=== PATIENT | female | born 1960 | race Caucasian/White ===

== ENCOUNTER 2016-06-10 19:51 | Emergency (ER) | payer OTHER ==
[2016-06-10 20:08] VITALS: BP 98/82
[2016-06-10 21:31] LABS: Hematocrit 41 % (35-47); Mean Corpuscular HGB Conc 34 g/dl (31-36); Mean Corpuscular Hemoglobin 34 pg (27-31); Mean Corpuscular Volume 100 fL (80-97); Mean Platelet Volume 7 um3 (7.4-10.4); Red Blood Count 4.11 10^6/ul (4.0-5.4); Red Cell Distribution Width 14 % (10.5-15); White Blood Count 8.6 10^3/ul (3.5-10.8)
[2016-06-10 21:46] LABS: ALT 11 U/L (7-52); Albumin 4.5 g/dL (3.2-5.2); Alkaline Phosphatase 51 U/L (34-104); BUN/Creatinine Ratio 19.6 (8-20); Blood Urea Nitrogen 19 mg/dL (6-24); CO2 Carbon Dioxide 23 mmol/L (22-32); Calcium 9.6 mg/dL (8.6-10.3); Chloride 105 mmol/L (101-111); Creatine Kinase 100 U/L (10-223); EGFR Non-African American 59.8 (>60); Globulin 2.8 g/dL (2-4); Glucose 93 mg/dL (70-100); Sodium 138 mmol/L (133-145); Total Protein 7.3 g/dL (6.4-8.9)
--- NOTE | 2016-06-10 21:48 | RAD ---
INDICATION: Altered mental status. COMPARISON: There are no prior studies available for comparison. TECHNIQUE: A portable view of the chest was obtained. FINDINGS: Cardiac and mediastinal contours appear to be within normal limits. There is a nodular density which projects over the right upper lobe measuring 1.7 cm in size. This is possibly related to the right first rib. The lungs are otherwise clear. No pleural effusion is seen. IMPRESSION: 1. POSSIBLE RIGHT UPPER LOBE NODULAR DENSITY. RECOMMEND DUAL-ENERGY PA AND LATERAL CHEST FILMS FOR FURTHER EVALUATION. 2. NO EVIDENCE FOR ACUTE FINDING.
[2016-06-10 21:58] LABS: Acetaminophen < 15 mcg/mL; Alcohol 337 mg/dL (<10); Salicylate < 2.50 mg/dL (<30)
--- NOTE | 2016-06-10 22:03 | RAD ---
INDICATION: Head injury, altered mental status. COMPARISON: Comparison is made with a prior CT of the brain from November 16, 2013. TECHNIQUE: Contiguous axial sections of the brain were obtained from the skull base to the vertex without contrast. FINDINGS: The ventricles, cisterns and sulci are enlarged consistent with age-related atrophy. No significant focal abnormality or mass effect is seen. There is no evidence for hemorrhage. There is focal soft tissue swelling in the scalp adjacent to the lateral aspect of the right frontal bone. No fracture is seen. The visualized portion of the paranasal sinuses and mastoid air cells appear clear. IMPRESSION: 1. NO EVIDENCE FOR ACUTE INTRACRANIAL ABNORMALITY. 2. SOFT TISSUE SWELLING IN THE SCALP ADJACENT TO THE RIGHT FRONTAL BONE, NO FRACTURE IS SEEN.
[2016-06-10 22:08] LABS: TSH (Thyroid Stimulating Horm) 0.96 mcIU/mL (0.34-5.60)
--- NOTE | 2016-06-11 01:18 | ED ---
Lani Patel Erika, scribed for Eris Carter MD on 06/10/16 at 2152 . Adult Trauma - HPI Summary HPI Summary: Patient is a 56-year-old female presenting to the ED with a CC of multiple abrasions and spots of ecchymosis. When asked what happened today, she states " I am what I am," and reports she cannot remember how she became injured and states "and I don't really care." Pt denies all pain. She presented herself to the [facility], and was brought to the ED. Hx breast cancer - in remission. Pt drinks daily. LEVEL 5 CAVEAT - Pt unable to provide a history. - History of Current Complaint Chief Complaint: EDAltMentalStatus Stated Complaint: FALL Time Seen by Provider: 06/10/16 21:15 Hx Obtained From: Patient Mechanism of Injury: Unknown Onset/Duration: Traumatic Pain Intensity: 0 Pain Scale Used: 0-10 Numeric Associated Signs & Symptoms: Positive: Ecchymosis, Other: - abrasions - Allergy/Home Medications Allergies/Adverse Reactions: Allergies Allergy/AdvReac Type Severity Reaction Status Date / Time Adhesive Tape Allergy Rash Verified 09/22/15 11:05 PMH/Surg Hx/FS Hx/Imm Hx Endocrine/Hematology History: Denies: Hx Anticoagulant Therapy, Hx Blood Transfusions, Hx Diabetes, Hx Thyroid Disease, Other Endocrine/Hematological Disorders Cardiovascular History: Reports: Hx Syncope - rare Denies: Hx Pacemaker/ICD, Other Cardiovascular Problems/Disorders Respiratory History: Reports: Hx Seasonal Allergies Denies: Hx Asthma, Hx Chronic Bronchitis, Hx Chronic Obstructive Pulmonary Disease (COPD), Hx Lung Cancer, Hx Pneumonia, Other Respiratory Problems/ Disorders GI History: Denies: Hx Ulcer, Other GI Disorders History: Denies: Hx Kidney Stones, Other Problems/Disorders Musculoskeletal History: Reports: Hx Arthritis - hands Denies: Hx Back Problems, Other Musculoskeletal History Sensory History: Reports: Hx Contacts or Glasses Denies: Hx Hearing Aid, Other Sensory Impairments Opthamlomology History: Reports: Hx Contacts or Glasses Denies: Other Sensory Impairments Neurological History: Reports: Hx Headaches, Hx Seizures - last 2013, undiagnosed disorder, Other Neuro Impairments/Disorders - Shaky from ETOH withdrawal Psychiatric History: Reports: Hx Anxiety, Hx Eating Disorder - bolemia, in youth , briefly, Hx Depression, Hx Panic Disorder - panic attacks when young, Hx Inpatient Treatment, Hx Community Mental Health Tx, Hx Substance Abuse, Other Psychiatric Issues/Disorders - ETOH Abuse Denies: Hx Attention Deficit Hyperactivity Disorder, Hx Post Traumatic Stress Disorder, Hx Schizophrenia, Hx Bipolar Disorder, Hx Suicide Attempt - Thoughts-presently, Hx of Violent Episodes Against Others - Cancer History Cancer Type, Location and Year: breast cancer Hx Hematologic Symptoms: No Hx Chemotherapy: Yes Hx Radiation Therapy: Yes - Surgical History Surgery Procedure, Year, and Place: Bilat Thumb Fusion. Bilat Carpal Tunnel Surgery. LEFT Breast Lumpectomy. ACL Sx left knee Hx Anesthesia Reactions: No - Immunization History Date of Tetanus Vaccine: Unk Date of Influenza Vaccine: Fall 2014 Infectious Disease History: No Infectious Disease History: Denies: History Other Infectious Disease, Traveled Outside the [place] in Last 30 Days - Family History Known Family History: Positive: Unknown - pt adopted - Social History Alcohol Use: Daily Alcohol Amount: HX ETOH ABUSE - STILL DRINKS Hx Substance Use: No Substance Use Type: Reports: None Substance Use Comment - Amount & Last Used: pt last requested benzos in ED on , 07/21 per plastic surgery coordinator Hx Tobacco Use: Yes Smoking Status (MU): Current Some Day Smoker Type: Cigarettes Have You Smoked in the Last Year: No Review of Systems - ROS Summary Review of Systems Summary: LEVEL 5 CAVEAT - Pt unable to provide a history. Skin: Other - abrasions Positive: Bruising Neurological: Other - unable to remember history All Other Systems Reviewed And Are Negative: No Physical Exam - Summary Physical Exam Summary: LEVEL 5 CAVEAT - Pt unable to provide a history. Triage Information Reviewed: Yes Vital Signs On Initial Exam: Initial Vitals Temp Pulse Resp BP Pulse Ox 97.1 F 83 15 98/82 100 06/10/16 20:02 06/10/16 20:02 06/10/16 20:02 06/10/16 20:02 06/10/16 20:02 Vital Signs Reviewed: Yes Appearance: Positive: Well-Appearing, No Pain Distress Skin: Positive: Warm, Skin Color Reflects Adequate Perfusion, Dry, Other - Abrasions @ nose, left eyebrow Head/Face: Positive: Other - see Skin Eyes: Positive: Normal ENT: Positive: Normal ENT inspection Neck: Positive: Supple, Nontender Respiratory/Lung Sounds: Positive: Clear to Auscultation, Breath Sounds Present Cardiovascular: Positive: RRR Abdomen Description: Positive: Nontender, Soft Bowel Sounds: Positive: Present Musculoskeletal: Positive: Normal Neurological: Positive: Other - Unable to recall events Psychiatric: Positive: Other - Unable to recall events Diagnostics - Vital Signs Vital Signs Temp Pulse Resp BP Pulse Ox 06/10/16 20:02 97.1 F 83 15 98/82 100 - Laboratory Lab Results: Lab Results 06/10/16 06/10/16 06/10/16 Range/Units 21:10 21:10 21:10 WBC 8.6 (3.5-10.8) 10^3/ul RBC 4.11 (4.0-5.4) 10^6/ul Hgb 14.0 (12.0-16.0) g/dl Hct 41 (35-47) % MCV 100 H (80-97) fL MCH 34 H (27-31) pg MCHC 34 (31-36) g/dl RDW 14 (10.5-15) % Plt Count 198 (150-450) 10^3/ul MPV 7 L (7.4-10.4) um3 Neut % (Auto) 62.0 (38-83) % Lymph % (Auto) 28.1 (25-47) % Kingman % (Auto) 7.8 (1-9) % Eos % (Auto) 1.0 (0-6) % Baso % (Auto) 1.1 (0-2) % Absolute Neuts (auto) 5.3 (1.5-7.7) 10^3/ul Absolute Lymphs (auto) 2.4 (1.0-4.8) 10^3/ul Absolute Monos (auto) 0.7 (0-0.8) 10^3/ul Absolute Eos (auto) 0.1 (0-0.6) 10^3/ul Absolute Basos (auto) 0.1 (0-0.2) 10^3/ul Absolute Nucleated RBC 0.01 10^3/ul Nucleated RBC % 0.2 Sodium 138 (133-145) mmol/L Potassium TNP Chloride 105 (101-111) mmol/L Carbon Dioxide 23 (22-32) mmol/L Anion Gap TNP BUN 19 (6-24) mg/dL Creatinine 0.97 H (0.51-0.95) mg/dL Est GFR ( Amer) 77.0 (>60) Est GFR (Non-Af Amer) 59.8 (>60) BUN/Creatinine Ratio 19.6 (8-20) Glucose 93 (70-100) mg/dL Lactic Acid (0.5-2.0) mmol/L Calcium 9.6 (8.6-10.3) mg/dL Total Bilirubin 0.30 (0.2-1.0) mg/dL AST TNP ALT 11 (7-52) U/L Alkaline Phosphatase 51 (34-104) U/L Ammonia 40 (16-53) mol/L Total Creatine Kinase 100 (10-223) U/L Troponin I 0.00 (<0.04) ng/mL Total Protein 7.3 (6.4-8.9) g/dL Albumin 4.5 (3.2-5.2) g/dL Globulin 2.8 (2-4) g/dL Albumin/Globulin Ratio 1.6 (1-3) TSH 0.96 (0.34-5.60) mcIU/mL Salicylates < 2.50 (<30) mg/dL Acetaminophen < 15 mcg/mL Serum Alcohol 337 H (<10) mg/dL 06/10/16 06/10/16 Range/Units 21:10 22:15 WBC (3.5-10.8) 10^3/ul RBC (4.0-5.4) 10^6/ul Hgb (12.0-16.0) g/dl Hct (35-47) % MCV (80-97) fL MCH (27-31) pg MCHC (31-36) g/dl RDW (10.5-15) % Plt Count (150-450) 10^3/ul MPV (7.4-10.4) um3 Neut % (Auto) (38-83) % Lymph % (Auto) (25-47) % Kingman % (Auto) (1-9) % Eos % (Auto) (0-6) % Baso % (Auto) (0-2) % Absolute Neuts (auto) (1.5-7.7) 10^3/ul Absolute Lymphs (auto) (1.0-4.8) 10^3/ul Absolute Monos (auto) (0-0.8) 10^3/ul Absolute Eos (auto) (0-0.6) 10^3/ul Absolute Basos (auto) (0-0.2) 10^3/ul Absolute Nucleated RBC 10^3/ul Nucleated RBC % Sodium (133-145) mmol/L Potassium TNP Chloride (101-111) mmol/L Carbon Dioxide (22-32) mmol/L Anion Gap BUN (6-24) mg/dL Creatinine (0.51-0.95) mg/dL Est GFR ( Amer) (>60) Est GFR (Non-Af Amer) (>60) BUN/Creatinine Ratio (8-20) Glucose (70-100) mg/dL Lactic Acid 1.5 (0.5-2.0) mmol/L Calcium (8.6-10.3) mg/dL Total Bilirubin (0.2-1.0) mg/dL AST TNP ALT (7-52) U/L Alkaline Phosphatase (34-104) U/L Ammonia (16-53) mol/L Total Creatine Kinase (10-223) U/L Troponin I (<0.04) ng/mL Total Protein (6.4-8.9) g/dL Albumin (3.2-5.2) g/dL Globulin (2-4) g/dL Albumin/Globulin Ratio (1-3) TSH (0.34-5.60) mcIU/mL Salicylates (<30) mg/dL Acetaminophen mcg/mL Serum Alcohol (<10) mg/dL Result Diagrams: 06/10/16 21:10 06/10/16 22:15 Lab Statement: Any lab studies that have been ordered have been reviewed, and results considered in the medical decision making process. - Radiology CXR Radiology Interpretation Completed By: Radiologist - 1. POSSIBLE RIGHT UPPER LOBE NODULAR DENSITY. RECOMMEND DUAL-ENERGY PA AND LATERAL CHEST FILMS FOR FURTHER EVALUATION. 2. NO EVIDENCE FOR ACUTE FINDING. - CT CT Brain CT Interpretation Completed By: Radiologist - IMPRESSION: 1. NO EVIDENCE FOR ACUTE INTRACRANIAL ABNORMALITY. 2. SOFT TISSUE SWELLING IN THE SCALP ADJACENT TO THE RIGHT FRONTAL BONE, NO FRACTURE IS SEEN. - EKG 22:10 Cardiac Rate: NL - at 76 bpm EKG Rhythm: Sinus Rhythm Adult Trauma Course/Dx - Course Course Of Treatment: Nata Corado presented to the ED intxicated and covered in abrasions and contusions. She was unable or unwilling to relate what had happened to her. She is being observed at this time for her safety until she estrellita up and can be better evaulated. - Diagnoses Provider Diagnoses: Alcohol intoxication, Multiple abrasions, Multiple contusions - Physician Notifications Discussed Care Of Patient With: Dr. Sorto Time Discussed With Above Provider: 01:00 - Change of shift Discharge - Discharge Plan Condition: Stable Disposition: HOME Patient Education Materials: Alcohol Intoxication (ED), Abrasion (ED) Referrals: Simone Jeter MD [Primary Care Provider] - The documentation as recorded by the Lani bhatt Erika accurately reflects the service I personally performed and the decisions made by me, Eris Carter MD.
== END 2016-06-11 06:09 | disposition home or self-care (01) ==
LOC: ED 19:51
DX: F10.129 Alcohol abuse with intoxication, unspecified (principal); T14.8 Other injury of unspecified body region; Y90.8 Blood alcohol level of 240 mg/100 ml or more; Z85.3 Personal history of malignant neoplasm of breast
CPT/HCPCS: 36415; 70450; 71010; 80053; 80320; 80329; 82140; 82550; 83605; 84443; 84484; 85025; 93005; 99282; G0480

== ENCOUNTER 2016-09-09 08:38 | Emergency (ER) | payer OTHER ==
[2016-09-09 08:54] VITALS: BP 121/90
--- NOTE | 2016-09-09 09:53 | UC ---
Nish Patel Auryana, scribed for Servando Boone MD on 09/09/16 at 0914 . Complaint Female HPI - HPI Summary HPI Summary: 56 year old female presents with U.T.I. starting last night, worse this morning. She also reports increased urinary frequency and odor but denies fever , chills, flank pain, or any dysuria or burning with urination. PMHx is significant for prior U.R.I.s - History Of Current Complaint Chief Complaint: UCGU Stated Complaint: UTI COMPLAINT Time Seen by Provider: 09/09/16 09:09 Hx Obtained From: Patient Hx Last Menstrual Period: N/A ?: No Onset/Duration: Sudden Onset - last night, Lasting Hours - about 12 hours ago, Still Present, Worse Since - this morning Timing: Constant Severity Initially: Mild Severity Currently: Mild Pain Intensity: 0 - denies pain Pain Scale Used: 0-10 Numeric Character: Colicy - pressure over bladder Aggravating Factor(s): Nothing Alleviating Factor(s): Nothing Associated Signs And Symptoms: Positive: Negative - see HPI. Negative: Fever Related Hx: Similar Episode/Dx as: - prior PMHx of U.T.I.s - Allergies/Home Medications Allergies/Adverse Reactions: Allergies Allergy/AdvReac Type Severity Reaction Status Date / Time Adhesive Tape Allergy Rash Verified 07/03/16 11:07 PMH/Surg Hx/FS Hx/Imm Hx Endocrine History Of: Denies: Diabetes, Thyroid Disease Cardiovascular History Of: Denies: Hypertension, Pacemaker/ICD Respiratory History Of: Denies: COPD, Asthma, Pneumonia GI/ History Of: Denies: Ulcer, Kidney Stones, Renal Disease Neurological History Of: Reports: Seizures - last 2013, undiagnosed disorder Psychological History Of: Reports: Anxiety, Depression Denies: Bipolar Disorder, Schizophrenia Cancer History Of: 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 Bilat Carpal Tunnel Surgery. LEFT Breast Lumpectomy. LEFT KNEE ARTHROSCOPIC SURGERY. ACL Sx left knee - Family History Known Family History: Positive: None, Unknown - pt adopted - Social History Occupation: Unemployed Lives: With Family - Alcohol Use: None Alcohol Amount: recovering Substance Use Type: None Substance Use Comment - Amount & Last Used: pt last requested benzos in ED on , 07/21 per manager news Smoking Status (MU): Never Smoked Tobacco Type: Cigarettes Have You Smoked in the Last Year: No When Did the Patient Quit Smoking/Using Tobacco: 20 YEARS AGO - Immunization History Most Recent Influenza Vaccination: 2014 Most Recent Tetanus Shot: unk Most Recent Pneumonia Vaccination: never Review of Systems Constitutional: Negative Skin: Negative Eyes: Negative ENT: Negative Respiratory: Negative Cardiovascular: Negative Gastrointestinal: Negative Genitourinary: Urgency - increased, Other - odor with urination Motor: Negative Neurovascular: Negative Musculoskeletal: Negative Neurological: Negative Psychological: Negative All Other Systems Reviewed And Are Negative: Yes Physical Exam Triage Information Reviewed: Yes Appearance: No Pain Distress, Well-Nourished Vital Signs: Initial Vital Signs Temp 97.8 F 09/09/16 08:46 Pulse 88 09/09/16 08:46 Resp 16 09/09/16 08:46 BP 121/90 09/09/16 08:46 Pulse Ox 100 09/09/16 08:46 Vital Signs Reviewed: Yes Eyes: Positive: Conjunctiva Clear Respiratory: Positive: Lungs clear, Normal breath sounds Cardiovascular: Positive: RRR, No Murmur Abdomen Description: Positive: Soft, Other: - subrapubic tenderness - mild Bowel Sounds: Positive: Present Musculoskeletal: Positive: Strength Intact, ROM Intact Neurological: Positive: Alert Psychological: Positive: Age Appropriate Behavior Complaint Female Dx - Course Course Of Treatment: RX CIPRO/PYRIDIUM - Differential Dx/Diagnosis Provider Diagnoses: UTI Discharge - Discharge Plan Condition: Stable Disposition: HOME Prescriptions: Ciprofloxacin TAB* [Cipro 500 MG TAB*] 500 mg PO BID #14 tab Phenazopyridine 200 mg (NF) [Pyridium 200 MG tab] 200 mg PO TID PRN #6 tab PRN Reason: Pain Patient Education Materials: Urinary Tract Infection in Women (ED) Referrals: Simone Jeter MD [Primary Care Provider] - If Needed Additional Instructions: Please see your PCP if your symptoms worsen or do not improve. The documentation as recorded by the Nish bhatt Auryana accurately reflects the service I personally performed and the decisions made by , Servando Boone MD.
== END 2016-09-09 09:29 | disposition home or self-care (01) ==
LOC: UCEAST 08:38
DX: N39.0 Urinary tract infection, site not specified (principal); F41.8 Other specified anxiety disorders; Z85.3 Personal history of malignant neoplasm of breast
CPT/HCPCS: 81003; 87077; 87086; 87186; 99212; G0463

== ENCOUNTER 2017-04-16 15:06 | Emergency (ER) | payer OTHER ==
[2017-04-16 16:04] LABS: Hematocrit 42 % (35-47); Mean Corpuscular HGB Conc 34 g/dl (31-36); Mean Corpuscular Hemoglobin 33 pg (27-31); Mean Corpuscular Volume 99 fL (80-97); Mean Platelet Volume 6 um3 (7.4-10.4); Red Blood Count 4.24 10^6/ul (4.0-5.4); Red Cell Distribution Width 18 % (10.5-15); White Blood Count 4.7 10^3/ul (3.5-10.8)
[2017-04-16 16:12] LABS: Comments Flag Yes
[2017-04-16 16:13] LABS: Add Diff/Slide Review? Slide Review Added
[2017-04-16 16:20] LABS: ALT 14 U/L (7-52); AST 31 U/L (13-39); Albumin 4.4 g/dL (3.2-5.2); Alkaline Phosphatase 71 U/L (34-104); Anion Gap 13 mmol/L (2-11); BUN/Creatinine Ratio 13.6 (8-20); Blood Urea Nitrogen 11 mg/dL (6-24); CO2 Carbon Dioxide 27 mmol/L (22-32); Calcium 8.7 mg/dL (8.6-10.3); Chloride 103 mmol/L (101-111); EGFR African American 94.4 (>60); EGFR Non-African American 73.4 (>60); Globulin 2.9 g/dL (2-4); Glucose 96 mg/dL (70-100); Magnesium 2.1 mg/dL (1.9-2.7); Potassium 3.5 mmol/L (3.5-5.0); Sodium 143 mmol/L (133-145); Total Protein 7.3 g/dL (6.4-8.9)
[2017-04-16 16:24] LABS: Acetaminophen < 15 mcg/mL; Salicylate < 2.50 mg/dL (<30)
--- NOTE | 2017-04-16 16:29 | RAD ---
indication: Altered mental status with for head abrasion. +EtOH. COMPARISON: CT of the brain dated June 10, [address] scan of the brain and c-spine was performed without intravenous contrast enhancement. Contiguous axial sections were obtained from the lung apices through the vertex. BRAIN: The ventricles, cisterns and sulci are within normal limits. No significant focal abnormality or mass effect is seen. The mendez-white differentiation is adequately maintained. There is no evidence for intracranial hemorrhage. No significant bony abnormality is present. The mastoid air cells are appropriately aerated. The visualized paranasal sinuses are clear. C-SPINE: On the sagittal view images there is reversal of the normal cervical lordosis. The vertebral bodies and facet joints are otherwise appropriately aligned. Multilevel degenerative changes of the cervical spine include loss of intervertebral disc height from C3 through C6 where there is also marginal osteophyte formation. At the same levels there is uncovertebral hypertrophy seen on the coronal plane images. There is no prevertebral soft tissue swelling. There is no hyperdense material in the cervical canal to indicate hemorrhage. The visualized musculature and soft tissues are normal. There is no gross lymphadenopathy visualized. The visualized portion of the lung apices are clear. IMPRESSION: 1. No calvarial fracture or acute intracranial hemorrhage. 2. Nonspecific reversal of the normal cervical lordosis and multilevel degenerative changes without definite fracture or dislocation cervical spine.
[2017-04-16 16:32] LABS: Alcohol 478 mg/dL (<10); TSH (Thyroid Stimulating Horm) 1.07 mcIU/mL (0.34-5.60)
[2017-04-16] MEDS ORDERED: NS 0.9% 1000 ML* 1,000 ML IV ONE (16:43)
--- NOTE | 2017-04-16 22:48 | ED ---
Parminder Patel Gabriel, scribed for Nidia Griffith MD on 04/16/17 at 1614 . Substance Abuse/Use - HPI Summary HPI Summary: This patient is a 57 year old F BIBA to [facility] after she was found passed out on her couch. EMS reports that when they found her she had a of a bottle of vodka near her. We waited several hours for the patients blood alcohol level to drop because initially she was unresponsive. At this point the pt reports anxiety and depression that she is taking medication for. Patient denies RHOADES, ear pain, neck pain, ABD pain, back pain, sob, dysuria, melena, and hematuria. Pt says drinks to excess often and has since she was able to drink. She also has some facial ecchymosis from a fall she claims was weeks ago. . - History Of Current Complaint Chief Complaint: EDSubstanceAbuse Stated Complaint: ETOH Time Seen by Provider: 04/16/17 15:13 Hx Obtained From: Patient Hx Last Menstrual Period: N/A Onset/Duration of Drug/ETOH Abuse: Years - since she could drink Overdose Characteristics: Oral Timing Of Abuse: Daily Associated Signs And Symptoms: Negative - RHOADES, ear pain, neck pain, ABD pain, back pain, sob, dysuria, melena, and blood in her stool, Other: - anxiety and depression - Allergies/Home Medications Allergies/Adverse Reactions: Allergies Allergy/AdvReac Type Severity Reaction Status Date / Time Adhesive Tape Allergy Rash Verified 07/03/16 11:07 PMH/Surg Hx/FS Hx/Imm Hx Previously Healthy: No Endocrine/Hematology History: Denies: Hx Anticoagulant Therapy, Hx Blood Transfusions, Hx Diabetes, Hx Thyroid Disease, Other Endocrine/Hematological Disorders Cardiovascular History: Reports: Hx Syncope - rare Denies: Hx Hypertension, Hx Pacemaker/ICD, Other Cardiovascular Problems/ Disorders Respiratory History: Reports: Hx Seasonal Allergies Denies: Hx Asthma, Hx Chronic Bronchitis, Hx Chronic Obstructive Pulmonary Disease (COPD), Hx Lung Cancer, Hx Pneumonia, Other Respiratory Problems/ Disorders GI History: Denies: Hx Ulcer, Other GI Disorders History: Denies: Hx Kidney Stones, Hx Renal Disease, Other Problems/Disorders Musculoskeletal History: Reports: Hx Arthritis - hands Denies: Hx Back Problems, Other Musculoskeletal History Sensory History: Reports: Hx Contacts or Glasses Denies: Hx Hearing Aid, Other Sensory Impairments Opthamlomology History: Reports: Hx Contacts or Glasses Denies: Other Sensory Impairments Neurological History: Reports: Hx Headaches, Hx Seizures - last 2013, undiagnosed disorder, Other Neuro Impairments/Disorders - Shaky from ETOH withdrawal Psychiatric History: Reports: Hx Anxiety, Hx Eating Disorder - bolemia, in youth , briefly, Hx Depression, Hx Inpatient Treatment, Hx Community Mental Health Tx , Hx Substance Abuse, Other Psychiatric Issues/Disorders - ETOH Abuse Denies: Hx Attention Deficit Hyperactivity Disorder, Hx Panic Disorder, Hx Post Traumatic Stress Disorder, Hx Schizophrenia, Hx Bipolar Disorder, Hx Suicide Attempt - Thoughts-presently, Hx of Violent Episodes Against Others - Cancer History Cancer Type, Location and Year: breast cancer=left Hx Hematologic Symptoms: No Hx Chemotherapy: Yes Hx Radiation Therapy: Yes - Surgical History Surgery Procedure, Year, and Place: Bilat Thumb Fusion. Bilat Carpal Tunnel Surgery. LEFT Breast Lumpectomy. LEFT KNEE ARTHROSCOPIC SURGERY. ACL Sx left knee Hx Anesthesia Reactions: No - Immunization History Date of Tetanus Vaccine: Unk Date of Influenza Vaccine: Fall 2014 Infectious Disease History: Unable to Obtain/Confirm Infectious Disease History: Denies: History Other Infectious Disease, Traveled Outside the [place] in Last 30 Days - Family History Known Family History: Positive: Unknown - pt adopted - Social History Alcohol Use: found smelling of ETOH with vodka at her side Alcohol Amount: recovering Hx Substance Use: No Substance Use Type: Reports: None, Other Substance Use Comment - Amount & Last Used: pt last requested benzos in ED on , 07/21 per turbine assembler Hx Tobacco Use: Yes Smoking Status (MU): Unknown if Ever Smoked Type: Cigarettes Have You Smoked in the Last Year: No Review of Systems Constitutional: Other - EtOH intoxication Negative: Fever, Chills Negative: Blurred Vision Negative: Ear Ache Negative: Shortness Of Breath Negative: Abdominal Pain Genitourinary: Negative - melena Negative: dysuria, hematuria Musculoskeletal: Negative - neck and back pain Negative: Headache Positive: Anxious, Depressed All Other Systems Reviewed And Are Negative: No Physical Exam - Summary Physical Exam Summary: Appearance: Alert, conversive, nontoxic appearing Skin: Warm, dry, no mottling, no rashes, no contusions HEENT: EOMI, PERRL, moist mucous membranes No septal hematoma. No hemotympanum Bruising to upper eyelid to right and abrasion with dried blood on right brow Neck: No masses on the neck, supple Respiratory: Clear to auscultation, breath sounds present, no rales, no rhonchi , no wheezes Cardiovascular: RRR, pulses are symmetrical in both lower and upper extremities Abdomen: Soft, non-tender Bowel Sounds: Present Musculoskeletal: No CVA tenderness, no obvious deformity, moving all extremities in a grossly normal manner Old healing bruises on her bilateral LE Neurological: A&Ox3, CN II-XII Intact, moving all extremities symmetrically Psychiatric: Normal affect and mood Triage Information Reviewed: Yes Vital Signs On Initial Exam: Initial Vitals Temp Pulse Resp BP Pulse Ox 97.6 F 120 16 121/83 95 04/16/17 15:13 04/16/17 15:13 04/16/17 15:13 04/16/17 15:13 04/16/17 15:13 Vital Signs Reviewed: Yes - [place] Coma Scale Coma Scale Total: 10 Diagnostics - Vital Signs Vital Signs Temp Pulse Resp BP Pulse Ox 04/16/17 15:30 121 17 130/96 95 04/16/17 15:18 20 04/16/17 15:16 121/83 04/16/17 15:13 97.6 F 120 16 121/83 95 - Laboratory Lab Results: Lab Results 04/16/17 Range/Units 15:20 WBC 4.7 (3.5-10.8) 10^3/ul RBC 4.24 (4.0-5.4) 10^6/ul Hgb 14.0 (12.0-16.0) g/dl Hct 42 (35-47) % MCV 99 H (80-97) fL MCH 33 H (27-31) pg MCHC 34 (31-36) g/dl RDW 18 H (10.5-15) % Plt Count 265 (150-450) 10^3/ul MPV 6 L (7.4-10.4) um3 Neut % (Auto) 24.1 L (38-83) % Lymph % (Auto) 65.1 H (25-47) % Irwin % (Auto) 8.0 (1-9) % Eos % (Auto) 1.2 (0-6) % Baso % (Auto) 1.6 (0-2) % Absolute Neuts (auto) 1.1 L (1.5-7.7) 10^3/ul Absolute Lymphs (auto) 3.0 (1.0-4.8) 10^3/ul Absolute Monos (auto) 0.4 (0-0.8) 10^3/ul Absolute Eos (auto) 0.1 (0-0.6) 10^3/ul Absolute Basos (auto) 0.1 (0-0.2) 10^3/ul Absolute Nucleated RBC 0 10^3/ul Nucleated RBC % 0 Result Diagrams: 04/16/17 15:20 04/16/17 15:20 Lab Statement: Any lab studies that have been ordered have been reviewed, and results considered in the medical decision making process. - CT CT C-spine CT Interpretation Completed By: Radiologist - 1. No calvarial fracture or acute intracranial hemorrhage. 2. Nonspecific reversal of the normal cervical lordosis and multilevel degenerative changes without definite fracture or dislocation cervical spine. CT Brain CT Interpretation Completed By: Radiologist - 1. No calvarial fracture or acute intracranial hemorrhage. 2. Nonspecific reversal of the normal cervical lordosis and multilevel degenerative changes without definite fracture or dislocation cervical spine. - EKG 1525 Cardiac Rate: Tachycardia EKG Rhythm: Sinus Tachycardia - at 119 BPM EKG Interpretation: Prolonged QRS, normal QRS, normal QCT, Normal ST/T wave Course/Dx - Course Assessment/Plan: Pt is an alcoholic. Initially, pt was unable to give hx. ct head and cspine showed no acute findings. no fractures or ich. her etoh was elevated at 478. when pt awoke at approx 10pm, she admitted to being an alcoholic. she has no interest in alcohol rehab programs. pt states she has no one to call to pick her up. I discussed with her that we will allow her to sleep overnight until she estrellita up. At that point, she will be reevaluated and discharged accordingly. Pt voiced understanding of instructions. It is important to note that pt has a moderate size abrasion to her right face with dried blood. pt states that this occurred 3 days ago. I will not disturb the clot at this point. Even though pt does not want to become sober, I still encouraged her to get help and start a detox program. Patient is signed out to Dr. Harden, pending disposition, awaiting blood level of EtOH so she can return home. - Diagnoses Provider Diagnoses: Alcohol abuse, Alcohol intoxication, Fall, Facial abrasion Discharge - Discharge Plan Condition: Stable Disposition: OTHER Discharge Disposition Comment: pt signed out Referrals: Simone Jeter MD [Primary Care Provider] - The documentation as recorded by the Parminder bhatt Gabriel accurately reflects the service I personally performed and the decisions made by me, Nidia Griffith MD.
[2017-04-17 07:29] VITALS: BP 136/78
== END 2017-04-17 08:10 | disposition home or self-care (01) ==
LOC: ED 15:06
DX: F10.129 Alcohol abuse with intoxication, unspecified (principal); S00.81XA Abrasion of other part of head, initial encounter; W19.XXXA Unspecified fall, initial encounter; Y93.9 Activity, unspecified; Y92.9 Unspecified place or not applicable; F41.9 Anxiety disorder, unspecified
CPT/HCPCS: 36415; 70450; 72125; 80053; 80320; 80329; 83735; 84443; 85025; 93005; 99282; G0480

== ENCOUNTER 2017-06-01 18:27 | Observation (INO) | payer OTHER ==
--- NOTE | 2017-06-01 19:13 | ED ---
Substance Abuse/Use - HPI Summary HPI Summary: 57 female presents to ED brought in by police after being found intoxicated at [facility]. EMS found a 1.5liter of vodka empty. Patient denies any other drug use. Patient offers no complaints at this time. Is alert however chooses to not answer some questions. Patient lives at [place]. Does orient and know she is in the hospital. Denies medication use and PMHx however HPI is limited due to Level 5 caveat due to intoxication and being uncooperative. Staff at [facility] told EMS/police patient has been drinking all day. Denies drinking alcohol in intention to hurt herself. Denies nausea, vomiting, headache, abdominal pain, chest pain and trouble breathing. No complaints. Does not answer frequency of alcohol use. According to previous records does show patient was a recovering alcoholic. Denies falling and/or trauma and no report of. - History Of Current Complaint Chief Complaint: EDSubstanceAbuse Stated Complaint: 2208 Time Seen by Provider: 06/01/17 18:49 Hx Obtained From: Patient Hx Last Menstrual Period: N/A ?: No Onset/Duration of Drug/ETOH Abuse: Hours Ingestion History: Type/Name Of Drug - vodka, Amount Ingested - ~1.5 Overdose Characteristics: Oral Severity Currently: None Character: Stuporous - slightly slurred speech Aggravating Factor(s): Nothing Alleviating Factor(s): Nothing Associated Signs And Symptoms: Agitated, Drooling, Intentional Ingestion - Allergies/Home Medications Allergies/Adverse Reactions: Allergies Allergy/AdvReac Type Severity Reaction Status Date / Time Adhesive Tape Allergy Rash Verified 06/01/17 18:39 Home Medications: Home Medications FLUoxetine CAP* [PROzac CAP*] 20 mg PO DAILY 06/01/17 [History Confirmed ] Thiamine TAB* [Vitamin B-1 TAB*] 100 mg PO DAILY 06/01/17 [History Confirmed ] PMH/Surg Hx/FS Hx/Imm Hx Endocrine/Hematology History: Denies: Hx Anticoagulant Therapy, Hx Blood Transfusions, Hx Diabetes, Hx Thyroid Disease, Other Endocrine/Hematological Disorders Cardiovascular History: Reports: Hx Syncope - rare Denies: Hx Hypertension, Hx Pacemaker/ICD, Other Cardiovascular Problems/ Disorders Respiratory History: Reports: Hx Seasonal Allergies Denies: Hx Asthma, Hx Chronic Bronchitis, Hx Chronic Obstructive Pulmonary Disease (COPD), Hx Lung Cancer, Hx Pneumonia, Other Respiratory Problems/ Disorders GI History: Denies: Hx Ulcer, Other GI Disorders History: Denies: Hx Kidney Stones, Hx Renal Disease, Other Problems/Disorders Musculoskeletal History: Reports: Hx Arthritis - hands Denies: Hx Back Problems, Other Musculoskeletal History Sensory History: Reports: Hx Contacts or Glasses Denies: Hx Hearing Aid, Other Sensory Impairments Opthamlomology History: Reports: Hx Contacts or Glasses Denies: Other Sensory Impairments Neurological History: Reports: Hx Headaches, Hx Seizures - last 2013, undiagnosed disorder, Other Neuro Impairments/Disorders - Shaky from ETOH withdrawal Psychiatric History: Reports: Hx Anxiety, Hx Eating Disorder - bolemia, in youth , briefly, Hx Depression, Hx Inpatient Treatment, Hx Community Mental Health Tx , Hx Substance Abuse, Other Psychiatric Issues/Disorders - ETOH Abuse Denies: Hx Attention Deficit Hyperactivity Disorder, Hx Panic Disorder, Hx Post Traumatic Stress Disorder, Hx Schizophrenia, Hx Bipolar Disorder, Hx Suicide Attempt - Thoughts-presently, Hx of Violent Episodes Against Others - Cancer History Cancer Type, Location and Year: breast cancer=left Hx Hematologic Symptoms: No Hx Chemotherapy: Yes Hx Radiation Therapy: Yes - Surgical History Surgery Procedure, Year, and Place: Bilat Thumb Fusion. Bilat Carpal Tunnel Surgery. LEFT Breast Lumpectomy. LEFT KNEE ARTHROSCOPIC SURGERY. ACL Sx left knee Hx Anesthesia Reactions: No - Immunization History Date of Tetanus Vaccine: Unk Date of Influenza Vaccine: Fall 2014 Immunizations Up to Date: Yes Infectious Disease History: Unable to Obtain/Confirm Infectious Disease History: Denies: History Other Infectious Disease, Traveled Outside the [place] in Last 30 Days - Family History Known Family History: Positive: None, Unknown - pt adopted - Social History Alcohol Use: Daily Alcohol Amount: recovering Hx Substance Use: No Substance Use Type: Reports: None, Other Substance Use Comment - Amount & Last Used: pt last requested benzos in ED on , 07/21 per recreation facility attendant Hx Tobacco Use: Yes Smoking Status (MU): Unknown if Ever Smoked Type: Cigarettes Have You Smoked in the Last Year: No Review of Systems Constitutional: Negative Cardiovascular: Negative Respiratory: Negative Musculoskeletal: Negative All Other Systems Reviewed And Are Negative: Yes Physical Exam Triage Information Reviewed: Yes Vital Signs On Initial Exam: Initial Vitals Temp Pulse Resp BP Pulse Ox 97.3 F 93 14 110/65 96 06/01/17 18:30 06/01/17 18:30 06/01/17 18:30 06/01/17 18:30 06/01/17 18:30 Vital Signs Reviewed: Yes Appearance: Positive: Well-Appearing - some drooling, slurred speech and intoxicated appearance, No Pain Distress, Well-Nourished Skin: Positive: Warm, Skin Color Reflects Adequate Perfusion, Dry, Other - no signs of trauma, ecchymosis or deformities. Negative: Cold, Tender, Cyanosis @ Head/Face: Positive: Normal Head/Face Inspection. Negative: Scalp Eyes: Positive: Normal, EOMI, DEVON, Conjunctiva Clear ENT: Positive: Normal ENT inspection, Hearing grossly normal, Pharynx normal Neck: Positive: Supple, Nontender Respiratory/Lung Sounds: Positive: Clear to Auscultation, Breath Sounds Present. Negative: Rales, Rhonchi, Wheezes Cardiovascular: Positive: Normal, RRR, Pulses are Symmetrical in both Upper and Lower Extremities. Negative: Murmur, Rub Abdomen Description: Positive: Nontender, Soft Bowel Sounds: Positive: Present Musculoskeletal: Positive: Normal, Strength/ROM Intact. Negative: Limited @, Pain @ Neurological: Positive: Normal, Sensory/Motor Intact, Alert, Oriented to Person Place, Time, NV Bundle Intact Distally, Slurred Speech - intoxicated, Facial Symmetry, Speech Normal Psychiatric: Positive: Affect/Mood Appropriate - [place] Coma Scale Best Eye Response: 4 - Spontaneous Best Motor Response: 6 - Obeys Commands Best Verbal Response: 5 - Oriented Coma Scale Total: 15 Diagnostics - Vital Signs Vital Signs Temp Pulse Resp BP Pulse Ox 06/01/17 18:39 14 06/01/17 18:30 97.3 F 93 14 110/65 96 - Laboratory Lab Statement: Any lab studies that have been ordered have been reviewed, and results considered in the medical decision making process. Course/Dx - Course Course Of Treatment: liliane was offering no complaints, states she did not want to be here. serum alcohol level obtained and 485. iv initiated and fluids given. patient unknown last time she drank alcohol, as she will not answer and is uncooperative. but is previously known alcoholic. obtained urine sample. normal vitals and patient alert. was agitated that she was brought to the ED. patient kept pulling out IV, twice. patient monitored throughout stay, on telemetry. spoke with Dr Lopez about admission, accepted admission for observation and due to patient's serum alcohol level with hypotension and probable withdrawal/DT later on. - Diagnoses Differential Diagnosis/HQI/PQRI: Positive: Alcohol Abuse, Other - intoxication Provider Diagnoses: Alcohol intoxication - Physician Notifications Discussed Care Of Patient With: Dr Lopez Time Discussed With Above Provider: 21:30 Instructed by Provider To: Admit As Inpatient Discharge - Discharge Plan Condition: Stable Disposition: ADMITTED TO [facility] Referrals: Simone Jteer MD [Primary Care Provider] -
[2017-06-01] MEDS ORDERED: NS 0.9% 1000 ML* 1,000 ML IV ONE (20:59)
[2017-06-01] MEDS ORDERED: NS 0.9% 1000 ML* 2,000 ML IV ONE (21:16)
[2017-06-01] MEDS ORDERED: Thiamine IV* 100 MG/ML 2 ML VIAL IM ONE (22:57)
[2017-06-01] MEDS ORDERED: Acetaminophen TAB* 325 MG PO PRN (22:57)
[2017-06-01] MEDS ORDERED: LORazepam INJ* 2 MG/ML 1 ML VIAL IV PUSH SCH (23:00)
--- NOTE | 2017-06-02 04:25 | HP ---
H&P (Free Text) History and Physical: PCP: Giovana Jeter MD Date/Time: 06/01/2017 2240 CC: acute alcohol intoxication HPI: Mrs Corado is a 57YO female HX breast CA, alcohol abuse, & anxiety who presented to the ED via police for acute intoxication found to have a serum alcohol of 485. She has no complaints and is unable to give much of a history 2nd severe acute intoxication, but is able to communicate and protect her airway. She gives very little in the way of history, often ignoring questions. She does state that she currently has no where to live. Request for observation was made as her time to sobriety will keep ED resources tied up. Additionally, close medical monitoring should be done for development of delirium tremens. After multiple reassurances that I was here to help her feel better and get her life pointed in a better direction, she softens her affect, but would rather not discuss things further at this time. PMedHx breast CA alcohol abuse anxiety Ambulatory Orders Naltrexone TAB* 50 mg PO DAILY 07/28/14 Atorvastatin* [Lipitor*] 20 mg PO 1700 09/22/15 FLUoxetine CAP* [PROzac CAP*] 20 mg PO DAILY 06/01/17 Thiamine TAB* [Vitamin B-1 TAB*] 100 mg PO DAILY 06/01/17 Allergies Adhesive Tape Allergy (Verified 06/01/17 18:39) Rash SocHx: former smoker, does not answer questions related to alcohol consumption or recreational drugs; currently claims to be homeless; full code status FamHx: adopted, no information known ROS: as above, otherwise reviewed and all were negative vitals: Vital Signs Temp 36.7 C 06/02/17 03:08 Pulse 90 06/02/17 03:08 Resp 16 06/02/17 03:08 BP 97/61 06/02/17 03:34 Pulse Ox 96 06/02/17 03:08 Intake & Output 06/01/17 06/01/17 06/02/17 11:59 23:59 11:59 Intake Total 900 Balance 900 Weight 62.097 kg Intake: IV Fluids 900 Constitutional: NAD, normally developed, well-nourished white female HEENM: atraumatic; sclera/conjunctiva: anicteric/clear; hearing: ; oropharynx: Neck: soft tissue: ; thyroid: Pulmonary: clear to auscultation bilaterally, good aeration, no accessory muscle use CV: RR/RR, normal S1S2, no carotid bruit, no jugular venous distention, 2+ B DP/ PT, no edema Abdominal: soft, non-distended, non-tender, no rebound/guarding/rigidity, normoactive bowel sounds, no hepatosplenomegaly or masses, no costovertebral angle tenderness Musculoskeletal: general: grossly intact, no tenderness to palpation Integumental: normal appearance and texture of exposed skin Psychiatric orientation: AA&O to PPS affect: initially hard and untrusting, but more friendly towards the end of our encounter mood: reserved, suspicious eye contact: fair to poor content: seemingly reliable when she answers insight: fair Testing: Lab Results 06/01/17 06/01/17 Range/Units 19:52 22:26 Urine Opiates Screen None detected (None Detect) Ur Barbiturates Screen None detected (None Detect) Ur Phencyclidine Scrn None detected (None Detect) Ur Amphetamines Screen None detected (None Detect) U Benzodiazepines Scrn None detected (None Detect) Urine Cocaine Screen None detected (None Detect) U Cannabinoids Screen None detected (None Detect) Serum Alcohol 485 H* (<10) mg/dL Impression: severe acute alcohol intoxication with clear speech & intact coordination DIAGNOSIS & PLAN Primary severe acute alcohol intoxication with clear speech & intact coordination : [facility] protocol : health and social care teacher consult Admission Rational: observation for monitoring of severe intoxication & development of withdrawals DVTp: heparin Code Status: full
[2017-06-02 05:41] LABS: Hematocrit 35 % (35-47); Mean Corpuscular HGB Conc 34 g/dl (31-36); Mean Corpuscular Hemoglobin 34 pg (27-31); Mean Corpuscular Volume 98 fL (80-97); Mean Platelet Volume 6 um3 (7.4-10.4); Platelet Count 295 10^3/ul (150-450); Red Blood Count 3.57 10^6/ul (4.0-5.4); Red Cell Distribution Width 17 % (10.5-15); White Blood Count 4.9 10^3/ul (3.5-10.8)
[2017-06-02 06:05] LABS: ABS Basophils 0.1 10^3/ul (0-0.2); ABS Eosinophils 0.1 10^3/ul (0-0.6); ABS Lymphocytes 2.9 10^3/ul (1.0-4.8); ABS Monocytes 0.5 10^3/ul (0-0.8); ABS Neutrophils 1.3 10^3/ul (1.5-7.7); ABS Nucleated RBC 0 10^3/ul; Eosinophil % 1.2 % (0-6); Lymphocyte % 60.1 % (25-47); Nucleated Red Blood Cells % 0.1
[2017-06-02 06:49] LABS: INR 1.03 (0.77-1.02)
[2017-06-02] MEDS: FLUoxetine CAP* 20 MG PO SCH (09:24)
[2017-06-02] MEDS: Folic Acid TAB* 1 MG PO SCH (09:24)
[2017-06-02] MEDS: Multivitamins/Minerals TAB PO SCH (09:24)
[2017-06-02] MEDS: Thiamine TAB* 100 MG TAB PO SCH (09:24)
[2017-06-02] MEDS: Heparin VIAL(*) 5000 UNITS/ML VIAL (FIVE THOUSAND) SUBCUT SCH ×2 (13:58→21:25)
[2017-06-02] MEDS ORDERED: Atorvastatin* 20 MG TAB PO SCH (17:00)
--- NOTE | 2017-06-02 21:57 | PN ---
Subjective Date of Service: 06/02/17 Interval History: Pt is feeling well. She states she is embarrassed that she wound up in the hospital. She denies any nausea. No feelings of alcohol withdrawal. Objective Active Medications: Acetaminophen (Tylenol Tab*) 650 mg PO Q4H PRN PRN Reason: PAIN Atorvastatin Calcium (Lipitor*) 20 mg PO 1700 [facility] Last Admin: 06/02/17 17:19 Dose: 20 mg Fluoxetine HCl (Prozac Cap*) 20 mg PO DAILY [facility] Last Admin: 06/02/17 09:24 Dose: 20 mg Folic Acid (Folvite Tab*) 1 mg PO DAILY [facility] Last Admin: 06/02/17 09:24 Dose: 1 mg Heparin Sodium (Porcine) (Heparin Vial(*)) 5,000 units SUBCUT Q8HR [facility] Last Admin: 06/02/17 21:25 Dose: 5,000 units Lorazepam (Ativan Inj*) 0 - 6 mg IV PUSH .PER [facility] PROTOCOL [facility] PRN Reason: Protocol Last Admin: 06/02/17 13:58 Dose: 2 mg Multivitamins/Minerals (Theragran/Minerals Tab*) 1 tab PO DAILY [facility] Last Admin: 06/02/17 09:24 Dose: 1 tab Thiamine HCl (Vitamin B-1 Tab*) 100 mg PO DAILY [facility] Last Admin: 06/02/17 09:24 Dose: 100 mg Vital Signs - 8 hr 06/02/17 06/02/17 06/02/17 13:58 15:37 15:47 Temperature 98.5 F Pulse Rate 91 Respiratory 18 18 18 Rate Blood Pressure 122/68 (mmHg) O2 Sat by Pulse 98 Oximetry 06/02/17 06/02/17 06/02/17 17:04 19:18 21:13 Temperature 97.8 F 98.5 F 98.2 F Pulse Rate 98 92 85 Respiratory 18 18 18 Rate Blood Pressure 127/73 127/78 113/77 (mmHg) O2 Sat by Pulse 99 98 99 Oximetry Oxygen Devices in Use Now: None Appearance: Middle aged female sitting up in bed, NAD Eyes: No Scleral Icterus Ears/Nose/Mouth/Throat: Mucous Membranes Moist Respiratory: Symmetrical Chest Expansion and Respiratory Effort, Clear to Auscultation Cardiovascular: NL Sounds; No Murmurs; No JVD, RRR, No Edema Extremities: No Clubbing, Cyanosis Skin: No Rash or Ulcers, No Nodules or Sclerosis Neurological: Alert and Oriented x 3 Result Diagrams: 06/02/17 05:21 06/02/17 05:21 Assess/Plan/Problems-Billing Ms Corado is a 57 yo F who has a h/o alcoholism and anxiety and was brought to the ER for intoxication and found to have a EtOH level of 485. - Patient Problems (1) Alcohol intoxication Current Visit: Yes Status: Acute Comment: The patient is now sober and not showing any signs of EtOH withdrawal. Continue to monitor on the [facility] protocol. [facility] wants to have a planning meeting prior to the patient returning home. (2) DVT prophylaxis Current Visit: Yes Status: Acute Code(s): [id number] - SNOMED Code(s): 825184554 Comment: SQ heparin (3) Full code status Current Visit: Yes Status: Acute Code(s): Z78.9 - OTHER SPECIFIED HEALTH STATUS SNOMED Code(s): 391159549
[2017-06-03] MEDS: Heparin VIAL(*) 5000 UNITS/ML VIAL (FIVE THOUSAND) SUBCUT SCH ×2 (05:34→14:19)
[2017-06-03] MEDS: Folic Acid TAB* 1 MG PO SCH (08:20)
[2017-06-03] MEDS: Thiamine TAB* 100 MG TAB PO SCH (08:21)
[2017-06-03] MEDS: FLUoxetine CAP* 20 MG PO SCH (08:21)
[2017-06-03] MEDS: Multivitamins/Minerals TAB PO SCH (08:21)
[2017-06-03 14:08] VITALS: BP 138/82
--- NOTE | 2017-06-04 12:51 | DS ---
CC: Dr. Jeter DISCHARGE SUMMARY: DATE OF ADMISSION: 06/01/17 DATE OF DISCHARGE: 06/03/17 PRIMARY CARE PROVIDER: Dr. Jeter. PRINCIPAL DIAGNOSIS: Alcohol intoxication. SECONDARY DIAGNOSES: 1. History of breast cancer. 2. Anxiety. DISCHARGE MEDICATIONS: 1. Thiamine 100 mg p.o. daily. 2. Naltrexone 50 mg p.o. daily. 3. Fluoxetine 20 mg p.o. daily. 4. Lipitor 20 mg p.o. daily. HOSPITAL COURSE: Ms. Corado is a 57-year-old female resident of [facility] who was found acutely intoxicated and was brought in via police. She was found to have blood alcohol level o f 485. The patient was admitted and sobered up over the course of next several hours. On 06/02/17, it was felt that the patient was stable for discharge home; however, [facility] wanted t o have a discharge planning meeting prior to the patient returning to [facility]. This was held on the afternoon of 06/03/17. The patient was ultimately discharged in good stable conditio n on 06/03/17. On the day of discharge, the patient's vital signs were stable. She was awake, alert and oriented si tting up in the bed in no acute distress. Cardiac exam revealed a normal S1 and S2 with a regular ra te and rhythm. No lower extremity edema was noted. Lungs were clear bilaterally. Abdomen was soft, nontender and nondistended. FOLLOWUP CONCERNS: The patient is being discharged home today, 06/03/17. ACTIVITY LEVEL: As tolerated. DIET: Regular. CONDITION ON DISCHARGE: Stable. The patient is to follow up with Rocio Du NP, for Dr. Jeter on 06/09/17 at 3 p.m. TIME SPENT: Twenty minutes was spent discharging this patient. [id number]/[facility] #: [id number]
== END 2017-06-03 15:50 | disposition home or self-care (01) ==
LOC: ED 18:27 → MED 22:40
PROVIDERS: ADMIT Hospitalist; ATTEND Hospitalist
DX: F10.129 Alcohol abuse with intoxication, unspecified (principal); R45.1 Restlessness and agitation; Z85.3 Personal history of malignant neoplasm of breast; Z78.9 Other specified health status
CPT/HCPCS: 36415; 80048; 80307; 80320; 85025; 85610; 85730; 96372; 96374; 99284; A9270-GY; G0480; J1644; J2060; J3411

== ENCOUNTER 2017-06-24 13:55 | Emergency (ER) | payer OTHER ==
[2017-06-24 15:23] LABS: ABS Basophils 0 10^3/ul (0-0.2); ABS Eosinophils 0.1 10^3/ul (0-0.6); ABS Lymphocytes 1.7 10^3/ul (1.0-4.8); ABS Monocytes 0.4 10^3/ul (0-0.8); ABS Neutrophils 2.6 10^3/ul (1.5-7.7); ABS Nucleated RBC 0 10^3/ul; Eosinophil % 2.8 % (0-6); Hematocrit 41 % (35-47); Hemoglobin 14.3 g/dl (12.0-16.0); Lymphocyte % 34.8 % (25-47); Mean Corpuscular HGB Conc 35 g/dl (31-36); Mean Corpuscular Hemoglobin 34 pg (27-31); Mean Corpuscular Volume 97 fL (80-97); Mean Platelet Volume 7 um3 (7.4-10.4); Nucleated Red Blood Cells % 0.1; Platelet Count 244 10^3/ul (150-450); Red Blood Count 4.22 10^6/ul (4.0-5.4); Red Cell Distribution Width 16 % (10.5-15); White Blood Count 4.9 10^3/ul (3.5-10.8)
[2017-06-24 15:42] LABS: EGFR Non-African American 82.8 (>60)
[2017-06-24 16:14] LABS: Urine Appearance Clear; Urine Blood 1+ (Negative); Urine Color Yellow; Urine Ketones Negative (Negative); Urine Protein Negative (Negative); Urine Specific Gravity 1.005 (1.010-1.030); Urine Urobilinogen Negative (Negative)
[2017-06-25 04:38] VITALS: BP 140/76
--- NOTE | 2017-06-25 04:46 | ED ---
I, Maria De Jesus Disla, scribed for Fito Us MD on 06/25/17 at 0425 . Progress - Progress Note Progress Note: The pt was a sign out from Dr. Green at shift change. The pt was pending ETOH metabolism. - Consult/PCP Time Called: 14:00 Course/Dx - Course Course Of Treatment: The pt's serum ETOH level has reached normal levels. She will be discharged. - Diagnoses Provider Diagnoses: Alcohol intoxication, Alcohol abuse The documentation as recorded by the Naif bhatt Stephanie accurately reflects the service I personally performed and the decisions made by me, Fito Us MD.
--- NOTE | 2017-06-25 16:52 | ED ---
Norman Patel Angela, scribed for Stef Green MD on 06/24/17 at 1408 . Substance Abuse/Use - HPI Summary HPI Summary: This pt is a 57 y/o female presenting to [facility] via EMS for a 9.41. EMS notes the pt did not eat or drink for 1-2 days. Upon speaking with the pt, EMS states the pt reported she was trying to hurt herself because she is "too fat." Pt was found to have an empty 1 L bottle of vodka, per EMS. Per nurse's note, pt states she had a seizure 10 years ago while drinking. HPI IS LIMITED DUE TO LEVEL 5 CAVEAT - EtOH intoxication. - History Of Current Complaint Stated Complaint: 941 Time Seen by Provider: 06/24/17 13:59 Hx Obtained From: Patient, EMS Hx Last Menstrual Period: N/A Onset/Duration of Drug/ETOH Abuse: Hours - 24 Ingestion History: Type/Name Of Drug - Alcohol Overdose Characteristics: Oral Severity Currently: Moderate Character: Stuporous Aggravating Factor(s): Nothing Alleviating Factor(s): Nothing Associated Signs And Symptoms: Confused Related Hx: Suicidal, Suicidal: Gesture - Allergies/Home Medications Allergies/Adverse Reactions: Allergies Allergy/AdvReac Type Severity Reaction Status Date / Time Adhesive Tape Allergy Rash Verified 06/01/17 18:39 Home Medications: Home Medications Calcium Carbonate/Vitamin D3 [Calcium 600 + Vit D Tablet] 1 each PO DAILY [History Confirmed 06/24/17] PMH/Surg Hx/FS Hx/Imm Hx Endocrine/Hematology History: Denies: Hx Anticoagulant Therapy, Hx Blood Transfusions, Hx Diabetes, Hx Thyroid Disease, Other Endocrine/Hematological Disorders Cardiovascular History: Reports: Hx Syncope - rare Denies: Hx Hypertension, Hx Pacemaker/ICD, Other Cardiovascular Problems/ Disorders Respiratory History: Reports: Hx Seasonal Allergies Denies: Hx Asthma, Hx Chronic Bronchitis, Hx Chronic Obstructive Pulmonary Disease (COPD), Hx Lung Cancer, Hx Pneumonia, Other Respiratory Problems/ Disorders GI History: Denies: Hx Ulcer, Other GI Disorders History: Denies: Hx Kidney Stones, Hx Renal Disease, Other Problems/Disorders Musculoskeletal History: Reports: Hx Arthritis - hands Denies: Hx Back Problems, Other Musculoskeletal History Sensory History: Reports: Hx Contacts or Glasses Denies: Hx Hearing Aid, Other Sensory Impairments Opthamlomology History: Reports: Hx Contacts or Glasses Denies: Other Sensory Impairments Neurological History: Reports: Hx Headaches, Hx Seizures - last 2013, undiagnosed disorder, Other Neuro Impairments/Disorders - Shaky from ETOH withdrawal Psychiatric History: Reports: Hx Anxiety, Hx Eating Disorder - bolemia, in youth , briefly, Hx Depression, Hx Inpatient Treatment, Hx Community Mental Health Tx , Hx Substance Abuse, Other Psychiatric Issues/Disorders - ETOH Abuse Denies: Hx Attention Deficit Hyperactivity Disorder, Hx Panic Disorder, Hx Post Traumatic Stress Disorder, Hx Schizophrenia, Hx Bipolar Disorder, Hx Suicide Attempt - Thoughts-presently, Hx of Violent Episodes Against Others - Cancer History Cancer Type, Location and Year: breast cancer=left Hx Hematologic Symptoms: No Hx Chemotherapy: Yes Hx Radiation Therapy: Yes - Surgical History Surgery Procedure, Year, and Place: Bilat Thumb Fusion. Bilat Carpal Tunnel Surgery. LEFT Breast Lumpectomy. LEFT KNEE ARTHROSCOPIC SURGERY. ACL Sx left knee Hx Anesthesia Reactions: No - Immunization History Date of Tetanus Vaccine: Unk Date of Influenza Vaccine: Fall 2014 Infectious Disease History: Denies: History Other Infectious Disease - Family History Known Family History: Positive: Unknown - pt adopted - Social History Alcohol Use: Daily Alcohol Amount: recovering Hx Substance Use: No Substance Use Type: Reports: None, Other Substance Use Comment - Amount & Last Used: pt last requested benzos in ED on , 07/21 per warping machine operator Hx Tobacco Use: Yes Smoking Status (MU): Unknown if Ever Smoked Type: Cigarettes Have You Smoked in the Last Year: No Review of Systems - ROS Summary Review of Systems Summary: ROS IS LIMITED DUE TO LEVEL 5 CAVEAT - EtOH intoxication. Negative: Fever, Chills Psychological: Other - SI thoughts, SI gestures All Other Systems Reviewed And Are Negative: No Physical Exam - Summary Physical Exam Summary: VITAL SIGNS: Reviewed. GENERAL: Patient is a well-developed and nourished female who is lying comfortable in the stretcher. Patient is not in any acute respiratory distress. HEAD AND FACE: No signs of trauma. No ecchymosis, hematomas or skull depressions. No sinus tenderness. EYES: PERRLA, EOMI x 2, No injected conjunctiva, no nystagmus. EARS: Hearing grossly intact. Ear canals and tympanic membranes are within normal limits. MOUTH: Oropharynx within normal limits. NECK: Supple, trachea is midline, no adenopathy, no JVD, no carotid bruit, no c- spine tenderness, neck with full ROM. CHEST: Symmetric, no tenderness at palpation LUNGS: Clear to auscultation bilaterally. No wheezing or crackles. CVS: Regular rate and rhythm, S1 and S2 present, no murmurs or gallops appreciated. ABDOMEN: Soft, non-tender. No signs of distention. No rebound no guarding, and no masses palpated. Bowel sounds are normal. EXTREMITIES: FROM in all major joints, no edema, no cyanosis or clubbing. NEURO: Alert and oriented x 3. No acute neurological deficits. Speech is normal and follows commands. SKIN: Dry and warm Triage Information Reviewed: Yes Vital Signs Reviewed: Yes Diagnostics - Laboratory Result Diagrams: 06/24/17 14:57 06/24/17 14:57 Lab Statement: Any lab studies that have been ordered have been reviewed, and results considered in the medical decision making process. Course/Dx - Course Assessment/Plan: This pt is a 57 y/o female presenting to [facility] via EMS for a 9.41. EMS notes the pt did not eat or drink for 1-2 days. Upon speaking with the pt, EMS states the pt reported she was trying to hurt herself because she is "too fat." Pt was found to have an empty 1 L bottle of vodka, per EMS. Per nurse's note, pt states she had a seizure 10 years ago while drinking. HPI IS LIMITED DUE TO LEVEL 5 CAVEAT - EtOH intoxication. Test results without any significant abnormalities except for serum alcohol of 390. The pt will be signed out to Dr. Us for alcohol metabolism for medical clearance and to follow up on the recommendation from the mental health adjunct philosophy faculty. - Diagnoses Provider Diagnoses: Alcohol intoxication Discharge - Discharge Plan Condition: Stable Disposition: OTHER Discharge Disposition Comment: signed out to Dr. Us, pending dispo, awaiting etoh metabolism and MHE. Referrals: Simone Jeter MD [Primary Care Provider] - The documentation as recorded by the Norman bhatt Angela accurately reflects the service I personally performed and the decisions made by me, Stef Green MD.
== END 2017-06-25 04:36 ==
LOC: ED 13:55
DX: F10.129 Alcohol abuse with intoxication, unspecified (principal); Y90.8 Blood alcohol level of 240 mg/100 ml or more
CPT/HCPCS: 36415; 80053; 80307; 80320; 80329; 81003; 81015; 84443; 85025; 99285; G0480

== ENCOUNTER 2017-07-26 11:52 | Emergency (ER) | payer OTHER ==
[2017-07-26 12:58] LABS: ABS Basophils 0.1 10^3/ul (0-0.2); ABS Eosinophils 0.2 10^3/ul (0-0.6); ABS Monocytes 0.4 10^3/ul (0-0.8); ABS Neutrophils 4.8 10^3/ul (1.5-7.7); ABS Nucleated RBC 0 10^3/ul; Eosinophil % 1.9 % (0-6); Hematocrit 40 % (35-47); Hemoglobin 13.7 g/dl (12.0-16.0); Lymphocyte % 42.1 % (25-47); Mean Corpuscular HGB Conc 34 g/dl (31-36); Mean Corpuscular Hemoglobin 33 pg (27-31); Mean Corpuscular Volume 97 fL (80-97); Mean Platelet Volume 7 um3 (7.4-10.4); Nucleated Red Blood Cells % 0; Platelet Count 278 10^3/ul (150-450); Red Blood Count 4.13 10^6/ul (4.0-5.4); Red Cell Distribution Width 16 % (10.5-15); White Blood Count 9.4 10^3/ul (3.5-10.8)
[2017-07-26 13:15] LABS: EGFR Non-African American 66.7 (>60)
[2017-07-26 13:19] LABS: Urine Appearance Cloudy; Urine Blood 2+ (Negative); Urine Color Yellow; Urine Ketones Negative (Negative); Urine Protein Negative (Negative); Urine Specific Gravity 1.009 (1.010-1.030); Urine Urobilinogen Negative (Negative)
--- NOTE | 2017-07-26 19:39 | ED ---
Norman Patel Angela, scribed for Servando Boone MD on 07/26/17 at 1215 . Substance Abuse/Use - HPI Summary HPI Summary: This pt is a 57 y/o female presenting to [facility] via EMS for possible alcohol intoxication. Per nurse's note, pt was found at [facility] not verbally responding to staff. Pt was found with a vodka bottle at bedside that was 1/3 full. Staff at [facility] are concerned possible overdose. HPI IS LIMITED DUE TO LEVEL 5 CAVEAT - pt is nonverbal. - History Of Current Complaint Chief Complaint: EDMentalHealth Stated Complaint: 2208 Time Seen by Provider: 07/26/17 12:01 Hx Obtained From: Patient Hx From Patient Unobtainable Due To: Other - pt is non verbal Hx Last Menstrual Period: N/A Onset/Duration of Drug/ETOH Abuse: Hours Ingestion History: Type/Name Of Drug - Alcohol, Amount Ingested - unknown Overdose Characteristics: Oral Severity Initially: Severe Character: Other - not cooperative Aggravating Factor(s): Nothing Alleviating Factor(s): Nothing Associated Signs And Symptoms: Other: - unknown Related Hx: Prior Psych Admission - Allergies/Home Medications Allergies/Adverse Reactions: Allergies Allergy/AdvReac Type Severity Reaction Status Date / Time Adhesive Tape Allergy Rash Verified 07/26/17 14:52 Home Medications: Home Medications Thiamine TAB* [Vitamin B-1 TAB*] 100 mg PO DAILY 07/26/17 [History Confirmed ] PMH/Surg Hx/FS Hx/Imm Hx Endocrine/Hematology History: Denies: Hx Anticoagulant Therapy, Hx Blood Transfusions, Hx Diabetes, Hx Thyroid Disease, Other Endocrine/Hematological Disorders Cardiovascular History: Reports: Hx Syncope - rare Denies: Hx Hypertension, Hx Pacemaker/ICD, Other Cardiovascular Problems/ Disorders Respiratory History: Reports: Hx Seasonal Allergies Denies: Hx Asthma, Hx Chronic Bronchitis, Hx Chronic Obstructive Pulmonary Disease (COPD), Hx Lung Cancer, Hx Pneumonia, Other Respiratory Problems/ Disorders GI History: Denies: Hx Ulcer, Other GI Disorders History: Denies: Hx Kidney Stones, Hx Renal Disease, Other Problems/Disorders Musculoskeletal History: Reports: Hx Arthritis - hands Denies: Hx Back Problems, Other Musculoskeletal History Sensory History: Reports: Hx Contacts or Glasses Denies: Hx Hearing Aid, Other Sensory Impairments Opthamlomology History: Reports: Hx Contacts or Glasses Denies: Other Sensory Impairments Neurological History: Reports: Hx Headaches, Hx Seizures - last 2013, undiagnosed disorder, Other Neuro Impairments/Disorders - Shaky from ETOH withdrawal Psychiatric History: Reports: Hx Anxiety, Hx Eating Disorder - bolemia, in youth , briefly, Hx Depression, Hx Inpatient Treatment, Hx Community Mental Health Tx , Hx Substance Abuse, Other Psychiatric Issues/Disorders - ETOH Abuse Denies: Hx Attention Deficit Hyperactivity Disorder, Hx Panic Disorder, Hx Post Traumatic Stress Disorder, Hx Schizophrenia, Hx Bipolar Disorder, Hx Suicide Attempt - Thoughts-presently, Hx of Violent Episodes Against Others - Cancer History Cancer Type, Location and Year: breast cancer=left Hx Hematologic Symptoms: No Hx Chemotherapy: Yes Hx Radiation Therapy: Yes - Surgical History Surgery Procedure, Year, and Place: Bilat Thumb Fusion. Bilat Carpal Tunnel Surgery. LEFT Breast Lumpectomy. LEFT KNEE ARTHROSCOPIC SURGERY. ACL Sx left knee Hx Anesthesia Reactions: No - Immunization History Date of Tetanus Vaccine: Unk Date of Influenza Vaccine: Fall 2014 Infectious Disease History: Unable to Obtain/Confirm Infectious Disease History: Denies: History Other Infectious Disease, Traveled Outside the [place] in Last 30 Days - Family History Known Family History: Positive: Unknown - pt adopted - Social History Alcohol Use: Daily Alcohol Amount: recovering Hx Substance Use: No Substance Use Type: Reports: None, Other Substance Use Comment - Amount & Last Used: pt last requested benzos in ED on , 07/21 per typing office worker Hx Tobacco Use: Yes Smoking Status (MU): Never Smoked Tobacco Type: Cigarettes Have You Smoked in the Last Year: No Review of Systems - ROS Summary Review of Systems Summary: ROS IS LIMITED DUE TO LEVEL 5 CAVEAT - pt is nonverbal Negative: Fever Psychological: Other - nonverbal All Other Systems Reviewed And Are Negative: No Physical Exam - Summary Physical Exam Summary: General: well-appearing, no pain distress Skin: warm, color reflects adequate perfusion, dry Head: normal Eyes: EOMI, DEVON ENT: normal Neck: supple, nontender Respiratory: CTA, breath sounds present Cardiovascular: RRR Abdomen: soft, nontender Bowel: present Musculoskeletal: normal, strength/ROM intact Neurological: normal, sensory/motor intact, A&O x3. Psychological: Pt is nonverbal. Triage Information Reviewed: Yes Vital Signs On Initial Exam: Initial Vitals Temp Pulse Resp BP Pulse Ox 98 F 118 16 101/66 95 07/26/17 11:55 03/19/18 11:55 07/26/17 11:55 07/26/17 11:55 07/26/17 11:55 Vital Signs Reviewed: Yes Completion Of Physical Exam Limited Due To: Level 5 - pt is nonverbal Diagnostics - Vital Signs Vital Signs Temp Pulse Resp BP Pulse Ox 07/26/17 11:55 98 F 118 16 101/66 95 - Laboratory Lab Results: Lab Results 07/26/17 07/26/17 07/26/17 Range/Units 12:00 12:20 12:45 WBC (3.5-10.8) 10^3/ul RBC (4.0-5.4) 10^6/ul Hgb (12.0-16.0) g/dl Hct (35-47) % MCV (80-97) fL MCH (27-31) pg MCHC (31-36) g/dl RDW (10.5-15) % Plt Count (150-450) 10^3/ul MPV (7.4-10.4) um3 Neut % (Auto) (38-83) % Lymph % (Auto) (25-47) % Payne % (Auto) (0-7) % Eos % (Auto) (0-6) % Baso % (Auto) (0-2) % Absolute Neuts (auto) (1.5-7.7) 10^3/ul Absolute Lymphs (auto) (1.0-4.8) 10^3/ul Absolute Monos (auto) (0-0.8) 10^3/ul Absolute Eos (auto) (0-0.6) 10^3/ul Absolute Basos (auto) (0-0.2) 10^3/ul Absolute Nucleated RBC 10^3/ul Nucleated RBC % Sodium 142 (133-145) mmol/L Potassium 3.5 (3.5-5.0) mmol/L Chloride 102 (101-111) mmol/L Carbon Dioxide 23 (22-32) mmol/L Anion Gap 17 H (2-11) mmol/L BUN 14 (6-24) mg/dL Creatinine 0.88 (0.51-0.95) mg/dL Est GFR ( Amer) 85.8 (>60) Est GFR (Non-Af Amer) 66.7 (>60) BUN/Creatinine Ratio 15.9 (8-20) Glucose 70 (70-100) mg/dL Lactic Acid (0.5-2.0) mmol/L Calcium 9.4 (8.6-10.3) mg/dL Total Bilirubin 0.40 (0.2-1.0) mg/dL AST 30 (13-39) U/L ALT 17 (7-52) U/L Alkaline Phosphatase 74 (34-104) U/L Total Protein 7.4 (6.4-8.9) g/dL Albumin 4.6 (3.2-5.2) g/dL Globulin 2.8 (2-4) g/dL Albumin/Globulin Ratio 1.6 (1-3) TSH 0.89 (0.34-5.60) mcIU/mL Urine Color Yellow Urine Appearance Cloudy Urine pH 5.0 (5-9) Ur Specific [place] 1.009 L (1.010-1.030) Urine Protein Negative (Negative) Urine Ketones Negative (Negative) Urine Blood 2+ A (Negative) Urine Nitrate Negative (Negative) Urine Bilirubin Negative (Negative) Urine Urobilinogen Negative (Negative) Ur Leukocyte Esterase 2+ A (Negative) Urine WBC (Auto) 1+(6-10/hpf) A (Absent) Urine RBC (Auto) 1+(3-5/hpf) A (Absent) Ur Squamous Epith Cells Present A (Absent) Ur Transition Epith Cell Present A (Absent) Urine Bacteria Absent (Absent) Urine Glucose Negative (Negative) Salicylates < 2.50 (<30) mg/dL Urine Opiates Screen None detected (None Detect) Acetaminophen < 15 mcg/mL Ur Barbiturates Screen None detected (None Detect) Ur Phencyclidine Scrn None detected (None Detect) Ur Amphetamines Screen None detected (None Detect) U Benzodiazepines Scrn None detected (None Detect) Urine Cocaine Screen None detected (None Detect) U Cannabinoids Screen None detected (None Detect) Serum Alcohol 439 H* (<10) mg/dL 07/26/17 07/26/17 Range/Units 12:45 12:45 WBC 9.4 (3.5-10.8) 10^3/ul RBC 4.13 (4.0-5.4) 10^6/ul Hgb 13.7 (12.0-16.0) g/dl Hct 40 (35-47) % MCV 97 (80-97) fL MCH 33 H (27-31) pg MCHC 34 (31-36) g/dl RDW 16 H (10.5-15) % Plt Count 278 (150-450) 10^3/ul MPV 7 L (7.4-10.4) um3 Neut % (Auto) 50.9 (38-83) % Lymph % (Auto) 42.1 (25-47) % Payne % (Auto) 4.1 (0-7) % Eos % (Auto) 1.9 (0-6) % Baso % (Auto) 1.0 (0-2) % Absolute Neuts (auto) 4.8 (1.5-7.7) 10^3/ul Absolute Lymphs (auto) 4.0 (1.0-4.8) 10^3/ul Absolute Monos (auto) 0.4 (0-0.8) 10^3/ul Absolute Eos (auto) 0.2 (0-0.6) 10^3/ul Absolute Basos (auto) 0.1 (0-0.2) 10^3/ul Absolute Nucleated RBC 0 10^3/ul Nucleated RBC % 0 Sodium (133-145) mmol/L Potassium (3.5-5.0) mmol/L Chloride (101-111) mmol/L Carbon Dioxide (22-32) mmol/L Anion Gap (2-11) mmol/L BUN (6-24) mg/dL Creatinine (0.51-0.95) mg/dL Est GFR ( Amer) (>60) Est GFR (Non-Af Amer) (>60) BUN/Creatinine Ratio (8-20) Glucose (70-100) mg/dL Lactic Acid 4.0 H* (0.5-2.0) mmol/L Calcium (8.6-10.3) mg/dL Total Bilirubin (0.2-1.0) mg/dL AST (13-39) U/L ALT (7-52) U/L Alkaline Phosphatase (34-104) U/L Total Protein (6.4-8.9) g/dL Albumin (3.2-5.2) g/dL Globulin (2-4) g/dL Albumin/Globulin Ratio (1-3) TSH (0.34-5.60) mcIU/mL Urine Color Urine Appearance Urine pH (5-9) Ur Specific [place] (1.010-1.030) Urine Protein (Negative) Urine Ketones (Negative) Urine Blood (Negative) Urine Nitrate (Negative) Urine Bilirubin (Negative) Urine Urobilinogen (Negative) Ur Leukocyte Esterase (Negative) Urine WBC (Auto) (Absent) Urine RBC (Auto) (Absent) Ur Squamous Epith Cells (Absent) Ur Transition Epith Cell (Absent) Urine Bacteria (Absent) Urine Glucose (Negative) Salicylates (<30) mg/dL Urine Opiates Screen (None Detect) Acetaminophen mcg/mL Ur Barbiturates Screen (None Detect) Ur Phencyclidine Scrn (None Detect) Ur Amphetamines Screen (None Detect) U Benzodiazepines Scrn (None Detect) Urine Cocaine Screen (None Detect) U Cannabinoids Screen (None Detect) Serum Alcohol (<10) mg/dL Result Diagrams: 07/26/17 12:45 07/26/17 12:45 Lab Statement: Any lab studies that have been ordered have been reviewed, and results considered in the medical decision making process. Course/Dx - Course Course Of Treatment: Medications reviewed. Allergies noted. Test results shows serum alcohol of 439. She is awaiting alcohol metabolism and medical clearance for MHE. Pt will be signed out to Dr. Us, pending dispo, awaiting medical clearance and MHE. - Diagnoses Provider Diagnoses: Mental health problem, Acute alcohol intoxication Discharge - Discharge Plan Condition: Stable Disposition: OTHER Discharge Disposition Comment: signed out to Dr. Us, pending dispo, awaiting alcohol metabolism and MHE Referrals: Simone Jeter MD [Primary Care Provider] - The documentation as recorded by the Norman bhatt Angela accurately reflects the service I personally performed and the decisions made by me, Servando Boone MD.
[2017-07-27] MEDS ORDERED: LORazepam TAB(*) 1 MG PO ONE (03:18)
--- NOTE | 2017-07-27 04:49 | ED ---
Jerald Patel Thomas, scribed for Fito Us MD on 07/27/17 at 0414 . Progress - Progress Note Progress Note: The patient is a sign out from Dr. Boone at shift change, pending mental health evaluation. At the recommendations made by the mental health evaluators, the patient will be admitted to [facility]. Condition: stable Disposition: admitted to [facility] Course/Dx - Diagnoses Provider Diagnoses: Depression The documentation as recorded by the Jerald bhatt Thomas accurately reflects the service I personally performed and the decisions made by Magen mcneal Abdul, MD.
--- NOTE | 2017-07-27 09:02 | PN ---
ED Flex Patient Progress Note Date of Service: 07/27/17 Subjective: This is a 57 year-old F who is pending transfer to another psychiatric facility secondary to depression Pt offers no complaints at this time. She states she did not sleep well. Objective: Vitals: Most recent vital signs documented below. General NAD, Alert and oriented x3. Heart: rrr at 70 bpm Lungs: CTA or with rales, rhonchi, wheezing abd:soft nontender Laboratory: Current laboratory results documented below. Assessment: depression Plan: Pending psychiatric to transfer will follow up daily until accepted at facility condition:Stable disposition: transfer Vital Signs Temp Pulse Resp BP Pulse Ox 99.9 F 80 18 130/76 99 07/27/17 08:57 07/27/17 08:57 07/27/17 08:57 07/27/17 08:57 07/27/17 08:57 Lab Results - Entire Visit 07/26/17 07/26/17 07/26/17 12:45 12:45 12:45 WBC 9.4 RBC 4.13 Hgb 13.7 Hct 40 MCV 97 MCH 33 H MCHC 34 RDW 16 H Plt Count 278 MPV 7 L Neut % (Auto) 50.9 Lymph % (Auto) 42.1 [place] % (Auto) 4.1 Eos % (Auto) 1.9 Baso % (Auto) 1.0 Absolute Neuts (auto) 4.8 Absolute Lymphs (auto) 4.0 Absolute Monos (auto) 0.4 Absolute Eos (auto) 0.2 Absolute Basos (auto) 0.1 Absolute Nucleated RBC 0 Nucleated RBC % 0 Sodium 142 Potassium 3.5 Chloride 102 Carbon Dioxide 23 Anion Gap 17 H BUN 14 Creatinine 0.88 Est GFR ( Amer) 85.8 Est GFR (Non-Af Amer) 66.7 BUN/Creatinine Ratio 15.9 Glucose 70 Lactic Acid 4.0 H* Calcium 9.4 Total Bilirubin 0.40 AST 30 ALT 17 Alkaline Phosphatase 74 Total Protein 7.4 Albumin 4.6 Globulin 2.8 Albumin/Globulin Ratio 1.6 TSH 0.89 Urine Color Urine Appearance Urine pH Ur Specific [place] Urine Protein Urine Ketones Urine Blood Urine Nitrate Urine Bilirubin Urine Urobilinogen Ur Leukocyte Esterase Urine WBC (Auto) Urine RBC (Auto) Ur Squamous Epith Cells Ur Transition Epith Cell Urine Bacteria Urine Glucose Salicylates < 2.50 Urine Opiates Screen Acetaminophen < 15 Ur Barbiturates Screen Ur Phencyclidine Scrn Ur Amphetamines Screen U Benzodiazepines Scrn Urine Cocaine Screen U Cannabinoids Screen Serum Alcohol 439 H* 07/26/17 07/26/17 12:20 12:00 WBC RBC Hgb Hct MCV MCH MCHC RDW Plt Count MPV Neut % (Auto) Lymph % (Auto) [place] % (Auto) Eos % (Auto) Baso % (Auto) Absolute Neuts (auto) Absolute Lymphs (auto) Absolute Monos (auto) Absolute Eos (auto) Absolute Basos (auto) Absolute Nucleated RBC Nucleated RBC % Sodium Potassium Chloride Carbon Dioxide Anion Gap BUN Creatinine Est GFR ( Amer) Est GFR (Non-Af Amer) BUN/Creatinine Ratio Glucose Lactic Acid Calcium Total Bilirubin AST ALT Alkaline Phosphatase Total Protein Albumin Globulin Albumin/Globulin Ratio TSH Urine Color Yellow Urine Appearance Cloudy Urine pH 5.0 Ur Specific [place] 1.009 L Urine Protein Negative Urine Ketones Negative Urine Blood 2+ A Urine Nitrate Negative Urine Bilirubin Negative Urine Urobilinogen Negative Ur Leukocyte Esterase 2+ A Urine WBC (Auto) 1+(6-10/hpf) A Urine RBC (Auto) 1+(3-5/hpf) A Ur Squamous Epith Cells Present A Ur Transition Epith Cell Present A Urine Bacteria Absent Urine Glucose Negative Salicylates Urine Opiates Screen None detected Acetaminophen Ur Barbiturates Screen None detected Ur Phencyclidine Scrn None detected Ur Amphetamines Screen None detected U Benzodiazepines Scrn None detected Urine Cocaine Screen None detected U Cannabinoids Screen None detected Serum Alcohol
[2017-07-27 16:32] VITALS: BP 143/89
== END 2017-07-27 17:33 ==
LOC: ED 11:52
DX: F32.9 Major depressive disorder, single episode, unspecified (principal)
CPT/HCPCS: 36415; 80053; 80307; 80320; 80329; 81003; 81015; 83605; 84443; 85025; 87077; 87086; 93005; 99283; A9270-GY; G0480

== ENCOUNTER 2017-09-27 15:03 | Emergency (ER) | payer OTHER ==
[2017-09-27] MEDS ORDERED: Thiamine IV 100 MG, Folic Acid IV* 1 MG, Multiple Vitamin IV ADULT* 10 ML in NS 0.9% 10... IV ONE (16:27)
[2017-09-27 16:54] LABS: ABS Basophils 0.1 10^3/ul (0-0.2); ABS Eosinophils 0.1 10^3/ul (0-0.6); ABS Monocytes 0.4 10^3/ul (0-0.8); ABS Neutrophils 3.7 10^3/ul (1.5-7.7); ABS Nucleated RBC 0 10^3/ul; Hematocrit 41 % (35-47); Hemoglobin 13.9 g/dl (12.0-16.0); Lymphocyte % 41.5 % (25-47); Mean Corpuscular HGB Conc 34 g/dl (31-36); Mean Corpuscular Hemoglobin 33 pg (27-31); Mean Corpuscular Volume 95 fL (80-97); Mean Platelet Volume 6.5 um3 (7.4-10.4); Nucleated Red Blood Cells % 0; Platelet Count 255 10^3/ul (150-450); Red Blood Count 4.26 10^6/ul (4.0-5.4); Red Cell Distribution Width 15 % (10.5-15); White Blood Count 7.3 10^3/ul (3.5-10.8)
[2017-09-27 17:14] LABS: EGFR Non-African American 61.8 (>60)
--- NOTE | 2017-09-27 18:14 | ED ---
Parminder Patel Gabriel, scribed for Stef Green MD on 09/27/17 at 1623 . Substance Abuse/Use - HPI Summary HPI Summary: This patient is a 57 year old F BIBA to [facility] for being intoxicated. Pt states she is here because she is a drunk. The patient rates the pain 0/10 in severity. The pt has no complaints at this time. - History Of Current Complaint Chief Complaint: EDSubstanceAbuse Stated Complaint: 2208 Time Seen by Provider: 09/27/17 16:02 Hx Obtained From: Patient Hx Last Menstrual Period: N/A Onset/Duration of Drug/ETOH Abuse: Hours Ingestion History: Type/Name Of Drug - etoh Overdose Characteristics: Oral Timing Of Abuse: Binge Use Severity Initially: Moderate Severity Currently: Moderate Associated Signs And Symptoms: Negative - Allergies/Home Medications Allergies/Adverse Reactions: Allergies Allergy/AdvReac Type Severity Reaction Status Date / Time Adhesive Tape Allergy Rash Verified 07/26/17 14:52 PMH/Surg Hx/FS Hx/Imm Hx Endocrine/Hematology History: Denies: Hx Anticoagulant Therapy, Hx Blood Transfusions, Hx Diabetes, Hx Thyroid Disease, Other Endocrine/Hematological Disorders Cardiovascular History: Reports: Hx Syncope - rare Denies: Hx Hypertension, Hx Pacemaker/ICD, Other Cardiovascular Problems/ Disorders Respiratory History: Reports: Hx Seasonal Allergies Denies: Hx Asthma, Hx Chronic Bronchitis, Hx Chronic Obstructive Pulmonary Disease (COPD), Hx Lung Cancer, Hx Pneumonia, Other Respiratory Problems/ Disorders GI History: Denies: Hx Ulcer, Other GI Disorders History: Denies: Hx Kidney Stones, Hx Renal Disease, Other Problems/Disorders Musculoskeletal History: Reports: Hx Arthritis - hands Denies: Hx Back Problems, Other Musculoskeletal History Sensory History: Reports: Hx Contacts or Glasses Denies: Hx Hearing Aid, Other Sensory Impairments Opthamlomology History: Reports: Hx Contacts or Glasses Denies: Other Sensory Impairments Neurological History: Reports: Hx Headaches, Hx Seizures - last 2013, undiagnosed disorder, Other Neuro Impairments/Disorders - Shaky from ETOH withdrawal Psychiatric History: Reports: Hx Anxiety, Hx Depression, Hx Inpatient Treatment , Hx Community Mental Health Tx, Hx Substance Abuse, Other Psychiatric Issues/ Disorders - ETOH Abuse Denies: Hx Attention Deficit Hyperactivity Disorder, Hx Eating Disorder, Hx Panic Disorder, Hx Post Traumatic Stress Disorder, Hx Schizophrenia, Hx Bipolar Disorder, Hx Suicide Attempt - Thoughts-presently, Hx of Violent Episodes Against Others - Cancer History Cancer Type, Location and Year: breast cancer=left Hx Hematologic Symptoms: No Hx Chemotherapy: Yes Hx Radiation Therapy: Yes - Surgical History Surgery Procedure, Year, and Place: Bilat Thumb Fusion. Bilat Carpal Tunnel Surgery. LEFT Breast Lumpectomy. LEFT KNEE ARTHROSCOPIC SURGERY. ACL Sx left knee Hx Anesthesia Reactions: No - Immunization History Date of Tetanus Vaccine: Unk Date of Influenza Vaccine: Fall 2014 Infectious Disease History: No Infectious Disease History: Denies: History Other Infectious Disease, Traveled Outside the [place] in Last 30 Days - Family History Known Family History: Positive: Unknown - pt adopted Negative: Hypertension, Respiratory Disease, Seizure Disorder - Social History Lives: Care Home Alcohol Use: Daily Alcohol Amount: recovering Hx Substance Use: No Substance Use Type: Reports: None Substance Use Comment - Amount & Last Used: pt last requested benzos in ED on , 07/21 per set key driver Hx Tobacco Use: Yes Smoking Status (MU): Light Every Day Tobacco Smoker Type: Cigarettes Have You Smoked in the Last Year: No Review of Systems Negative: Fever Negative: Chest Pain Negative: Shortness Of Breath Negative: Abdominal Pain All Other Systems Reviewed And Are Negative: Yes Physical Exam - Summary Physical Exam Summary: VITAL SIGNS: Reviewed. GENERAL: Patient is a well-developed and nourished female who is lying comfortable in the stretcher. Patient is not in any acute respiratory distress. There is alcohol on her breath HEAD AND FACE: No signs of trauma. No ecchymosis, hematomas or skull depressions. No sinus tenderness. EYES: PERRLA, EOMI x 2, No injected conjunctiva, no nystagmus. EARS: Hearing grossly intact. Ear canals and tympanic membranes are within normal limits. MOUTH: Oropharynx within normal limits. NECK: Supple, trachea is midline, no adenopathy, no JVD, no carotid bruit, no c- spine tenderness, neck with full ROM. CHEST: Symmetric, no tenderness at palpation LUNGS: Clear to auscultation bilaterally. No wheezing or crackles. CVS: Regular rate and rhythm, S1 and S2 present, no murmurs or gallops appreciated. ABDOMEN: Soft, non-tender. No signs of distention. No rebound no guarding, and no masses palpated. Bowel sounds are normal. EXTREMITIES: FROM in all major joints, no edema, no cyanosis or clubbing. NEURO: Alert and oriented x 3. No acute neurological deficits. Speech is normal and follows commands. SKIN: Dry and warm Triage Information Reviewed: Yes Vital Signs On Initial Exam: Initial Vitals Temp Pulse Resp BP Pulse Ox 98.7 F 100 16 118/81 98 09/27/17 15:24 09/27/17 15:24 09/27/17 15:24 09/27/17 15:24 09/27/17 15:24 Vital Signs Reviewed: Yes Diagnostics - Vital Signs Vital Signs Temp Pulse Resp BP Pulse Ox 09/27/17 15:24 98.7 F 100 16 118/81 98 - Laboratory Lab Results: Lab Results 09/27/17 09/27/17 09/27/17 Range/Units 16:45 16:45 17:37 WBC 7.3 (3.5-10.8) 10^3/ul RBC 4.26 (4.0-5.4) 10^6/ul Hgb 13.9 (12.0-16.0) g/dl Hct 41 (35-47) % MCV 95 (80-97) fL MCH 33 H (27-31) pg MCHC 34 (31-36) g/dl RDW 15 (10.5-15) % Plt Count 255 (150-450) 10^3/ul MPV 6.5 L (7.4-10.4) um3 Neut % (Auto) 50.4 (38-83) % Lymph % (Auto) 41.5 (25-47) % Fajardo % (Auto) 5.8 (0-7) % Eos % (Auto) 1.0 (0-6) % Baso % (Auto) 1.3 (0-2) % Absolute Neuts (auto) 3.7 (1.5-7.7) 10^3/ul Absolute Lymphs (auto) 3.0 (1.0-4.8) 10^3/ul Absolute Monos (auto) 0.4 (0-0.8) 10^3/ul Absolute Eos (auto) 0.1 (0-0.6) 10^3/ul Absolute Basos (auto) 0.1 (0-0.2) 10^3/ul Absolute Nucleated RBC 0 10^3/ul Nucleated RBC % 0 Sodium 141 (139-145) mmol/L Potassium 3.7 (3.5-5.0) mmol/L Chloride 104 (101-111) mmol/L Carbon Dioxide 27 (22-32) mmol/L Anion Gap 10 (2-11) mmol/L BUN 12 (6-24) mg/dL Creatinine 0.94 (0.51-0.95) mg/dL Est GFR ( Amer) 79.5 (>60) Est GFR (Non-Af Amer) 61.8 (>60) BUN/Creatinine Ratio 12.8 (8-20) Glucose 134 H (70-100) mg/dL Calcium 9.0 (8.6-10.3) mg/dL Total Bilirubin 0.40 (0.2-1.0) mg/dL AST 19 (13-39) U/L ALT 9 (7-52) U/L Alkaline Phosphatase 57 (34-104) U/L Total Protein 7.3 (6.4-8.9) g/dL Albumin 4.4 (3.2-5.2) g/dL Globulin 2.9 (2-4) g/dL Albumin/Globulin Ratio 1.5 (1-3) TSH 0.39 (0.34-5.60) mcIU/mL Salicylates < 2.50 (<30) mg/dL Urine Opiates Screen None detected (None Detect) Acetaminophen < 15 mcg/mL Ur Barbiturates Screen None detected (None Detect) Ur Phencyclidine Scrn None detected (None Detect) Ur Amphetamines Screen None detected (None Detect) U Benzodiazepines Scrn None detected (None Detect) Urine Cocaine Screen None detected (None Detect) U Cannabinoids Screen None detected (None Detect) Serum Alcohol 337 H (<10) mg/dL Result Diagrams: 09/27/17 16:45 09/27/17 16:45 Lab Statement: Any lab studies that have been ordered have been reviewed, and results considered in the medical decision making process. Course/Dx - Course Assessment/Plan: Patient is a 57-year-old female who presents to the emergency room complaining of alcohol intoxication. The patient is a resident of the [facility] and because of the intoxication the patient was transferred to the emergency department. Blood work results without any significant abnormality except for glucose of 134, alcohol level of 337. Urine toxicology is negative. At this point the patient is receiving a banana bag since the patient has history of alcoholism. The patients care will be switched to Dr. Mcadams The next ER attending at shift change. Patient is hemodynamically stable and oriented 3. - Diagnoses Provider Diagnoses: Alcohol intoxication Discharge - Sign-Out/Discharge Documenting (check all that apply): Sign-Out Patient Signing out patient TO: Urban Mcadams - Discharge Plan Referrals: Rocio Du, [facility] [Primary Care Provider] - The documentation as recorded by the Parminder bhatt Gabriel accurately reflects the service I personally performed and the decisions made by , Stef Green MD.
[2017-09-27 18:19] LABS: Urine Appearance Clear; Urine Blood 2+ (Negative); Urine Color Straw; Urine Ketones Negative (Negative); Urine Protein Negative (Negative); Urine Specific Gravity 1.005 (1.010-1.030); Urine Urobilinogen Negative (Negative)
[2017-09-28 01:29] VITALS: BP 136/91
--- NOTE | 2017-09-28 03:44 | ED ---
John Patel Jennifer, scribed for Urban Mcadams MD on 09/27/17 at 1915 . Progress - Progress Note Progress Note: The patient is a sign out from Dr. Green pending EtOH level. The patient is diagnosed with alcohol intoxication and alcohol abuse. The patient will be discharged home. Course/Dx - Course Course Of Treatment: The patient is a sign out from Dr. Green pending EtOH level. The patient is diagnosed with alcohol intoxication and alcohol abuse. The patient will be discharged home to her residential facility after sobering in the ER. She has clear speech and steady gait. Her poor has been called to the facility. - Diagnoses Provider Diagnoses: Alcohol intoxication, Alcohol abuse Discharge - Sign-Out/Discharge Documenting (check all that apply): Discharge/Admit/Transfer - Discharge Plan Condition: Improved Disposition: HOME Patient Education Materials: Alcohol Intoxication (ED) Referrals: Rocio Du [employer]IM[employer] DAMAGE CONTROL AGENT [Primary Care Provider] - Additional Instructions: Never drink to excess. Seek help for your drinking with the professionals at your place of residence. Return if worse, new symptoms or other concerns. - Billing Disposition and Condition Condition: STABLE Disposition: HOME The documentation as recorded by the John bhatt Jennifer accurately reflects the service I personally performed and the decisions made by , Urban Mcadams MD.
== END 2017-09-28 01:30 | disposition home or self-care (01) ==
LOC: ED 15:03
DX: F10.129 Alcohol abuse with intoxication, unspecified (principal); Y90.8 Blood alcohol level of 240 mg/100 ml or more; F17.210 Nicotine dependence, cigarettes, uncomplicated
CPT/HCPCS: 36415; 80053; 80307; 80320; 80329; 81003; 81015; 84443; 85025; 87077; 87086; 96365; 96366; 99284; G0480; J3411

== ENCOUNTER 2017-09-28 17:04 | Emergency (ER) | payer OTHER ==
[2017-09-28] MEDS ORDERED: NS 0.9% 1000 ML* 1,000 ML IV ONE (17:10)
[2017-09-28 17:27] LABS: ABS Basophils 0.1 10^3/ul (0-0.2); ABS Eosinophils 0.1 10^3/ul (0-0.6); ABS Lymphocytes 2.3 10^3/ul (1.0-4.8); ABS Monocytes 0.5 10^3/ul (0-0.8); ABS Neutrophils 5.3 10^3/ul (1.5-7.7); ABS Nucleated RBC 0 10^3/ul; Eosinophil % 1.2 % (0-6); Hematocrit 38 % (35-47); Lymphocyte % 27.6 % (25-47); Mean Corpuscular HGB Conc 34 g/dl (31-36); Mean Corpuscular Hemoglobin 33 pg (27-31); Mean Corpuscular Volume 96 fL (80-97); Mean Platelet Volume 6.4 um3 (7.4-10.4); Nucleated Red Blood Cells % 0.1; Platelet Count 237 10^3/ul (150-450); Red Blood Count 3.99 10^6/ul (4.0-5.4); Red Cell Distribution Width 14 % (10.5-15); White Blood Count 8.3 10^3/ul (3.5-10.8)
[2017-09-28 17:43] LABS: EGFR Non-African American 76.7 (>60)
--- NOTE | 2017-09-29 06:47 | ED ---
Richard Patel Natalie, scribed for Urban Mcadams MD on 09/28/17 at 2302 . Progress - Progress Note Progress Note: Assumed care from -- patient requesting detox from alcohol. Patient was here last night for same. She sobered and one home to [facility]. She returned with an alcohol level of 508. She has sobered through the night and is requesting detox. She has no evidence for alcohol withdrawal as evidenced by no tremor, no tachycardia and no anxiety. She reports having been to rehabilitation several times. She also reports only drinking the last 2 days this latest binge. Discussed with mental health manager mortgage who will evaluate for placement following repeat alcohol level. Course/Dx - Course Course Of Treatment: Pending alcohol level after sobering. Crisis to evaluate and assist with placement. No evidence of alcohol withdrawal syndrome. - Diagnoses Provider Diagnoses: Alcohol intoxication, Alcoholism /alcohol abuse Discharge - Sign-Out/Discharge Documenting (check all that apply): Sign-Out Patient Signing out patient TO: Alanis Callejas - Discharge Plan Condition: Stable Referrals: Rocio Du NP [Primary Care Provider] - - Billing Disposition and Condition Condition: STABLE The documentation as recorded by the Richard bhatt Natalie accurately reflects the service I personally performed and the decisions made by , Urban Mcadams MD.
--- NOTE | 2017-09-29 06:50 | PN ---
Progress Note - Progress Note Date of Service: 09/29/17 Note: patient urine culture grew strep group b 50-75,000 which is not significant culture so no action required at this time.
[2017-09-29 09:23] LABS: Urine Appearance Clear; Urine Blood 1+ (Negative); Urine Color Yellow; Urine Ketones Negative (Negative); Urine Protein Negative (Negative); Urine Specific Gravity 1.014 (1.010-1.030); Urine Urobilinogen Negative (Negative)
--- NOTE | 2017-09-29 13:48 | ED ---
Parminder Patel Gabriel, scribed for Stef Green MD on 09/28/17 at 1725 . Substance Abuse/Use - HPI Summary HPI Summary: This patient is a 57 year old F BIBA to [facility] from her mental health facility after being found passed out with a bottle of vodka. Currently the patient is lying comfortably but does not respond when spoken to. LEVEL 5 CAVEAT: exam limited due to the patient being intoxicated. - History Of Current Complaint Chief Complaint: EDDetoxRequest Stated Complaint: ETOH Time Seen by Provider: 09/28/17 17:10 Hx Obtained From: Patient Hx Last Menstrual Period: N/A Onset/Duration of Drug/ETOH Abuse: Hours Ingestion History: Type/Name Of Drug - Etoh Overdose Characteristics: Oral Timing Of Abuse: Daily - Allergies/Home Medications Allergies/Adverse Reactions: Allergies Allergy/AdvReac Type Severity Reaction Status Date / Time Adhesive Tape Allergy Rash Verified 09/29/17 07:14 PMH/Surg Hx/FS Hx/Imm Hx Endocrine/Hematology History: Denies: Hx Anticoagulant Therapy, Hx Blood Transfusions, Hx Diabetes, Hx Thyroid Disease, Other Endocrine/Hematological Disorders Cardiovascular History: Reports: Hx Syncope - rare Denies: Hx Hypertension, Hx Pacemaker/ICD, Other Cardiovascular Problems/ Disorders Respiratory History: Reports: Hx Seasonal Allergies Denies: Hx Asthma, Hx Chronic Bronchitis, Hx Chronic Obstructive Pulmonary Disease (COPD), Hx Lung Cancer, Hx Pneumonia, Other Respiratory Problems/ Disorders GI History: Denies: Hx Ulcer, Other GI Disorders History: Denies: Hx Kidney Stones, Hx Renal Disease, Other Problems/Disorders Musculoskeletal History: Reports: Hx Arthritis - hands Denies: Hx Back Problems, Other Musculoskeletal History Sensory History: Reports: Hx Contacts or Glasses Denies: Hx Hearing Aid, Other Sensory Impairments Opthamlomology History: Reports: Hx Contacts or Glasses Denies: Other Sensory Impairments Neurological History: Reports: Hx Headaches, Hx Seizures - last 2013, undiagnosed disorder, Other Neuro Impairments/Disorders - Shaky from ETOH withdrawal Psychiatric History: Reports: Hx Anxiety, Hx Depression, Hx Inpatient Treatment , Hx Community Mental Health Tx, Hx Substance Abuse, Other Psychiatric Issues/ Disorders - ETOH Abuse Denies: Hx Attention Deficit Hyperactivity Disorder, Hx Eating Disorder, Hx Panic Disorder, Hx Post Traumatic Stress Disorder, Hx Schizophrenia, Hx Bipolar Disorder, Hx Suicide Attempt - Thoughts-presently, Hx of Violent Episodes Against Others - Cancer History Cancer Type, Location and Year: breast cancer=left Hx Hematologic Symptoms: No Hx Chemotherapy: Yes Hx Radiation Therapy: Yes - Surgical History Surgery Procedure, Year, and Place: Bilat Thumb Fusion. Bilat Carpal Tunnel Surgery. LEFT Breast Lumpectomy. LEFT KNEE ARTHROSCOPIC SURGERY. ACL Sx left knee Hx Anesthesia Reactions: No - Immunization History Date of Tetanus Vaccine: Unk Date of Influenza Vaccine: Fall 2014 Infectious Disease History: Unable to Obtain/Confirm Infectious Disease History: Denies: History Other Infectious Disease, Traveled Outside the [place] in Last 30 Days - Family History Known Family History: Positive: Unknown - pt adopted Negative: Hypertension, Respiratory Disease, Seizure Disorder - Social History Alcohol Use: Daily Alcohol Amount: recovering Hx Substance Use: No Substance Use Type: Reports: None Substance Use Comment - Amount & Last Used: pt last requested benzos in ED on , 07/21 per child development consultant Hx Tobacco Use: Yes Smoking Status (MU): Light Every Day Tobacco Smoker Type: Cigarettes Have You Smoked in the Last Year: No Review of Systems All Other Systems Reviewed And Are Negative: No - Comments Additional Review of Systems Comments: LEVEL 5 CAVEAT: exam limited due to the patient being intoxicated. Physical Exam - Summary Physical Exam Summary: VITAL SIGNS: Reviewed. GENERAL: Patient is a well-developed and nourished female who is lying comfortable in the stretcher. Patient is not in any acute respiratory distress. HEAD AND FACE: No signs of trauma. No ecchymosis, hematomas or skull depressions. No sinus tenderness. EYES: PERRLA, EOMI x 2, No injected conjunctiva, no nystagmus. EARS: Hearing grossly intact. Ear canals and tympanic membranes are within normal limits. MOUTH: Oropharynx within normal limits. Alcohol on the breath NECK: Supple, trachea is midline, no adenopathy, no JVD, no carotid bruit, no c- spine tenderness, neck with full ROM. CHEST: Symmetric, no tenderness at palpation LUNGS: Clear to auscultation bilaterally. No wheezing or crackles. CVS: Regular rate and rhythm, S1 and S2 present, no murmurs or gallops appreciated. ABDOMEN: Soft, non-tender. No signs of distention. No rebound no guarding, and no masses palpated. Bowel sounds are normal. EXTREMITIES: FROM in all major joints, no edema, no cyanosis or clubbing. NEURO: Alert SKIN: Dry and warm Triage Information Reviewed: Yes Vital Signs On Initial Exam: Initial Vitals Temp Pulse Resp BP Pulse Ox 98.2 F 113 16 90/65 96 09/28/17 17:12 09/28/17 17:12 09/28/17 17:12 09/28/17 17:12 09/28/17 17:12 Vital Signs Reviewed: Yes Completion Of Physical Exam Limited Due To: Level 5 Diagnostics - Vital Signs Vital Signs Temp Pulse Resp BP Pulse Ox 09/28/17 17:12 98.2 F 113 16 90/65 96 - Laboratory Lab Results: Lab Results 09/28/17 09/28/17 Range/Units 17:17 17:17 WBC 8.3 (3.5-10.8) 10^3/ul RBC 3.99 L (4.0-5.4) 10^6/ul Hgb 13.0 (12.0-16.0) g/dl Hct 38 (35-47) % MCV 96 (80-97) fL MCH 33 H (27-31) pg MCHC 34 (31-36) g/dl RDW 14 (10.5-15) % Plt Count 237 (150-450) 10^3/ul MPV 6.4 L (7.4-10.4) um3 Neut % (Auto) 63.5 (38-83) % Lymph % (Auto) 27.6 (25-47) % Morton % (Auto) 6.6 (0-7) % Eos % (Auto) 1.2 (0-6) % Baso % (Auto) 1.1 (0-2) % Absolute Neuts (auto) 5.3 (1.5-7.7) 10^3/ul Absolute Lymphs (auto) 2.3 (1.0-4.8) 10^3/ul Absolute Monos (auto) 0.5 (0-0.8) 10^3/ul Absolute Eos (auto) 0.1 (0-0.6) 10^3/ul Absolute Basos (auto) 0.1 (0-0.2) 10^3/ul Absolute Nucleated RBC 0 10^3/ul Nucleated RBC % 0.1 Sodium 143 (139-145) mmol/L Potassium 3.8 (3.5-5.0) mmol/L Chloride 108 (101-111) mmol/L Carbon Dioxide 25 (22-32) mmol/L Anion Gap 10 (2-11) mmol/L BUN 10 (6-24) mg/dL Creatinine 0.78 (0.51-0.95) mg/dL Est GFR ( Amer) 98.6 (>60) Est GFR (Non-Af Amer) 76.7 (>60) BUN/Creatinine Ratio 12.8 (8-20) Glucose 95 (70-100) mg/dL Calcium 8.7 (8.6-10.3) mg/dL Total Bilirubin 0.40 (0.2-1.0) mg/dL AST 20 (13-39) U/L ALT 9 (7-52) U/L Alkaline Phosphatase 55 (34-104) U/L Total Protein 6.6 (6.4-8.9) g/dL Albumin 4.0 (3.2-5.2) g/dL Globulin 2.6 (2-4) g/dL Albumin/Globulin Ratio 1.5 (1-3) TSH 0.67 (0.34-5.60) mcIU/mL Salicylates < 2.50 (<30) mg/dL Acetaminophen < 15 mcg/mL Serum Alcohol 508 H* (<10) mg/dL Result Diagrams: 09/28/17 17:17 09/28/17 17:17 Lab Statement: Any lab studies that have been ordered have been reviewed, and results considered in the medical decision making process. Course/Dx - Course Assessment/Plan: This patient is a 57-year-old female who presents to the emergency room. With the chief complaint of alcohol intoxication. Patient reports that she drank half a bottle of Vodka. Blood test results without any significant abnormality except that the serum alcohol is 508. At this point the patient was given IV fluids and a banana bag since the patient has history of alcoholism. The patient is resting comfortable. The patient is here with medically stable. The patient is on the ekg monitor tech. At this time the patient will be signed out to Dr. Mcadams who took the care of this patient at shift change. - Diagnoses Differential Diagnosis/HQI/PQRI: Positive: Alcohol Abuse, Other - Alcohol intoxication Provider Diagnoses: Alcohol intoxication, Alcoholism /alcohol abuse Discharge - Sign-Out/Discharge Documenting (check all that apply): Sign-Out Patient Signing out patient TO: Urban Mcadams - Discharge Plan Condition: Stable Referrals: Rocio Du NP [Primary Care Provider] - - Billing Disposition and Condition Condition: STABLE The documentation as recorded by the Parminder bhatt Gabriel accurately reflects the service I personally performed and the decisions made by , Stef Green MD.
[2017-09-29 18:09] VITALS: BP 127/73
--- NOTE | 2017-09-30 04:34 | ED ---
Progress - Progress Note Progress Note: Assumed care from -- patient requesting detox from alcohol. Patient was here last night for same. She sobered and one home to [facility]. She returned with an alcohol level of 508. She has sobered through the night and is requesting detox. She has no evidence for alcohol withdrawal as evidenced by no tremor, no tachycardia and no anxiety. She reports having been to rehabilitation several times. She also reports only drinking the last 2 days this latest binge. Discussed with mental health tobacco warehouse manager who will evaluate for placement following repeat alcohol level. - Consult/PCP Time Called: 14:00 Course/Dx - Course Course Of Treatment: Pending alcohol level after sobering. Crisis to evaluate and assist with placement. No evidence of alcohol withdrawal syndrome. Patient sobered in the ER and never had any alcohol withdrawal. She was evaluated by crisis for disposition. The arranged outpatient therapies for her in her place of residence at [facility]. - Diagnoses Provider Diagnoses: Alcohol intoxication, Alcoholism /alcohol abuse Discharge - Sign-Out/Discharge Documenting (check all that apply): Discharge/Admit/Transfer - Discharge Plan Condition: Stable Disposition: HOME Patient Education Materials: Depression (ED), Abuse of Alcohol (ED) Referrals: [facility] [Outside] Rocio Du NP [Primary Care Provider] - - Billing Disposition and Condition Condition: STABLE Disposition: HOME
--- NOTE | 2017-10-05 10:39 | ED ---
Progress - Progress Note Progress Note: Pt received Dr. Tracy at 0700 pt presented intoxicated last evening recheck of ETOH level at 7am reviewed pt cleared for mental health eval at 10:30am - Consult/PCP Time Called: 14:00 Course/Dx - Course Course Of Treatment: Pending alcohol level after sobering. Crisis to evaluate and assist with placement. No evidence of alcohol withdrawal syndrome. Patient sobered in the ER and never had any alcohol withdrawal. She was evaluated by crisis for disposition. The arranged outpatient therapies for her in her place of residence at [facility]. - Diagnoses Provider Diagnoses: Alcohol intoxication, Alcoholism /alcohol abuse Discharge - Sign-Out/Discharge Documenting (check all that apply): Sign-Out Patient, Receiving Sign-Out Signing out patient TO: Familia Sorto Receiving patient FROM: Urban Mcadams - Discharge Plan Condition: Stable Disposition: HOME Patient Education Materials: Depression (ED), Abuse of Alcohol (ED) Referrals: [facility] [Outside] Rocio Du, HUMAN RESOURCES FILE CLERK [Primary Care Provider] - - Billing Disposition and Condition Condition: STABLE Disposition: HOME
== END 2017-09-29 19:39 | disposition home or self-care (01) ==
LOC: ED 17:04
DX: F10.229 Alcohol dependence with intoxication, unspecified (principal); Y90.8 Blood alcohol level of 240 mg/100 ml or more
CPT/HCPCS: 36415; 80053; 80307; 80320; 80329; 81003; 81015; 84443; 85025; 87077; 87086; 96360; 96361; 99284; G0480

== ENCOUNTER → 2018-01-26 16:02 | Emergency (ER) | payer OTHER ==
[~2018-01-26 16:02] MED LIST: Iodixanol* (CONTRAST) 320 MG/ML 100 ML SDV IV ONE; NS 0.9% 1000 ML* 1,000 ML IV ONE; NS 0.9% 1000 ML* 2,000 ML IV ONE
--- NOTE | 2018-01-26 16:37 | ED ---
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 EMS reports bystanders helped patient and offered to call 911 because she was bleeding however the patient refused, walked another block, and fell again. EMS placed a [place] c-collar and dressing wrapped around her head. Per EMS, the patient has two lacerations to the "crown of her head and a laceration on her chin. The patient admits to being an everyday drinker and has had vodka today. When asked where she lived, she says she can see it but cant tell you. When asked what happened today, she says I honestly dont know. Im confused. The patient rates the pain 1/10 in severity. Symptoms aggravated by nothing. Symptoms alleviated by nothing. Patient denies abdominal pain. PSHx include knee surgery and bilateral wrist surgery. The patient is not on any blood thinners, she does not take ASA, but does take antidepressants and vitamin B. Current vitals include 101 BPM, 93 O2 sat, and BP 100/70. Home Medications Medication Instructions Recorded Confirmed Type Naltrexone TAB* 50 mg PO QAM 07/28/14 01/26/18 History Atorvastatin* [Lipitor 20 MG*] 20 mg PO BEDTIME 09/22/15 01/26/18 History FLUoxetine CAP* [Prozac CAP*] 40 mg PO QAM 06/01/17 01/26/18 History Calcium Carbonate/Vitamin D3 1 each PO DAILY 06/24/17 01/26/18 History [Calcium 600 + Vit D Tablet] Thiamine TAB* [Vitamin B-1 TAB*] 100 mg PO DAILY 07/26/17 01/26/18 History - History of Current Complaint Chief Complaint: EDTraumaMultiple Stated Complaint: ETOH/FALL Time Seen by Provider: 01/26/18 16:02 Hx Obtained From: Patient, EMS Hx Last Menstrual Period: N/A Mechanism of Injury: Fall - x2 from standing Ambulatory at the Scene: Yes Loss of Consciousness: no loss of consciousness Onset/Duration: Started Minutes Ago, Traumatic, Still Present Onset of Pain: Prior to Arrival Onset Severity: Mild Current Severity: None Pain Intensity: 1 Pain Scale Used: 0-10 Numeric Location: Head - 2 lacerations on crown of her head and 1 laceration on her chin Character: Dull Aggravating Factor(s): Nothing Alleviating Factor(s): Nothing Associated Signs & Symptoms: Positive: Negative, Other: - denies abdominal pain ; admits to drinking vodka today Related History: Alcohol Abuse - Additional Pertinent History Primary Care Physician: [id number] - Allergy/Home Medications Allergies/Adverse Reactions: Allergies Allergy/AdvReac Type Severity Reaction Status Date / Time Adhesive Tape Allergy Rash Verified 09/29/17 07:14 PMH/Surg Hx/FS Hx/Imm Hx Previously Healthy: No Endocrine/Hematology History: Denies: Hx Anticoagulant Therapy, Hx Blood Transfusions, Hx Diabetes, Hx Thyroid Disease, Other Endocrine/Hematological Disorders Cardiovascular History: Reports: Hx Syncope - rare Denies: Hx Hypertension, Hx Pacemaker/ICD, Other Cardiovascular Problems/ Disorders Respiratory History: Reports: Hx Seasonal Allergies Denies: Hx Asthma, Hx Chronic Bronchitis, Hx Chronic Obstructive Pulmonary Disease (COPD), Hx Lung Cancer, Hx Pneumonia, Other Respiratory Problems/ Disorders GI History: Denies: Hx Ulcer, Other GI Disorders History: Denies: Hx Kidney Stones, Hx Renal Disease, Other Problems/Disorders Musculoskeletal History: Reports: Hx Arthritis - hands Denies: Hx Back Problems, Other Musculoskeletal History Sensory History: Reports: Hx Contacts or Glasses Denies: Hx Hearing Aid, Other Sensory Impairments Opthamlomology History: Reports: Hx Contacts or Glasses Denies: Other Sensory Impairments Neurological History: Reports: Hx Headaches, Hx Seizures - last 2013, undiagnosed disorder Psychiatric History: Reports: Hx Anxiety, Hx Eating Disorder - briefly bulemic as teen, Hx Depression, Hx Inpatient Treatment, Hx Community Mental Health Tx, Hx Substance Abuse - not recent 2017, Other Psychiatric Issues/Disorders - ETOH Abuse Denies: Hx Attention Deficit Hyperactivity Disorder, Hx Panic Disorder, Hx Post Traumatic Stress Disorder, Hx Schizophrenia, Hx Bipolar Disorder, Hx Suicide Attempt - Thoughts-presently, Hx of Violent Episodes Against Others - Cancer History Cancer Type, Location and Year: breast cancer=left Hx Hematologic Symptoms: No Hx Chemotherapy: Yes Hx Radiation Therapy: Yes - Surgical History Surgery Procedure, Year, and Place: Bilat Thumb Fusion. Bilat Carpal Tunnel Surgery. LEFT Breast Lumpectomy. LEFT KNEE ARTHROSCOPIC SURGERY. ACL Sx left knee Hx Anesthesia Reactions: No - Immunization History Date of Tetanus Vaccine: Unk Date of Influenza Vaccine: Fall 2014 Infectious Disease History: Yes Infectious Disease History: Denies: History Other Infectious Disease, Traveled Outside the [place] in Last 30 Days - Family History Known Family History: Positive: Unknown - pt adopted Negative: Hypertension, Respiratory Disease, Seizure Disorder - Social History Alcohol Use: Daily Alcohol Amount: recovering Hx Substance Use: No Substance Use Type: Reports: None Hx Tobacco Use: Yes Smoking Status (MU): Light Every Day Tobacco Smoker Type: Cigarettes Have You Smoked in the Last Year: No Review of Systems Positive: Other - patient admits to drinking vodka today and is an everyday drinker Cardiovascular: Negative Respiratory: Negative Negative: Abdominal Pain Positive: Other - recent fall Positive: Other - 2 lacerations on crown of her head and 1 laceration on her chin; patient has [place] c-collar on and dressing around her head on arrival, placed by EMS Neurological: Negative Psychological: Other - cooperative All Other Systems Reviewed And Are Negative: Yes Physical Exam - Summary Physical Exam Summary: Appearance: Traumatic appearance with blood on face, hair, shirt, hands, shoes, moderate pain distress, well-nourished Skin: Warm, color reflects adequate perfusion, dry. Has a 3 cm laceration on the L chin. Head: turban-type bandage on head, no active bleeding, ecchymosis/abrasion left cheek. Teeth aligned. No pain with biting down. No teeth missing Eyes: Conjunctiva clear, right pupil 3mm, left pupil 2mm ENT: No Kwok's sign, no hemotympanum Neck: Supple, no nodes, no JVD Catahoula collar in place Respiratory: Lungs clear, normal breath sounds, no respiratory distress Cardio: RRR, No murmur, pulses normal, brisk capillary refill Abdomen: Soft, nontender, nondistended, no masses, no spleen tip Bowel sounds: Present Musculoskeletal: Strength Intact/ROM intact, no calf tenderness, no edema. Psychological: Normal Neuro: Alert Ox 3, Motor 5/5 Sensation intact. Moves all extrem. No facial droop, speech clear, muscle tone normal, no focal deficit GCS: 15 Triage Information Reviewed: Yes Vital Signs On Initial Exam: Initial Vitals Temp Pulse Resp BP Pulse Ox 98.2 F 101 26 100/70 93 01/26/18 16:14 01/26/18 16:14 01/26/18 16:14 01/26/18 16:14 01/26/18 16:14 Vital Signs Reviewed: Yes Diagnostics - Vital Signs Vital Signs Temp Pulse Resp BP Pulse Ox 01/26/18 16:14 98.2 F 101 26 100/70 93 - Laboratory Result Diagrams: 01/26/18 17:14 01/26/18 16:35 Lab Statement: Any lab studies that have been ordered have been reviewed, and results considered in the medical decision making process. - Radiology CXR Radiology Interpretation Completed By: Radiologist - NO ACTIVE CARDIOPULMONARY DISEASE IS NOTED. ED physician has reviewed this radiology report. - CT C-spine CT CT Interpretation Completed By: Radiologist - Degenerative disc disease at C3-C4 , C4-C5 and C5-C6 without fracture. ED physician has reviewed this radiology report. Brain CT CT Interpretation Completed By: Radiologist - There is no evidence of intracranial mass or hemorrhage noted. ED physician has reviewed this radiology report. Maxilliofacial CT CT Interpretation Completed By: Radiologist - No fracture of the facial bones is identified. ED physician has reviewed this radiology report. Chest/Abd/Pel CT CT Interpretation Completed By: Radiologist - No evidence of solid organ injury is noted. No chest injury is noted. Study is limited due to lack of oral contrast. No free fluid is identified. ED physician has reviewed this radiology report. - EKG 1623 Cardiac Rate: NL - 98 BPM EKG Rhythm: Sinus Rhythm EKG Interpretation: Nml AV CT, borderline IV CT (113), and nml QTc EKG Comparison: No Significant Change - c/w 07/27/17 Re-Evaluation - Re-Evaluation First Eval Re-Evaluation Time: 16:22 Change: Worse Comment: The patient went hypotensive while going in for a CT. Therefore she was brought back in the room for fluids. Upon arrival back in the room, her vitals were 106 BPM, 96 O2, and 98/66. 2nd vitals were 94 BPM, 100 O2, and 93/ 72. 3rd vitals were 87 BPM, 98 O2, and 99/62. Pt remains alert, talking to us, cooperative, moving all extremities. Lungs clear. Cor S1S2, Abd soft +BS, nontender. Pelvis stable, nontender. Head with no bleeding Second Eval Re-Evaluation Time: 17:33 Change: Improved Comment: Current vitals are BP at 110/66 and pulse at 55 BPM. Patient will be given bedside commode to void. Third Eval Re-Evaluation Time: 18:06 Change: Unchanged Comment: Current vitals are 84 BPM, 95 O2, and BP at 94/67. Nora, the PA, did not find any lacerations on the patient's head. Adult Trauma Course/Dx - Course Assessment/Plan: This patient is a 57 year old F BIBA to ED with a chief complaint of fall and ETOH intoxication since HEEL SOR[facility]. Labs were waived at 1633 for an emergency. The patient was hypotensive (BP was down to 86/40). The patient's [place] C-collar was removed at 1725. CXR reveals NO ACTIVE CARDIOPULMONARY DISEASE IS NOTED. C-spine CT reveals degenerative disc disease at C3-C4, C4-C5 and C5-C6 without fracture. Brain CT reveals there is no evidence of intracranial mass or hemorrhage noted. Maxillofacial CT reveals no fracture of the facial bones is identified. Chest/Abd/Pel CT reveals no evidence of solid organ injury is noted. No chest injury is noted. Study is limited due to lack of oral contrast. No free fluid is identified. EKG done at 1623 reveals NSR at 98 BPM, Nml AV CT, borderline IV CT (113), and nml QTc. This patient will be signed out to Dr. Mcadams, awaiting for patient to be clinically sober, due to alcohol level 290. Pt states she has no one to call for a ride home. Safety checks for q 15mins in place awaiting clinical sobriety. - Diagnoses Differential Diagnosis/HQI/PQRI: Positive: Abrasion(s), Contusion(s), Fracture Provider Diagnoses: Head injury, Chin laceration, Alcohol intoxication, Fall, Hypocalcemia, Hypokalemia Discharge - Sign-Out/Discharge Documenting (check all that apply): Sign-Out Patient - awaiting for patient to be clinically sober Signing out patient TO: Urban Mcadams - 01/26/18 1900, pending sobriety Receiving patient FROM: Michelle Nolasco - Discharge Plan Condition: Improved Disposition: HOME Patient Education Materials: Head Injury (ED), Alcohol Intoxication (ED), Facial Laceration (ED) Referrals: Rocio Du, [facility] [Primary Care Provider] - Additional Instructions: Follow-up with drug and alcohol and your sponsor. Do not drink to excess. Do not drink vodka. Return with severe headache, bleeding from the wound, concern for infection or other concerns. Sutures to be removed in 7 days' time. Dress the area with bacitracin ointment twice daily. - Billing Disposition and Condition Condition: IMPROVED Disposition: Home - Attestation Statements Document Initiated by Amisha: Yes Documenting Scribe: Daren Aguilar Provider For Whom Hannahibe is Documenting (Include Credential): Michelle Nolasco MD Scribe Attestation: Daren Patel, scribed for Michelle Nolasco MD on 01/26/18 at 2154. Scribe Documentation Reviewed: Yes Provider Attestation: The documentation as recorded by the Daren bhatt accurately reflects the service I personally performed and the decisions made by me, Michelle Nolasco MD
[2018-01-26 17:04] LABS: EGFR Non-African American 75.6 (>60)
--- NOTE | 2018-01-26 17:15 | RAD ---
Indication: Fall, head laceration. CT of the brain performed without IV contrast. Comparison is made with previous exam dated April 16, 2017. Ventricular structures are midline. No midline shift is noted. The extra-axial spaces are unremarkable. There is no evidence of intracranial mass or hemorrhage. Overall no significant change is noted since previous exam of April 16, 2017. Mastoid air cells and paranasal sinuses are otherwise unremarkable. IMPRESSION: There is no evidence of intracranial mass or hemorrhage noted.
--- NOTE | 2018-01-26 17:16 | RAD ---
Indication: Fall, neck injury, head laceration. CT of the cervical spine was obtained in the axial plane. Sagittal and coronal reconstructed images were obtained. The skull base demonstrates no evidence of fracture. Mastoid air cells are well aerated. Degeneration of the atlantoaxial joint is noted. No fracture is identified. There is disc space narrowing at C3-C4, C4-C5 and C5-C6 with dorsal osteophyte formation. Spinal canal appears to be intact. No evidence of fracture is noted. No facet malalignment is noted. IMPRESSION: Degenerative disc disease at C3-C4, C4-C5 and C5-C6 without fracture.
--- NOTE | 2018-01-26 17:18 | RAD ---
Indication: Fall, facial injury. CT of the facial bones was obtained in the axial plane. Sagittal and coronal reconstructed images were obtained. The mandible demonstrates no evidence of fracture. Temporomandibular joints are grossly unremarkable. Mastoid air cells are well aerated. The maxilla and pterygoid plates are intact without evidence of fracture. Zygomatic arch is intact. The nasal arch and nasal septum are intact without fracture. Paranasal sinuses demonstrates no evidence of air-fluid levels. IMPRESSION: No fracture of the facial bones is identified.
[2018-01-26 17:25] LABS: ABS Basophils 0 10^3/ul (0-0.2); ABS Eosinophils 0.1 10^3/ul (0-0.6); ABS Lymphocytes 1.8 10^3/ul (1.0-4.8); ABS Monocytes 0.4 10^3/ul (0-0.8); ABS Neutrophils 4.1 10^3/ul (1.5-7.7); ABS Nucleated RBC 0 10^3/ul; Eosinophil % 1.3 % (0-6); Hematocrit 33 % (35-47); Hemoglobin 11.2 g/dl (12.0-16.0); Mean Corpuscular HGB Conc 34 g/dl (31-36); Mean Corpuscular Hemoglobin 32 pg (27-31); Mean Corpuscular Volume 95 fL (80-97); Mean Platelet Volume 6.5 um3 (7.4-10.4); Nucleated Red Blood Cells % 0.1; Platelet Count 205 10^3/ul (150-450); Red Blood Count 3.47 10^6/ul (4.00-5.40); Red Cell Distribution Width 15 % (10.5-15); White Blood Count 6.4 10^3/ul (3.5-10.8)
--- NOTE | 2018-01-26 17:25 | RAD ---
Indication: Tachycardia. Contrast: Administered 79.2 ml of VISAPAQUE 320 mg/ml CT of the chest, abdomen and pelvis was performed after IV contrast demonstration. No oral contrast was administered. The mediastinum and straight normal aorta. The heart demonstrates no pericardial no mediastinal or hilar adenopathy is noted. The trachea and major bronchi appear patent. Dependent changes are noted in the lung friedman. No pleural fluid is identified. The axilla demonstrates no evidence of abnormal adenopathy. The heart demonstrates no pericardial effusion. The visualized thoracic spine demonstrates no evidence of fracture. CT of the abdomen and pelvis demonstrates liver to be normal in size. No focal lesions or intrahepatic duct dilatation. The gallbladder demonstrates no calcified gallstones. No pericholecystic fluid or wall thickening is noted. The pancreas demonstrates no mass or pancreatic duct dilatation. Common duct is not dilated. The spleen is normal in size. No adrenal masses are noted. The kidneys demonstrate no hydronephrosis. No retroperitoneal lymphadenopathy is noted. No dilated loops of bowel are noted. CT of the pelvis demonstrates no free fluid. No abnormal masses or fluid collections are noted. No evidence of fracture of the lumbar spine or pelvis is noted. IMPRESSION: No evidence of solid organ injury is noted. No chest injury is noted. Study is limited due to lack of oral contrast. No free fluid is identified.
[2018-01-26 17:30] LABS: INR 1.05 (0.77-1.02)
--- NOTE | 2018-01-26 17:47 | RAD ---
Indication: Fall, chest injury. Single frontal view of the chest performed at 1734 hours was reviewed. Comparison is made with previous exam dated June 10, 2016. No mediastinal shift is noted. Heart is of normal size and configuration. Lung friedman appear clear. IMPRESSION: NO ACTIVE CARDIOPULMONARY DISEASE IS NOTED.
[2018-01-26 17:54] LABS: Urine Appearance Clear; Urine Blood Negative (Negative); Urine Color Straw; Urine Ketones Negative (Negative); Urine Protein Negative (Negative); Urine Red Blood Cell Trace(0-2/hpf) (Absent); Urine Specific Gravity 1.011 (1.010-1.030); Urine Urobilinogen Negative (Negative); Urine White Blood Cell Trace(0-5/hpf) (Absent)
--- NOTE | 2018-01-26 19:03 | PN ---
Progress Note - Progress Note Date of Service: 01/26/18 Note: Laceration to the left side of the chin 1.7 cm in length, depth is approximately 0.4 cm and width is 0.6 cm. Local anesthetic using 1 mL lidocaine without epi with good effect. Cleansed wound thoroughly using normal saline with jet irrigation. Using sterile technique, 5 sutures placed using 5-0 ethilon. Bleeding is well controlled. Bandage applied.
[2018-01-26 21:50] VITALS: BP 99/59
--- NOTE | 2018-01-26 22:05 | ED ---
Progress - Progress Note Progress Note: The pt is a 57 y.o female who was signed out by Dr. Nolasco. Patient's laceration was repaired by the physician clinical lab assistant. She was allowed to sober over several hours. The patient is now alert, oriented with normal cognition. She has clear speech, steady gait. She was discharged with a safe ride back to her residence in a alcohol related care home house. Re-Evaluation - Re-Evaluation First Eval Re-Evaluation Time: 16:22 Change: Worse Comment: The patient went hypotensive while going in for a CT. Therefore she was brought back in the room for fluids. Upon arrival back in the room, her vitals were 106 BPM, 96 O2, and 98/66. 2nd vitals were 94 BPM, 100 O2, and 93/ 72. 3rd vitals were 87 BPM, 98 O2, and 99/62. Pt remains alert, talking to us, cooperative, moving all extremities. Lungs clear. Cor S1S2, Abd soft +BS, nontender. Pelvis stable, nontender. Head with no bleeding Second Eval Re-Evaluation Time: 17:33 Change: Improved Comment: Current vitals are BP at 110/66 and pulse at 55 BPM. Patient will be given bedside commode to void. Third Eval Re-Evaluation Time: 18:06 Change: Unchanged Comment: Current vitals are 84 BPM, 95 O2, and BP at 94/67. Nora, the PA, did not find any lacerations on the patient's head. Course/Dx - Diagnoses Provider Diagnoses: Alcohol intoxication, Facial laceration, Closed head injury Discharge - Sign-Out/Discharge Documenting (check all that apply): Patient Departure - Discharge Home - Discharge Plan Condition: Improved Disposition: HOME Patient Education Materials: Head Injury (ED), Alcohol Intoxication (ED), Facial Laceration (ED) Referrals: Rocio Du NP [Primary Care Provider] - Additional Instructions: Follow-up with drug and alcohol and your sponsor. Do not drink to excess. Do not drink vodka. Return with severe headache, bleeding from the wound, concern for infection or other concerns. Sutures to be removed in 7 days' time. Dress the area with bacitracin ointment twice daily. - Billing Disposition and Condition Condition: IMPROVED Disposition: Home - Attestation Statements Document Initiated by Scribe: Yes Documenting Scribe: Yogi Ward Provider For Whom Scribe is Documenting (Include Credential): Dr. Mcadams Scribe Attestation: I, Yogi Ward, scribed for Dr. Mcadams on 01/27/18 at 0139. Scribe Documentation Reviewed: Yes Provider Attestation: The documentation as recorded by the scribeYogi accurately reflects the service I personally performed and the decisions made by me, Dr. Mcadams
== END | disposition home or self-care (01) ==
LOC: ED 16:02
DX: S09.90XA Unspecified injury of head, initial encounter (principal); S01.81XA Laceration without foreign body of other part of head, initial encounter; F10.129 Alcohol abuse with intoxication, unspecified; W19.XXXA Unspecified fall, initial encounter; Y92.9 Unspecified place or not applicable; Z85.3 Personal history of malignant neoplasm of breast; F17.210 Nicotine dependence, cigarettes, uncomplicated; E87.6 Hypokalemia; E83.51 Hypocalcemia; M50.321 Other cervical disc degeneration at C4-C5 level; M50.322 Other cervical disc degeneration at C5-C6 level
CPT/HCPCS: 12011; 36415; 70450; 70486; 71045; 71260; 72125; 74177; 80053; 80307; 80320; 81003; 81015; 82150; 82550; 83605; 83690; 84484; 85025; 85610; 86850; 86900; 86901; 87086; 93005; 96361; 96374; 99284; G0480; Q9967

== ENCOUNTER 2018-01-29 13:07 | Emergency (ER) | payer OTHER ==
--- NOTE | 2018-01-29 13:42 | ED ---
Substance Abuse/Use - HPI Summary HPI Summary: LEVEL 5 CAVEAT: HPI LIMITED DUE TO PT CONDITION, ETOH INTOXICATION. Pt is a 57 y/o F BIBA presenting to [facility] alert and intoxicated. Per nurse, EMS was called for possible cardiac arrest but at scene found pt alert and intoxicated. Pt was seen three days ago for ETOH intoxication and chin lac. [facility]. Pt pulled out IV prior to arrival at bedside. - History Of Current Complaint Stated Complaint: AMS Time Seen by Provider: 01/29/18 13:26 Hx Obtained From: Patient Hx Last Menstrual Period: N/A Ingestion History: Type/Name Of Drug - ETOH - Allergies/Home Medications Allergies/Adverse Reactions: Allergies Allergy/AdvReac Type Severity Reaction Status Date / Time Adhesive Tape Allergy Rash Verified 09/29/17 07:14 PMH/Surg Hx/FS Hx/Imm Hx Previously Healthy: No Endocrine/Hematology History: Denies: Hx Anticoagulant Therapy, Hx Blood Transfusions, Hx Diabetes, Hx Thyroid Disease, Other Endocrine/Hematological Disorders Cardiovascular History: Reports: Hx Syncope - rare Denies: Hx Hypertension, Hx Pacemaker/ICD, Other Cardiovascular Problems/ Disorders Respiratory History: Reports: Hx Seasonal Allergies Denies: Hx Asthma, Hx Chronic Bronchitis, Hx Chronic Obstructive Pulmonary Disease (COPD), Hx Lung Cancer, Hx Pneumonia, Other Respiratory Problems/ Disorders GI History: Denies: Hx Ulcer, Other GI Disorders History: Denies: Hx Kidney Stones, Hx Renal Disease, Other Problems/Disorders Musculoskeletal History: Reports: Hx Arthritis - hands Denies: Hx Back Problems, Other Musculoskeletal History Sensory History: Reports: Hx Contacts or Glasses Denies: Hx Hearing Aid, Other Sensory Impairments Opthamlomology History: Reports: Hx Contacts or Glasses Denies: Other Sensory Impairments Neurological History: Reports: Hx Headaches, Hx Seizures - last 2013, undiagnosed disorder, Other Neuro Impairments/Disorders - Shaky from ETOH withdrawal Psychiatric History: Reports: Hx Anxiety, Hx Eating Disorder - briefly bulemic as teen, Hx Depression, Hx Inpatient Treatment, Hx Community Mental Health Tx, Hx Substance Abuse - not recent 2017, Other Psychiatric Issues/Disorders - ETOH Abuse Denies: Hx Attention Deficit Hyperactivity Disorder, Hx Panic Disorder, Hx Post Traumatic Stress Disorder, Hx Schizophrenia, Hx Bipolar Disorder, Hx Suicide Attempt - Thoughts-presently, Hx of Violent Episodes Against Others - Cancer History Cancer Type, Location and Year: breast cancer=left Hx Hematologic Symptoms: No Hx Chemotherapy: Yes Hx Radiation Therapy: Yes - Surgical History Surgery Procedure, Year, and Place: Bilat Thumb Fusion. Bilat Carpal Tunnel Surgery. LEFT Breast Lumpectomy. LEFT KNEE ARTHROSCOPIC SURGERY. ACL Sx left knee Hx Anesthesia Reactions: No - Immunization History Date of Tetanus Vaccine: Unk Date of Influenza Vaccine: Fall 2014 Infectious Disease History: Denies: History Other Infectious Disease, Traveled Outside the [place] in Last 30 Days - Family History Known Family History: Positive: Unknown - pt adopted Negative: Hypertension, Respiratory Disease, Seizure Disorder - Social History Occupation: Unemployed Alcohol Use: Daily Alcohol Amount: recovering Hx Substance Use: No Substance Use Type: Reports: None Substance Use Comment - Amount & Last Used: pt last requested benzos in ED on , 07/21 per president [employer] Hx Tobacco Use: Yes Smoking Status (MU): Light Every Day Tobacco Smoker Type: Cigarettes Have You Smoked in the Last Year: No Review of Systems - ROS Summary Review of Systems Summary: LEVEL 5 CAVEAT: ROS LIMITED DUE TO PT CONDITION, ETOH INTOXICATION. Constitutional: Other - POS: intoxicated All Other Systems Reviewed And Are Negative: No Physical Exam - Summary Physical Exam Summary: GENERAL: Patient is a well-developed and nourished F who is lying comfortable in the stretcher. Patient is not in any acute respiratory distress. HEAD AND FACE: Normocephalic. Dried blood at top of scalp. Lac on L side of chin with sutures in place. EYES: PERRLA, EOMI x 2. Periorbital ecchymosis on L side. EARS: Hearing grossly intact. MOUTH: Oropharynx within normal limits. NECK: Supple, trachea is midline, no adenopathy, no JVD, no carotid bruit. CHEST: Symmetric, no tenderness at palpation LUNGS: Clear to auscultation bilaterally. No wheezing or crackles. CVS: Regular rate and rhythm, S1 and S2 present, no murmurs or gallops appreciated. ABDOMEN: Soft, non-tender. Bowel sounds are normal. No abdominal abnormal pulsations. EXTREMITIES: Full ROM in all major joints, no edema, no cyanosis or clubbing. NEURO: Alert and oriented x 3. No acute neurological deficits. Speech is normal and follows commands. SKIN: Dry and warm. Triage Information Reviewed: Yes Vital Signs Reviewed: Yes Diagnostics - Laboratory Result Diagrams: 01/29/18 14:15 01/29/18 14:15 Lab Statement: Any lab studies that have been ordered have been reviewed, and results considered in the medical decision making process. - CT Cervical Spine CT CT Interpretation: No Acute Changes - There is a reversal of the normal cervical lordosis which could be seen in the setting of muscle spasm or simply due to positioning. There is no definite acute fracture or dislocation of the cervical spine. ED Physician reviewed this report. CT Interpretation Completed By: Radiologist Brain CT CT Interpretation: No Acute Changes - No calvarial fracture or acute intracrainial hemorrhage. ED physician has reviewed this report. CT Interpretation Completed By: Radiologist Course/Dx - Course Course Of Treatment: Pt is a 57 y/o F BIBA presenting to [facility] intoxicated. EMS was called for possible cardiac arrest but at scene found pt alert and intoxicated. Imaging was unremarkable. Pt will be signed out to Dr. Plummer at shift change pending sobriety. - Diagnoses Provider Diagnoses: Alcohol intoxication Discharge - Sign-Out/Discharge Documenting (check all that apply): Sign-Out Patient Signing out patient TO: Eris Plummer - pending sobriety - Discharge Plan Condition: Improved Disposition: HOME Patient Education Materials: Alcohol Intoxication (ED) Referrals: Rocio Du ORE DRYER [Primary Care Provider] - - Billing Disposition and Condition Condition: IMPROVED Disposition: Home - Attestation Statements Document Initiated by Scribe: Yes Documenting Scribe: Rasheed Keene Provider For Whom Scribe is Documenting (Include Credential): Dr. Mendoza Torres MD Scribe Attestation: Rasheed Patel scribed for Dr. Mendoza Torres MD on 01/30/18 at 0751. Scribe Documentation Reviewed: Yes Provider Attestation: The documentation as recorded by the Rasheed bhatt accurately reflects the service I personally performed and the decisions made by me, Dr. Mendoza Torres MD
[2018-01-29] MEDS ORDERED: NS 0.9% 1000 ML* 1,000 ML IV ONE ×2 (13:49→17:44)
[2018-01-29] MEDS ORDERED: Thiamine IV* 100 MG, Folic Acid IV* 1 MG, Multiple Vitamin IV ADULT* 10 ML in NS 0.9% 1... IV ONE (13:49)
[2018-01-29 14:34] LABS: ABS Basophils 0.1 10^3/ul (0-0.2); ABS Eosinophils 0.1 10^3/ul (0-0.6); ABS Lymphocytes 2.6 10^3/ul (1.0-4.8); ABS Monocytes 0.4 10^3/ul (0-0.8); ABS Nucleated RBC 0 10^3/ul; Eosinophil % 1.8 % (0-6); Hematocrit 35 % (35-47); Hemoglobin 12.1 g/dl (12.0-16.0); Lymphocyte % 35.3 % (25-47); Mean Corpuscular HGB Conc 35 g/dl (31-36); Mean Corpuscular Hemoglobin 33 pg (27-31); Mean Corpuscular Volume 94 fL (80-97); Mean Platelet Volume 6.3 um3 (7.4-10.4); Nucleated Red Blood Cells % 0; Platelet Count 240 10^3/ul (150-450); Red Blood Count 3.74 10^6/ul (4.00-5.40); Red Cell Distribution Width 15 % (10.5-15); White Blood Count 7.3 10^3/ul (3.5-10.8)
[2018-01-29 14:36] LABS: INR 1.01 (0.77-1.02)
--- NOTE | 2018-01-29 14:46 | RAD ---
indication: Fall. Positive EtOH. COMPARISON: CT of the brain January 26, [address] of the cervical spine dated April 16, [address] scan of the brain and c-spine was performed without intravenous contrast enhancement. Contiguous axial sections were obtained from the lung apices through the vertex. BRAIN: The ventricles, cisterns and sulci exhibit mild symmetrical involutional changes similar to the prior CT the brain.. No significant focal abnormality or mass effect is seen. The mendez-white differentiation is adequately maintained. There is no intracranial hemorrhage. No significant bony abnormality is present. The mastoid air cells are appropriately aerated. The visualized paranasal sinuses are clear. C-SPINE: On the sagittal view there is reversal of the normal cervical lordosis. The vertebral bodies and facet joints are otherwise appropriately aligned. The dens is intact. There is no atlantodental widening. There is no definite acute fracture or dislocation. Multilevel degenerative changes of the cervical spine includes loss of intervertebral disc height and marginal osteophyte formation. These changes are most severe at C3-C6. At the same levels there is uncovertebral hypertrophy depicted well on the coronal plane images. There is no hyperdense material in the cervical canal to indicate hemorrhage. The visualized musculature and soft tissues are normal. There is no gross lymphadenopathy visualized. The visualized portion of the lung apices are clear. IMPRESSION: 1. No calvarial fracture or acute intracranial hemorrhage. 2. There is reversal of the normal cervical lordosis which could be seen in the setting of muscle spasm or simply be due to positioning. There is no definite acute fracture or dislocation involving the cervical spine.
[2018-01-29 14:57] LABS: EGFR Non-African American 76.7 (>60)
[2018-01-29 17:16] LABS: Urine Appearance Clear; Urine Blood 1+ (Negative); Urine Color Straw; Urine Ketones Negative (Negative); Urine Protein Negative (Negative); Urine Red Blood Cell Trace(0-2/hpf) (Absent); Urine Specific Gravity 1.008 (1.010-1.030); Urine Urobilinogen Negative (Negative); Urine White Blood Cell Trace(0-5/hpf) (Absent)
--- NOTE | 2018-01-29 19:30 | ED ---
Progress - Progress Note Progress Note: Pt was transferred to Dr. Plummer from Dr. Torres. Upon re evaluation, patient is clinically sober and wants to leave. Patient does not want any further help with EtOH abuse. Re-Evaluation - Re-Evaluation First Eval Re-Evaluation Time: 22:45 Change: Improved Comment: Patient is clinically sober and wants to go home without further assistance with EtOH abuse. Course/Dx - Diagnoses Provider Diagnoses: Alcohol intoxication Discharge - Sign-Out/Discharge Documenting (check all that apply): Patient Departure - discharge Signing out patient TO: Eris Plummer Receiving patient FROM: Mendoza Torres - Discharge Plan Condition: Improved Disposition: HOME Patient Education Materials: Alcohol Intoxication (ED) Referrals: Rocio Du SLABBER LIGHT [Primary Care Provider] - - Attestation Statements Document Initiated by Scribe: Yes Documenting Scribe: Moises Gaytan Provider For Whom Scribe is Documenting (Include Credential): Eris Plummer Scribe Attestation: Moises Patel, scribed for Eris Plummer on 01/29/18 at [id number].
[2018-01-29 22:42] VITALS: BP 114/76
--- NOTE | 2018-01-31 16:08 | PN ---
Progress Note - Progress Note Date of Service: 01/29/18 Note: Pt. seen in ED 01/29 and urine culture obtained at that time. Culture today is growing e. coli 10-25k and GBS 1-10k. I called and spoke with pt. today at 1239. She states she is note having any urinary sxs. Will not treat at this time. Advised f.u with PCP.
== END 2018-01-29 23:03 | disposition home or self-care (01) ==
LOC: ED 13:07
DX: F10.129 Alcohol abuse with intoxication, unspecified (principal); Z59.0 Homelessness; Z85.3 Personal history of malignant neoplasm of breast
CPT/HCPCS: 36415; 70450; 72125; 80053; 80320; 80329; 81003; 81015; 82140; 83605; 83735; 84484; 85025; 85610; 87077; 87086; 87186; 96360; 96361; 99283; G0480; J3411

== ENCOUNTER 2018-02-04 12:20 | Emergency (ER) | payer OTHER ==
[2018-02-04 12:28] VITALS: BP 120/84
--- NOTE | 2018-02-04 13:21 | UC ---
Complaint Female HPI - HPI Summary HPI Summary: 1. ONSET OF DYSURIA, URINARY FREQUENCY AND URGENCY 2 DAYS AGO. TODAY NOTICED SOME BLOOD IN THE URINE. NO FEVER, BACK PAIN, NAUSEA. 2. ALSO REPORTS SHE TRIPPED AND FELL WHILE INTOXICATED ABOUT 4 DAYS AGO. THE NEXT DAY DEVELOPED SOME PAIN IN THE LEFT SHOULDER. THERE IS NO SWELLING, BRUISING OR DECREASED RANGE OF MOTION. FEELS HER PAIN IS MUSCULAR AND POINTS TO THE AREA OF THE TRAPEZIUS. STATES SHE HAS INTERMITTENT NUMBNESS IN HER LEFT HAND THAT IMMEDIATELY RESOLVES WITH CHANGE IN POSITION. NO NECK PAIN. NO CP, SOB OR NAUSEA. - History Of Current Complaint Chief Complaint: UCGeneralIllness Stated Complaint: SHOULDER PAIN,URINARY COMPLAINT Time Seen by Provider: 02/04/18 12:31 Hx Obtained From: Patient Hx Last Menstrual Period: N/A Onset/Duration: Gradual Onset, Lasting Days, Still Present Timing: Constant Severity Initially: Moderate Severity Currently: Moderate Pain Intensity: 3 Pain Scale Used: 0-10 Numeric Character: Burning Aggravating Factor(s): Urination Alleviating Factor(s): Nothing Associated Signs And Symptoms: Negative: Fever, Nausea - Allergies/Home Medications Allergies/Adverse Reactions: Allergies Allergy/AdvReac Type Severity Reaction Status Date / Time Adhesive Tape Allergy Rash Verified 02/04/18 12:28 PMH/Surg Hx/FS Hx/Imm Hx Cancer History: Breast Cancer Other History Of: Negative For: Anticoagulant Therapy - Surgical History Surgical History: Yes Surgery Procedure, Year, and Place: Bilat Thumb Fusion. Bilat Carpal Tunnel Surgery. LEFT Breast Lumpectomy. LEFT KNEE ARTHROSCOPIC SURGERY. ACL Sx left knee - Family History Known Family History: Positive: Unknown - pt adopted Negative: Hypertension, Respiratory Disease, Seizure Disorder - Social History Alcohol Use: None Alcohol Amount: recovering Substance Use Type: None Substance Use Comment - Amount & Last Used: pt last requested benzos in ED on , 07/21 per documentation clerk Smoking Status (MU): Light Every Day Tobacco Smoker Type: Cigarettes Have You Smoked in the Last Year: No When Did the Patient Quit Smoking/Using Tobacco: 20 YEARS AGO - Immunization History Most Recent Influenza Vaccination: 2014 Most Recent Tetanus Shot: unk Most Recent Pneumonia Vaccination: never Review of Systems Constitutional: Negative Skin: Negative Respiratory: Negative Cardiovascular: Negative Gastrointestinal: Negative Genitourinary: Dysuria, Hematuria, Frequency, Urgency Musculoskeletal: Arthralgia All Other Systems Reviewed And Are Negative: Yes Physical Exam Triage Information Reviewed: Yes Appearance: Well-Appearing, No Pain Distress, Well-Nourished Vital Signs: Initial Vital Signs Temp 98 F 02/04/18 12:24 Pulse 100 02/04/18 12:24 Resp 20 02/04/18 12:24 BP 120/84 02/04/18 12:24 Pulse Ox 100 02/04/18 12:24 Vital Signs Reviewed: Yes Eyes: Positive: Conjunctiva Clear ENT: Positive: Hearing grossly normal Neck: Positive: Supple Respiratory: Positive: No respiratory distress, No accessory muscle use Cardiovascular: Positive: Pulses Normal Abdomen Description: Positive: Nontender, Soft. Negative: CVA Tenderness (R), CVA Tenderness (L), Distended, Guarding Musculoskeletal: Positive: ROM Intact, No Edema, Other: - NO BONY TENDERNESS. FULL ROM. NO EDEMA. MILDLY TENDER LEFT TRAPEZIUS. NEG SPURLINGS. Neurological: Positive: Alert, Muscle Tone Normal Psychological: Positive: Age Appropriate Behavior Skin: Negative: rashes Complaint Female Dx - Differential Dx/Diagnosis Provider Diagnoses: 1. UTI. 2. LEFT SHOULDER SPRAIN Discharge - Sign-Out/Discharge Documenting (check all that apply): Patient Departure All imaging exams completed and their final reports reviewed: No Studies - Discharge Plan Condition: Stable Disposition: HOME Prescriptions: Phenazopyridine TAB* [Pyridium TAB*] 200 mg PO TID #6 tab Sulfamethox/Trimethoprim DS* [Bactrim DS 800/160 TAB*] 1 tab PO BID #10 tab Patient Education Materials: Urinary Tract Infection in Women (ED), Shoulder Sprain (ED) Referrals: Rocio Du NP [Primary Care Provider] - If Needed Additional Instructions: TAKE ANTIBIOTICS FOR THE FULL COURSE. STAY WELL HYDRATED. WE WILL SEND YOUR URINE FOR CULTURE AND CALL YOU IF YOUR MEDICATION NEEDS TO BE CHANGED. YOUR SHOULDER DISCOMFORT IS LIKELY THE RESULT OF YOUR RECENT FALL. ON EXAM THERE IS NO SUSPICION FOR ANY BROKEN BONES OR DISLOCATION SO WILL NOT X-RAY TODAY. GIVEN YOUR INTERMITTENT NUMBNESS CONSIDER CERVICAL NERVE IMPINGEMENT. FOLLOW-UP WITH YOUR PCP FOR FURTHER EVALUATION IS YOU MAY BENEFIT FROM MORE ADVANCED IMAGING. GO TO THE ED WITHOUT FAIL IF YOU PAIN WORSENS. - Billing Disposition and Condition Condition: STABLE Disposition: Home
== END 2018-02-04 13:26 | disposition home or self-care (01) ==
LOC: UCEAST 12:20
DX: N39.0 Urinary tract infection, site not specified (principal); R31.9 Hematuria, unspecified; S43.402A Unspecified sprain of left shoulder joint, initial encounter; W01.0XXA Fall on same level from slipping, tripping and stumbling without subsequent striking against object, initial encounter; Y93.9 Activity, unspecified; Y92.9 Unspecified place or not applicable; Z91.048 Other nonmedicinal substance allergy status; Z87.891 Personal history of nicotine dependence
CPT/HCPCS: 81003; 87086; 99211; G0463

== ENCOUNTER 2018-02-11 11:49 | Emergency (ER) | payer OTHER ==
--- NOTE | 2018-02-11 12:23 | ED ---
Substance Abuse/Use - HPI Summary HPI Summary: Patient is a 57-year-old alcoholic female presenting to the ED after [facility] called ambulance with a concern over an AMS. They state patient has-been drinking alcohol up in the past several days up to 1 bottle of vodka daily. She is not to be drinking at [place], but continues to do so. She denies any falls or injuries. She was seen in the ED a few weeks ago for a fall with chin laceration and head injury. She appears well on arrival, however intoxicated. Denies any chest pain, shortness of breath, trauma or falls. Denies any pain otherwise. Patient is obviously intoxicated, denying any drugs. Patient is a nonsmoker. - History Of Current Complaint Chief Complaint: EDAltMentalStatus Stated Complaint: 2208 Time Seen by Provider: 02/11/18 11:50 Hx Obtained From: Patient Hx Last Menstrual Period: N/A ?: No Ingestion History: Amount Ingested - 1 bottle vodka Overdose Characteristics: Oral Timing Of Abuse: Daily Severity Currently: Severe Aggravating Factor(s): Nothing Alleviating Factor(s): Nothing Associated Signs And Symptoms: Other: - Alcohol intoxication Related Hx: Drug/Alcohol Last Used @ - This morning, Prior Drug Abuse Counseling /Admission - Risk Factor(s) Completed Suicide Risk Factors: Negative, White [place] - Allergies/Home Medications Allergies/Adverse Reactions: Allergies Allergy/AdvReac Type Severity Reaction Status Date / Time Adhesive Tape Allergy Rash Verified 02/04/18 12:28 Home Medications: Home Medications Calcium Carbonate/Vitamin D3 [Calcium 500 mg-Vit D3 600 Unit] 1 tab PO BID 02/11 [History Confirmed 02/11/18] Thiamine TAB* [Vitamin B-1 TAB*] 100 mg PO DAILY 02/11/18 [History Confirmed 09/24] PMH/Surg Hx/FS Hx/Imm Hx Previously Healthy: Yes Endocrine/Hematology History: Denies: Hx Anticoagulant Therapy, Hx Blood Transfusions, Hx Diabetes, Hx Thyroid Disease, Other Endocrine/Hematological Disorders Cardiovascular History: Reports: Hx Syncope - rare Denies: Hx Hypertension, Hx Pacemaker/ICD, Other Cardiovascular Problems/ Disorders Respiratory History: Reports: Hx Seasonal Allergies Denies: Hx Asthma, Hx Chronic Bronchitis, Hx Chronic Obstructive Pulmonary Disease (COPD), Hx Lung Cancer, Hx Pneumonia, Other Respiratory Problems/ Disorders GI History: Denies: Hx Ulcer, Other GI Disorders History: Denies: Hx Kidney Stones, Hx Renal Disease, Other Problems/Disorders Musculoskeletal History: Reports: Hx Arthritis - hands Denies: Hx Back Problems, Other Musculoskeletal History Sensory History: Reports: Hx Contacts or Glasses Denies: Hx Hearing Aid, Other Sensory Impairments Opthamlomology History: Reports: Hx Contacts or Glasses Denies: Other Sensory Impairments Neurological History: Reports: Hx Headaches, Hx Seizures - last 2013, undiagnosed disorder, Other Neuro Impairments/Disorders - Shaky from ETOH withdrawal Psychiatric History: Reports: Hx Anxiety, Hx Eating Disorder - briefly bulemic as teen, Hx Depression, Hx Inpatient Treatment, Hx Community Mental Health Tx, Hx Substance Abuse - not recent 2017, Other Psychiatric Issues/Disorders - ETOH Abuse Denies: Hx Attention Deficit Hyperactivity Disorder, Hx Panic Disorder, Hx Post Traumatic Stress Disorder, Hx Schizophrenia, Hx Bipolar Disorder, Hx Suicide Attempt - Thoughts-presently, Hx of Violent Episodes Against Others - Cancer History Cancer Type, Location and Year: breast cancer=left Hx Hematologic Symptoms: No Hx Chemotherapy: Yes Hx Radiation Therapy: Yes - Surgical History Surgery Procedure, Year, and Place: Bilat Thumb Fusion. Bilat Carpal Tunnel Surgery. LEFT Breast Lumpectomy. LEFT KNEE ARTHROSCOPIC SURGERY. ACL Sx left knee Hx Anesthesia Reactions: No - Immunization History Date of Tetanus Vaccine: Unk Date of Influenza Vaccine: Fall 2014 Immunizations Up to Date: Unable to Obtain/Confirm Infectious Disease History: No Infectious Disease History: Denies: History Other Infectious Disease, Traveled Outside the [place] in Last 30 Days - Family History Known Family History: Positive: Unknown - pt adopted Negative: Hypertension, Respiratory Disease, Seizure Disorder - Social History Occupation: Unemployed Lives: Alf - [facility] facility Alcohol Use: Daily Alcohol Amount: "I'm an alcoholic." Hx Substance Use: No Substance Use Type: Reports: None Substance Use Comment - Amount & Last Used: pt last requested benzos in ED on , 07/21 per signal inspector Hx Tobacco Use: Yes Smoking Status (MU): Light Every Day Tobacco Smoker Type: Cigarettes Have You Smoked in the Last Year: No Review of Systems Constitutional: Negative Negative: Fever, Chills, Fatigue, Skin Diaphoresis Negative: Palpitations, Chest Pain Negative: Shortness Of Breath, Cough Genitourinary: Negative Positive: no symptoms reported Negative: Arthralgia, Myalgia Negative: Rash, Bruising Neurological: Negative All Other Systems Reviewed And Are Negative: Yes Physical Exam Triage Information Reviewed: Yes Vital Signs On Initial Exam: Initial Vitals Temp Pulse Resp BP Pulse Ox 97.8 F 89 14 102/59 97 02/11/18 11:52 02/11/18 11:52 02/11/18 11:52 02/11/18 11:52 02/11/18 11:52 Vital Signs Reviewed: Yes Appearance: Positive: Well-Appearing, Well-Nourished Skin: Positive: Warm, Skin Color Reflects Adequate Perfusion Head/Face: Positive: Normal Head/Face Inspection Eyes: Positive: EOMI, DEVON, Conjunctiva Clear Neck: Positive: Supple, No Lymphadenopathy Respiratory/Lung Sounds: Positive: Clear to Auscultation, Breath Sounds Present Cardiovascular: Positive: RRR, Pulses are Symmetrical in both Upper and Lower Extremities Musculoskeletal: Positive: Normal, Strength/ROM Intact Neurological: Positive: Slurred Speech Psychiatric: Positive: Affect/Mood Appropriate AVPU Assessment: Alert Diagnostics - Vital Signs Vital Signs Temp Pulse Resp BP Pulse Ox 02/11/18 11:52 97.8 F 89 14 102/59 97 - Laboratory Lab Statement: Any lab studies that have been ordered have been reviewed, and results considered in the medical decision making process. Course/Dx - Course Course Of Treatment: During the course of treatment, the patient is evaluated for alcohol intoxication. Alcohol level obtained 388. Patient will remain in the ED until sober. Signed out to Ahsan Tidwell PA-C at 5:30p pending clinical sobriety. - Diagnoses Provider Diagnoses: Alcohol intoxication Discharge - Sign-Out/Discharge Documenting (check all that apply): Sign-Out Patient Signing out patient TO: Ahsan Tidwell - Discharge Plan Condition: Improved Disposition: HOME Patient Education Materials: Abuse of Alcohol (ED) Referrals: Rocio Du NP [Primary Care Provider] - Additional Instructions: Schedule follow up appointment with PCP Avoid alcohol and drug use Return to ER if symptoms change or worsen - Billing Disposition and Condition Condition: IMPROVED Disposition: Home
--- NOTE | 2018-02-11 19:04 | PN ---
Progress Note - Progress Note Date of Service: 02/11/18 Note: Pt. received in sign out from Nora Stevens PA-C. [place] contacted by social work and pt. is able to return to [facility]. She is clinically sober and is sitting up awake in bed and has been ambulating by self without difficulty.
[2018-02-11 19:52] VITALS: BP 144/83
== END 2018-02-11 19:10 | disposition home or self-care (01) ==
LOC: ED 11:49
DX: F10.129 Alcohol abuse with intoxication, unspecified (principal); Y90.8 Blood alcohol level of 240 mg/100 ml or more; F17.210 Nicotine dependence, cigarettes, uncomplicated
CPT/HCPCS: 36415; 80307; 80320; 99282; G0480

== ENCOUNTER 2018-03-28 18:56 | Emergency (ER) | payer OTHER ==
--- NOTE | 2018-03-28 19:10 | ED ---
Substance Abuse/Use - HPI Summary HPI Summary: LEVEL 5 CAVEAT: HPI LIMITED DUE TO PT CONDITION, ETOH INTOXICATION A 58 y/o F brought in by ambulance presents to ED for ETOH intoxication and SI. Per nurse, pt told EMS that she wanted to kill herself, but pt told nurse she did not say that. At bedside, pt states she is feeling fine and does not know why she is here. She denies injury. Pt drinks daily and was drinking today, but not that much. She does not know when she had her last drink. Denies substance abuse. She denies daily medications. - History Of Current Complaint Chief Complaint: EDSubstanceAbuse Stated Complaint: 2208 Time Seen by Provider: 03/28/18 19:05 Hx Obtained From: Patient, EMS - rr Hx From Patient Unobtainable Due To: Other - ETOH Hx Last Menstrual Period: N/A Ingestion History: Type/Name Of Drug - ETOH Overdose Characteristics: Oral Associated Signs And Symptoms: Other: - SI - Allergies/Home Medications Allergies/Adverse Reactions: Allergies Allergy/AdvReac Type Severity Reaction Status Date / Time Adhesive Tape Allergy Rash Verified 02/04/18 12:28 PMH/Surg Hx/FS Hx/Imm Hx Previously Healthy: No Endocrine/Hematology History: Denies: Hx Anticoagulant Therapy, Hx Blood Transfusions, Hx Diabetes, Hx Thyroid Disease, Other Endocrine/Hematological Disorders Cardiovascular History: Reports: Hx Syncope - rare Denies: Hx Hypertension, Hx Pacemaker/ICD, Other Cardiovascular Problems/ Disorders Respiratory History: Reports: Hx Seasonal Allergies Denies: Hx Asthma, Hx Chronic Bronchitis, Hx Chronic Obstructive Pulmonary Disease (COPD), Hx Lung Cancer, Hx Pneumonia, Other Respiratory Problems/ Disorders GI History: Denies: Hx Ulcer, Other GI Disorders History: Denies: Hx Kidney Stones, Hx Renal Disease, Other Problems/Disorders Musculoskeletal History: Reports: Hx Arthritis - hands Denies: Hx Back Problems, Other Musculoskeletal History Sensory History: Reports: Hx Contacts or Glasses Denies: Hx Hearing Aid, Other Sensory Impairments Opthamlomology History: Reports: Hx Contacts or Glasses Denies: Other Sensory Impairments Neurological History: Reports: Hx Headaches, Hx Seizures - last 2013, undiagnosed disorder, Other Neuro Impairments/Disorders - Shaky from ETOH withdrawal Psychiatric History: Reports: Hx Anxiety, Hx Eating Disorder - briefly bulemic as teen, Hx Depression, Hx Inpatient Treatment, Hx Community Mental Health Tx, Hx Substance Abuse - not recent 2017, Other Psychiatric Issues/Disorders - ETOH Abuse Denies: Hx Attention Deficit Hyperactivity Disorder, Hx Panic Disorder, Hx Post Traumatic Stress Disorder, Hx Schizophrenia, Hx Bipolar Disorder, Hx Suicide Attempt - Thoughts-presently, Hx of Violent Episodes Against Others - Cancer History Cancer Type, Location and Year: breast cancer=left Hx Hematologic Symptoms: No Hx Chemotherapy: Yes Hx Radiation Therapy: Yes - Surgical History Surgery Procedure, Year, and Place: Bilat Thumb Fusion. Bilat Carpal Tunnel Surgery. LEFT Breast Lumpectomy. LEFT KNEE ARTHROSCOPIC SURGERY. ACL Sx left knee Hx Anesthesia Reactions: No - Immunization History Date of Tetanus Vaccine: Unk Date of Influenza Vaccine: Fall 2014 Infectious Disease History: No Infectious Disease History: Denies: History Other Infectious Disease, Traveled Outside the [place] in Last 30 Days - Family History Known Family History: Positive: Unknown - pt adopted Negative: Hypertension, Respiratory Disease, Seizure Disorder - Social History Occupation: Unemployed Lives: With Family - brother Alcohol Use: Daily Alcohol Amount: "I'm an alcoholic." Hx Substance Use: No Substance Use Type: Reports: None Substance Use Comment - Amount & Last Used: pt 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 (-) Distressed Skin: Warm, Dry HENT: Normocephalic; Atraumatic Eyes: Conjunctiva normal Neck: Musculoskeletal ROM normal neck. (-) JVD, (-) Stridor, (-) Tracheal deviation Cardio: Rhythm regular, rate normal, Heart sounds normal; Intact distal pulses; The pedal pulses are 2+ and symmetric. Radial pulses are 2+ and symmetric. (-) Murmur Pulmonary/Chest wall: Effort normal. (-) Respiratory distress, (-) Wheezes, (-) Rales Abd: Soft, (-) epigastric tenderness, (-) Distension, (-) Guarding, (-) Rebound Musculoskeletal: (-) Edema Lymph: (-) Cervical adenopathy Neuro: Alert, slurred speech Psych: Mood and affect Normal Triage Information Reviewed: Yes Vital Signs On Initial Exam: Initial Vitals Temp Pulse Resp BP Pulse Ox 97.4 F 85 18 91/51 98 03/28/18 19:03 03/28/18 19:03 03/28/18 19:03 03/28/18 19:03 03/28/18 19:03 Vital Signs Reviewed: Yes Diagnostics - Vital Signs Vital Signs Temp Pulse Resp BP Pulse Ox 03/28/18 19:03 97.4 F 85 18 91/51 98 - Laboratory Result Diagrams: 03/28/18 19:44 03/28/18 19:44 Lab Statement: Any lab studies that have been ordered have been reviewed, and results considered in the medical decision making process. Course/Dx - Course Course Of Treatment: Pt is a 58 y/o F brought in by ambulance for ETOH intoxication and possible SI. Per nurse, pt told EMS that she wanted to kill herself, but pt told nurse she did not say that. Pt states she is feeling fine and denies injury. She does not know when she had her last drink. Denies substance abuse, daily medications. ETOH is 403. Sign-out to Dr. Us at shift change pending sobriety and MHE. - Diagnoses Provider Diagnoses: Alcohol intoxication Discharge - Sign-Out/Discharge Documenting (check all that apply): Sign-Out Patient Signing out patient TO: Fito Us - pending sobriety, MHE - Discharge Plan Referrals: Rocio Du, [employer] MANAGER [Primary Care Provider] - - Attestation Statements Document Initiated by Scribe: Yes Documenting Scribe: Rasheed Keene Provider For Whom Scribe is Documenting (Include Credential): Dr. Familia Sorto MD Scribe Attestation: I, Rasheed Keene, scribed for Dr. Familia Sorto MD on 03/28/18 at 2033.
[2018-03-28] MEDS ORDERED: Nicotine Inhaler* 10 MG AMP INH PRN (19:12)
--- OUTSIDE RECORDS SUMMARY | 2018-03-28 19:21 | XMS REPORT ---
:1960 External Reference #:[id number] Author Organization [employer] [facility] Address [address] [facility] [place] [address] Phone [phone] Care Team Providers Name Role Phone Simone Jeter MD Primary Care Physician Unavailable Payers Type Date Identification Numbers Payment Provider Subscriber Commercial Effective: Policy Number: Gerard Dennis 2014 [id number] Group Number: [id number] [address] PayID: [id number] [place] [address] Medigap Part B Effective: 2013 Policy Number: Medicaid Nata Dennis [id number] Expires: 2014 Group Name: 1 1 [address] PayID: [id number] [place] [address] Problems Date Description Provider Status Onset: 02/23/2014 Depressive disorder Justo Nicole M.D. 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 Active Onset: 03/26/2014 Hyperlipidemia Justo Nicole M.D. Active Onset: 03/26/2014 Hypercalcemia Justo Nicole M.D. Active Onset: 11/07/2015 Abnormal glucose level Simone Jeter M.D. Active Onset: 11/07/2015 Mixed hyperlipidemia Simone Jeter M.D. Active Onset: 03/09/2016 Mild recurrent major depression Simone Jeter M.D. Active Onset: 03/09/2016 Unspecified dementia with behavioral Simone Jeter M.D. Active disturbance Onset: 06/04/2016 Benign neoplasm of colon Simone Jeter M.D. 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 Cigarette Use Quit 24 Years Ago ETOH Use Has consumed alcohol in the past Smoking Patient is a former smoker Daily Caffeine Consumes on average 1 cup of regular coffee per day Exercise Type/Frequency Walks daily General Hx Text LMP: 5 years ago Allergies, Adverse Reactions, Alerts Date Description Reaction Status Severity Comments 02/23/2014 NKDA active Medications Medication Date Status Form Strength Qnty SIG Indications Ordering Provider Calcium 600+D Active Tablets 600-400mg- 60tabs 1 by Laine.1 Zsofia High Potency 018 Unit mouth Florian, twice a [facility] day Atorvastatin Active Tablets 20mg 90tabs take 1 E78.2 [facility] Fluoxetine HCL Active Capsules 20mg 1 by Unknown 000 mouth every day Naltrexone HCL 0 Active Tablets 50mg 1 tablet Unknown 000 daily in the morning Vitamin B1 0 Active Tablets 100mg 30tabs 1 by Simone 000 mouth Antonetteika, every day M.D. Calcium Hx Tablets 600-400mg- 60tabs Take One Zsofia Carbonate-Vitam 018 - Unit Tablet By Florian, in D Mouth Two [facility] 018 Times Daily Calcium 1200 Hx Chewtabs 1200-1000m 90unit 1 by [email or web address] Zsofia 018 - g-Unit s mouth Florian, every day [facility] 018 Thiamine HCL Hx Tablets 100mg 30tabs 1 by Simone 016 - mouth Pachikara, every day M.D. 017 Anastrozole Hx Tablets 1mg 1 by Justo 014 - mouth Nicole, every day M.D. 015 Citalopram Hx Tablets 20mg 30tabs 1 by Justo Hydrobromide 014 - mouth Nicole, every day M.D. 016 Vitamin B-1 Hx Tablets 100mg 90tabs once a Justo 014 - day Nicole, M.DPanfilo 016 Folic Acid Hx Tablets 1mg 90tabs 1 by 305.00 Justo 014 - mouth Nicole, every day M.DPanfilo 016 Cranberry 0 Hx Capsules 250mg 1 tabs Unknown 000 - twice daily 015 Magnesium 0 Hx Capsules 500mg 1 by Unknown 000 - mouth every day 015 Sertraline HCL 0 Hx Tablets 100mg 1 by Unknown 000 - mouth every day 016 Vitamin D 0 Hx Capsules [id number] take one Unknown (Ergocalciferol 000 - capsule ) by mouth 017 once weekly Immunizations CPT Code Status Date Vaccine Lot # [id number] Given 08/11/2017 Tdap - Tetanus/Diptheria/Acellular Pertussis [id number] Given 03/09/2016 Influenza Virus Vaccine, Quadrivalent, Split [id number] Virus, [place] Use [id number] Given 10/03/2015 Pneumonia Vaccine [id number] Vital Signs Date Vital Result Comment 03/16/2018 Height 65.5 inches 5'5.50" Weight 146.00 lb BP Systolic Sitting 122 mmHg BP Diastolic Sitting 60 mmHg BMI (Body Mass Index) 23.9 kg/m2 08/11/2017 Height 65.5 inches 5'5.50" Weight 146.00 lb Heart Rate 74 /min BP Systolic 120 mmHg BP Diastolic 70 mmHg Body Temperature 98.6 F O2 % BldC Oximetry 96 % BMI (Body Mass Index) 23.9 kg/m2 06/09/2017 Height 65.5 inches 5'5.50" Weight 141.00 lb Heart Rate 70 /min BP Systolic Sitting 122 mmHg BP Diastolic Sitting 78 mmHg Respiratory Rate 15 /min O2 % BldC Oximetry 95 % BMI (Body Mass Index) 23.1 kg/m2 07/01/2016 Height 65.5 inches 5'5.50" Weight 132.00 lb Heart Rate 78 /min BP Systolic Sitting 126 mmHg BP Diastolic Sitting 74 mmHg Respiratory Rate 16 /min BMI (Body Mass Index) 21.6 kg/m2 06/04/2016 Height 65.5 inches 5'5.50" Weight 131.00 lb Heart Rate 81 /min BP Systolic Sitting 120 mmHg BP Diastolic Sitting 82 mmHg Body Temperature 98.2 F O2 % BldC Oximetry 99 % BMI (Body Mass Index) 21.5 kg/m2 03/09/2016 Weight 141.12 lb Heart Rate 77 /min BP Systolic Sitting 120 mmHg BP Diastolic Sitting 78 mmHg Body Temperature 97.8 F O2 % BldC Oximetry 95 % 11/07/2015 Height 65.5 inches 5'5.50" Weight 149.12 lb Heart Rate 88 /min BP Systolic Sitting 98 mmHg BP Diastolic Sitting 62 mmHg Body Temperature 98.9 F O2 % BldC Oximetry 95 % BMI (Body Mass Index) 24.4 kg/m2 10/03/2015 Height 65.5 inches 5'5.50" Weight 160.00 lb Heart Rate 96 /min BP Systolic Sitting 134 mmHg BP Diastolic Sitting 88 mmHg Body Temperature 97.8 F O2 % BldC Oximetry 98 % BMI (Body Mass Index) 26.2 kg/m2 10/18/2014 Height 65.5 inches 5'5.50" Weight 147.25 lb Heart Rate 66 /min BP Systolic Sitting 114 mmHg BP Diastolic Sitting 68 mmHg Body Temperature 97.9 F O2 % BldC Oximetry 98 % BMI (Body Mass Index) 24.1 kg/m2 07/24/2014 Height 65.5 inches 5'5.50" Weight 129.25 lb Heart Rate 82 /min BP Systolic Sitting 128 mmHg BP Diastolic Sitting 80 mmHg O2 % BldC Oximetry 95 % BMI (Body Mass Index) 21.2 kg/m2 03/26/2014 Height 65.5 inches 5'5.50" Weight 130.00 lb Heart Rate 72 /min BP Systolic Sitting 110 mmHg BP Diastolic Sitting 60 mmHg BMI (Body Mass Index) 21.3 kg/m2 02/23/2014 Height 65.5 inches 5'5.50" Weight 136.00 lb Heart Rate 78 /min BP Systolic Sitting 120 mmHg BP Diastolic Sitting 76 mmHg Body Temperature 97.2 F BMI (Body Mass Index) 22.3 kg/m2 Results Test Date Test Result H/L Range Note Laboratory test 02/11/2018 Alcohol 388 mg/dL High <10 finding Urine Drug SCR ED 02/11/2018 Amphetamine Ur None Detected None Detect & Pain Clinic Screen Barbiturates Urine Screen None Detected None Detect Benzodiazepine Urine Screen None Detected None Detect Urine Cannabinoids Screen None Detected None Detect Urine Cocaine Screen None Detected None Detect Urine Opiates Screen None Detected None Detect Urine Phencyclidine Screen None Detected None Detect 1 Urine Culture And 02/04/2018 Urine Culture SEE RESULT BELOW 2, 3 Sensitivities Poc Urinalysis 02/04/2018 Poc Glucose, Negative Negative Urine Poc Bilirubin, Urine Negative Negative Poc Ketone, Urine Negative Negative Poc Specific [place], Urine 1.010 1.010-1.030 Poc Blood, Urine 3+ Negative Poc pH, Urine 7.0 5-9 Poc Protein, Urine 2+ Negative Poc Urobilinogen, Urine 0.2 Negative Poc Nitrite, Urine Negative Negative Poc Leukocytes, Urine 3+ Negative Poc Color, Urine Yellow Poc Clarity, Urine Cloudy 4 CBC Auto Diff 01/29/2018 White Blood Count 7.3 10^3/uL 3.5-10.8 Red Blood Count 3.74 10^6/uL Low 4.00-5.40 Hemoglobin 12.1 g/dL 12.0-16.0 Hematocrit 35 % 35-47 Mean Corpuscular Volume 94 fL 80-97 Mean Corpuscular Hemoglobin 33 pg High 27-31 Mean Corpuscular HGB Conc 35 g/dL 31-36 Red Cell Distribution Width 15 % 10.5-15 Platelet Count 240 10^3/uL 150-450 Mean Platelet Volume 6.3 um3 Low 7.4-10.4 Abs Neutrophils 4.0 10^3/uL 1.5-7.7 Abs Lymphocytes 2.6 10^3/uL 1.0-4.8 Abs Monocytes 0.4 10^3/uL 0-0.8 Abs Eosinophils 0.1 10^3/uL 0-0.6 Abs Basophils 0.1 10^3/uL 0-0.2 Abs Nucleated RBC 0 10^3/uL Granulocyte % 55.2 % 38-83 Lymphocyte % 35.3 % 25-47 Monocyte % 5.7 % 0-7 Eosinophil % 1.8 % 0-6 Basophil % 2.0 % 0-2 Nucleated Red Blood Cells % 0 Inr/Protime 01/29/2018 Inr 1.01 0.77-1.02 Laboratory test finding 01/29/2018 Lactic Acid 1.7 mmol/L 0.5-2.0 5 Ammonia 36 mcmol/L 16-53 Troponin-I (TnI) 0.01 ng/mL <0.04 Comp Metabolic Panel 01/29/2018 Sodium 143 mmol/L 135-145 Potassium 3.8 mmol/L 3.5-5.0 Chloride 107 mmol/L 101-111 Co2 Carbon Dioxide 28 mmol/L 22-32 Anion Gap 8 mmol/L 2-11 Glucose 100 mg/dL 70-100 Blood Urea Nitrogen 11 mg/dL 6-24 Creatinine 0.78 mg/dL 0.51-0.95 BUN/Creatinine Ratio 14.1 8-20 Calcium 8.5 mg/dL Low 8.6-10.3 Total Protein 6.4 g/dL 6.4-8.9 Albumin 4.2 g/dL 3.2-5.2 Globulin 2.2 g/dL 2-4 Albumin/Globulin Ratio 1.9 1-3 Total Bilirubin 0.40 mg/dL 0.2-1.0 Alkaline Phosphatase 60 U/L 34-104 Alt 12 U/L 7-52 Ast 22 U/L 13-39 Egfr Non- 76.7 >60 Egfr 92.8 >60 6 Laboratory test finding 01/29/2018 Magnesium 2.0 mg/dL 1.9-2.7 Acetaminophen < 15 g/mL 7 Salicylate < 2.50 mg/dL <30 Alcohol 474 mg/dL High <10 8 Urinalysis Profile 01/29/2018 Urine Color Straw Urine Appearance Clear Urine Specific [place] 1.008 Low 1.010-1.030 Urine pH 6.0 5-9 Urine Urobilinogen Negative Negative Urine Ketones Negative Negative Urine Protein Negative Negative Urine Leukocytes Negative Negative Urine Blood 1+ Negative Urine Nitrite Negative Negative Urine Bilirubin Negative Negative Urine Glucose Negative Negative Urine White Blood Cell Trace(0-5/hpf) Absent Urine Red Blood Cell Trace(0-2/hpf) Absent Urine Bacteria Absent Absent Urine Squamous Epithelial Cell Present Absent Urine Culture And 01/29/2018 Urine Culture SEE RESULT BELOW 9 Sensitivities Urine Culture And 01/26/2018 Urine Culture SEE RESULT BELOW 10 Sensitivities Laboratory test finding 01/26/2018 Amylase 53 U/L 29-103 Lipase 21 U/L 11.0-82.0 Creatine Kinase(CK) 87 U/L 10-223 Troponin-I (TnI) 0.00 ng/mL <0.04 Alcohol 290 mg/dL High <10 Comp Metabolic Panel 01/26/2018 Sodium 138 mmol/L 135-145 Potassium 3.3 mmol/L Low 3.5-5.0 Chloride 111 mmol/L 101-111 Co2 Carbon Dioxide 20 mmol/L Low 22-32 Anion Gap 7 mmol/L 2-11 Glucose 85 mg/dL 70-100 Blood Urea Nitrogen 12 mg/dL 6-24 Creatinine 0.79 mg/dL 0.51-0.95 BUN/Creatinine Ratio 15.2 8-20 Calcium 7.5 mg/dL Low 8.6-10.3 Total Protein 5.1 g/dL Low 6.4-8.9 Albumin 3.2 g/dL 3.2-5.2 Globulin 1.9 g/dL Low 2-4 Albumin/Globulin Ratio 1.7 1-3 Total Bilirubin 0.30 mg/dL 0.2-1.0 Alkaline Phosphatase 40 U/L 34-104 Alt 11 U/L 7-52 Ast 18 U/L 13-39 Egfr Non- 75.6 >60 Egfr 91.4 >60 11 Urinalysis Profile 01/26/2018 Urine Color Straw Urine Appearance Clear Urine Specific [place] 1.011 1.010-1.030 Urine pH 6.0 5-9 Urine Urobilinogen Negative Negative Urine Ketones Negative Negative Urine Protein Negative Negative Urine Leukocytes Trace Negative Urine Blood Negative Negative Urine Nitrite Negative Negative Urine Bilirubin Negative Negative Urine Glucose Negative Negative Urine White Blood Cell Trace(0-5/hpf) Absent Urine Red Blood Cell Trace(0-2/hpf) Absent Urine Bacteria Absent Absent Urine Squamous Epithelial Cell Present Absent Urine Hyaline Casts Present Absent Type & Screen 01/26/2018 Patient Blood Type B Positive Antibody Screen NEGATIVE Urine Drug SCR ED & 01/26/2018 Amphetamine Ur Screen None Detected None Detect Pain Clinic Barbiturates Urine Screen None Detected None Detect Benzodiazepine Urine Screen None Detected None Detect Urine Cannabinoids Screen None Detected None Detect Urine Cocaine Screen None Detected None Detect Urine Opiates Screen None Detected None Detect Urine Phencyclidine Screen None Detected None Detect 12 Laboratory test finding 01/26/2018 Lactic Acid 2.4 mmol/L High 0.5-2.0 13 CBC Auto Diff 01/26/2018 White Blood Count 6.4 10^3/uL 3.5-10.8 Red Blood Count 3.47 10^6/uL Low 4.00-5.40 Hemoglobin 11.2 g/dL Low 12.0-16.0 Hematocrit 33 % Low 35-47 Mean Corpuscular Volume 95 fL 80-97 Mean Corpuscular Hemoglobin 32 pg High 27-31 Mean Corpuscular HGB Conc 34 g/dL 31-36 Red Cell Distribution Width 15 % 10.5-15 Platelet Count 205 10^3/uL 150-450 Mean Platelet Volume 6.5 um3 Low 7.4-10.4 Abs Neutrophils 4.1 10^3/uL 1.5-7.7 Abs Lymphocytes 1.8 10^3/uL 1.0-4.8 Abs Monocytes 0.4 10^3/uL 0-0.8 Abs Eosinophils 0.1 10^3/uL 0-0.6 Abs Basophils 0 10^3/uL 0-0.2 Abs Nucleated RBC 0 10^3/uL Granulocyte % 63.6 % 38-83 Lymphocyte % 28.0 % 25-47 Monocyte % 6.4 % 0-7 Eosinophil % 1.3 % 0-6 Basophil % 0.7 % 0-2 Nucleated Red Blood Cells % 0.1 Inr/Protime 01/26/2018 Inr 1.05 High 0.77-1.02 Laboratory test finding 09/29/2017 Alcohol 201 mg/dL High <10 CBC Auto Diff 09/28/2017 White Blood Count 8.3 10^3/uL 3.5-10.8 Red Blood Count 3.99 10^6/uL Low 4.0-5.4 Hemoglobin 13.0 g/dL 12.0-16.0 Hematocrit 38 % 35-47 Mean Corpuscular Volume 96 fL 80-97 Mean Corpuscular Hemoglobin 33 pg High 27-31 Mean Corpuscular HGB Conc 34 g/dL 31-36 Red Cell Distribution Width 14 % 10.5-15 Platelet Count 237 10^3/uL 150-450 Mean Platelet Volume 6.4 um3 Low 7.4-10.4 Abs Neutrophils 5.3 10^3/uL 1.5-7.7 Abs Lymphocytes 2.3 10^3/uL 1.0-4.8 Abs Monocytes 0.5 10^3/uL 0-0.8 Abs Eosinophils 0.1 10^3/uL 0-0.6 Abs Basophils 0.1 10^3/uL 0-0.2 Abs Nucleated RBC 0 10^3/uL Granulocyte % 63.5 % 38-83 Lymphocyte % 27.6 % 25-47 Monocyte % 6.6 % 0-7 Eosinophil % 1.2 % 0-6 Basophil % 1.1 % 0-2 Nucleated Red Blood Cells % 0.1 Comp Metabolic Panel 09/28/2017 Sodium 143 mmol/L 139-145 Potassium 3.8 mmol/L 3.5-5.0 Chloride 108 mmol/L 101-111 Co2 Carbon Dioxide 25 mmol/L 22-32 Anion Gap 10 mmol/L 2-11 Glucose 95 mg/dL 70-100 Blood Urea Nitrogen 10 mg/dL 6-24 Creatinine 0.78 mg/dL 0.51-0.95 BUN/Creatinine Ratio 12.8 8-20 Calcium 8.7 mg/dL 8.6-10.3 Total Protein 6.6 g/dL 6.4-8.9 Albumin 4.0 g/dL 3.2-5.2 Globulin 2.6 g/dL 2-4 Albumin/Globulin Ratio 1.5 1-3 Total Bilirubin 0.40 mg/dL 0.2-1.0 Alkaline Phosphatase 55 U/L 34-104 Alt 9 U/L 7-52 Ast 20 U/L 13-39 Egfr Non- 76.7 >60 Egfr 98.6 >60 14 Laboratory test finding 09/28/2017 Acetaminophen < 15 g/mL 15 Salicylate < 2.50 mg/dL <30 Alcohol 508 mg/dL High <10 16 TSH (Thyroid Stim Horm) 0.67 mcIU/mL 0.34-5.60 Urinalysis Profile 09/28/2017 Urine Color Yellow Urine Appearance Clear Urine Specific [place] 1.014 1.010-1.030 Urine pH 7.0 5-9 Urine Urobilinogen Negative Negative Urine Ketones Negative Negative Urine Protein Negative Negative Urine Leukocytes 1+ Negative Urine Blood 1+ Negative Urine Nitrite Negative Negative Urine Bilirubin Negative Negative Urine Glucose Negative Negative Urine White Blood Cell Trace(0-5/hpf) Absent Urine Red Blood Cell Trace(0-2/hpf) Absent Urine Bacteria Absent Absent Urine Squamous Epithelial Cell Present Absent Urine Drug SCR ED & 09/28/2017 Amphetamine Ur Screen None Detected None Detect Pain Clinic Barbiturates Urine Screen None Detected None Detect Benzodiazepine Urine Screen None Detected None Detect Urine Cannabinoids Screen None Detected None Detect Urine Cocaine Screen None Detected None Detect Urine Opiates Screen None Detected None Detect Urine Phencyclidine Screen None Detected None Detect 17 Urine Culture And Sensitivities 09/28/2017 Urine Culture SEE RESULT BELOW 18 Urine Culture And Sensitivities 09/27/2017 Urine Culture SEE RESULT BELOW 19 Urinalysis Profile 09/27/2017 Urine Color Straw Urine Appearance Clear Urine Specific [place] 1.005 Low 1.010-1.030 Urine pH 5.0 5-9 Urine Urobilinogen Negative Negative Urine Ketones Negative Negative Urine Protein Negative Negative Urine Leukocytes 2+ Negative Urine Blood 2+ Negative Urine Nitrite Negative Negative Urine Bilirubin Negative Negative Urine Glucose Negative Negative Urine White Blood Cell Trace(0-5/hpf) Absent Urine Red Blood Cell Absent Absent Urine Bacteria Absent Absent Urine Squamous Epithelial Cell Present Absent Urine Drug SCR ED & 09/27/2017 Amphetamine Ur Screen None Detected None Detect Pain Clinic Barbiturates Urine Screen None Detected None Detect Benzodiazepine Urine Screen None Detected None Detect Urine Cannabinoids Screen None Detected None Detect Urine Cocaine Screen None Detected None Detect Urine Opiates Screen None Detected None Detect Urine Phencyclidine Screen None Detected None Detect 20 Laboratory test finding 09/27/2017 Acetaminophen < 15 g/mL 21 Alcohol 337 mg/dL High <10 Salicylate < 2.50 mg/dL <30 TSH (Thyroid Stim Horm) 0.39 mcIU/mL 0.34-5.60 Comp Metabolic Panel 09/27/2017 Sodium 141 mmol/L 139-145 Potassium 3.7 mmol/L 3.5-5.0 Chloride 104 mmol/L 101-111 Co2 Carbon Dioxide 27 mmol/L 22-32 Anion Gap 10 mmol/L 2-11 Glucose 134 mg/dL High 70-100 Blood Urea Nitrogen 12 mg/dL 6-24 Creatinine 0.94 mg/dL 0.51-0.95 BUN/Creatinine Ratio 12.8 8-20 Calcium 9.0 mg/dL 8.6-10.3 Total Protein 7.3 g/dL 6.4-8.9 Albumin 4.4 g/dL 3.2-5.2 Globulin 2.9 g/dL 2-4 Albumin/Globulin Ratio 1.5 1-3 Total Bilirubin 0.40 mg/dL 0.2-1.0 Alkaline Phosphatase 57 U/L 34-104 Alt 9 U/L 7-52 Ast 19 U/L 13-39 Egfr Non- 61.8 >60 Egfr 79.5 >60 22 CBC Auto Diff 09/27/2017 White Blood Count 7.3 10^3/uL 3.5-10.8 Red Blood Count 4.26 10^6/uL 4.0-5.4 Hemoglobin 13.9 g/dL 12.0-16.0 Hematocrit 41 % 35-47 Mean Corpuscular Volume 95 fL 80-97 Mean Corpuscular Hemoglobin 33 pg High 27-31 Mean Corpuscular HGB Conc 34 g/dL 31-36 Red Cell Distribution Width 15 % 10.5-15 Platelet Count 255 10^3/uL 150-450 Mean Platelet Volume 6.5 um3 Low 7.4-10.4 Abs Neutrophils 3.7 10^3/uL 1.5-7.7 Abs Lymphocytes 3.0 10^3/uL 1.0-4.8 Abs Monocytes 0.4 10^3/uL 0-0.8 Abs Eosinophils 0.1 10^3/uL 0-0.6 Abs Basophils 0.1 10^3/uL 0-0.2 Abs Nucleated RBC 0 10^3/uL Granulocyte % 50.4 % 38-83 Lymphocyte % 41.5 % 25-47 Monocyte % 5.8 % 0-7 Eosinophil % 1.0 % 0-6 Basophil % 1.3 % 0-2 Nucleated Red Blood Cells % 0 Laboratory test 09/27/2017 Alcohol 115 mg/dL High <10 finding Laboratory test 08/12/2017 Cytology SEE RESULT BELOW 23, 24 finding GC/Chlamydia 08/12/2017 Chlamydia Negative Negative 23 Amplified Rna trachomatis Rna Neisseria gonorrhoeae (GC) Rna Negative Negative 23 Laboratory test 08/12/2017 Trichomonas Negative Negative 23, 25 finding Vaginalis Rna Urine Drug SCR ED & 07/26/2017 Amphetamine Ur None Detected None Detect Pain Clinic Screen Barbiturates Urine Screen None Detected None Detect Benzodiazepine Urine Screen None Detected None Detect Urine Cannabinoids Screen None Detected None Detect Urine Cocaine Screen None Detected None Detect Urine Opiates Screen None Detected None Detect Urine Phencyclidine Screen None Detected None Detect 26 Urine Drug SCR ED & 06/24/2017 Amphetamine Ur Screen None Detected None Detect Pain Clinic Barbiturates Urine Screen None Detected None Detect Benzodiazepine Urine Screen None Detected None Detect Urine Cannabinoids Screen None Detected None Detect Urine Cocaine Screen None Detected None Detect Urine Opiates Screen None Detected None Detect Urine Phencyclidine Screen None Detected None Detect 27 Urinalysis Profile 06/24/2017 Urine Color Yellow Urine Appearance Clear Urine Specific [place] 1.005 Low 1.010-1.030 Urine pH 6.0 5-9 Urine Urobilinogen Negative Negative Urine Ketones Negative Negative Urine Protein Negative Negative Urine Leukocytes Negative Negative Urine Blood 1+ Negative Urine Nitrite Negative Negative Urine Bilirubin Negative Negative Urine Glucose Negative Negative Urine White Blood Cell Trace(0-5/hpf) Absent Urine Red Blood Cell Absent Absent Urine Bacteria Absent Absent Urine Squamous Epithelial Cell Present Absent Laboratory test finding 06/24/2017 Acetaminophen < 15 g/mL 28 Alcohol 390 mg/dL High <10 Salicylate < 2.50 mg/dL <30 TSH (Thyroid Stim Horm) 1.29 mcIU/mL 0.34-5.60 Comp Metabolic Panel 06/24/2017 Sodium 143 mmol/L 133-145 Potassium 4.0 mmol/L 3.5-5.0 Chloride 101 mmol/L 101-111 Co2 Carbon Dioxide 32 mmol/L 22-32 Anion Gap 10 mmol/L 2-11 Glucose 94 mg/dL 70-100 Blood Urea Nitrogen 8 mg/dL 6-24 Creatinine 0.73 mg/dL 0.51-0.95 BUN/Creatinine Ratio 11.0 8-20 Calcium 9.3 mg/dL 8.6-10.3 Total Protein 7.5 g/dL 6.4-8.9 Albumin 4.7 g/dL 3.2-5.2 Globulin 2.8 g/dL 2-4 Albumin/Globulin Ratio 1.7 1-3 Total Bilirubin 0.50 mg/dL 0.2-1.0 Alkaline Phosphatase 76 U/L 34-104 Alt 16 U/L 7-52 Ast 36 U/L 13-39 Egfr Non- 82.8 >60 Egfr 106.4 >60 29 CBC Auto Diff 06/24/2017 White Blood Count 4.9 10^3/uL 3.5-10.8 Red Blood Count 4.22 10^6/uL 4.0-5.4 Hemoglobin 14.3 g/dL 12.0-16.0 Hematocrit 41 % 35-47 Mean Corpuscular Volume 97 fL 80-97 Mean Corpuscular Hemoglobin 34 pg High 27-31 Mean Corpuscular HGB Conc 35 g/dL 31-36 Red Cell Distribution Width 16 % High 10.5-15 Platelet Count 244 10^3/uL 150-450 Mean Platelet Volume 7 um3 Low 7.4-10.4 Abs Neutrophils 2.6 10^3/uL 1.5-7.7 Abs Lymphocytes 1.7 10^3/uL 1.0-4.8 Abs Monocytes 0.4 10^3/uL 0-0.8 Abs Eosinophils 0.1 10^3/uL 0-0.6 Abs Basophils 0 10^3/uL 0-0.2 Abs Nucleated RBC 0 10^3/uL Granulocyte % 52.4 % 38-83 Lymphocyte % 34.8 % 25-47 Monocyte % 9.2 % High 1-9 Eosinophil % 2.8 % 0-6 Basophil % 0.8 % 0-2 Nucleated Red Blood Cells % 0.1 Laboratory test 06/01/2017 Alcohol 485 mg/dL High <10 30 finding Urine Drug SCR ED & 06/01/2017 Amphetamine Ur None Detected None Detect Pain Clinic Screen Barbiturates Urine Screen None Detected None Detect Benzodiazepine Urine Screen None Detected None Detect Urine Cannabinoids Screen None Detected None Detect Urine Cocaine Screen None Detected None Detect Urine Opiates Screen None Detected None Detect Urine Phencyclidine Screen None Detected None Detect 31 Urine Culture And 09/09/2016 Urine Culture SEE RESULT BELOW 32, 33 Sensitivities Poc Urinalysis 09/09/2016 Poc Glucose, Negative Negative Urine Poc Bilirubin, Urine Negative Negative Poc Ketone, Urine Negative Negative Poc Specific [place], Urine >=1.030 1.010-1.030 Poc Blood, Urine 3+ Negative Poc pH, Urine 6.0 5-9 Poc Protein, Urine 3+ Negative Poc Urobilinogen, Urine 0.2 Negative Poc Nitrite, Urine Positive Negative Poc Leukocytes, Urine 2+ Negative Poc Color, Urine Other Poc Clarity, Urine Cloudy 34 Laboratory test finding 06/10/2016 Creatine Kinase(CK) 100 U/L 10-223 35 Troponin-I (TnI) 0.00 ng/mL <0.04 36 Acetaminophen < 15 g/mL 37 Alcohol 337 mg/dL High <10 38 Salicylate < 2.50 mg/dL <30 39 TSH (Thyroid Stim Horm) 0.96 mcIU/mL 0.34-5.60 40 Comp Metabolic Panel 06/10/2016 Sodium 138 mmol/L 133-145 Chloride 105 mmol/L 101-111 Co2 Carbon Dioxide 23 mmol/L 22-32 Glucose 93 mg/dL 70-100 Blood Urea Nitrogen 19 mg/dL 6-24 Creatinine 0.97 mg/dL High 0.51-0.95 BUN/Creatinine Ratio 19.6 8-20 Calcium 9.6 mg/dL 8.6-10.3 Total Protein 7.3 g/dL 6.4-8.9 Albumin 4.5 g/dL 3.2-5.2 Globulin 2.8 g/dL 2-4 Albumin/Globulin Ratio 1.6 1-3 Total Bilirubin 0.30 mg/dL 0.2-1.0 Alkaline Phosphatase 51 U/L 34-104 Alt 11 U/L 7-52 Egfr Non- 59.8 >60 Egfr 77.0 >60 41 Potassium TNP mmol/L 3.5-5.0 Anion Gap TNP mmol/L 2-11 Ast TNP U/L 13-39 Laboratory test finding 06/10/2016 Lactic Acid 1.5 mmol/L 0.5-2.0 42 Ammonia 40 ?mol/L 16-53 CBC Auto Diff 06/10/2016 White Blood Count 8.6 10^3/uL 3.5-10.8 Red Blood Count 4.11 10^6/uL 4.0-5.4 Hemoglobin 14.0 g/dL 12.0-16.0 Hematocrit 41 % 35-47 Mean Corpuscular Volume 100 fL High 80-97 Mean Corpuscular Hemoglobin 34 pg High 27-31 Mean Corpuscular HGB Conc 34 g/dL 31-36 Red Cell Distribution Width 14 % 10.5-15 Platelet Count 198 10^3/uL 150-450 Mean Platelet Volume 7 um3 Low 7.4-10.4 Abs Neutrophils 5.3 10^3/uL 1.5-7.7 Abs Lymphocytes 2.4 10^3/uL 1.0-4.8 Abs Monocytes 0.7 10^3/uL 0-0.8 Abs Eosinophils 0.1 10^3/uL 0-0.6 Abs Basophils 0.1 10^3/uL 0-0.2 Abs Nucleated RBC 0.01 10^3/uL Granulocyte % 62.0 % 38-83 Lymphocyte % 28.1 % 25-47 Monocyte % 7.8 % 1-9 Eosinophil % 1.0 % 0-6 Basophil % 1.1 % 0-2 Nucleated Red Blood Cells % 0.2 Laboratory test finding 06/10/2016 Potassium Redraw TNP mmol/L 3.5-5.0 43 Ast Redraw TNP U/L 13-39 43 Lipid Profile (Trig/Chol/HDL) 03/30/2016 Triglycerides 126 mg/dL 44 Cholesterol 290 mg/dL 45 HDL Cholesterol 86.1 mg/dL 46 LDL Cholesterol 179 mg/dL 47 Laboratory test finding 03/30/2016 TSH (Thyroid Stim 0.88 mcIU/mL 0.34- 5.60 48 Horm) Vitamin B12 And Folate 03/30/2016 Vitamin B12 289 pg/mL 180-914 49 Serum Folic Acid (Folate) 16.22 ng/mL >3.99 50 Anaplasma Phagocytophilum Abs Igg,Igm 03/30/2016 A. phagocytophilum IgG <1: 64 A. phagocytophilum IgM <1:20 A. phagocytophilum Interp See Comment 51 Lipid Profile (Trig/Chol/HDL) 11/26/2015 Triglycerides 153 mg/dL 52 Cholesterol 259 mg/dL 53 HDL Cholesterol 78.5 mg/dL 54 LDL Cholesterol 150 mg/dL 55 Comp Metabolic Panel 11/26/2015 Sodium 137 mmol/L 133-145 Potassium 4.2 mmol/L 3.5-5.0 Chloride 105 mmol/L 101-111 Co2 Carbon Dioxide 24 mmol/L 22-32 Anion Gap 8 mmol/L 2-11 Glucose 82 mg/dL 70-100 Blood Urea Nitrogen 11 mg/dL 6-24 Creatinine 0.75 mg/dL 0.51-0.95 BUN/Creatinine Ratio 14.7 8-20 Calcium 9.9 mg/dL 8.6-10.3 Total Protein 6.5 g/dL 6.4-8.9 Albumin 4.1 g/dL 3.2-5.2 Globulin 2.4 g/dL 2-4 Albumin/Globulin Ratio 1.7 1-3 Total Bilirubin 0.60 mg/dL 0.2-1.0 Alkaline Phosphatase 83 U/L 34-104 Alt 9 U/L 7-52 Ast 18 U/L 13-39 Egfr Non- 80.8 >60 Egfr 104.0 >60 56 Laboratory test finding 11/07/2015 Hemoglobin A1c 5.1 5-7 Comp Metabolic Panel 11/04/2015 Sodium 135 mmol/L 133-145 Potassium 3.5 mmol/L 3.5-5.0 Chloride 99 mmol/L Low 101-111 Co2 Carbon Dioxide 27 mmol/L 22-32 Anion Gap 9 mmol/L 2-11 Glucose 152 mg/dL High 70-100 Blood Urea Nitrogen 10 mg/dL 6-24 Creatinine 0.84 mg/dL 0.51-0.95 BUN/Creatinine Ratio 11.9 8-20 Calcium 9.9 mg/dL 8.6-10.3 Total Protein 7.0 g/dL 6.4-8.9 Albumin 4.5 g/dL 3.2-5.2 Globulin 2.5 g/dL 2-4 Albumin/Globulin Ratio 1.8 1-3 Total Bilirubin 1.00 mg/dL 0.2-1.0 Alkaline Phosphatase 127 U/L High 34-104 Alt 13 U/L 7-52 Ast 24 U/L 13-39 Egfr Non- 70.9 >60 Egfr 91.2 >60 57 Lipid Profile (Trig/Chol/HDL) 11/04/2015 Triglycerides 78 mg/dL 58 Cholesterol 290 mg/dL 59 HDL Cholesterol 110.8 mg/dL 60 LDL Cholesterol 164 mg/dL 61 Basic Metabolic Panel 11/07/2014 Sodium 139 mmol/L 133-145 Potassium 4.2 mmol/L 3.5-5.0 Chloride 102 mmol/L 101-111 Co2 Carbon Dioxide 29 mmol/L 22-32 Anion Gap 8 mmol/L 2-11 Glucose 77 mg/dL 70-100 Blood Urea Nitrogen 18 mg/dL 6-24 Creatinine 0.83 mg/dL 0.51-0.95 BUN/Creatinine Ratio 21.7 High 8-20 Calcium 10.4 mg/dL High 8.6-10.3 Egfr Non- 72.2 >60 Egfr 92.8 >60 62 Pthi 11/07/2014 Calcium (PTH Intact) 10.3 mg/dL 8.6-10.3 PTH Intact 5.3 pmol/L 1.3-9.3 CBC Auto Diff 07/28/2014 White Blood Count 5.1 10^3/uL 4.8-10.8 Red Blood Count 3.91 10^6/uL Low 4.0-5.4 Hemoglobin 12.6 g/dL 12.0-16.0 Hematocrit 37 % 35-47 Mean Corpuscular Volume 95 fL 80-97 Mean Corpuscular Hemoglobin 32 pg High 27-31 Mean Corpuscular HGB Conc 34 g/dL 31-36 Red Cell Distribution Width 14 % 10.5-15 Platelet Count 194 10^3/uL 150-450 Mean Platelet Volume 7 um3 Low 7.4-10.4 Abs Neutrophils 2.5 10^3/uL 1.5-7.7 Abs Lymphocytes 2.1 10^3/uL 1.0-4.8 Abs Monocytes 0.4 10^3/uL 0-0.8 Abs Eosinophils 0.1 10^3/uL 0-0.6 Abs Basophils 0.1 10^3/uL 0-0.2 Abs Nucleated RBC 0 10^3/uL Granulocyte % 48.7 % 38-83 Lymphocyte % 40.1 % 25-47 Monocyte % 7.9 % 1-9 Eosinophil % 2.0 % 0-6 Basophil % 1.3 % 0-2 Nucleated Red Blood Cells % 0 Urinalysis Profile 07/28/2014 Urine Color Straw Urine Appearance Clear Urine Specific [place] 1.003 Low 1.010-1.030 Urine pH 6.0 5-9 Urine Urobilinogen Negative Negative Urine Ketones Negative Negative Urine Protein Negative Negative Urine Leukocytes Negative Negative Urine Blood Negative Negative Urine Nitrite Negative Negative Urine Bilirubin Negative Negative Urine Glucose Negative Negative Urine Drug SCR ED & 07/28/2014 Amphetamine Ur Screen None Detected None Detect Pain Clinic Barbiturates Urine Screen None Detected None Detect Benzodiazepine Urine Screen None Detected None Detect Urine Cannabinoids Screen None Detected None Detect Urine Cocaine Screen None Detected None Detect Urine Opiates Screen None Detected None Detect Urine Phencyclidine Screen None Detected None Detect 63 Comp Metabolic Panel 07/28/2014 Sodium 140 mmol/L 133-145 Potassium 4.1 mmol/L 3.5-5.0 Chloride 105 mmol/L 101-111 Co2 Carbon Dioxide 29 mmol/L 22-32 Anion Gap 6 mmol/L 2-11 Glucose 97 mg/dL 70-100 Blood Urea Nitrogen 11 mg/dL 6-24 Creatinine 0.77 mg/dL 0.51-0.95 BUN/Creatinine Ratio 14.3 8-20 Calcium 10.5 mg/dL High 8.6-10.3 Total Protein 7.5 g/dL 6.4-8.9 Albumin 4.9 g/dL 3.2-5.2 Globulin 2.6 g/dL 2-4 Albumin/Globulin Ratio 1.9 1-3 Total Bilirubin 0.60 mg/dL 0.2-1.0 Alkaline Phosphatase 81 U/L 34-104 Alt 14 U/L 7-52 Ast 20 U/L 13-39 Egfr Non- 78.7 >60 Egfr 101.2 >60 64 Laboratory test finding 07/28/2014 Acetaminophen < 15 g/mL 65 Alcohol < 10 mg/dL <10 Salicylate < 2.50 mg/dL <30 TSH (Thyroid Stimulating Horm) 0.60 IU/mL 0.34-5.60 Lipid Profile (Trig/Chol/HDL) 07/16/2014 Triglycerides 103 mg/dL 66, 67 Cholesterol 244 mg/dL 66, 68 HDL Cholesterol 94.6 mg/dL 66, 69 LDL Cholesterol 129 mg/dL 66, 70 Urinalysis Profile 05/28/2014 Urine Color Yellow Urine Appearance Clear Urine Specific [place] 1.011 1.010-1.030 Urine pH 5 5-9 Urine Urobilinogen Negative Negative Urine Ketones Trace Negative Urine Protein Negative Negative Urine Leukocytes Negative Negative Urine Blood Negative Negative Urine Nitrite Negative Negative Urine Bilirubin Negative Negative Urine Glucose Negative Negative Urine Drug SCR ED & 05/28/2014 Amphetamine Ur Screen None Detected None Detect Pain Clinic Barbiturates Urine Screen None Detected None Detect Benzodiazepine Urine Screen None Detected None Detect Urine Cannabinoids Screen None Detected None Detect Urine Cocaine Screen None Detected None Detect Urine Opiates Screen None Detected None Detect Urine Phencyclidine Screen None Detected None Detect 71 CBC Auto Diff 05/28/2014 White Blood Count 8.4 10^3/uL 4.8-10.8 Red Blood Count 4.17 10^6/uL 4.0-5.4 Hemoglobin 13.0 g/dL 12.0-16.0 Hematocrit 38 % 35-47 Mean Corpuscular Volume 92 fL 80-97 Mean Corpuscular Hemoglobin 31 pg 27-31 Mean Corpuscular HGB Conc 34 g/dL 31-36 Red Cell Distribution Width 14 % 10.5-15 Platelet Count 172 10^3/uL 150-450 Mean Platelet Volume 7 um3 Low 7.4-10.4 Abs Neutrophils 4.0 10^3/uL 1.5-7.7 Abs Lymphocytes 3.8 10^3/uL 1.0-4.8 Abs Monocytes 0.6 10^3/uL 0-0.8 Abs Eosinophils 0 10^3/uL 0-0.6 Abs Basophils 0.1 10^3/uL 0-0.2 Abs Nucleated RBC 0.01 10^3/uL Granulocyte % 47.0 % 38-83 Lymphocyte % 45.0 % 25-47 Monocyte % 6.8 % 1-9 Eosinophil % 0.1 % 0-6 Basophil % 1.1 % 0-2 Nucleated Red Blood Cells % 0.1 Comp Metabolic Panel 05/28/2014 Sodium 140 mmol/L 133-145 Potassium 3.6 mmol/L 3.5-5.0 Chloride 102 mmol/L 101-111 Co2 Carbon Dioxide 22 mmol/L 22-32 Anion Gap 16 mmol/L High 2-11 Glucose 103 mg/dL High 70-100 Blood Urea Nitrogen 18 mg/dL 6-24 Creatinine 0.91 mg/dL 0.51-0.95 BUN/Creatinine Ratio 19.8 8-20 Calcium 8.9 mg/dL 8.6-10.3 Total Protein 7.0 g/dL 6.4-8.9 Albumin 4.5 g/dL 3.2-5.2 Globulin 2.5 g/dL 2-4 Albumin/Globulin Ratio 1.8 1-3 Total Bilirubin 0.40 mg/dL 0.2-1.0 Alkaline Phosphatase 68 U/L 34-104 Alt 20 U/L 7-52 Ast 41 U/L High 13-39 Egfr Non- 64.9 >60 Egfr 83.5 >60 72 Laboratory test finding 05/28/2014 Acetaminophen < 15 g/mL 73 Alcohol 426 mg/dL High <10 74 Salicylate < 2.50 mg/dL <30 TSH (Thyroid Stimulating Horm) 0.31 IU/mL Low 0.34-5.60 Magnesium 1.7 mg/dL Low 1.9-2.7 Lipid Profile (Trig/Chol/HDL) 02/26/2014 Triglycerides 141 mg/dL 75 Cholesterol 270 mg/dL 76 HDL Cholesterol 71.6 mg/dL 77 LDL Cholesterol 170 mg/dL 78 Comp Metabolic Panel 02/26/2014 Sodium 138 mmol/L 133-145 Potassium 4.5 mmol/L 3.7-5.6 Chloride 103 mmol/L 101-111 Co2 Carbon Dioxide 28 mmol/L 22-32 Anion Gap 7 mmol/L 2-11 Glucose 89 mg/dL 70-100 Blood Urea Nitrogen 17 mg/dL 6-24 Creatinine 0.84 mg/dL 0.51-0.95 BUN/Creatinine Ratio 20.2 High 8-20 Calcium 10.4 mg/dL High 8.6-10.3 Total Protein 7.1 g/dL 6.4-8.9 Albumin 4.6 g/dL 3.2-5.2 Globulin 2.5 g/dL 2-4 Albumin/Globulin Ratio 1.8 1-3 Total Bilirubin 0.50 mg/dL 0.2-1.0 Alkaline Phosphatase 79 U/L 34-104 Alt 13 U/L 7-52 Ast 20 U/L 13-39 Egfr Non- 71.5 >60 Egfr 91.9 >60 79 Laboratory test finding 02/26/2014 TSH (Thyroid Stimulating 1.23 IU/mL 0.34-5.60 Horm) Hepatitis C Antibody Nonreactive Nonreactive CBC Auto Diff 02/26/2014 White Blood Count 7.7 10^3/uL 4.8-10.8 Red Blood Count 4.05 10^6/uL 4.0-5.4 Hemoglobin 12.8 g/dL 12.0-16.0 Hematocrit 37 % 35-47 Mean Corpuscular Volume 93 fL 80-97 Mean Corpuscular Hemoglobin 32 pg High 27-31 Mean Corpuscular HGB Conc 34 g/dL 31-36 Red Cell Distribution Width 12 % 10.5-15 Platelet Count 201 10^3/uL 150-450 Mean Platelet Volume 7 um3 Low 7.4-10.4 Abs Neutrophils 4.5 10^3/uL 1.5-7.7 Abs Lymphocytes 2.4 10^3/uL 1.0-4.8 Abs Monocytes 0.5 10^3/uL 0-0.8 Abs Eosinophils 0.2 10^3/uL 0-0.6 Abs Basophils 0.1 10^3/uL 0-0.2 Abs Nucleated RBC 0 10^3/uL Granulocyte % 59.0 % 38-83 Lymphocyte % 31.4 % 25-47 Monocyte % 6.3 % 1-9 Eosinophil % 2.2 % 0-6 Basophil % 1.1 % 0-2 Nucleated Red Blood Cells % 0 Urinalysis Profile 02/26/2014 Urine Color Yellow Urine Appearance Cloudy Urine Specific [place] 1.014 1.010-1.030 Urine pH 5.0 5-9 Urine Urobilinogen Negative Negative Urine Ketones Negative Negative Urine Protein Negative Negative Urine Leukocytes 3+ Negative Urine Blood 1+ Negative Urine Nitrite Negative Negative Urine Bilirubin Negative Negative Urine Glucose Negative Negative Urine White Blood Cell 3+(>20/hpf) Absent Urine Red Blood Cell 2+(6-10/hpf) Absent Urine Bacteria 1+ Absent Urine Culture And Sensitivities 02/26/2014 Urine Culture (SEE NOTE) 80 Urinalysis Profile 02/23/2014 Urine Color Yellow Urine Appearance Clear Urine Specific [place] 1.016 1.010-1.030 Urine pH 5.0 5-9 Urine Urobilinogen Negative Negative Urine Ketones Negative Negative Urine Protein Negative Negative Urine Leukocytes Negative Negative Urine Blood Negative Negative Urine Nitrite Negative Negative Urine Bilirubin Negative Negative Urine Glucose Negative Negative 1 The urine specimen was tested at the listed cutoffs: Drug class test level (ng/mL) Amphetamines 500 Barbiturates 200 Benzodiazepine metabolites 200 Cocaine metabolites 150 Cannabinoids 50 Opiates 300 Pcp 25 Specimen was received without chain of custody. Results should be used for medical purposes only. 2 GAVINO [id number] 3 SEE RESULT BELOW Name: NATA DENNIS : [address]: Elba Rodriguez MD Acct: [id number] Unit: [id number] AGE: 57 Location: [facility] Re02/04/18 SEX: F Status: DEP ER SPEC: [id number] MANUEL: 02/04/18-[address] [facility] [address]: Elba Rodriguez MD REQ: [id number] RECD: 02/04/18 STATUS: LZI GRANT DR: Rocio Du TIRE WRAPPER _ SOURCE: URINE SPDESC: ORDERED: Urine Culture COMMENTS: GAVINO [id number] Procedure Result Reported Site Urine Culture Final 02/05/18- 1156 ML No growth of clinically significant organisms * ML - Main Lab . END OF REPORT DEPARTMENT OF PATHOLOGY, [address] [place] [address] Tomer Leija M.D. Director [facility] # [id number] [address] Technician: [id number] [facility] Severe Sepsis and Septic Shock Management Bundle Measure requires all lactic acids initially measuring >2.0 mmol/L be repeated. 6 Because ethnic data is not always readily available, this report includes an eGFR for both -Americans and non- Americans. The National Kidney Disease Education Program (NKDEP) does not endorse the use of the MDRD equation for patients that are not between the ages of 18 and 70, are , have extremes of body size, muscle mass, or nutritional status, or are non- or non-. According to the National Kidney Foundation, irrespective of diagnosis, the stage of the disease is based on the level of kidney function: Stage Description GFR(mL/min/1.73 m(2)) 1 Kidney damage with normal or decreased GFR 90 2 Kidney damage with mild decrease in GFR 60-89 3 Moderate decrease in GFR 30-59 4 Severe decrease in GFR 15-29 5 Kidney failure <15 (or dialysis) 7 Therapeutic concentration: <50 ug/mL Toxic concentration: >120 ug/mL 8 Critical Result ETOH:473.9 Called to [id number] at: 15:30:01 by:[id number] Read back by:[id number] 9 SEE RESULT BELOW Name: JEANNIENATA Ana Maria : [address]: Rafael Torres MD Acct: [id number] Unit: [id number] AGE: 57 Location: ED Re01/29/18 SEX: F Status: DEP ER SPEC: [id number] MANUEL: 01/29/[address] [facility] [address]: Mendoza Torres MD REQ: [id number] RECD: 01/29/18 STATUS: LIZ GRANT DR: Rocio Du TIRE WRAPPER _ SOURCE: URINE SPDESC: ORDERED: Urine Culture Procedure Result Reported Site Urine Culture Final 01/31/18- 818 ML Organism 1 ESCHERICHIA COLI Barton Count 1-10,000 (Few) CFU/ML Organism 2 STREP GROUP B Barton Count 1-10,000 (Few) CFU/ML Susceptibility testing of penicillins and other B-lactams approved by FDA for treatment of Streptococcus pyogenes (Group A Strep) and Streptococcus agalactiae (Group B Strep) is not necessary for clinical purposes and need not be done routinely, since as with vancomycin, resistant strains have not been recognized. (CLSI F240-N06;p.66) Positive isolates will be saved for one week. Please call the Microbiology Laboratory if further susceptibility testing is needed. 1. ESCHERICHIA COLI M.I.C. RX --------- ------ Ampicillin 8 S Cefazolin <=4 S Cefepime <=1 S Ceftriaxone <=1 S Ciprofloxacin <=0.25 S Gentamicin <=1 S Levofloxacin <=0.12 S Meropenem <=0.25 S Nitrofurantoin 32 S Tetracycline <=1 S Pipercillin/Tazobactam <=4 S Trimethoprim/Sulfamethoxazole <=20 S CONTINUED ON NEXT PAGE DEPARTMENT OF PATHOLOGY, [address] [place] [address] Tomer Leija M.D. Director [facility] # [id number] Patient: NATA DENNIS [id number] (Continued) Specimen: [id number] Collected: 01/29/18 Received: 01/29/18 (Continued) Procedure Result Reported Site Urine Culture Final (continued) 01/31/18- 818 1. ESCHERICHIA COLI (continued) M.I.C. RX --------- ------ Amoxicillin/Clavulanic Acid 4 S Aztreonam <=1 S Contact the Microbiology Department for any additional antibiotic reporting. * - Main Lab . END OF REPORT DEPARTMENT OF PATHOLOGY, [address] [place] [address] Tomer Leija M.D. Director [facility] # [id number] 10 SEE RESULT BELOW Name: NATA DENNIS : [address]: Urban Mcadams MD Acct: [id number] Unit: [id number] AGE: 57 Location: ED Re01/26/18 SEX: F Status: REG ER SPEC: [id number] MANUEL: 01/26/[address]: Michelle Nolasco MD REQ: [id number] RECD: 01/26/18 STATUS: LIZ GRANT DR: Rocio Du TIRE WRAPPER _ SOURCE: URINE SPDESC: ORDERED: Urine Culture Procedure Result Reported Site Urine Culture Final 01/27/18- 1631 ML No Growth (<1,000 CFU/mL) * ML - Main Lab . END OF REPORT DEPARTMENT OF PATHOLOGY, [address] [place] [address] Tomer Leija M.D. Director [facility] # [id number] 11 Because ethnic data is not always readily available, this report includes an eGFR for both -Americans and non- Americans. The National Kidney Disease Education Program (NKDEP) does not endorse the use of the MDRD equation for patients that are not between the ages of 18 and 70, are , have extremes of body size, muscle mass, or nutritional status, or are non- or non-. According to the National Kidney Foundation, irrespective of diagnosis, the stage of the disease is based on the level of kidney function: Stage Description GFR(mL/min/1.73 m(2)) 1 Kidney damage with normal or decreased GFR 90 2 Kidney damage with mild decrease in GFR 60-89 3 Moderate decrease in GFR 30-59 4 Severe decrease in GFR 15-29 5 Kidney failure <15 (or dialysis) 12 The urine specimen was tested at the listed cutoffs: Drug class test level (ng/mL) Amphetamines 500 Barbiturates 200 Benzodiazepine metabolites 200 Cocaine metabolites 150 Cannabinoids 50 Opiates 300 Pcp 25 Specimen was received without chain of custody. Results should be used for medical purposes only. 13 Critical Result LACT:2.4 Called to [id number] at: 17:41:11 by:[id number] Read back by:[id number] [facility] Severe Sepsis and Septic Shock Management Bundle Measure requires all lactic acids initially measuring >2.0 mmol/L be repeated. 14 Because ethnic data is not always readily available, this report includes an eGFR for both -Americans and non- Americans. The National Kidney Disease Education Program (NKDEP) does not endorse the use of the MDRD equation for patients that are not between the ages of 18 and 70, are , have extremes of body size, muscle mass, or nutritional status, or are non- or non-. According to the National Kidney Foundation, irrespective of diagnosis, the stage of the disease is based on the level of kidney function: Stage Description GFR(mL/min/1.73 m(2)) 1 Kidney damage with normal or decreased GFR 90 2 Kidney damage with mild decrease in GFR 60-89 3 Moderate decrease in GFR 30-59 4 Severe decrease in GFR 15-29 5 Kidney failure <15 (or dialysis) 15 Therapeutic concentration: <50 ug/mL Toxic concentration: >120 ug/mL 16 Critical Result ETOH:508.3 Called to [id number] at: 17:57:06 by:[id number] Read back by:[id number] 17 The urine specimen was tested at the listed cutoffs: Drug class test level (ng/mL) Amphetamines 500 Barbiturates 200 Benzodiazepine metabolites 200 Cocaine metabolites 150 Cannabinoids 50 Opiates 300 Pcp 25 Specimen was received without chain of custody. Results should be used for medical purposes only. 18 SEE RESULT BELOW Name: NATA DENNIS : [address]: Urban Mcadams MD Acct: [id number] Unit: [id number] AGE: 57 Location: ED Re09/28/17 SEX: F Status: DEP ER SPEC: [id number] MANUEL: 09/29/[address] [facility] [address]: Stef Green MD REQ: [id number] RECD: 09/29/17 STATUS: LIZ GRANT DR: Rocio Du TIRE WRAPPER _ SOURCE: URINE SPDESC: ORDERED: Urine Culture Procedure Result Reported Site Urine Culture Final 09/30/17- 0858 ML Organism 1 STREP GROUP B Barton Count 50-75,000 (Many) CFU/ML Susceptibility testing of penicillins and other B-lactams approved by FDA for treatment of Streptococcus pyogenes (Group A Strep) and Streptococcus agalactiae (Group B Strep) is not necessary for clinical purposes and need not be done routinely, since as with vancomycin, resistant strains have not been recognized. (CLSI Y183-Z46;p.66) Positive isolates will be saved for one week. Please call the Microbiology Laboratory if further susceptibility testing is needed. * ML - Main Lab . END OF REPORT DEPARTMENT OF PATHOLOGY, [address] [place] [address] Tomer Leija M.D. Director [facility] # [id number] 19 SEE RESULT BELOW Name: NATA DENNIS : [address]: Urban Mcadams MD Acct: [id number] Unit: [id number] AGE: 57 Location: ED Re09/27/17 SEX: F Status: DEP ER SPEC: [id number] MANUEL: 09/27/[address]: Stef Green MD REQ: [id number] RECD: 09/27/17 STATUS: COMP [facility] DR: Rocio Du TIRE WRAPPER _ SOURCE: URINE SPDESC: ORDERED: Urine Culture Procedure Result Reported Site Urine Culture Final 09/28/17- 1512 ML Organism 1 STREP GROUP B Barton Count 50-75,000 (Many) CFU/ML Susceptibility testing of penicillins and other B-lactams approved by FDA for treatment of Streptococcus pyogenes (Group A Strep) and Streptococcus agalactiae (Group B Strep) is not necessary for clinical purposes and need not be done routinely, since as with vancomycin, resistant strains have not been recognized. (CLSI Z906-Z68;p.66) Positive isolates will be saved for one week. Please call the Microbiology Laboratory if further susceptibility testing is needed. * ML - Main Lab . END OF REPORT DEPARTMENT OF PATHOLOGY, [address] [place] [address] Tomer Leija M.D. Director [facility] # [id number] 20 The urine specimen was tested at the listed cutoffs: Drug class test level (ng/mL) Amphetamines 500 Barbiturates 200 Benzodiazepine metabolites 200 Cocaine metabolites 150 Cannabinoids 50 Opiates 300 Pcp 25 Specimen was received without chain of custody. Results should be used for medical purposes only. 21 Therapeutic concentration: <50 ug/mL Toxic concentration: >120 ug/mL 22 Because ethnic data is not always readily available, this report includes an eGFR for both -Americans and non- Americans. The National Kidney Disease Education Program (NKDEP) does not endorse the use of the MDRD equation for patients that are not between the ages of 18 and 70, are , have extremes of body size, muscle mass, or nutritional status, or are non- or non-. According to the National Kidney Foundation, irrespective of diagnosis, the stage of the disease is based on the level of kidney function: Stage Description GFR(mL/min/1.73 m(2)) 1 Kidney damage with normal or decreased GFR 90 2 Kidney damage with mild decrease in GFR 60-89 3 Moderate decrease in GFR 30-59 4 Severe decrease in GFR 15-29 5 Kidney failure <15 (or dialysis) 23 NO TRACKING 24 SEE RESULT BELOW Name: NATA DENNIS : [address]: Rocio Du NP Acct: [id number] Unit: [id number] AGE: 57 Location: [facility] Re08/12/17 SEX: F Status: REG REF SPEC: [id number] MANUEL: 08/11/17-[address]: Rocio Du NP REQ: [id number] RECD: 08/12/17 STATUS: SOUT _ ORDERED: TP IMAGE ANAL, HPV/Thin Prep COMMENTS: NO TRACKING Negative for Intraepithelial lesion or Malignancy A. Ectocervical/Endocervical Specimen Adequacy: Satisfactory of evaluation Transformation zone component cannot be definitely identified due to presence of atrophy or other hormonal changes Patient Information: HPV: High risk HPV RNA testing regardless of pap results. Actual Specimen Date: 08/12/17 LMP If Unknown: >12 YRS ?: N Post Menopausal?: Y Hysterectomy?: N Previous Abnormal Pap Smears?:Y Date Time Test Result Flag (u) Normal Range 08/11/17 1322 @ HPV RNA Negative Negative @ @ The high-risk HPV types detected by the assay include: 16, @ 18, 31, 33, 35, 39, 45, 51, 52, 56, 58, 59, 66, and 68. Signed (signature on file) SHAILESH Drew (ASCP) 08/13 5548 This Pap test was evaluated with the assistance of the LavaboomPrep Test Imaging System. Due to cytologic findings at the floorperson microscope, comprehensive manual rescreening by a Steel Rule Die Maker may be required. The Pap Smear is a screening test designed to aid in the detection of premalignant and malignant conditions of the uterine cervix. It is not a diagnostic procedure and should not be used as the sole means of detecting cervical cancer. Both false- positive and false- negative reports do occur. Depending on your risk status, a Pap smear should be obtained and evaluated every 1-3 years. END OF REPORT DEPARTMENT OF PATHOLOGY, [address] [place] [address] Tomer Leija M.D. Director [facility] # [id number] 25 GC/Chlamydia Source?: Thin Prep HPV Source?: Thin Prep Trichomonas Source: Thin Prep 26 The urine specimen was tested at the listed cutoffs: Drug class test level (ng/mL) Amphetamines 500 Barbiturates 200 Benzodiazepine metabolites 200 Cocaine metabolites 150 Cannabinoids 50 Opiates 300 Pcp 25 Specimen was received without chain of custody. Results should be used for medical purposes only. 27 The urine specimen was tested at the listed cutoffs: Drug class test level (ng/mL) Amphetamines 500 Barbiturates 200 Benzodiazepine metabolites 200 Cocaine metabolites 150 Cannabinoids 50 Opiates 300 Pcp 25 Specimen was received without chain of custody. Results should be used for medical purposes only. 28 Therapeutic concentration: <50 ug/mL Toxic concentration: >120 ug/mL 29 Because ethnic data is not always readily available, this report includes an eGFR for both -Americans and non- Americans. The National Kidney Disease Education Program (NKDEP) does not endorse the use of the MDRD equation for patients that are not between the ages of 18 and 70, are , have extremes of body size, muscle mass, or nutritional status, or are non- or non-. According to the National Kidney Foundation, irrespective of diagnosis, the stage of the disease is based on the level of kidney function: Stage Description GFR(mL/min/1.73 m(2)) 1 Kidney damage with normal or decreased GFR 90 2 Kidney damage with mild decrease in GFR 60-89 3 Moderate decrease in GFR 30-59 4 Severe decrease in GFR 15-29 5 Kidney failure <15 (or dialysis) 30 Critical Result ETOH:484.6 Called to [id number] at: 20:44:41 by:[id number] Read back by: [id number] The urine specimen was tested at the listed cutoffs: Drug class test level (ng/mL) Amphetamines 500 Barbiturates 200 Benzodiazepine metabolites 200 Cocaine metabolites 150 Cannabinoids 50 Opiates 300 Pcp 25 Specimen was received without chain of custody. Results should be used for medical purposes only. 32 [id number] 33 SEE RESULT BELOW Name: NATA DENNIS : [address]: Servando Boone MD Acct: [id number] Unit: [id number] AGE: 56 Location: [facility] Re09/09/16 SEX: F Status: DEP ER SPEC: [id number] MANUEL: 09/09/16-[address] [facility] [address]: Servando Boone MD REQ: [id number] RECD: 09/09/16 STATUS: LIZ GRANT DR: Simone Jeter MD _ SOURCE: URINE SPDESC: ORDERED: Urine Culture COMMENTS: [id number] Procedure Result Reported Site Urine Culture Final 09/11/16825 ML Organism 1 ESCHERICHIA COLI Barton Count 50-75,000 (Many) CFU/ML Organism 2 NORMAL CLAUDINE Barton Count 25-50,000 (Moderate) CFU/ML 1. ESCHERICHIA COLI M.I.C. RX --------- ------ Ampicillin <=2 S Cefazolin <=4 S Cefepime <=1 S Ceftriaxone <=1 S Ciprofloxacin <=0.25 S Gentamicin <=1 S Levofloxacin <=0.12 S Meropenem <=0.25 S Nitrofurantoin <=16 S Tetracycline <=1 S Pipercillin/Tazobactam <=4 S Trimethoprim/Sulfamethoxazole <=20 S Amoxicillin/Clavulanic Acid <=2 S Aztreonam <=1 S Contact the Microbiology Department for any additional antibiotic reporting. * ML - MAIN LAB ([facility]) . END OF REPORT * ML=Testing performed at Main Lab DEPARTMENT OF PATHOLOGY, [address] [place] [address] Tomer Leija M.D. Director [facility] # [id number] [address] Technician: [id number] Cancelled. Specimen hemolyzed. Unable to perform test requested. Reorder for specimen recollection. STERLING/ED was called for recollect at 2151 on 06/10/16 by [id number] 36 99th percentile=0.04 ng/mL Troponin results at [facility] are not interchangeable. 37 Therapeutic concentration: <50 ug/mL Toxic concentration: >120 ug/mL 38 Cancelled. Specimen hemolyzed. Unable to perform test requested. Reorder for specimen recollection. STERLING/ED was called for recollect at 2151 on 06/10/16 by [id number] 39 Cancelled. Specimen hemolyzed. Unable to perform test requested. Reorder for specimen recollection. STERLING/ED was called for recollect at 2151 on 06/10/16 by [id number] 40 Cancelled. Specimen hemolyzed. Unable to perform test requested. Reorder for specimen recollection. STERLING/ED was called for recollect at 215106/10/16 by [id number] 41 Because ethnic data is not always readily available, this report includes an eGFR for both -Americans and non- Americans. The National Kidney Disease Education Program (NKDEP) does not endorse the use of the MDRD equation for patients that are not between the ages of 18 and 70, are , have extremes of body size, muscle mass, or nutritional status, or are non- or non-. According to the National Kidney Foundation, irrespective of diagnosis, the stage of the disease is based on the level of kidney function: Stage Description GFR(mL/min/1.73 m(2)) 1 Kidney damage with normal or decreased GFR 90 2 Kidney damage with mild decrease in GFR 60-89 3 Moderate decrease in GFR 30-59 4 Severe decrease in GFR 15-29 5 Kidney failure <15 (or dialysis) 42 [facility] Severe Sepsis and Septic Shock Management Bundle Measure requires all lactic acids initially measuring >2.0 mmol/L be repeated. 43 Cancelled. Specimen hemolyzed. Unable to perform test requested. Reorder for specimen recollectio 44 Desirable <150 Borderline high 150-199 High 200-499 Very High >500 45 Desirable <200 Borderline high 200-239 High >239 46 Low <40 Desirable: 40-60 High: >60 47 Desirable: <100 mg/dL Near Optimal: 100-129 mg/dL Borderline High: 130-159 mg/dL High: 160-189 mg/dL Very High: >189 mg/dL 48 FASTING 10 HOUR 49 Normal Range 180 to 914 Indeterminate Range 145 to 180 Deficient Range <145 50 FASTING 10 HOUR 51 ANTIBODY NOT DETECTED REFERENCE RANGE IgG <1:64 IgM <1:20 Anaplasma phagocytophilum is the tick-borne agent causing Human Granulocytic Ehrlichiosis (HGE). HGE is distinct and separate from Human Monocytic Ehrlichiosis (HME), caused by Ehrlichia chaffeensis. Serologic crossreactivity between A. phagocytophilum and E. chaffeensis is minimal (5-15%). This test was developed and its analytical performance characteristics have been determined by [employer]. It has not been cleared or approved by the U.S. Food and Drug Administration. The FDA has determined that such clearance or approval is not necessary. This assay has been validated pursuant to the CLIA regulations and is used for clinical purposes. Test Performed by: [employer], [employer]. [address] [place] [address] 52 Desirable <150 Borderline high 150-199 High 200-499 Very High >500 53 Desirable <200 Borderline high 200-239 High >239 54 Low <40 Desirable: 40-60 High: >60 55 Desirable: <100 mg/dL Near Optimal: 100-129 mg/dL Borderline High: 130-159 mg/dL High: 160-189 mg/dL Very High: >189 mg/dL 56 Because ethnic data is not always readily available, this report includes an eGFR for both -Americans and non- Americans. The National Kidney Disease Education Program (NKDEP) does not endorse the use of the MDRD equation for patients that are not between the ages of 18 and 70, are , have extremes of body size, muscle mass, or nutritional status, or are non- or non-. According to the National Kidney Foundation, irrespective of diagnosis, the stage of the disease is based on the level of kidney function: Stage Description GFR(mL/min/1.73 m(2)) 1 Kidney damage with normal or decreased GFR 90 2 Kidney damage with mild decrease in GFR 60-89 3 Moderate decrease in GFR 30-59 4 Severe decrease in GFR 15-29 5 Kidney failure <15 (or dialysis) 57 Because ethnic data is not always readily available, this report includes an eGFR for both -Americans and non- Americans. The National Kidney Disease Education Program (NKDEP) does not endorse the use of the MDRD equation for patients that are not between the ages of 18 and 70, are , have extremes of body size, muscle mass, or nutritional status, or are non- or non-. According to the National Kidney Foundation, irrespective of diagnosis, the stage of the disease is based on the level of kidney function: Stage Description GFR(mL/min/1.73 m(2)) 1 Kidney damage with normal or decreased GFR 90 2 Kidney damage with mild decrease in GFR 60-89 3 Moderate decrease in GFR 30-59 4 Severe decrease in GFR 15-29 5 Kidney failure <15 (or dialysis) 58 Desirable <150 Borderline high 150-199 High 200-499 Very High >500 59 Desirable <200 Borderline high 200-239 High >239 60 Low <40 Desirable: 40-60 High: >60 61 Desirable: <100 mg/dL Near Optimal: 100-129 mg/dL Borderline High: 130-159 mg/dL High: 160-189 mg/dL Very High: >189 mg/dL 62 Because ethnic data is not always readily available, this report includes an eGFR for both -Americans and non- Americans. The National Kidney Disease Education Program (NKDEP) does not endorse the use of the MDRD equation for patients that are not between the ages of 18 and 70, are , have extremes of body size, muscle mass, or nutritional status, or are non- or non-. According to the National Kidney Foundation, irrespective of diagnosis, the stage of the disease is based on the level of kidney function: Stage Description GFR(mL/min/1.73 m(2)) 1 Kidney damage with normal or decreased GFR 90 2 Kidney damage with mild decrease in GFR 60-89 3 Moderate decrease in GFR 30-59 4 Severe decrease in GFR 15-29 5 Kidney failure <15 (or dialysis) 63 The urine specimen was tested at the listed cutoffs: Drug class test level (ng/mL) Amphetamines 500 Barbituates 200 Benzodiazepine metabolites 200 Cocaine metabolites 150 Cannabinoids 50 Opiates 300 Pcp 25 This is a screening procedure. Positive results are not confirmed. Specimen was received without chain of custody. Results should be used for medical purposes only. 64 Because ethnic data is not always readily available, this report includes an eGFR for both -Americans and non- Americans. The National Kidney Disease Education Program (NKDEP) does not endorse the use of the MDRD equation for patients that are not between the ages of 18 and 70, are , have extremes of body size, muscle mass, or nutritional status, or are non- or non-. According to the National Kidney Foundation, irrespective of diagnosis, the stage of the disease is based on the level of kidney function: Stage Description GFR(mL/min/1.73 m(2)) 1 Kidney damage with normal or decreased GFR 90 2 Kidney damage with mild decrease in GFR 60-89 3 Moderate decrease in GFR 30-59 4 Severe decrease in GFR 15-29 5 Kidney failure <15 (or dialysis) 65 Therapeutic concentration: <50 ug/mL Toxic concentration: >120 ug/mL 66 PT IS FASTING 67 Desirable <150 Borderline high 150-199 High 200-499 Very High >500 68 Desirable <200 Borderline high 200-239 High >239 69 Low <40 Desirable: 40-60 High: >60 70 Desirable: <100 mg/dL Near Optimal: 100-129 mg/dL Borderline High: 130-159 mg/dL High: 160-189 mg/dL Very High: >189 mg/dL 71 The urine specimen was tested at the listed cutoffs: Drug class test level (ng/mL) Amphetamines 500 Barbituates 200 Benzodiazepine metabolites 200 Cocaine metabolites 150 Cannabinoids 50 Opiates 300 Pcp 25 This is a screening procedure. Positive results are not confirmed. Specimen was received without chain of custody. Results should be used for medical purposes only. 72 Because ethnic data is not always readily available, this report includes an eGFR for both -Americans and non- Americans. The National Kidney Disease Education Program (NKDEP) does not endorse the use of the MDRD equation for patients that are not between the ages of 18 and 70, are , have extremes of body size, muscle mass, or nutritional status, or are non- or non-. According to the National Kidney Foundation, irrespective of diagnosis, the stage of the disease is based on the level of kidney function: Stage Description GFR(mL/min/1.73 m(2)) 1 Kidney damage with normal or decreased GFR 90 2 Kidney damage with mild decrease in GFR 60-89 3 Moderate decrease in GFR 30-59 4 Severe decrease in GFR 15-29 5 Kidney failure <15 (or dialysis) 73 Therapeutic concentration: <50 ug/mL Toxic concentration: >120 ug/mL 74 Critical Result ETOH:426.4 Called to [id number] at: 19:20:40 by: Read back by:[id number] 75 Desirable <150 Borderline high 150-199 High 200-499 Very High >500 76 Desirable <200 Borderline high 200-239 High >239 77 Low <40 Desirable: 40-60 High: >60 78 Desirable <100 Near Optimal 100-129 Borderline high 130-159 High 160-189 Very High >189 79 Because ethnic data is not always readily available, this report includes an eGFR for both -Americans and non- Americans. The National Kidney Disease Education Program (NKDEP) does not endorse the use of the MDRD equation for patients that are not between the ages of 18 and 70, are , have extremes of body size, muscle mass, or nutritional status, or are non- or non-. According to the National Kidney Foundation, irrespective of diagnosis, the stage of the disease is based on the level of kidney function: Stage Description GFR(mL/min/1.73 m(2)) 1 Kidney damage with normal or decreased GFR 90 2 Kidney damage with mild decrease in GFR 60-89 3 Moderate decrease in GFR 30-59 4 Severe decrease in GFR 15-29 5 Kidney failure <15 (or dialysis) 80 RUN DATE: 02/28/14 [facility] LIVE PAGE 1 RUN TIME: [address] [place] [id number] Specimen Inquiry Name: NATA DENNIS : [address]: Justo Nicole MD Acct: [id number] Unit: [id number] AGE: 53 Location: [facility] Re02/26/14 SEX: F Status: REG REF SPEC: [id number] MANUEL: 02/26/[address]: Justo Nicole MD REQ: [id number] RECD: 02/26/14 STATUS: COMP _ SOURCE: URINE SPDESC: ORDERED: Urine Culture QUERIES: Medent Number [id number] Procedure Result Verified Site Urine Culture Final 02/28/14- 0959 ML Organism 1 ESCHERICHIA COLI Barton Count >100,000 (Many) CFU/ML Organism 2 NORMAL CLAUDINE Barton Count 1-10,000 (Few) CFU/ML 1. ESCHERICHIA COLI M.I.C. RX --------- ------ Ampicillin >=32 R Cefazolin <=4 S Cefepime <=1 S Ceftriaxone <=1 S Ciprofloxacin 1 S Gentamicin <=1 S Levofloxacin 1 S Meropenem <=0.25 S Nitrofurantoin <=16 S Tetracycline >=16 R Pipercillin/Tazobactam <=4 S Trimethoprim/Sulfamethoxazole >=320 R Amoxicillin/Clavulanic Acid 4 S Aztreonam <=1 S Contact the Microbiology Department for any additional antibiotic reporting. END OF REPORT * ML=Testing performed at Main Lab DEPARTMENT OF PATHOLOGY, [address] [place] [address] Tomer Leija M.D. Director [facility] # [id number] Procedures Date CPT Code Description Status 08/26/2017 Bone Mineral Density Test Completed 08/26/2017 Mammogram Completed 02/05/2015 Mammogram Completed 03/02/2014 Mammogram Completed Encounters Type Date Location Provider CPT E/M Dx Office Visit 08/11/2017 1:00p [facility] Internal Medicine ALIN Anderson [address] Z00.[address] Z12.4 Z12.31 Z12.11 E78.2 Z78.0 Z23 Office Visit 06/09/2017 3:20p [facility] Internal Medicine ALIN Anderson [address] F10.21 - [address] E78.2 R73.9 R53.83 N95.1 Office Visit 06/03/2017 10:13a [facility] giorgi Hassan, 15711 F10.920 Hospitalists D.O. Office Visit 07/01/2016 10:00a [facility] Capri Manzanares, 35867 G31.84 [facility] F10.21 Office Visit 06/04/2016 9:00a [facility] Internal Simone Jeter, 19925 Z00.00 Medicine - [address] Gurinder Z12.39 K63.5 E78.2 F33.0 Office Visit 03/09/2016 1:40p [facility] Internal Medicine Simone Jeter M.D. 38232 Z23 - [address] F33.0 E78.2 F03.91 Office Visit 11/07/2015 3:00p [facility] Internal Simone Jeter M.D. 27749 R73.9 Medicine - [address] E78.2 Office Visit 10/03/2015 10:20a [facility] Jesusita Jeter 26408 F10.10 Medicine - [address] [place] E78.5 Z12.11 Z23 Office Visit 10/18/2014 1:40p [facility] Internal Medicine Justo Nicole M.D. [address] 291.2 305.00 272.4 275.42 305.03 Office Visit 07/24/2014 10:40a [facility] Internal Medicine Selene Nicole M.D. [address] 291.2 305.00 792.1 272.4 790.6 791.9 V10.3 275.40 599.70 Office Visit 03/26/2014 2:40p [facility] Internal Medicine Selene Nicole M.D. 57863 [address] 291.2 305.00 792.1 V10.3 272.4 790.6 791.9 Office Visit 02/23/2014 1:20p [facility] Internal Medicine Selene Nicole M.D. 81616 [address] 291.2 305.00 792.1 V10.3 V73.99 Office Visit 11/17/2013 2:38p [facility] 31295 780.02 Hospitalists 291.2 305.00 Office Visit 11/16/2013 [facility]p [facility] 77726 780.02 Hospitalists 305.00 291.2 Plan of Care Future Appointment(s):04/06/2018 1:20 pm - Simone Jeter M.D. at [facility] Internal Medicine - Adjgsigsg50/20/2019 1:45 pm - Boaz Manzanares M.D. at [facility]03/16/2018 - Boaz Manzanares M.D.G31.84 Mild cognitive impairment, so statedFollow up:4-6 sbnkmrH09.10 Alcohol abuse, uncomplicated
[2018-03-28 19:55] LABS: ABS Basophils 0.1 10^3/ul (0-0.2); ABS Eosinophils 0.1 10^3/ul (0-0.6); ABS Lymphocytes 2.6 10^3/ul (1.0-4.8); ABS Monocytes 0.4 10^3/ul (0-0.8); ABS Neutrophils 3.2 10^3/ul (1.5-7.7); ABS Nucleated RBC 0 10^3/ul; Eosinophil % 1.5 % (0-6); Hematocrit 38 % (35-47); Hemoglobin 12.7 g/dl (12.0-16.0); Lymphocyte % 40.8 % (25-47); Mean Corpuscular HGB Conc 34 g/dl (31-36); Mean Corpuscular Hemoglobin 32 pg (27-31); Mean Corpuscular Volume 96 fL (80-97); Mean Platelet Volume 6.5 fL (7.4-10.4); Nucleated Red Blood Cells % 0.1; Platelet Count 259 10^3/ul (150-450); Red Blood Count 3.97 10^6/ul (4.00-5.40); Red Cell Distribution Width 15 % (10.5-15); White Blood Count 6.3 10^3/ul (3.5-10.8)
[2018-03-28 20:13] LABS: EGFR Non-African American 59.4 (>60)
[2018-03-28] MEDS ORDERED: Mouth Piece, Nicotine* 1 EACH CARTRIDGE INH ONE (22:00)
--- NOTE | 2018-03-28 23:05 | ED ---
Progress - Progress Note Progress Note: Patient was signed out from Dr. Sorto to Dr. Us pending sobriety and MHE. Course/Dx - Course Course Of Treatment: Patient was signed out from Dr. Sorto to Dr. Us pending sobriety and MHE. - Diagnoses Provider Diagnoses: Alcohol intoxication Discharge - Sign-Out/Discharge Documenting (check all that apply): Receiving Sign-Out Receiving patient FROM: Familia Sorto - Discharge Plan Referrals: Rocio Du BLAST FURNACE SUPERVISOR [Primary Care Provider] - - Attestation Statements Document Initiated by Scribe: Yes Documenting Scribe: Geoffrey Elder Provider For Whom Scribe is Documenting (Include Credential): Fito Us MD Scribe Attestation: IGeoffrey, scribed for Fito Us MD on 03/29/18 at 0633.
[2018-03-29 07:18] LABS: Urine Appearance Clear; Urine Blood 1+ (Negative); Urine Color Yellow; Urine Ketones Negative (Negative); Urine Protein Negative (Negative); Urine Red Blood Cell Trace(0-2/hpf) (Absent); Urine Specific Gravity 1.009 (1.010-1.030); Urine Urobilinogen Negative (Negative); Urine White Blood Cell Trace(0-5/hpf) (Absent)
--- NOTE | 2018-03-29 08:57 | ED ---
Progress - Progress Note Progress Note: This pt was signed out by Dr. Us at shift change, pending disposition, awaiting sobriety and subsequent MHE. Pt had a mental health evaluation and her case was reviewed by Dr. Ogden, psychiatrist. Dr. Ogden cleared the pt for discharge. Pt will be discharged home with outpatient follow up at [facility] and dx of alcohol induced mood disorder. Course/Dx - Diagnoses Provider Diagnoses: Alcohol-induced mood disorder Discharge - Sign-Out/Discharge Documenting (check all that apply): Patient Departure - Discharge home, Receiving Sign-Out Receiving patient FROM: Fito Us - Discharge Plan Condition: Stable Disposition: HOME Patient Education Materials: Depression (ED), Alcohol Intoxication (ED), Anxiety (ED), Suicide Prevention (ED) Referrals: Rocio Du NP [Primary Care Provider] - - Billing Disposition and Condition Condition: STABLE Disposition: Home - Attestation Statements Document Initiated by Scribe: Yes Documenting Scribe: Elba Austin Provider For Whom Scribe is Documenting (Include Credential): Stef Green MD Scribe Attestation: Elba Patel, scribed for Stef Green MD on 03/29/18 at 1759. Scribe Documentation Reviewed: Yes Provider Attestation: The documentation as recorded by the Elba bhatt accurately reflects the service I personally performed and the decisions made by , Stef Green MD
[2018-03-29 13:44] VITALS: BP 115/86
== END 2018-03-29 13:43 | disposition home or self-care (01) ==
LOC: ED 18:56
DX: F10.94 Alcohol use, unspecified with alcohol-induced mood disorder (principal); Z91.048 Other nonmedicinal substance allergy status; F17.210 Nicotine dependence, cigarettes, uncomplicated
CPT/HCPCS: 36415; 80053; 80307; 80320; 80329; 81003; 81015; 84443; 85025; 87086; 99284; G0480

== ENCOUNTER 2018-07-14 12:29 | Emergency (ER) | payer OTHER ==
--- NOTE | 2018-07-14 13:54 | ED ---
Substance Abuse/Use - HPI Summary HPI Summary: LEVEL 5 ADMIT: HPI LIMITED DUE TO PT CONDITION, ETOH INTOXICATION A 58 y/o F presents to ED brought in by ambulance for ETOH intoxication. as 220 Per EMS: She lives in assisted living/mental health facility ([place]) and they called EMS/police because she could not stay there. She drank 750mL of vodka. Pt answers are short and sarcastic. She denies RHOADES. - History Of Current Complaint Chief Complaint: EDSubstanceAbuse Stated Complaint: AMS PER EMS DRUNK PER LAW Hx Obtained From: EMS Hx From Patient Unobtainable Due To: Other - ETOH Hx Last Menstrual Period: N/A Ingestion History: Type/Name Of Drug - vodka, Amount Ingested - 750 mL Overdose Characteristics: Oral - Allergies/Home Medications Allergies/Adverse Reactions: Allergies Allergy/AdvReac Type Severity Reaction Status Date / Time Adhesive Tape Allergy Rash Verified 07/14/18 12:46 PMH/Surg Hx/FS Hx/Imm Hx Previously Healthy: No Endocrine/Hematology History: Denies: Hx Anticoagulant Therapy, Hx Blood Transfusions, Hx Diabetes, Hx Thyroid Disease, Other Endocrine/Hematological Disorders Cardiovascular History: Reports: Hx Syncope - rare Denies: Hx Hypertension, Hx Pacemaker/ICD, Other Cardiovascular Problems/ Disorders Respiratory History: Reports: Hx Seasonal Allergies Denies: Hx Asthma, Hx Chronic Bronchitis, Hx Chronic Obstructive Pulmonary Disease (COPD), Hx Lung Cancer, Hx Pneumonia, Other Respiratory Problems/ Disorders GI History: Denies: Hx Ulcer, Other GI Disorders History: Denies: Hx Kidney Stones, Hx Renal Disease, Other Problems/Disorders Musculoskeletal History: Reports: Hx Arthritis - hands Denies: Hx Back Problems, Other Musculoskeletal History Sensory History: Reports: Hx Contacts or Glasses Denies: Hx Hearing Aid, Other Sensory Impairments Opthamlomology History: Reports: Hx Contacts or Glasses Denies: Other Sensory Impairments Neurological History: Reports: Hx Headaches, Hx Seizures - last 2013, undiagnosed disorder, Other Neuro Impairments/Disorders - Shaky from ETOH withdrawal Psychiatric History: Reports: Hx Anxiety, Hx Depression, Hx Inpatient Treatment , Hx Community Mental Health Tx, Hx Substance Abuse - not recent 2017, Other Psychiatric Issues/Disorders - ETOH Abuse Denies: Hx Attention Deficit Hyperactivity Disorder, Hx Eating Disorder, Hx Panic Disorder, Hx Post Traumatic Stress Disorder, Hx Schizophrenia, Hx Bipolar Disorder, Hx Suicide Attempt - Thoughts-presently, Hx of Violent Episodes Against Others - Cancer History Cancer Type, Location and Year: breast cancer=left Hx Hematologic Symptoms: No Hx Chemotherapy: Yes Hx Radiation Therapy: Yes - Surgical History Surgery Procedure, Year, and Place: Bilat Thumb Fusion. Bilat Carpal Tunnel Surgery. LEFT Breast Lumpectomy. LEFT KNEE ARTHROSCOPIC SURGERY. ACL Sx left knee Hx Anesthesia Reactions: No - Immunization History Date of Tetanus Vaccine: Unk Date of Influenza Vaccine: Fall 2014 Infectious Disease History: No Infectious Disease History: Denies: History Other Infectious Disease, Traveled Outside the [place] in Last 30 Days - Family History Known Family History: Positive: Unknown - pt adopted Negative: Hypertension, Respiratory Disease, Seizure Disorder - Social History Occupation: Unemployed Lives: Assisted Living Alcohol Use: Daily Alcohol Amount: "I'm an alcoholic." Hx Substance Use: No Substance Use Type: Reports: None Substance Use Comment - Amount & Last Used: pt last requested benzos in ED on , 07/21 per it audit manager Hx Tobacco Use: Yes Smoking Status (MU): Light Every Day Tobacco Smoker Type: Cigarettes Have You Smoked in the Last Year: No Review of Systems - ROS Summary Review of Systems Summary: LEVEL 5 ADMIT: ROS LIMITED DUE TO PT CONDITION, ETOH INTOXICATION Negative: Headache All Other Systems Reviewed And Are Negative: No Physical Exam - Summary Physical Exam Summary: Constitutional: Well-developed, Well-nourished, Alert. (-) Distressed. Slightly slurred speech. Skin: Warm, Dry HENT: Normocephalic; Atraumatic Eyes: Conjunctiva normal. End-gaze nystagmus. Neck: Musculoskeletal ROM normal neck. (-) JVD, (-) Stridor, (-) Tracheal deviation Cardio: Rhythm regular, rate normal, Heart sounds normal; Intact distal pulses; The pedal pulses are 2+ and symmetric. Radial pulses are 2+ and symmetric. (-) Murmur Pulmonary/Chest wall: Effort normal. (-) Respiratory distress, (-) Wheezes, (-) Rales Abd: Soft, (-) epigastric tenderness, (-) Distension, (-) Guarding, (-) Rebound Musculoskeletal: (-) Edema Lymph: (-) Cervical adenopathy Neuro: Alert, Oriented x3. Cerebellar ataxia. Psych: Mood and affect Normal Triage Information Reviewed: Yes Vital Signs On Initial Exam: Initial Vitals Temp Pulse Resp BP Pulse Ox 98.2 F 93 16 123/85 96 07/14/18 12:38 07/14/18 12:38 07/14/18 12:38 07/14/18 12:38 07/14/18 12:38 Vital Signs Reviewed: Yes Diagnostics - Vital Signs Vital Signs Temp Pulse Resp BP Pulse Ox 07/14/18 12:38 98.2 F 93 16 123/85 96 - Laboratory Lab Statement: Any lab studies that have been ordered have been reviewed, and results considered in the medical decision making process. Course/Dx - Course Course Of Treatment: A 58 y/o F presents to ED brought in by ambulance for ETOH intoxication. as 2209 Per EMS: She lives in assisted living/mental health facility ([place]) and they called EMS/police because she could not stay there. She drank 750mL of vodka. She denies RHOADES at bedside. PE finds slightly slurred speech, cerebellar ataxia, end-gaze nystagmus. Pt will be signed out to Dr. Us at shift change, pending pt sobrietry and dispo. - Diagnoses Provider Diagnoses: Alcohol intoxication Discharge - Sign-Out/Discharge Documenting (check all that apply): Patient Departure - D/C, Sign-Out Patient Signing out patient TO: Fito Us - pending sobriety, dispo Patient Received Moderate/Deep Sedation with Procedure: No - Discharge Plan Condition: Stable Disposition: HOME Patient Education Materials: Abuse of Alcohol (ED) Referrals: Rocio Du, BORDER PATROL AGENT [Primary Care Provider] - 3 Days Additional Instructions: Return to the emergency department for changing or worsening symptoms. - Attestation Statements Document Initiated by Scribe: Yes Documenting Scribe: Rasheed Keene Provider For Whom Scribe is Documenting (Include Credential): Dr. Familia Sorto MD Scribe Attestation: I, Rasheed Keene scribed for Dr. Familia Sorto MD on 07/14/18 at 2158. Status of Scribe Document: Ready
--- NOTE | 2018-07-14 22:10 | ED ---
Progress - Progress Note Progress Note: This pt was signed out by Dr. Sorto, pending disposition, awaiting sobriety. Chest XR, as read by ED physician Negative chest XR. Pending official radiology report. Re-Evaluation - Re-Evaluation First Eval Re-Evaluation Time: 01:44 Comment: On re-eval, pt is tender over the left lower rib cage anteriorly. Will order XR and give pt pain medications. Second Eval Re-Evaluation Time: 02:30 Change: Improved Comment: She ambulated to the bathroom without difficulty and a steady gait. Third Eval Re-Evaluation Time: 02:36 Change: Improved Comment: She is feeling better after pain medications. Chest XR is negative. Course/Dx - Course Course Of Treatment: Pt was signed out by Dr. Sorto, pending disposition, awaiting sobriety. On re-eval pt was still c/o pain and on exam pt is tender over the left lower rib cage anteriorly. Chest XR was ordered as well as pain medications. Chest XR is negative. Therefore pt will be discharged home with follow up from her PCP. Pt was instructed to return to the ED for any worsening or new symptoms. - Diagnoses Provider Diagnoses: Alcohol intoxication Discharge - Sign-Out/Discharge Documenting (check all that apply): Patient Departure - Discharge home, Receiving Sign-Out Receiving patient FROM: Familia Sorto Patient Received Moderate/Deep Sedation with Procedure: No - Discharge Plan Condition: Stable Disposition: HOME Patient Education Materials: Alcohol Intoxication (ED) Referrals: Rocio Du PAIN COORDINATOR [Primary Care Provider] - Additional Instructions: PLEASE FOLLOW UP WITH YOUR PRIMARY CARE PROVIDER IN 1-2 DAYS. RETURN TO THE EMERGENCY DEPARTMENT FOR CHANGING OR WORSENING SYMPTOMS. - Attestation Statements Document Initiated by Scribe: Yes Documenting Scribe: Elba Austin Provider For Whom Scribe is Documenting (Include Credential): Fito Us MD Scribe Attestation: Elba Patel, scribed for Fito Us MD on 07/15/18 at 0242. Status of Scribe Document: Ready
[2018-07-15] MEDS ORDERED: Al Hydrox/Mg Hydrox/Simet LIQ* 30 ML UDC PO ONE (00:37)
[2018-07-15] MEDS ORDERED: Ibuprofen TAB* 600 MG PO ONE (01:46)
[2018-07-15] MEDS ORDERED: oxyCODONE/Acetamin 5/325 MG* TAB PO ONE (01:46)
[2018-07-15 03:00] VITALS: BP 160/95
== END 2018-07-15 03:32 | disposition home or self-care (01) ==
LOC: ED 12:29
DX: F10.129 Alcohol abuse with intoxication, unspecified (principal); R07.81 Pleurodynia; Z91.048 Other nonmedicinal substance allergy status; F17.210 Nicotine dependence, cigarettes, uncomplicated
CPT/HCPCS: 36415; 71045; 80320; 99283; A9270-GY; G0480

== ENCOUNTER 2018-09-01 11:30 | Emergency (ER) | payer OTHER ==
--- NOTE | 2018-09-01 11:52 | ED ---
Substance Abuse/Use - HPI Summary HPI Summary: 58 year old F brought in by [facility] ambulance to [facility] complains of alcohol intoxication since this morning. Symptoms aggravated by nothing. Symptoms alleviated by nothing. Patient denies chest pain, abdominal pain. Patient denies suicidal ideation when asked but swati Ward reports that patient expressed wanting to harm herself. Patient admits to drinking vodka. Patient admits to drinking every day. - History Of Current Complaint Chief Complaint: EDSubstanceAbuse Stated Complaint: ETOH PER EMS Time Seen by Provider: 09/01/18 11:31 Hx Obtained From: Patient, Other: - Swati Ward Hx Last Menstrual Period: N/A ?: No Ingestion History: Type/Name Of Drug - vodka Aggravating Factor(s): Nothing Alleviating Factor(s): Nothing Associated Signs And Symptoms: Negative - chest pain, abdominal pain, Other: - suicidal ideation - Allergies/Home Medications Allergies/Adverse Reactions: Allergies Allergy/AdvReac Type Severity Reaction Status Date / Time Adhesive Tape Allergy Rash Verified 07/14/18 12:46 PMH/Surg Hx/FS Hx/Imm Hx Previously Healthy: No Endocrine/Hematology History: Denies: Hx Anticoagulant Therapy, Hx Blood Transfusions, Hx Diabetes, Hx Thyroid Disease, Other Endocrine/Hematological Disorders Cardiovascular History: Reports: Hx Syncope - rare Denies: Hx Hypertension, Hx Pacemaker/ICD, Other Cardiovascular Problems/ Disorders Respiratory History: Reports: Hx Seasonal Allergies Denies: Hx Asthma, Hx Chronic Bronchitis, Hx Chronic Obstructive Pulmonary Disease (COPD), Hx Lung Cancer, Hx Pneumonia, Other Respiratory Problems/ Disorders GI History: Denies: Hx Ulcer, Other GI Disorders History: Denies: Hx Kidney Stones, Hx Renal Disease, Other Problems/Disorders Musculoskeletal History: Reports: Hx Arthritis - hands Denies: Hx Back Problems, Other Musculoskeletal History Sensory History: Reports: Hx Contacts or Glasses Denies: Hx Hearing Aid, Other Sensory Impairments Opthamlomology History: Reports: Hx Contacts or Glasses Denies: Other Sensory Impairments Neurological History: Reports: Hx Headaches, Hx Seizures - last 2013, undiagnosed disorder, Other Neuro Impairments/Disorders - Shaky from ETOH withdrawal Psychiatric History: Reports: Hx Anxiety, Hx Depression, Hx Inpatient Treatment , Hx Community Mental Health Tx, Hx Substance Abuse, Other Psychiatric Issues/ Disorders - ETOH Abuse Denies: Hx Attention Deficit Hyperactivity Disorder, Hx Eating Disorder, Hx Panic Disorder, Hx Post Traumatic Stress Disorder, Hx Schizophrenia, Hx Bipolar Disorder, Hx Suicide Attempt - Thoughts-presently, Hx of Violent Episodes Against Others - Cancer History Cancer Type, Location and Year: breast cancer=left Hx Hematologic Symptoms: No Hx Chemotherapy: Yes Hx Radiation Therapy: Yes - Surgical History Surgery Procedure, Year, and Place: Bilat Thumb Fusion. Bilat Carpal Tunnel Surgery. LEFT Breast Lumpectomy. LEFT KNEE ARTHROSCOPIC SURGERY. ACL Sx left knee Hx Anesthesia Reactions: No - Immunization History Date of Tetanus Vaccine: Unk Date of Influenza Vaccine: Fall 2014 Infectious Disease History: No Infectious Disease History: Denies: History Other Infectious Disease, Traveled Outside the [place] in Last 30 Days - Family History Known Family History: Positive: Other - pt adopted Negative: Hypertension, Respiratory Disease, Seizure Disorder - Social History Alcohol Use: Daily Alcohol Amount: "I'm an alcoholic." Hx Substance Use: Yes Substance Use Comment - Amount & Last Used: pt last requested benzos in ED on , 07/21 per customs compliance director Hx Tobacco Use: Yes Smoking Status (MU): Light Every Day Tobacco Smoker Type: Cigarettes Have You Smoked in the Last Year: No Review of Systems Negative: Chest Pain Negative: Abdominal Pain Positive: Other - alcohol intoxication, suicidal ideation All Other Systems Reviewed And Are Negative: Yes Physical Exam - Summary Physical Exam Summary: Appearance: Well appearing, no pain distress Skin: warm, dry, reflects adequate perfusion Head/face: normal Eyes: EOMI, DEVON ENT: normal Neck: supple, non-tender Respiratory: CTA, breath sounds present Cardiovascular: RRR, pulses symmetrical Abdomen: non-tender, soft Musculoskeletal: normal, strength/ROM intact Neuro: normal, sensory motor intact, A&Ox3 Psych: flat affect Triage Information Reviewed: Yes Vital Signs On Initial Exam: Initial Vitals Temp Pulse Resp BP Pulse Ox 97.9 F 98 18 113/75 98 09/01/18 11:33 09/01/18 11:33 09/01/18 11:33 09/01/18 11:33 09/01/18 11:33 Vital Signs Reviewed: Yes Diagnostics - Vital Signs Vital Signs Temp Pulse Resp BP Pulse Ox 09/01/18 11:33 97.9 F 98 18 113/75 98 - Laboratory Result Diagrams: 09/01/18 12:00 09/01/18 12:00 Lab Statement: Any lab studies that have been ordered have been reviewed, and results considered in the medical decision making process. Course/Dx - Course Course Of Treatment: 58 year old F brought in by [facility] ambulance to [facility] complains of alcohol intoxication since this morning. Patient denies suicidal ideation when asked but swati Ward reports that patient expressed wanting to harm herself. Patient admits to drinking vodka. Bloodwork/UA obtained. Patient will be signed out to Dr. Mcadams, pending MHE and disposition. - Diagnoses Provider Diagnoses: Alcohol intoxication Discharge - Sign-Out/Discharge Documenting (check all that apply): Sign-Out Patient Signing out patient TO: Urban Mcadams - Pending MHE and disposition Patient Received Moderate/Deep Sedation with Procedure: No - Discharge Plan Condition: Stable Referrals: Rocio Du, [facility]NER [Primary Care Provider] - - Attestation Statements Document Initiated by Scribe: Yes Documenting Scribe: Luba Ctoton Provider For Whom Scribe is Documenting (Include Credential): Amauri Carrera MD Scribe Attestation: Luba Patel, scribed for Amauri Carrera MD on 09/01/18 at [id number]. Status of Scribe Document: Ready
--- OUTSIDE RECORDS SUMMARY | 2018-09-01 11:56 | XMS REPORT | Continuity of Care Document ---
:1960 External Reference #:[id number] Author Name Chayito Moore Care Team Providers Name Role Phone Simone Jeter MD Primary Care Physician Unavailable Payers Date Identification Numbers Payment Provider Subscriber Effective: 2014 Policy Number: [id number] Gerard Nata Dennis Group Number: [id number] [address] PayID: [id number] [place] [address] Effective: 2013 Policy Number: [id number] Medicaid Nata Dennis Expires: 2014 Group Name: 1 1 [address] PayID: [id number] [place] [address] Advance Directives Description No Information Available Problems Date Description Provider Status Onset: 02/23/2014 [...] neoplasm of colon Simone Jeter M.D. 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 Cigarette Use Quit 24 Years Ago ETOH Use Has consumed alcohol in the past Tobacco Use Start: Unknown End: Patient is a former smoker Unknown Smoking Status Reviewed: 04/27/18 Patient is a former smoker Exercise Type/Frequency Walks daily Allergies, Adverse Reactions, Alerts Description No Known Drug Allergies Medications Medication Date Status Form Strength Qnty SIG Indications Ordering Provider Vitamin 04/27/ Active Tablets 90tabs 1 by F10.21 Theaofia B-Complex 2018 mouth ALIN Du every day Calcium 600+D 06/10/ Active Tablets 600-400mg- 60tabs 1 by N95.1 Awa High Potency 2018 Unit mouth Cotton, twice a M.D. day Atorvastatin 06/10/ Active Tablets 20mg 90tabs take 1 E78.2 Simone Calcium 2017 tablet at Pachikara, bedtime M.D. Fluoxetine HCL / Active Capsules 20mg 1 by Unknown 0000 mouth every day Naltrexone HCL / Active Tablets 50mg 1 tablet Unknown 0000 daily in the morning Vitamin B1 / Active Tablets 100mg 30tabs 1 by Theaofimesha 0000 mouth ALIN Du every day Calcium 09/24/ Hx Tablets 600-400mg- 60tabs Take One Zsofia Carbonate-Vitam 2018 - Unit Tablet By ALIN Du in D 12/07/ Mouth Two 2018 Times Daily Calcium 1200 06/09/ Hx Chewtabs 1200-1000m 90unit 1 by N95.1 Zsofia 2018 - g-Unit s mouth ALIN Du 06/10/ every day 2018 Thiamine HCL 10/02/ Hx Tablets 100mg 30tabs 1 by Simone 2015 - mouth Pachikara, 07/01/ every day M.D. 2017 Anastrozole 02/23/ Hx Tablets 1mg 1 by Justo 2013 - mouth Nicole, 10/18/ every day M.D. 2015 Citalopram 02/23/ Hx Tablets 20mg 30tabs 1 by Justo Hydrobromide 2013 - mouth Nicole, 10/02/ every day M.D. 2016 Vitamin B-1 02/23/ Hx Tablets 100mg 90tabs once a 2013 Nicole, 10/02/ M.D. 2016 Folic Acid 02/23/ Hx Tablets 1mg 90tabs 1 by 305.00 2013 - mouth Nicole, 10/02/ day M.D. 2015 Cranberry / Hx Capsules 250mg 1 tabs Unknown 0000 - twice daily 2015 Magnesium / Hx Capsules 500mg 1 by Unknown 0000 - mouth every day 2014 Sertraline HCL / Hx Tablets 100mg 1 by Unknown 0000 - mouth day 2016 Vitamin D / Hx Capsules [id number] take one Unknown (Ergocalciferol 0000 - capsule ) 07/01/ by mouth 2016 once weekly Immunizations CPT Code Status Date Vaccine Lot # [id number] Given 04/27/2018 Influenza Virus Vaccine, Quadrivalent, Split, [id number] Preservative Free [id number] Given 08/11/2017 Tdap - Tetanus/Diptheria/Acellular Pertussis [id number] Given 03/09/2016 Influ Virus Vaccine, Quadrivalent, Split Virus, [place] [id number] [id number] Given 10/03/2015 Pneumonia Vaccine [id number] Vital Signs Date Vital Result Comment 04/27/2018 10:42am Height 65.5 inches 5'5.50" Weight 144.00 lb Heart Rate 78 /min BP Systolic Sitting 118 mmHg BP Diastolic Sitting 80 mmHg O2 % BldC Oximetry 96 % BMI (Body Mass Index) 23.6 kg/m2 03/16/2018 2:56pm Height 65.5 inches 5'5.50" Weight 146.00 lb BP Systolic Sitting 122 mmHg BP Diastolic Sitting 60 mmHg BMI (Body Mass Index) 23.9 kg/m2 08/11/2017 1:01pm Height 65.5 inches 5'5.50" Weight 146.00 lb Heart Rate 74 /min BP Systolic 120 mmHg BP Diastolic 70 mmHg Body Temperature 98.6 F O2 % BldC Oximetry 96 % BMI (Body Mass Index) 23.9 kg/m2 06/09/2017 3:10pm Height 65.5 inches 5'5.50" Weight 141.00 lb Heart Rate 70 /min BP Systolic Sitting 122 mmHg BP Diastolic Sitting 78 mmHg Respiratory Rate 15 /min O2 % BldC Oximetry 95 % BMI (Body Mass Index) 23.1 kg/m2 07/01/2016 9:54am Height 65.5 inches 5'5.50" Weight 132.00 lb Heart Rate 78 /min BP Systolic Sitting 126 mmHg BP Diastolic Sitting 74 mmHg Respiratory Rate 16 /min BMI (Body Mass Index) 21.6 kg/m2 06/04/2016 9:08am Height 65.5 inches 5'5.50" Weight 131.00 lb Heart Rate 81 /min BP Systolic Sitting 120 mmHg BP Diastolic Sitting 82 mmHg Body Temperature 98.2 F O2 % BldC Oximetry 99 % BMI (Body Mass Index) 21.5 kg/m2 03/09/2016 1:55pm Weight 141.12 lb Heart Rate 77 /min BP Systolic Sitting 120 mmHg BP Diastolic Sitting 78 mmHg Body Temperature 97.8 F O2 % BldC Oximetry 95 % 11/07/2015 2:46pm Height 65.5 inches 5'5.50" Weight 149.12 lb Heart Rate 88 /min BP Systolic Sitting 98 mmHg BP Diastolic Sitting 62 mmHg Body Temperature 98.9 F O2 % BldC Oximetry 95 % BMI (Body Mass Index) 24.4 kg/m2 10/03/2015 10:15am Height 65.5 inches 5'5.50" Weight 160.00 lb Heart Rate 96 /min BP Systolic Sitting 134 mmHg BP Diastolic Sitting 88 mmHg Body Temperature 97.8 F O2 % BldC Oximetry 98 % BMI (Body Mass Index) 26.2 kg/m2 10/18/2014 1:36pm Height 65.5 inches 5'5.50" Weight 147.25 lb Heart Rate 66 /min BP Systolic Sitting 114 mmHg BP Diastolic Sitting 68 mmHg Body Temperature 97.9 F O2 % BldC Oximetry 98 % BMI (Body Mass Index) 24.1 kg/m2 07/24/2014 10:52am Height 65.5 inches 5'5.50" Weight 129.25 lb Heart Rate 82 /min BP Systolic Sitting 128 mmHg BP Diastolic Sitting 80 mmHg O2 % BldC Oximetry 95 % BMI (Body Mass Index) 21.2 kg/m2 03/26/2014 2:30pm Height 65.5 inches 5'5.50" Weight 130.00 lb Heart Rate 72 /min BP Systolic Sitting 110 mmHg BP Diastolic Sitting 60 mmHg BMI (Body Mass Index) 21.3 kg/m2 02/23/2014 12:56pm Height 65.5 inches 5'5.50" Weight 136.00 lb Heart Rate 78 /min BP Systolic Sitting 120 mmHg BP Diastolic Sitting 76 mmHg Body Temperature 97.2 F BMI (Body Mass Index) 22.3 kg/m2 Results Test Date Facility Test Result H/L Range Note Laboratory test 07/14/2018 [facility] Alcohol 443 mg/dL High < [address] [place] [address] [phone] CBC Auto Diff 03/28/2018 [facility] White Blood 6.3 10^3/uL N 3.5-10.[address] [place] [address] [phone] Red Blood Count 3.97 10^6/uL Low 4.00-5.40 Hemoglobin 12.7 g/dL N 12.0-16.0 Hematocrit 38 % N 35-47 Mean Corpuscular Volume 96 fL N 80-97 Mean Corpuscular Hemoglobin 32 pg High 27-31 Mean Corpuscular HGB Conc 34 g/dL N 31-36 Red Cell Distribution Width 15 % N 10.5-15 Platelet Count 259 10^3/uL N 150-450 Mean Platelet Volume 6.5 fL Low 7.4-10.4 Abs Neutrophils 3.2 10^3/uL N 1.5-7.7 Abs Lymphocytes 2.6 10^3/uL N 1.0-4.8 Abs Monocytes 0.4 10^3/uL N 0-0.8 Abs Eosinophils 0.1 10^3/uL N 0-0.6 Abs Basophils 0.1 10^3/uL N 0-0.2 Abs Nucleated RBC 0 10^3/uL Granulocyte % 50.7 % N 38-83 Lymphocyte % 40.8 % N 25-47 Monocyte % 5.7 % N 0-7 Eosinophil % 1.5 % N 0-6 Basophil % 1.3 % N 0-2 Nucleated Red Blood Cells % 0.1 Comp Metabolic Panel 03/28/2018 [facility] Sodium 140 mmol/L N 135-145 [address] [place] [address] [phone] Potassium 4.4 mmol/L N 3.5-5.0 Chloride 105 mmol/L N 101-111 Co2 Carbon Dioxide 31 mmol/L N 22-32 Anion Gap 4 mmol/L N 2-11 Glucose 103 mg/dL High 70-100 Blood Urea Nitrogen 10 mg/dL N 6-24 Creatinine 0.97 mg/dL High 0.51-0.95 BUN/Creatinine Ratio 10.3 N 8-20 Calcium 9.8 mg/dL N 8.6-10.3 Total Protein 7.1 g/dL N 6.4-8.9 Albumin 4.4 g/dL N 3.2-5.2 Globulin 2.7 g/dL N 2-4 Albumin/Globulin Ratio 1.6 N 1-3 Total Bilirubin 0.30 mg/dL N 0.2-1.0 Alkaline Phosphatase 59 U/L N 34-104 Alt 13 U/L N 7-52 Ast 21 U/L N 13-39 Egfr Non- 59.4 >60 Egfr 71.9 >60 2 Laboratory test 03/28/2018 [facility] Acetaminophen < 15 g/mL [address] [place] [address] [phone] Salicylate < 2.50 mg/dL <30 Alcohol 403 mg/dL High <10 4 TSH (Thyroid Stim Horm) 1.57 mcIU/mL N 0.34-5.60 Urine Drug 03/28/2018 [facility] Amphetamine Ur None Detected None Detect SCR ED & [address] [place] [place] [address] [phone] Barbiturates Urine Screen None Detected None Detect Benzodiazepine Urine Screen None Detected None Detect Urine Cannabinoids Screen None Detected None Detect Urine Cocaine Screen None Detected None Detect Urine Opiates Screen None Detected None Detect Urine Phencyclidine Screen None Detected None Detect 5 Urinalysis Profile 03/28/2018 [facility] Urine Color Yellow [address] [place] [address] [phone] Urine Appearance Clear Urine Specific Henderson 1.009 Low 1.010-1.030 Urine pH 5.0 N 5-9 Urine Urobilinogen Negative Negative Urine Ketones Negative Negative Urine Protein Negative Negative Urine Leukocytes Negative Negative Urine Blood 1+ Abnormal Negative Urine Nitrite Negative Negative Urine Bilirubin Negative Negative Urine Glucose Negative Negative Urine White Blood Cell Trace(0-5/hpf) Absent Urine Red Blood Cell Trace(0-2/hpf) Absent Urine Bacteria Absent Absent Urine Squamous Epithelial Cell Present Abnormal Absent Urine Hyaline Casts Present Abnormal Absent Urine Culture 03/28/2018 [facility] Urine Culture SEE RESULT [address] [place] [place] [address] [phone] Laboratory test 02/11/2018 [facility] Alcohol 388 mg/dL High < [address] [place] [address] [phone] Urine Drug SCR 02/11/2018 [facility] Amphetamine Ur None None ED [facility] [address] [place] [address] [phone] Barbiturates Urine Screen None Detected None Detect Benzodiazepine Urine Screen None Detected None Detect Urine Cannabinoids Screen None Detected None Detect Urine Cocaine Screen None Detected None Detect Urine Opiates Screen None Detected None Detect Urine Phencyclidine Screen None Detected None Detect 7 Urine Culture And 02/04/2018 [facility] Urine SEE RESULT 8 , [address] [place] [address] [phone] Poc Urinalysis 02/04/2018 [facility] Poc Negative Negative [address] Glucose, [place] [address] Urine [phone] Poc Bilirubin, Urine Negative Negative Poc Ketone, Urine Negative Negative Poc Specific Henderson, Urine 1.010 N 1.010-1.030 Poc Blood, Urine 3+ Abnormal Negative Poc pH, Urine 7.0 N 5-9 Poc Protein, Urine 2+ Abnormal Negative Poc Urobilinogen, Urine 0.2 Negative Poc Nitrite, Urine Negative Negative Poc Leukocytes, Urine 3+ Abnormal Negative Poc Color, Urine Yellow Poc Clarity, Urine Cloudy 10 Urine Culture And 01/29/2018 [facility] Urine Culture SEE RESULT [address] [place] [address] [phone] Urinalysis Profile 01/29/2018 [facility] Urine Color Straw [address] [place] [address] [phone] Urine Appearance Clear Urine Specific Henderson 1.008 Low 1.010-1.030 Urine pH 6.0 N 5-9 Urine Urobilinogen Negative Negative Urine Ketones Negative Negative Urine Protein Negative Negative Urine Leukocytes Negative Negative Urine Blood 1+ Abnormal Negative Urine Nitrite Negative Negative Urine Bilirubin Negative Negative Urine Glucose Negative Negative Urine White Blood Cell Trace(0-5/hpf) Absent Urine Red Blood Cell Trace(0-2/hpf) Absent Urine Bacteria Absent Absent Urine Squamous Epithelial Cell Present Abnormal Absent Laboratory test 01/29/2018 [facility] Magnesium 2.0 mg/dL N 1.9-2.7 [address] [place] [address] [phone] Acetaminophen < 15 g/mL 12 Salicylate < 2.50 mg/dL <30 Alcohol 474 mg/dL High <10 13 Comp Metabolic Panel 01/29/2018 [facility] Sodium 143 mmol/L N 135-145 [address] [place] [address] [phone] Potassium 3.8 mmol/L N 3.5-5.0 Chloride 107 mmol/L N 101-111 Co2 Carbon Dioxide 28 mmol/L N 22-32 Anion Gap 8 mmol/L N 2-11 Glucose 100 mg/dL N 70-100 Blood Urea Nitrogen 11 mg/dL N 6-24 Creatinine 0.78 mg/dL N 0.51-0.95 BUN/Creatinine Ratio 14.1 N 8-20 Calcium 8.5 mg/dL Low 8.6-10.3 Total Protein 6.4 g/dL N 6.4-8.9 Albumin 4.2 g/dL N 3.2-5.2 Globulin 2.2 g/dL N 2-4 Albumin/Globulin Ratio 1.9 N 1-3 Total Bilirubin 0.40 mg/dL N 0.2-1.0 Alkaline Phosphatase 60 U/L N 34-104 Alt 12 U/L N 7-52 Ast 22 U/L N 13-39 Egfr Non- 76.7 >60 Egfr 92.8 >60 14 Laboratory test 01/29/2018 [facility] Lactic Acid 1.7 mmol/L N 0.5-2.0 15 [address] [place] [address] [phone] Ammonia 36 mcmol/L N 16-53 Troponin-I (TnI) 0.01 ng/mL <0.04 Inr/Protime 01/29/2018 [facility] Inr 1.01 N 0.77-1.[address] [place] [address] [phone] CBC Auto Diff 01/29/2018 [facility] White Blood 7.3 10^3/uL N 3.5-10.[address] [place] [address] [phone] Red Blood Count 3.74 10^6/uL Low 4.00-5.40 Hemoglobin 12.1 g/dL N 12.0-16.0 Hematocrit 35 % N 35-47 Mean Corpuscular Volume 94 fL N 80-97 Mean Corpuscular Hemoglobin 33 pg High 27-31 Mean Corpuscular HGB Conc 35 g/dL N 31-36 Red Cell Distribution Width 15 % N 10.5-15 Platelet Count 240 10^3/uL N 150-450 Mean Platelet Volume 6.3 um3 Low 7.4-10.4 Abs Neutrophils 4.0 10^3/uL N 1.5-7.7 Abs Lymphocytes 2.6 10^3/uL N 1.0-4.8 Abs Monocytes 0.4 10^3/uL N 0-0.8 Abs Eosinophils 0.1 10^3/uL N 0-0.6 Abs Basophils 0.1 10^3/uL N 0-0.2 Abs Nucleated RBC 0 10^3/uL Granulocyte % 55.2 % N 38-83 Lymphocyte % 35.3 % N 25-47 Monocyte % 5.7 % N 0-7 Eosinophil % 1.8 % N 0-6 Basophil % 2.0 % N 0-2 Nucleated Red Blood Cells % 0 Urine Culture And 01/26/2018 [facility] Urine Culture SEE RESULT [address] [place] [address] [phone] Laboratory test 01/26/2018 [facility] Amylase 53 U/L N 29-[address] [place] [address] [phone] Lipase 21 U/L N 11.0-82.0 Creatine Kinase(CK) 87 U/L N 10-223 Troponin-I (TnI) 0.00 ng/mL <0.04 Alcohol 290 mg/dL High <10 Comp Metabolic Panel 01/26/2018 [facility] Sodium 138 mmol/L N 135-[address] [place] [address] [phone] Potassium 3.3 mmol/L Low 3.5-5.0 Chloride 111 mmol/L N 101-111 Co2 Carbon Dioxide 20 mmol/L Low 22-32 Anion Gap 7 mmol/L N 2-11 Glucose 85 mg/dL N 70-100 Blood Urea Nitrogen 12 mg/dL N 6-24 Creatinine 0.79 mg/dL N 0.51-0.95 BUN/Creatinine Ratio 15.2 N 8-20 Calcium 7.5 mg/dL Low 8.6-10.3 Total Protein 5.1 g/dL Low 6.4-8.9 Albumin 3.2 g/dL N 3.2-5.2 Globulin 1.9 g/dL Low 2-4 Albumin/Globulin Ratio 1.7 N 1-3 Total Bilirubin 0.30 mg/dL N 0.2-1.0 Alkaline Phosphatase 40 U/L N 34-104 Alt 11 U/L N 7-52 Ast 18 U/L N 13-39 Egfr Non- 75.6 >60 Egfr 91.4 >60 17 Urinalysis Profile 01/26/2018 [facility] Urine Color Straw [address] [place] [address] [phone] Urine Appearance Clear Urine Specific Henderson 1.011 N 1.010-1.030 Urine pH 6.0 N 5-9 Urine Urobilinogen Negative Negative Urine Ketones Negative Negative Urine Protein Negative Negative Urine Leukocytes Trace Abnormal Negative Urine Blood Negative Negative Urine Nitrite Negative Negative Urine Bilirubin Negative Negative Urine Glucose Negative Negative Urine White Blood Cell Trace(0-5/hpf) Absent Urine Red Blood Cell Trace(0-2/hpf) Absent Urine Bacteria Absent Absent Urine Squamous Epithelial Cell Present Abnormal Absent Urine Hyaline Casts Present Abnormal Absent Type & Screen 01/26/2018 [facility] Patient Blood Type B Positive [address] [place] [address] [phone] Antibody Screen NEGATIVE Urine Drug 01/26/2018 [facility] Amphetamine Ur None Detected None Detect SCR ED & [address] [place] [place] [address] [phone] Barbiturates Urine Screen None Detected None Detect Benzodiazepine Urine Screen None Detected None Detect Urine Cannabinoids Screen None Detected None Detect Urine Cocaine Screen None Detected None Detect Urine Opiates Screen None Detected None Detect Urine Phencyclidine Screen None Detected None Detect 18 Laboratory test 01/26/2018 [facility] Lactic Acid 2.4 mmol/L High 0.5-2.0 [address] [place] [address] [phone] CBC Auto Diff 01/26/2018 [facility] White Blood 6.4 10^3/uL N 3.5-10.[address] [place] [address] [phone] Red Blood Count 3.47 10^6/uL Low 4.00-5.40 Hemoglobin 11.2 g/dL Low 12.0-16.0 Hematocrit 33 % Low 35-47 Mean Corpuscular Volume 95 fL N 80-97 Mean Corpuscular Hemoglobin 32 pg High 27-31 Mean Corpuscular HGB Conc 34 g/dL N 31-36 Red Cell Distribution Width 15 % N 10.5-15 Platelet Count 205 10^3/uL N 150-450 Mean Platelet Volume 6.5 um3 Low 7.4-10.4 Abs Neutrophils 4.1 10^3/uL N 1.5-7.7 Abs Lymphocytes 1.8 10^3/uL N 1.0-4.8 Abs Monocytes 0.4 10^3/uL N 0-0.8 Abs Eosinophils 0.1 10^3/uL N 0-0.6 Abs Basophils 0 10^3/uL N 0-0.2 Abs Nucleated RBC 0 10^3/uL Granulocyte % 63.6 % N 38-83 Lymphocyte % 28.0 % N 25-47 Monocyte % 6.4 % N 0-7 Eosinophil % 1.3 % N 0-6 Basophil % 0.7 % N 0-2 Nucleated Red Blood Cells % 0.1 Inr/Protime 01/26/2018 [facility] Inr 1.05 High 0.77-1.[address] [place] [address] [phone] Laboratory test 09/29/2017 [facility] Alcohol 201 mg/dL High < [address] [place] [address] [phone] CBC Auto Diff 09/28/2017 [facility] White Blood 8.3 N 3.5- 10.[address] Count 10^3/[place] [address] [phone] Red Blood Count 3.99 10^6/uL Low 4.0-5.4 Hemoglobin 13.0 g/dL N 12.0-16.0 Hematocrit 38 % N 35-47 Mean Corpuscular Volume 96 fL N 80-97 Mean Corpuscular Hemoglobin 33 pg High 27-31 Mean Corpuscular HGB Conc 34 g/dL N 31-36 Red Cell Distribution Width 14 % N 10.5-15 Platelet Count 237 10^3/uL N 150-450 Mean Platelet Volume 6.4 um3 Low 7.4-10.4 Abs Neutrophils 5.3 10^3/uL N 1.5-7.7 Abs Lymphocytes 2.3 10^3/uL N 1.0-4.8 Abs Monocytes 0.5 10^3/uL N 0-0.8 Abs Eosinophils 0.1 10^3/uL N 0-0.6 Abs Basophils 0.1 10^3/uL N 0-0.2 Abs Nucleated RBC 0 10^3/uL Granulocyte % 63.5 % N 38-83 Lymphocyte % 27.6 % N 25-47 Monocyte % 6.6 % N 0-7 Eosinophil % 1.2 % N 0-6 Basophil % 1.1 % N 0-2 Nucleated Red Blood Cells % 0.1 Comp Metabolic Panel 09/28/2017 [facility] Sodium 143 mmol/L N 139-[address] [place] [address] [phone] Potassium 3.8 mmol/L N 3.5-5.0 Chloride 108 mmol/L N 101-111 Co2 Carbon Dioxide 25 mmol/L N 22-32 Anion Gap 10 mmol/L N 2-11 Glucose 95 mg/dL N 70-100 Blood Urea Nitrogen 10 mg/dL N 6-24 Creatinine 0.78 mg/dL N 0.51-0.95 BUN/Creatinine Ratio 12.8 N 8-20 Calcium 8.7 mg/dL N 8.6-10.3 Total Protein 6.6 g/dL N 6.4-8.9 Albumin 4.0 g/dL N 3.2-5.2 Globulin 2.6 g/dL N 2-4 Albumin/Globulin Ratio 1.5 N 1-3 Total Bilirubin 0.40 mg/dL N 0.2-1.0 Alkaline Phosphatase 55 U/L N 34-104 Alt 9 U/L N 7-52 Ast 20 U/L N 13-39 Egfr Non- 76.7 >60 Egfr 98.6 >60 20 Laboratory test 09/28/2017 [facility] Acetaminophen < 15 g/mL [address] [place] [address] [phone] Salicylate < 2.50 mg/dL <30 Alcohol 508 mg/dL High <10 22 TSH (Thyroid Stim Horm) 0.67 mcIU/mL N 0.34-5.60 Urinalysis Profile 09/28/2017 [facility] Urine Color Yellow [address] [place], [place] [address] [phone] Urine Appearance Clear Urine Specific Henderson 1.014 N 1.010-1.030 Urine pH 7.0 N 5-9 Urine Urobilinogen Negative Negative Urine Ketones Negative Negative Urine Protein Negative Negative Urine Leukocytes 1+ Abnormal Negative Urine Blood 1+ Abnormal Negative Urine Nitrite Negative Negative Urine Bilirubin Negative Negative Urine Glucose Negative Negative Urine White Blood Cell Trace(0-5/hpf) Absent Urine Red Blood Cell Trace(0-2/hpf) Absent Urine Bacteria Absent Absent Urine Squamous Epithelial Cell Present Abnormal Absent Urine Drug 09/28/2017 [facility] Amphetamine Ur None Detected None Detect SCR ED & [address] [place] [address] [phone] Barbiturates Urine Screen None Detected None Detect Benzodiazepine Urine Screen None Detected None Detect Urine Cannabinoids Screen None Detected None Detect Urine Cocaine Screen None Detected None Detect Urine Opiates Screen None Detected None Detect Urine Phencyclidine Screen None Detected None Detect 23 Urine Culture And 09/28/2017 [facility] Urine Culture SEE RESULT [address] [place] [address] [phone] Urine Culture And 09/27/2017 [facility] Urine Culture SEE RESULT [address] [place] [address] [phone] Urinalysis Profile 09/27/2017 [facility] Urine Color Straw [address] [place] [address] [phone] Urine Appearance Clear Urine Specific Henderson 1.005 Low 1.010-1.030 Urine pH 5.0 N 5-9 Urine Urobilinogen Negative Negative Urine Ketones Negative Negative Urine Protein Negative Negative Urine Leukocytes 2+ Abnormal Negative Urine Blood 2+ Abnormal Negative Urine Nitrite Negative Negative Urine Bilirubin Negative Negative Urine Glucose Negative Negative Urine White Blood Cell Trace(0-5/hpf) Absent Urine Red Blood Cell Absent Absent Urine Bacteria Absent Absent Urine Squamous Epithelial Cell Present Abnormal Absent Urine Drug 09/27/2017 [facility] Amphetamine Ur None Detected None Detect SCR ED & [address] [place] [address] [phone] Barbiturates Urine Screen None Detected None Detect Benzodiazepine Urine Screen None Detected None Detect Urine Cannabinoids Screen None Detected None Detect Urine Cocaine Screen None Detected None Detect Urine Opiates Screen None Detected None Detect Urine Phencyclidine Screen None Detected None Detect 26 Laboratory test 09/27/2017 [facility] Acetaminophen < 15 g/mL 27 [address] [place] [address] [phone] Alcohol 337 mg/dL High <10 Salicylate < 2.50 mg/dL <30 TSH (Thyroid Stim Horm) 0.39 mcIU/mL N 0.34-5.60 Comp Metabolic Panel 09/27/2017 [facility] Sodium 141 mmol/L N 139-[address] [place] [address] [phone] Potassium 3.7 mmol/L N 3.5-5.0 Chloride 104 mmol/L N 101-111 Co2 Carbon Dioxide 27 mmol/L N 22-32 Anion Gap 10 mmol/L N 2-11 Glucose 134 mg/dL High 70-100 Blood Urea Nitrogen 12 mg/dL N 6-24 Creatinine 0.94 mg/dL N 0.51-0.95 BUN/Creatinine Ratio 12.8 N 8-20 Calcium 9.0 mg/dL N 8.6-10.3 Total Protein 7.3 g/dL N 6.4-8.9 Albumin 4.4 g/dL N 3.2-5.2 Globulin 2.9 g/dL N 2-4 Albumin/Globulin Ratio 1.5 N 1-3 Total Bilirubin 0.40 mg/dL N 0.2-1.0 Alkaline Phosphatase 57 U/L N 34-104 Alt 9 U/L N 7-52 Ast 19 U/L N 13-39 Egfr Non- 61.8 >60 Egfr 79.5 >60 28 Laboratory test 09/27/2017 [facility] Alcohol 115 mg/dL High < [address] [place] [address] [phone] CBC Auto Diff 09/27/2017 [facility] White Blood 7.3 N 3.5- 10.[address] Count 10^3/[place] [address] [phone] Red Blood Count 4.26 10^6/uL N 4.0-5.4 Hemoglobin 13.9 g/dL N 12.0-16.0 Hematocrit 41 % N 35-47 Mean Corpuscular Volume 95 fL N 80-97 Mean Corpuscular Hemoglobin 33 pg High 27-31 Mean Corpuscular HGB Conc 34 g/dL N 31-36 Red Cell Distribution Width 15 % N 10.5-15 Platelet Count 255 10^3/uL N 150-450 Mean Platelet Volume 6.5 um3 Low 7.4-10.4 Abs Neutrophils 3.7 10^3/uL N 1.5-7.7 Abs Lymphocytes 3.0 10^3/uL N 1.0-4.8 Abs Monocytes 0.4 10^3/uL N 0-0.8 Abs Eosinophils 0.1 10^3/uL N 0-0.6 Abs Basophils 0.1 10^3/uL N 0-0.2 Abs Nucleated RBC 0 10^3/uL Granulocyte % 50.4 % N 38-83 Lymphocyte % 41.5 % N 25-47 Monocyte % 5.8 % N 0-7 Eosinophil % 1.0 % N 0-6 Basophil % 1.3 % N 0-2 Nucleated Red Blood Cells % 0 Laboratory 08/12/2017 [facility] Cytology SEE RESULT 29, 30 test finding [address] [place] [address] [phone] GC/Chlamydia 08/12/2017 [facility] Chlamydia Negative Negative Amplified Rna [address] [place] [address] Rna [phone] Neisseria gonorrhoeae (GC) Rna Negative Negative Laboratory 08/12/2017 [facility] Trichomonas Negative Negative 31 test finding [address] [place] [address] [phone] Urine Drug SCR 07/26/2017 [facility] Amphetamine Ur None None Detect ED & Pain [address] [place] [address] [phone] Barbiturates Urine Screen None Detected None Detect Benzodiazepine Urine Screen None Detected None Detect Urine Cannabinoids Screen None Detected None Detect Urine Cocaine Screen None Detected None Detect Urine Opiates Screen None Detected None Detect Urine Phencyclidine Screen None Detected None Detect 32 Urine Drug 06/24/2017 [facility] Amphetamine Ur None Detected None Detect SCR ED & [address] [place] [address] [phone] Barbiturates Urine Screen None Detected None Detect Benzodiazepine Urine Screen None Detected None Detect Urine Cannabinoids Screen None Detected None Detect Urine Cocaine Screen None Detected None Detect Urine Opiates Screen None Detected None Detect Urine Phencyclidine Screen None Detected None Detect 33 Urinalysis Profile 06/24/2017 [facility] Urine Color Yellow [address] [place] [address] [phone] Urine Appearance Clear Urine Specific Henderson 1.005 Low 1.010-1.030 Urine pH 6.0 N 5-9 Urine Urobilinogen Negative Negative Urine Ketones Negative Negative Urine Protein Negative Negative Urine Leukocytes Negative Negative Urine Blood 1+ Abnormal Negative Urine Nitrite Negative Negative Urine Bilirubin Negative Negative Urine Glucose Negative Negative Urine White Blood Cell Trace(0-5/hpf) Absent Urine Red Blood Cell Absent Absent Urine Bacteria Absent Absent Urine Squamous Epithelial Cell Present Abnormal Absent Laboratory test 06/24/2017 [facility] Acetaminophen < 15 g/mL 34 finding [address] [place] [address] [phone] Alcohol 390 mg/dL High <10 Salicylate < 2.50 mg/dL <30 TSH (Thyroid Stim Horm) 1.29 mcIU/mL N 0.34-5.60 Comp Metabolic Panel 06/24/2017 [facility] Sodium 143 mmol/L N 133-[address] [place] [phone] Potassium 4.0 mmol/L N 3.5-5.0 Chloride 101 mmol/L N 101-111 Co2 Carbon Dioxide 32 mmol/L N 22-32 Anion Gap 10 mmol/L N 2-11 Glucose 94 mg/dL N 70-100 Blood Urea Nitrogen 8 mg/dL N 6-24 Creatinine 0.73 mg/dL N 0.51-0.95 BUN/Creatinine Ratio 11.0 N 8-20 Calcium 9.3 mg/dL N 8.6-10.3 Total Protein 7.5 g/dL N 6.4-8.9 Albumin 4.7 g/dL N 3.2-5.2 Globulin 2.8 g/dL N 2-4 Albumin/Globulin Ratio 1.7 N 1-3 Total Bilirubin 0.50 mg/dL N 0.2-1.0 Alkaline Phosphatase 76 U/L N 34-104 Alt 16 U/L N 7-52 Ast 36 U/L N 13-39 Egfr Non- 82.8 >60 Egfr 106.4 >60 35 CBC Auto Diff 06/24/2017 [facility] White Blood 4.9 10^3/uL N 3.5-10.[address] [place] [address] [phone] Red Blood Count 4.22 10^6/uL N 4.0-5.4 Hemoglobin 14.3 g/dL N 12.0-16.0 Hematocrit 41 % N 35-47 Mean Corpuscular Volume 97 fL N 80-97 Mean Corpuscular Hemoglobin 34 pg High 27-31 Mean Corpuscular HGB Conc 35 g/dL N 31-36 Red Cell Distribution Width 16 % High 10.5-15 Platelet Count 244 10^3/uL N 150-450 Mean Platelet Volume 7 um3 Low 7.4-10.4 Abs Neutrophils 2.6 10^3/uL N 1.5-7.7 Abs Lymphocytes 1.7 10^3/uL N 1.0-4.8 Abs Monocytes 0.4 10^3/uL N 0-0.8 Abs Eosinophils 0.1 10^3/uL N 0-0.6 Abs Basophils 0 10^3/uL N 0-0.2 Abs Nucleated RBC 0 10^3/uL Granulocyte % 52.4 % N 38-83 Lymphocyte % 34.8 % N 25-47 Monocyte % 9.2 % High 1-9 Eosinophil % 2.8 % N 0-6 Basophil % 0.8 % N 0-2 Nucleated Red Blood Cells % 0.1 Urine Drug 06/01/2017 [facility] Amphetamine Ur None Detected None Detect SCR ED & [address] [place] [address] [phone] Barbiturates Urine Screen None Detected None Detect Benzodiazepine Urine Screen None Detected None Detect Urine Cannabinoids Screen None Detected None Detect Urine Cocaine Screen None Detected None Detect Urine Opiates Screen None Detected None Detect Urine Phencyclidine Screen None Detected None Detect 36 Laboratory test 06/01/2017 [facility] Alcohol 485 mg/dL High < 10 [address] [place] [address] [phone] Urine Culture And 09/09/2016 [facility] Urine SEE RESULT 38 , Sensitivities [address] Culture BELOW 39 [place] [address] [phone] Poc Urinalysis 09/09/2016 [facility] Poc Negative N Negative [address] Glucose, [place] [address] Urine [phone] Poc Bilirubin, Urine Negative N Negative Poc Ketone, Urine Negative N Negative Poc Specific Henderson, Urine >=1.030 N 1.010-1.030 Poc Blood, Urine 3+ Abnormal Negative Poc pH, Urine 6.0 N 5-9 Poc Protein, Urine 3+ Abnormal Negative Poc Urobilinogen, Urine 0.2 N Negative Poc Nitrite, Urine Positive Abnormal Negative Poc Leukocytes, Urine 2+ Abnormal Negative Poc Color, Urine Other N Poc Clarity, Urine Cloudy N 40 Laboratory test 06/10/2016 [facility] Potassium TNP mmol/L N 3.5-5.0 [address] [place], [place] [id number] [phone] Ast Redraw TNP U/L N 13-39 CBC Auto Diff 06/10/2016 [facility] White Blood 8.6 10^3/uL N 3.5-10.[address] [place] [address] [phone] Red Blood Count 4.11 10^6/uL N 4.0-5.4 Hemoglobin 14.0 g/dL N 12.0-16.0 Hematocrit 41 % N 35-47 Mean Corpuscular Volume 100 fL High 80-97 Mean Corpuscular Hemoglobin 34 pg High 27-31 Mean Corpuscular HGB Conc 34 g/dL N 31-36 Red Cell Distribution Width 14 % N 10.5-15 Platelet Count 198 10^3/uL N 150-450 Mean Platelet Volume 7 um3 Low 7.4-10.4 Abs Neutrophils 5.3 10^3/uL N 1.5-7.7 Abs Lymphocytes 2.4 10^3/uL N 1.0-4.8 Abs Monocytes 0.7 10^3/uL N 0-0.8 Abs Eosinophils 0.1 10^3/uL N 0-0.6 Abs Basophils 0.1 10^3/uL N 0-0.2 Abs Nucleated RBC 0.01 10^3/uL N Granulocyte % 62.0 % N 38-83 Lymphocyte % 28.1 % N 25-47 Monocyte % 7.8 % N 1-9 Eosinophil % 1.0 % N 0-6 Basophil % 1.1 % N 0-2 Nucleated Red Blood Cells % 0.2 N Laboratory test 06/10/2016 [facility] Lactic Acid 1.5 mmol/L N 0.5-2.0 [address] [place] [address] [phone] Ammonia 40 ?mol/L N 16-53 Comp Metabolic Panel 06/10/2016 [facility] Sodium 138 mmol/L N 133-[address] [place] [address] [phone] Chloride 105 mmol/L N 101-111 Co2 Carbon Dioxide 23 mmol/L N 22-32 Glucose 93 mg/dL N 70-100 Blood Urea Nitrogen 19 mg/dL N 6-24 Creatinine 0.97 mg/dL High 0.51-0.95 BUN/Creatinine Ratio 19.6 N 8-20 Calcium 9.6 mg/dL N 8.6-10.3 Total Protein 7.3 g/dL N 6.4-8.9 Albumin 4.5 g/dL N 3.2-5.2 Globulin 2.8 g/dL N 2-4 Albumin/Globulin Ratio 1.6 N 1-3 Total Bilirubin 0.30 mg/dL N 0.2-1.0 Alkaline Phosphatase 51 U/L N 34-104 Alt 11 U/L N 7-52 Egfr Non- 59.8 N >60 Egfr 77.0 N >60 43 Potassium TNP mmol/L N 3.5-5.0 Anion Gap TNP mmol/L N 2-11 Ast TNP U/L N 13-39 Laboratory test 06/10/2016 [facility] Creatine 100 U/L N 10- 223 [address] Kinase(CK) [place] [address] [phone] Troponin-I (TnI) 0.00 ng/mL N <0.04 45 Acetaminophen < 15 g/mL N 46 Alcohol 337 mg/dL High <10 47 Salicylate < 2.50 mg/dL N <30 48 TSH (Thyroid Stim Horm) 0.96 mcIU/mL N 0.34-5.60 49 Laboratory test 03/30/2016 [facility] TSH (Thyroid 0.88 mcIU/mL N 0.34-5.60 [address] Stim Horm) [place] [address] [phone] Vitamin B12 And 03/30/2016 [facility] Vitamin B12 289 pg/mL N 180-914 [address] [place] [address] [phone] Folic Acid (Folate) 16.22 ng/mL N >3.99 52 Anaplasma 03/30/2016 [facility] A. phagocytophilum <1:64 N Phagocytophilum Abs [address] IgG Igg,[place] [address] [phone] A. phagocytophilum IgM <1:20 N A. phagocytophilum Interp See Comment N 53 Lipid Profile 03/30/2016 [facility] Triglycerides 126 mg/dL N 54 (Trig/Chol/HDL) [address] [place] [address] [phone] Cholesterol 290 mg/dL N 55 HDL Cholesterol 86.1 mg/dL N 56 LDL Cholesterol 179 mg/dL N 57 Lipid Profile 11/26/2015 [facility] Triglycerides 153 mg/dL N 58 (Trig/Chol/HDL) [address] [place] [address] [phone] Cholesterol 259 mg/dL N 59 HDL Cholesterol 78.5 mg/dL N 60 LDL Cholesterol 150 mg/dL N 61 Comp Metabolic Panel 11/26/2015 [facility] Sodium 137 mmol/L N 133-[address] [place] [address] [phone] Potassium 4.2 mmol/L N 3.5-5.0 Chloride 105 mmol/L N 101-111 Co2 Carbon Dioxide 24 mmol/L N 22-32 Anion Gap 8 mmol/L N 2-11 Glucose 82 mg/dL N 70-100 Blood Urea Nitrogen 11 mg/dL N 6-24 Creatinine 0.75 mg/dL N 0.51-0.95 BUN/Creatinine Ratio 14.7 N 8-20 Calcium 9.9 mg/dL N 8.6-10.3 Total Protein 6.5 g/dL N 6.4-8.9 Albumin 4.1 g/dL N 3.2-5.2 Globulin 2.4 g/dL N 2-4 Albumin/Globulin Ratio 1.7 N 1-3 Total Bilirubin 0.60 mg/dL N 0.2-1.0 Alkaline Phosphatase 83 U/L N 34-104 Alt 9 U/L N 7-52 Ast 18 U/L N 13-39 Egfr Non- 80.8 N >60 Egfr 104.0 N >60 62 Laboratory test 11/07/2015 [facility] Hemoglobin A1c 5.1 5-7 finding Comp Metabolic Panel 11/04/2015 [facility] Sodium 135 mmol/L N 133-145 [address] [place] [address] [phone] Potassium 3.5 mmol/L N 3.5-5.0 Chloride 99 mmol/L Low 101-111 Co2 Carbon Dioxide 27 mmol/L N 22-32 Anion Gap 9 mmol/L N 2-11 Glucose 152 mg/dL High 70-100 Blood Urea Nitrogen 10 mg/dL N 6-24 Creatinine 0.84 mg/dL N 0.51-0.95 BUN/Creatinine Ratio 11.9 N 8-20 Calcium 9.9 mg/dL N 8.6-10.3 Total Protein 7.0 g/dL N 6.4-8.9 Albumin 4.5 g/dL N 3.2-5.2 Globulin 2.5 g/dL N 2-4 Albumin/Globulin Ratio 1.8 N 1-3 Total Bilirubin 1.00 mg/dL N 0.2-1.0 Alkaline Phosphatase 127 U/L High 34-104 Alt 13 U/L N 7-52 Ast 24 U/L N 13-39 Egfr Non- 70.9 N >60 Egfr 91.2 N >60 63 Lipid Profile 11/04/2015 [facility] Triglycerides 78 mg/dL N 64 (Trig/Chol/HDL) [address] [place] [address] [phone] Cholesterol 290 mg/dL N 65 HDL Cholesterol 110.8 mg/dL N 66 LDL Cholesterol 164 mg/dL N 67 Basic Metabolic Panel 11/07/2014 [facility] Sodium 139 mmol/L N 133-145 [address] [place] [address] [phone] Potassium 4.2 mmol/L N 3.5-5.0 Chloride 102 mmol/L N 101-111 Co2 Carbon Dioxide 29 mmol/L N 22-32 Anion Gap 8 mmol/L N 2-11 Glucose 77 mg/dL N 70-100 Blood Urea Nitrogen 18 mg/dL N 6-24 Creatinine 0.83 mg/dL N 0.51-0.95 BUN/Creatinine Ratio 21.7 High 8-20 Calcium 10.4 mg/dL High 8.6-10.3 Egfr Non- 72.2 N >60 Egfr 92.8 N >60 68 Pthi 11/07/2014 [facility] Calcium (PTH Intact) 10.3 mg/dL N 8.6-10.[address] [place] [address] [phone] PTH Intact 5.3 pmol/L N 1.3-9.3 Laboratory test 07/28/2014 [facility] Acetaminophen < 15 g/mL N 69 finding [address] [place] [address] [phone] Alcohol < 10 mg/dL N <10 Salicylate < 2.50 mg/dL N <30 TSH (Thyroid Stimulating Horm) 0.60 IU/mL N 0.34-5.60 CBC Auto Diff 07/28/2014 [facility] White Blood 5.1 10^3/uL N 4.8-10.[address] [place] [address] [phone] Red Blood Count 3.91 10^6/uL Low 4.0-5.4 Hemoglobin 12.6 g/dL N 12.0-16.0 Hematocrit 37 % N 35-47 Mean Corpuscular Volume 95 fL N 80-97 Mean Corpuscular Hemoglobin 32 pg High 27-31 Mean Corpuscular HGB Conc 34 g/dL N 31-36 Red Cell Distribution Width 14 % N 10.5-15 Platelet Count 194 10^3/uL N 150-450 Mean Platelet Volume 7 um3 Low 7.4-10.4 Abs Neutrophils 2.5 10^3/uL N 1.5-7.7 Abs Lymphocytes 2.1 10^3/uL N 1.0-4.8 Abs Monocytes 0.4 10^3/uL N 0-0.8 Abs Eosinophils 0.1 10^3/uL N 0-0.6 Abs Basophils 0.1 10^3/uL N 0-0.2 Abs Nucleated RBC 0 10^3/uL N Granulocyte % 48.7 % N 38-83 Lymphocyte % 40.1 % N 25-47 Monocyte % 7.9 % N 1-9 Eosinophil % 2.0 % N 0-6 Basophil % 1.3 % N 0-2 Nucleated Red Blood Cells % 0 N Comp Metabolic Panel 07/28/2014 [facility] Sodium 140 mmol/L N 133-[address] [place] [address] [phone] Potassium 4.1 mmol/L N 3.5-5.0 Chloride 105 mmol/L N 101-111 Co2 Carbon Dioxide 29 mmol/L N 22-32 Anion Gap 6 mmol/L N 2-11 Glucose 97 mg/dL N 70-100 Blood Urea Nitrogen 11 mg/dL N 6-24 Creatinine 0.77 mg/dL N 0.51-0.95 BUN/Creatinine Ratio 14.3 N 8-20 Calcium 10.5 mg/dL High 8.6-10.3 Total Protein 7.5 g/dL N 6.4-8.9 Albumin 4.9 g/dL N 3.2-5.2 Globulin 2.6 g/dL N 2-4 Albumin/Globulin Ratio 1.9 N 1-3 Total Bilirubin 0.60 mg/dL N 0.2-1.0 Alkaline Phosphatase 81 U/L N 34-104 Alt 14 U/L N 7-52 Ast 20 U/L N 13-39 Egfr Non- 78.7 N >60 Egfr 101.2 N >60 70 Urine Drug 07/28/2014 [facility] Amphetamine Ur None Detected N None Detect SCR ED & [address] [place] [address] [phone] Barbiturates Urine Screen None Detected N None Detect Benzodiazepine Urine Screen None Detected N None Detect Urine Cannabinoids Screen None Detected N None Detect Urine Cocaine Screen None Detected N None Detect Urine Opiates Screen None Detected N None Detect Urine Phencyclidine Screen None Detected N None Detect 71 Urinalysis Profile 07/28/2014 [facility] Urine Color Straw N [address] [place] [address] [phone] Urine Appearance Clear N Urine Specific Henderson 1.003 Low 1.010-1.030 Urine pH 6.0 N 5-9 Urine Urobilinogen Negative N Negative Urine Ketones Negative N Negative Urine Protein Negative N Negative Urine Leukocytes Negative N Negative Urine Blood Negative N Negative Urine Nitrite Negative N Negative Urine Bilirubin Negative N Negative Urine Glucose Negative N Negative Lipid Profile 07/16/2014 [facility] Triglycerides 103 mg/dL N 72, 73 (Trig/Chol/HDL) [address] [place] [address] [phone] Cholesterol 244 mg/dL N 74 HDL Cholesterol 94.6 mg/dL N 75 LDL Cholesterol 129 mg/dL N 76 Laboratory test 05/28/2014 [facility] Acetaminophen < 15 g/mL N 77 finding [address] [place] [address] [phone] Alcohol 426 mg/dL High <10 78 Salicylate < 2.50 mg/dL N <30 TSH (Thyroid Stimulating Horm) 0.31 IU/mL Low 0.34-5.60 Magnesium 1.7 mg/dL Low 1.9-2.7 Comp Metabolic Panel 05/28/2014 [facility] Sodium 140 mmol/L N 133-145 [address] [place] [address] [phone] Potassium 3.6 mmol/L N 3.5-5.0 Chloride 102 mmol/L N 101-111 Co2 Carbon Dioxide 22 mmol/L N 22-32 Anion Gap 16 mmol/L High 2-11 Glucose 103 mg/dL High 70-100 Blood Urea Nitrogen 18 mg/dL N 6-24 Creatinine 0.91 mg/dL N 0.51-0.95 BUN/Creatinine Ratio 19.8 N 8-20 Calcium 8.9 mg/dL N 8.6-10.3 Total Protein 7.0 g/dL N 6.4-8.9 Albumin 4.5 g/dL N 3.2-5.2 Globulin 2.5 g/dL N 2-4 Albumin/Globulin Ratio 1.8 N 1-3 Total Bilirubin 0.40 mg/dL N 0.2-1.0 Alkaline Phosphatase 68 U/L N 34-104 Alt 20 U/L N 7-52 Ast 41 U/L High 13-39 Egfr Non- 64.9 N >60 Egfr 83.5 N >60 79 CBC Auto Diff 05/28/2014 [facility] White Blood 8.4 10^3/uL N 4.8-10.[address] [place] [address] [phone] Red Blood Count 4.17 10^6/uL N 4.0-5.4 Hemoglobin 13.0 g/dL N 12.0-16.0 Hematocrit 38 % N 35-47 Mean Corpuscular Volume 92 fL N 80-97 Mean Corpuscular Hemoglobin 31 pg N 27-31 Mean Corpuscular HGB Conc 34 g/dL N 31-36 Red Cell Distribution Width 14 % N 10.5-15 Platelet Count 172 10^3/uL N 150-450 Mean Platelet Volume 7 um3 Low 7.4-10.4 Abs Neutrophils 4.0 10^3/uL N 1.5-7.7 Abs Lymphocytes 3.8 10^3/uL N 1.0-4.8 Abs Monocytes 0.6 10^3/uL N 0-0.8 Abs Eosinophils 0 10^3/uL N 0-0.6 Abs Basophils 0.1 10^3/uL N 0-0.2 Abs Nucleated RBC 0.01 10^3/uL N Granulocyte % 47.0 % N 38-83 Lymphocyte % 45.0 % N 25-47 Monocyte % 6.8 % N 1-9 Eosinophil % 0.1 % N 0-6 Basophil % 1.1 % N 0-2 Nucleated Red Blood Cells % 0.1 N Urine Drug 05/28/2014 [facility] Amphetamine Ur None Detected N None Detect SCR ED & [address] [place] [address] [phone] Barbiturates Urine Screen None Detected N None Detect Benzodiazepine Urine Screen None Detected N None Detect Urine Cannabinoids Screen None Detected N None Detect Urine Cocaine Screen None Detected N None Detect Urine Opiates Screen None Detected N None Detect Urine Phencyclidine Screen None Detected N None Detect 80 Urinalysis Profile 05/28/2014 [facility] Urine Color Yellow N [address] [place] [address] [phone] Urine Appearance Clear N Urine Specific Henderson 1.011 N 1.010-1.030 Urine pH 5 N 5-9 Urine Urobilinogen Negative N Negative Urine Ketones Trace Abnormal Negative Urine Protein Negative N Negative Urine Leukocytes Negative N Negative Urine Blood Negative N Negative Urine Nitrite Negative N Negative Urine Bilirubin Negative N Negative Urine Glucose Negative N Negative Comp Metabolic Panel 02/26/2014 [facility] Sodium 138 mmol/L N 133-[address] [place] [address] [phone] Potassium 4.5 mmol/L N 3.7-5.6 Chloride 103 mmol/L N 101-111 Co2 Carbon Dioxide 28 mmol/L N 22-32 Anion Gap 7 mmol/L N 2-11 Glucose 89 mg/dL N 70-100 Blood Urea Nitrogen 17 mg/dL N 6-24 Creatinine 0.84 mg/dL N 0.51-0.95 BUN/Creatinine Ratio 20.2 High 8-20 Calcium 10.4 mg/dL High 8.6-10.3 Total Protein 7.1 g/dL N 6.4-8.9 Albumin 4.6 g/dL N 3.2-5.2 Globulin 2.5 g/dL N 2-4 Albumin/Globulin Ratio 1.8 N 1-3 Total Bilirubin 0.50 mg/dL N 0.2-1.0 Alkaline Phosphatase 79 U/L N 34-104 Alt 13 U/L N 7-52 Ast 20 U/L N 13-39 Egfr Non- 71.5 N >60 Egfr 91.9 N >60 81 Lipid Profile 02/26/2014 [facility] Triglycerides 141 mg/dL N 82 (Trig/Chol/HDL) [address] [place], [place] [address] [phone] Cholesterol 270 mg/dL N 83 HDL Cholesterol 71.6 mg/dL N 84 LDL Cholesterol 170 mg/dL N 85 Laboratory test 02/26/2014 [facility] TSH (Thyroid 1.23 IU/mL N 0.34-5.[address] [place] [address] Horm) [phone] Hepatitis C Antibody Nonreactive N Nonreactive Urine Culture And 02/26/2014 [facility] Urine Culture (SEE NOTE ) 86 Sensitivities [address] [place], [place] [address] [phone] Urinalysis Profile 02/26/2014 [facility] Urine Color Yellow N [address] [place] [address] [phone] Urine Appearance Cloudy N Urine Specific Henderson 1.014 N 1.010-1.030 Urine pH 5.0 N 5-9 Urine Urobilinogen Negative N Negative Urine Ketones Negative N Negative Urine Protein Negative N Negative Urine Leukocytes 3+ Abnormal Negative Urine Blood 1+ Abnormal Negative Urine Nitrite Negative N Negative Urine Bilirubin Negative N Negative Urine Glucose Negative N Negative Urine White Blood Cell 3+(>20/hpf) Abnormal Absent Urine Red Blood Cell 2+(6-10/hpf) Abnormal Absent Urine Bacteria 1+ Abnormal Absent CBC Auto Diff 02/26/2014 [facility] White Blood 7.7 10^3/uL N 4.8-10.[address] [place] [address] [phone] Red Blood Count 4.05 10^6/uL N 4.0-5.4 Hemoglobin 12.8 g/dL N 12.0-16.0 Hematocrit 37 % N 35-47 Mean Corpuscular Volume 93 fL N 80-97 Mean Corpuscular Hemoglobin 32 pg High 27-31 Mean Corpuscular HGB Conc 34 g/dL N 31-36 Red Cell Distribution Width 12 % N 10.5-15 Platelet Count 201 10^3/uL N 150-450 Mean Platelet Volume 7 um3 Low 7.4-10.4 Abs Neutrophils 4.5 10^3/uL N 1.5-7.7 Abs Lymphocytes 2.4 10^3/uL N 1.0-4.8 Abs Monocytes 0.5 10^3/uL N 0-0.8 Abs Eosinophils 0.2 10^3/uL N 0-0.6 Abs Basophils 0.1 10^3/uL N 0-0.2 Abs Nucleated RBC 0 10^3/uL N Granulocyte % 59.0 % N 38-83 Lymphocyte % 31.4 % N 25-47 Monocyte % 6.3 % N 1-9 Eosinophil % 2.2 % N 0-6 Basophil % 1.1 % N 0-2 Nucleated Red Blood Cells % 0 N Urinalysis Profile 02/23/2014 [facility] Urine Color Yellow N [address] [place] [address] [phone] Urine Appearance Clear N Urine Specific Henderson 1.016 N 1.010-1.030 Urine pH 5.0 N 5-9 Urine Urobilinogen Negative N Negative Urine Ketones Negative N Negative Urine Protein Negative N Negative Urine Leukocytes Negative N Negative Urine Blood Negative N Negative Urine Nitrite Negative N Negative Urine Bilirubin Negative N Negative Urine Glucose Negative N Negative 1 Critical Result ETOH:442.7 Called to BIA at: 14:31:38 by:MARVIN Read back by:BIA 2 Because ethnic data is not always readily [...] 15-29 5 Kidney failure <15 (or dialysis) 3 Therapeutic concentration: <50 ug/mL Toxic concentration: >120 ug/mL 4 Critical Result ETOH:402.7 Called to [id number] at: 20:27:50 by:[id number] Read back by:[id number] 5 The urine specimen was tested at the listed cutoffs: Drug class test level (ng/mL) Amphetamines 500 Barbiturates 200 Benzodiazepine metabolites 200 Cocaine metabolites 150 Cannabinoids 50 Opiates 300 Pcp 25 Specimen was received without chain of custody. Results should be used for medical purposes only. 6 SEE RESULT BELOW Name: NATA DENNIS : [address]: Familia Sorto MD Acct: [id number] Unit: [id number] AGE: 58 Location: ED Re03/28/18 SEX: F Status: DEP ER SPEC: [id number] MANUEL: 03/29/18 [facility] DR: Familia Sorto MD REQ: [id number] RECD: 03/29/18 STATUS: LIZ GRANT DR: Rocio Du RATE ENGINEER _ SOURCE: URINE SPDESC: ORDERED: Urine Culture Procedure Result Reported Site Urine Culture Final 03/30/18- 1259 ML No growth of clinically significant organisms * ML - Main Lab . END OF REPORT DEPARTMENT OF PATHOLOGY, [address] [place] [address] Tomer Leija M.D. Director [facility] # [id number] 7 The urine specimen was tested at the listed cutoffs: Drug class test level (ng/mL) Amphetamines 500 Barbiturates 200 Benzodiazepine metabolites 200 Cocaine metabolites 150 Cannabinoids 50 Opiates 300 Pcp 25 Specimen was received without chain of custody. Results should be used for medical purposes only. 8 [id number] 9 SEE RESULT BELOW Name: NATA DENNIS : [address]: Elba Rodriguez MD Acct: [id number] Unit: [id number] AGE: 57 Location: [facility] Re02/04/18 SEX: F Status: DEP ER SPEC: [id number] MANUEL: 02/04/18-1245 [facility] DR: Elba Rodriguez MD REQ: [id number] RECD: 02/04/18 STATUS: COMP JUANITA DR: Rocio Du RATE ENGINEER _ SOURCE: URINE SPDESC: ORDERED: Urine Culture COMMENTS: GAVINO [id number] Procedure Result Reported Site Urine Culture Final 02/05/18- 1156 ML No growth of clinically significant organisms * ML - Main Lab . END OF REPORT DEPARTMENT OF PATHOLOGY, [address] [place] [address] Tomer Leija M.D. Director [facility] # [id number] 10 [employer]: [id number] 11 SEE RESULT BELOW Name: NATA DENNIS Ana Maria : [address]: Rafael Torres MD Acct: [id number] Unit: [id number] AGE: 57 Location: ED Re01/29/18 SEX: F Status: DEP ER SPEC: [id number] MANUEL: [address]: Mendoza Torres MD REQ: [id number] RECD: 01/29/18 STATUS: LIZ GRANT DR: Rocio Du RATE ENGINEER _ SOURCE: URINE SPDESC: ORDERED: Urine Culture Procedure Result Reported Site Urine Culture Final 01/31/18- 818 ML Organism 1 ESCHERICHIA COLI [place] Count 1-10,000 (Few) CFU/ML Organism 2 STREP GROUP B [place] Count 1-10,000 (Few) CFU/ML Susceptibility testing of penicillins and other B-lactams approved by FDA for treatment of Streptococcus pyogenes (Group A Strep) and Streptococcus agalactiae (Group B Strep) is not necessary for clinical purposes and need not be done routinely, since as with vancomycin, resistant strains have not been recognized. (CLSI L345-D27;p.66) Positive isolates will be saved for one [...] CONTINUED ON NEXT PAGE DEPARTMENT OF PATHOLOGY, [address] [place] [address] Tomer Leija M.D. Director [facility] # [id number] Patient: DENNISNATA KONG [id number] (Continued) Specimen: [id number] Collected: 01/29/18-1699 Received: 01/29/18 (Continued) Procedure Result Reported Site Urine Culture Final (continued) 01/31/18- 818 1. ESCHERICHIA COLI (continued) M.I.C. RX --------- ------ Amoxicillin/Clavulanic Acid 4 S Aztreonam <=1 S Contact the Microbiology Department for any additional antibiotic reporting. * ML - Main Lab . END OF REPORT DEPARTMENT OF PATHOLOGY, [address] [place] [address] Tomer Leija M.D. Director [facility] # [id number] 12 Therapeutic concentration: <50 ug/mL Toxic concentration: >120 ug/mL 13 Critical Result ETOH:473.9 Called to [id number] at: 15:30:01 by:[id number] Read back by:[id number] 14 Because ethnic data is not always [...] 5 Kidney failure <15 (or dialysis) 15 [facility] Severe Sepsis and Septic Shock Management Bundle Measure requires all lactic acids initially measuring >2.0 mmol/L be repeated. 16 SEE RESULT BELOW Name: NATA DENNIS : [address]: Urban Mcadams MD Acct: [id number] Unit: [id number] AGE: 57 Location: ED Re01/26/18 SEX: F Status: REG ER SPEC: [id number] MNAUEL: 01/26/18 [facility] DR: Michelle Nolasco MD REQ: [id number] RECD: 01/26/18 STATUS: LIZ GRANT DR: Rocio Du RATE ENGINEER _ SOURCE: URINE SPDESC: ORDERED: Urine Culture Procedure Result Reported Site Urine Culture Final 01/27/18- 1631 ML No Growth (<1,000 CFU/mL) * ML - Main Lab . END OF REPORT DEPARTMENT OF PATHOLOGY, [address] [place] [address] Tomer Leija M.D. Director [facility] # [id number] 17 Because ethnic data is not always readily [...] 15-29 5 Kidney failure <15 (or dialysis) 18 The urine specimen was tested at the listed cutoffs: Drug class test level (ng/mL) Amphetamines 500 Barbiturates 200 Benzodiazepine metabolites 200 Cocaine metabolites 150 Cannabinoids 50 Opiates 300 Pcp 25 Specimen was received without chain of custody. Results should be used for medical purposes only. 19 Critical Result LACT:2.4 Called to [id number] at: 17:41:11 by:[id number] Read back by:[id number] [facility] Severe Sepsis and Septic Shock Management Bundle Measure requires all lactic acids initially measuring >2.0 mmol/L be repeated. 20 Because ethnic data is not always readily [...] 15-29 5 Kidney failure <15 (or dialysis) 21 Therapeutic concentration: <50 ug/mL Toxic concentration: >120 ug/mL 22 Critical Result ETOH:508.3 Called to [id number] at: 17:57:06 by:[id number] Read back by:[id number] 23 The urine specimen was tested at the listed cutoffs: Drug class test level (ng/mL) Amphetamines 500 Barbiturates 200 Benzodiazepine metabolites 200 Cocaine metabolites 150 Cannabinoids 50 Opiates 300 Pcp 25 Specimen was received without chain of custody. Results should be used for medical purposes only. 24 SEE RESULT BELOW Name: DENNISNATA : [address]: Urban Mcadams MD Acct: [id number] Unit: [id number] AGE: 57 Location: ED Re09/28/17 SEX: F Status: DEP ER SPEC: [id number] MANUEL: 09/29/17 [facility] DR: Stef Green MD REQ: [id number] RECD: 09/29/17 STATUS: LIZ GRANT DR: Rocio Du RATE ENGINEER _ SOURCE: URINE SPDESC: ORDERED: Urine Culture Procedure Result Reported Site Urine Culture Final 09/30/17- 0858 ML Organism 1 STREP GROUP B [place] Count 50-75,000 (Many) CFU/ML Susceptibility testing of penicillins and other B-lactams approved by FDA for treatment of Streptococcus pyogenes (Group A Strep) and Streptococcus agalactiae (Group B Strep) is not necessary for clinical purposes and need not be done routinely, since as with vancomycin, resistant strains have not been recognized. (CLSI Z962-T51;p.66) Positive isolates will be saved for one week. Please call the Microbiology Laboratory if further susceptibility testing is needed. * ML - Main Lab . END OF REPORT DEPARTMENT OF PATHOLOGY, [address], [place], [place] [address] Tomer Leija M.D. Director [facility] # [id number] 25 SEE RESULT BELOW Name: NATA DENNIS : [address]: Urban Mcadams MD Acct: [id number] Unit: [id number] AGE: 57 Location: ED Re09/27/17 SEX: F Status: DEP ER SPEC: [id number] MANUEL: 09/27/17 [facility] DR: Stef Green MD REQ: [id number] RECD: 09/27/17 STATUS: LIZ GRANT DR: Rocio Du RATE ENGINEER _ SOURCE: URINE SPDESC: ORDERED: Urine Culture Procedure Result Reported Site Urine Culture Final 09/28/17- 1512 ML Organism 1 STREP GROUP B [place] Count 50-75,000 (Many) CFU/ML Susceptibility testing of penicillins and other B-lactams approved by FDA for treatment of Streptococcus pyogenes (Group A Strep) and Streptococcus agalactiae (Group B Strep) is not necessary for clinical purposes and need not be done routinely, since as with vancomycin, resistant strains have not been recognized. (CLSI O811-W30;p.66) Positive isolates will be saved for one week. Please call the Microbiology Laboratory if further susceptibility testing is needed. * ML - Main Lab . END OF REPORT DEPARTMENT OF PATHOLOGY, [address] [place] [address] Tomer Leija M.D. Director [facility] # [id number] 26 The urine specimen was tested at the listed cutoffs: Drug class test level (ng/mL) Amphetamines 500 Barbiturates 200 Benzodiazepine metabolites 200 Cocaine metabolites 150 Cannabinoids 50 Opiates 300 Pcp 25 Specimen was received without chain of custody. Results should be used for medical purposes only. 27 Therapeutic concentration: <50 ug/mL Toxic concentration: >120 ug/mL 28 Because ethnic data is not always readily [...] 15-29 5 Kidney failure <15 (or dialysis) 29 NO TRACKING 30 SEE RESULT BELOW Name: NATA DENNIS : [address]: Rocio Du NP Acct: [id number] Unit: [id number] AGE: 57 Location: [facility] Re08/12/17 SEX: F Status: REG REF SPEC: [id number] MANUEL: 08/11/17-1322 [facility] DR: Rocio Du NP REQ: [id number] RECD: 08/12/17 STATUS: SOUT _ ORDERED: TP [...] 68. Signed (signature on file) SHAILESH Drew ([facility]) 08/13 8706 This Pap test was evaluated with the assistance of the [employer] Test Imaging System. Due to cytologic findings at the skidder lever operator microscope, comprehensive manual rescreening by a Long Chain Dyeing Machine Operator may be required. The Pap Smear is [...] years. END OF REPORT DEPARTMENT OF PATHOLOGY, [address] [place] [address] Tomer Leija M.D. Director [facility] # [id number] 31 GC/Chlamydia Source?: Thin Prep HPV Source?: Thin Prep Trichomonas Source: Thin Prep 32 The urine specimen was tested at the listed cutoffs: Drug class test level (ng/mL) Amphetamines 500 Barbiturates 200 Benzodiazepine metabolites 200 Cocaine metabolites 150 Cannabinoids 50 Opiates 300 Pcp 25 Specimen was received without chain of custody. Results should be used for medical purposes only. 33 The urine specimen was tested at the listed cutoffs: Drug class test level (ng/mL) Amphetamines 500 Barbiturates 200 Benzodiazepine metabolites 200 Cocaine metabolites 150 Cannabinoids 50 Opiates 300 Pcp 25 Specimen was received without chain of custody. Results should be used for medical purposes only. 34 Therapeutic concentration: <50 ug/mL Toxic concentration: >120 ug/mL 35 Because ethnic data is not always readily [...] 15-29 5 Kidney failure <15 (or dialysis) 36 The urine specimen was tested at the listed cutoffs: Drug class test level (ng/mL) Amphetamines 500 Barbiturates 200 Benzodiazepine metabolites 200 Cocaine metabolites 150 Cannabinoids 50 Opiates 300 Pcp 25 Specimen was received without chain of custody. Results should be used for medical purposes only. 37 Critical Result ETOH:484.6 Called to [id number] at: 20:44:41 by:[id number] Read back by:[id number] 39 SEE RESULT BELOW Name: NATA DENNIS : [address]: Servando Boone MD Acct: [id number] Unit: [id number] AGE: 56 Location: [facility] Re09/09/16 SEX: F Status: DEP ER SPEC: [id number] MANUEL: 09/09/16 [facility] DR: Servando Boone MD REQ: [id number] RECD: 09/09/16 STATUS: LIZ GRANT DR: Simone Jeter MD _ SOURCE: URINE SPDESC: ORDERED: Urine Culture COMMENTS: [id number] Procedure Result Reported Site Urine Culture Final 09/11/16- 825 ML Organism 1 ESCHERICHIA COLI [place] Count 50-75,000 (Many) CFU/ML Organism 2 NORMAL CLAUDINE [place] Count 25-50,000 (Moderate) CFU/ML 1. ESCHERICHIA COLI [...] antibiotic reporting. * ML - MAIN LAB ([facility]) . END OF REPORT * ML=Testing performed at Main Lab DEPARTMENT OF PATHOLOGY, [address] [place] [address] Tomer Leija M.D. Director [facility] # [id number] 40 Chili Pepper Grinder: [id number] Cancelled. Specimen hemolyzed. Unable to perform test requested. Reorder for specimen recollectio 42 [facility] Severe Sepsis and Septic Shock Management Bundle Measure requires all lactic acids initially measuring >2.0 mmol/L be repeated. 43 Because ethnic data is not always readily [...] 15-29 5 Kidney failure <15 (or dialysis) 44 Cancelled. Specimen hemolyzed. Unable to perform test requested. Reorder for specimen recollection. STERLING/ED was called for recollect at 215106/10/16 by [employer] 45 99th percentile=0.04 ng/mL Troponin results at [facility] and [facility] are not interchangeable. 46 Therapeutic concentration: <50 ug/mL Toxic concentration: >120 ug/mL 47 Cancelled. Specimen hemolyzed. Unable to perform test requested. Reorder for specimen recollection. STERLING/ED was called for recollect at 215106/10/16 by [employer] 48 Cancelled. Specimen hemolyzed. Unable to perform test requested. Reorder for specimen recollection. STERLING/ED was called for recollect at 215106/10/16 by [id number] Cancelled. Specimen hemolyzed. Unable to perform test requested. Reorder for specimen recollection. STERLING/ED was called for recollect at 215106/10/16 by [id number] FASTING 10 HOUR 51 Normal Range 180 to 914 Indeterminate Range 145 to 180 Deficient Range <145 52 FASTING 10 HOUR 53 ANTIBODY NOT DETECTED REFERENCE RANGE IgG <1:64 IgM <1:20 Anaplasma phagocytophilum is the tick-borne agent causing Human Granulocytic Ehrlichiosis (HGE). HGE is distinct and separate from Human Monocytic Ehrlichiosis (HME), caused by Ehrlichia chaffeensis. Serologic crossreactivity between A. phagocytophilum and E. chaffeensis is minimal (5-15%). This test was developed and its analytical performance characteristics have been determined by [facility]. It has not been cleared or approved by the U.S. Food and Drug Administration. The FDA has determined that such clearance or approval is not necessary. This assay has been validated pursuant to the CLIA regulations and is used for clinical purposes. Test Performed by: [employer]. [address] [place] [address] 54 Desirable <150 Borderline high 150-199 High 200-499 Very High >500 55 Desirable <200 Borderline high 200-239 High >239 56 Low <40 Desirable: 40-60 High: >60 57 Desirable: <100 mg/dL Near Optimal: 100-129 mg/dL Borderline High: 130-159 mg/dL High: 160-189 mg/dL Very High: >189 mg/dL 58 Desirable <150 Borderline high 150-199 High [...] 5 Kidney failure <15 (or dialysis) 63 Because ethnic data is not always readily [...] 15-29 5 Kidney failure <15 (or dialysis) 64 Desirable <150 Borderline high 150-199 High 200-499 Very High >500 65 Desirable <200 Borderline high 200-239 High >239 66 Low <40 Desirable: 40-60 High: >60 67 Desirable: <100 mg/dL Near Optimal: 100-129 mg/dL Borderline High: 130-159 mg/dL High: 160-189 mg/dL Very High: >189 mg/dL 68 Because ethnic data is not always readily [...] 15-29 5 Kidney failure <15 (or dialysis) 69 Therapeutic concentration: <50 ug/mL Toxic concentration: >120 ug/mL 70 Because ethnic data is not always readily [...] 15-29 5 Kidney failure <15 (or dialysis) 71 The urine specimen was tested at the listed cutoffs: Drug class test level (ng/mL) Amphetamines 500 Barbituates 200 Benzodiazepine metabolites 200 Cocaine metabolites 150 Cannabinoids 50 Opiates 300 Pcp 25 This is a screening procedure. Positive results are not confirmed. Specimen was received without chain of custody. Results should be used for medical purposes only. 72 PT IS FASTING 73 Desirable <150 Borderline high 150-199 High 200-499 Very High >500 74 Desirable <200 Borderline high 200-239 High >239 75 Low <40 Desirable: 40-60 High: >60 76 Desirable: <100 mg/dL Near Optimal: 100-129 mg/dL Borderline High: 130-159 mg/dL High: 160-189 mg/dL Very High: >189 mg/dL 77 Therapeutic concentration: <50 ug/mL Toxic concentration: >120 ug/mL 78 Critical Result ETOH:426.4 Called to [id number] at: 19:20:40 by: Read back by:[email or web address] 79 Because ethnic data is not always [...] 5 Kidney failure <15 (or dialysis) 80 The urine specimen was tested at the listed cutoffs: Drug class test level (ng/mL) Amphetamines 500 Barbituates 200 Benzodiazepine metabolites 200 Cocaine metabolites 150 Cannabinoids 50 Opiates 300 Pcp 25 This is a screening procedure. Positive results are not confirmed. Specimen was received without chain of custody. Results should be used for medical purposes only. 81 Because ethnic data is not always readily [...] 15-29 5 Kidney failure <15 (or dialysis) 82 Desirable <150 Borderline high 150-199 High 200-499 Very High >500 83 Desirable <200 Borderline high 200-239 High >239 84 Low <40 Desirable: 40-60 High: >60 85 Desirable <100 Near Optimal 100-129 Borderline high 130-159 High 160-189 Very High >189 86 RUN DATE: 02/28/14 [facility] LAB LIVE PAGE 1 RUN TIME: [address] [place] [address] Specimen Inquiry Name: NATA DENNIS : [address]: Justo Nicole MD Acct: [id number] Unit: [id number] AGE: 53 Location: [facility] Re02/26/14 SEX: F Status: REG REF SPEC: [id number] MANUEL: 02/26/[address]: Justo Nicole MD REQ: [id number] RECD: 02/26/14 STATUS: COMP _ SOURCE: URINE SPDESC: ORDERED: Urine Culture QUERIES: Med[employer] Number [id number] Procedure Result Verified Site Urine Culture Final 02/28/14- 0959 ML Organism 1 ESCHERICHIA COLI [place] Count >100,000 (Many) CFU/ML Organism 2 NORMAL CLAUDINE [place] Count 1-10,000 (Few) CFU/ML 1. ESCHERICHIA COLI [...] performed at Main Lab DEPARTMENT OF PATHOLOGY, [address] [place] [address] Tomer Leija M.D. Director [facility] # [id number] Procedures Date Code Description Status 08/26/2017 [id number] Bone Mineral Density Test Completed 08/26/2017 [id number] Mammogram Completed 02/05/2015 [id number] Mammogram Completed 03/02/2014 [id number] Mammogram Completed Encounters Type Date Location Provider Dx Diagnosis Office Visit 04/27/2018 [facility] Internal Rocio Du, F10.20 Alcohol dependence, 11:00a Medicine - [place] [employer] uncom[address] E78.2 Mixed hyperlipidemia Z23 Encounter for immunization M85.851 Oth disrd of bone density and structure, right thigh M85.852 Oth disrd of bone density and structure, left thigh Office Visit 03/16/2018 3:15p [facility] Boaz Spain G31.84 Mild cognitive Services Of Rafael Manzanares M.D. impairment, so stated F10.288 Alcohol dependence with other alcohol-induced disorder Office Visit 08/11/2017 1:00p [facility] Internal Rocio Du, Z00.00 En[facility]tr for Medicine - [place] [employer] general adult Rd medical exam w/o abnormal findings Z12.4 Encounter for screening for malignant neoplasm of cervix Z12.31 Encntr screen mammogram for malignant neoplasm of breast Z12.11 Encounter for screening for malignant neoplasm of colon E78.2 Mixed hyperlipidemia Z78.0 Asymptomatic menopausal state Z23 Encounter for immunization Office Visit 06/09/2017 3:20p [facility] Internal Rocio Du, F10.21 Alcohol Medicine - [employer] dependence, in [place] [address] remission E78.2 Mixed hyperlipidemia R73.9 Hyperglycemia, unspecified R53.83 Other fatigue N95.1 Menopausal and female climacteric states Office Visit 06/03/2017 [facility] Cammie F10.920 Alcohol use, 10:13a Assoc,giorgi Saez D.O. unspecified with Hospitalists intoxication, uncomplicated Office Visit 07/01/2016 [facility] [place] G31.84 Mild cognitive 10:00a Services Of [facility] Gurinder Manzanares impairment, so stated F10.21 Alcohol dependence, in remission Office Visit 06/04/2016 9:00a [facility] Internal Simone Jeter, Z00.00 Encntr for Medicine - M.D. general adult [place] [address] medical exam w/o abnormal findings Z12.39 Encounter for oth screening for malignant neoplasm of breast K63.5 Polyp of colon E78.2 Mixed hyperlipidemia F33.0 Major depressive disorder, recurrent, mild Office Visit 03/09/2016 1:40p [facility] Internal Simone Jeter Z23 Encounter for Medicine - M.DPanfilo immunization [place] [address] F33.0 Major depressive disorder, recurrent, mild E78.2 Mixed hyperlipidemia F03.91 Unspecified dementia with behavioral disturbance Office Visit 11/07/2015 [facility] Internal Simone R73.9 Hyperglycemia, 3:00p Fabienne Jeter M.D. unspecified [place] [address] E78.2 Mixed hyperlipidemia Office Visit 10/03/2015 [facility] Jesusita Nichols F10.10 Alcohol abuse, 10:20a Fabienne Jeter M.D. uncomplicated [place] [address] E78.5 Hyperlipidemia, unspecified Z12.11 Encounter for screening for malignant neoplasm of colon Z23 Encounter for immunization Office Visit 10/18/2014 1:40p [facility] Internal Justo Nicole, 311 Depressive Medicine - [place] M.D. 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, 780.02 Transient Assoc,pc M.D. 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, 780.02 Transient Assoc,pc M.D. 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 at [facility] [id number]/27/2018 - ALIN AndersonF10.20 Alcohol dependence , jmrzdwjehjyrkO70.2 Mixed hyperlipidemiaComments:Please continue on Atorvastatin. Will recheck at your next physicalFollow up:PE in mid August Fasting lab [id number] Encounter for cacvhvwisrlxC83.851 Oth disrd of bone density and structure, right glepuF92.852 Oth disrd of bone density and structure, left thigh
--- OUTSIDE RECORDS SUMMARY | 2018-09-01 11:56 | XMS REPORT | Continuity of Care Document ---
:1960 External Reference #:[id number] Author Name Chayito Moore Care Team Providers Name Role Phone Simone Jeter MD Primary Care Physician Unavailable Payers Date Identification Numbers Payment Provider Subscriber Effective: 2014 Policy Number: [id number] Gerard Nata Dennsi Group Number: [id number] [address] PayID: [id number] [place] [address] Effective: 2013 Policy Number: [id number] Medicaid Nata Dennis Expires: 2014 Group Name: 1 1 [address] PayID: [id number] [place] [address] Advance Directives Description No Information Available Problems [...] day 2016 Vitamin D / Hx Capsules [id number] take one Unknown (Ergocalciferol 0000 - capsule ) 07/01/ by mouth 2016 once weekly Immunizations CPT Code Status Date Vaccine Lot # [id number] Given 04/27/2018 Influenza Virus Vaccine, Quadrivalent, Split, [id number] Preservative Free 03155 Given 08/11/2017 Tdap - Tetanus/Diptheria/Acellular Pertussis [id number] Given 03/09/2016 Influ Virus Vaccine, Quadrivalent, Split Virus, [place] [id number] [address] Given 10/03/2015 Pneumonia Vaccine [id number] Vital Signs Date Vital Result Comment 04/27/2018 [...] Result H/L Range Note Laboratory test 07/14/2018 [facility] Alcohol 443 mg/dL High < [address] [place] [address] [phone] CBC Auto Diff 03/28/2018 [facility] White Blood 6.3 10^3/uL N 3.5-10.[address] [place] [address] [phone] Red Blood Count 3.97 10^6/uL Low 4.00-5.40 [...] Cells % 0.1 Comp Metabolic Panel 03/28/2018 [facility] Sodium 140 mmol/L N 135-145 [address] [place] [address] [phone] Potassium 4.4 mmol/L N 3.5-5.0 Chloride 105 [...] Egfr 71.9 >60 2 Laboratory test 03/28/2018 [facility] Acetaminophen < 15 g/mL [address] [place] [address] [phone] Salicylate < 2.50 mg/dL <30 Alcohol 403 mg/dL High <10 4 TSH (Thyroid Stim Horm) 1.57 mcIU/mL N 0.34-5.60 Urine Drug 03/28/2018 [facility] Amphetamine Ur None Detected None Detect SCR ED & [address] [place] [address] [phone] Barbiturates Urine Screen None Detected None Detect Benzodiazepine Urine Screen None Detected None Detect Urine Cannabinoids Screen None Detected None Detect Urine Cocaine Screen None Detected None Detect Urine Opiates Screen None Detected None Detect Urine Phencyclidine Screen None Detected None Detect 5 Urinalysis Profile 03/28/2018 [facility] Urine Color Yellow [address] [place] [address] [phone] Urine Appearance Clear Urine Specific [place] 1.009 Low 1.010-1.030 Urine pH 5.0 N [...] Casts Present Abnormal Absent Urine Culture 03/28/2018 [facility] Urine Culture SEE RESULT [address] [place] [address] [phone] Laboratory test 02/11/2018 [facility] Alcohol 388 mg/dL High < [address] [place] [address] [phone] Urine Drug SCR 02/11/2018 [facility] Amphetamine Ur None None ED [facility] [address] [place] [address] [phone] Barbiturates Urine Screen None Detected None Detect Benzodiazepine Urine Screen None Detected None Detect Urine Cannabinoids Screen None Detected None Detect Urine Cocaine Screen None Detected None Detect Urine Opiates Screen None Detected None Detect Urine Phencyclidine Screen None Detected None Detect 7 Urine Culture And 02/04/2018 [facility] Urine SEE RESULT 8 , [address] [place] [place] [address] [phone] Poc Urinalysis 02/04/2018 [facility] Poc Negative Negative [address] Glucose, [place] [address] Urine [phone] Poc Bilirubin, Urine Negative Negative Poc Ketone, Urine Negative Negative Poc Specific [place], Urine 1.010 N 1.010-1.030 Poc Blood, Urine 3+ Abnormal Negative Poc pH, Urine 7.0 N 5-9 Poc Protein, Urine 2+ Abnormal Negative Poc Urobilinogen, Urine 0.2 Negative Poc Nitrite, Urine Negative Negative Poc Leukocytes, Urine 3+ Abnormal Negative Poc Color, Urine Yellow Poc Clarity, Urine Cloudy 10 Urine Culture And 01/29/2018 [facility] Urine Culture SEE RESULT [address] [place] [address] [phone] Urinalysis Profile 01/29/2018 [facility] Urine Color Straw [address] [place] [address] [phone] Urine Appearance Clear Urine Specific [place] 1.008 Low 1.010-1.030 Urine pH 6.0 N [...] Cell Present Abnormal Absent Laboratory test 01/29/2018 [facility] Magnesium 2.0 mg/dL N 1.9-2.7 finding [address] [place] [address] [phone] Acetaminophen < 15 g/mL 12 Salicylate < 2.50 mg/dL <30 Alcohol 474 mg/dL High <10 13 Comp Metabolic Panel 01/29/2018 [facility] Sodium 143 mmol/L N 135-145 [address] [place] [address] [phone] Potassium 3.8 mmol/L N 3.5-5.0 Chloride 107 [...] Egfr 92.8 >60 14 Laboratory test 01/29/2018 [facility] Lactic Acid 1.7 mmol/L N 0.5-2.0 15 finding [address] [place] [address] [phone] Ammonia 36 mcmol/L N 16-53 Troponin-I (TnI) 0.01 ng/mL <0.04 Inr/Protime 01/29/2018 [facility] Inr 1.01 N 0.77-1.[address] [place] [address] [phone] CBC Auto Diff 01/29/2018 [facility] White Blood 7.3 10^3/uL N 3.5-10.[address] [place] [address] [phone] Red Blood Count 3.74 10^6/uL Low 4.00-5.40 [...] Cells % 0 Urine Culture And 01/26/2018 [facility] Urine Culture SEE RESULT [address] [place] [address] [phone] Laboratory test 01/26/2018 [facility] Amylase 53 U/L N 29-[address] [place] [address] [phone] Lipase 21 U/L N 11.0-82.0 Creatine Kinase(CK) 87 U/L N 10-223 Troponin-I (TnI) 0.00 ng/mL <0.04 Alcohol 290 mg/dL High <10 Comp Metabolic Panel 01/26/2018 [facility] Sodium 138 mmol/L N 135-[address] [place] [address] [phone] Potassium 3.3 mmol/L Low 3.5-5.0 Chloride 111 [...] Egfr 91.4 >60 17 Urinalysis Profile 01/26/2018 [facility] Urine Color Straw [address] [place] [address] [phone] Urine Appearance Clear Urine Specific [place] 1.011 N 1.010-1.030 Urine pH 6.0 N [...] Present Abnormal Absent Type & Screen 01/26/2018 [facility] Patient Blood Type B Positive [address] [place] [address] [phone] Antibody Screen NEGATIVE Urine Drug 01/26/2018 [facility] Amphetamine Ur None Detected None Detect SCR ED & [address] [place] [address] [phone] Barbiturates Urine Screen None Detected None Detect Benzodiazepine Urine Screen None Detected None Detect Urine Cannabinoids Screen None Detected None Detect Urine Cocaine Screen None Detected None Detect Urine Opiates Screen None Detected None Detect Urine Phencyclidine Screen None Detected None Detect 18 Laboratory test 01/26/2018 [facility] Lactic Acid 2.4 mmol/L High 0.5-2.0 [address] [place] [address] [phone] CBC Auto Diff 01/26/2018 [facility] White Blood 6.4 10^3/uL N 3.5-10.[address] [place] [address] [phone] Red Blood Count 3.47 10^6/uL Low 4.00-5.40 [...] Red Blood Cells % 0.1 Inr/Protime 01/26/2018 [facility] Inr 1.05 High 0.77-1.[address] [place] [address] [phone] Laboratory test 09/29/2017 [facility] Alcohol 201 mg/dL High < [address] [place] [address] [phone] CBC Auto Diff 09/28/2017 [facility] White Blood 8.3 N 3.5- 10.[address] Count 10^3/[place] [address] [phone] Red Blood Count 3.99 10^6/uL Low 4.0-5.4 [...] Cells % 0.1 Comp Metabolic Panel 09/28/2017 [facility] Sodium 143 mmol/L N 139-[address] [place] [address] [phone] Potassium 3.8 mmol/L N 3.5-5.0 Chloride 108 [...] Egfr 98.6 >60 20 Laboratory test 09/28/2017 [facility] Acetaminophen < 15 g/mL [address] [place] [address] [phone] Salicylate < 2.50 mg/dL <30 Alcohol 508 mg/dL High <10 22 TSH (Thyroid Stim Horm) 0.67 mcIU/mL N 0.34-5.60 Urinalysis Profile 09/28/2017 [facility] Urine Color Yellow [address] [place], [place] [address] [phone] Urine Appearance Clear Urine Specific [place] 1.014 N 1.010-1.030 Urine pH 7.0 N [...] Cell Present Abnormal Absent Urine Drug 09/28/2017 [facility] Amphetamine Ur None Detected None Detect SCR ED & [address] [address] [phone] Barbiturates Urine Screen None Detected None Detect Benzodiazepine Urine Screen None Detected None Detect Urine Cannabinoids Screen None Detected None Detect Urine Cocaine Screen None Detected None Detect Urine Opiates Screen None Detected None Detect Urine Phencyclidine Screen None Detected None Detect 23 Urine Culture And 09/28/2017 [facility] Urine Culture SEE RESULT [address] [place] [address] [phone] Urine Culture And 09/27/2017 [facility] Urine Culture SEE RESULT [address] [place] [address] [phone] Urinalysis Profile 09/27/2017 [facility] Urine Color Straw [address] [place] [address] [phone] Urine Appearance Clear Urine Specific [place] 1.005 Low 1.010-1.030 Urine pH 5.0 N [...] Cell Present Abnormal Absent Urine Drug 09/27/2017 [facility] Amphetamine Ur None Detected None Detect SCR ED & [address] [place] [address] [phone] Barbiturates Urine Screen None Detected None Detect Benzodiazepine Urine Screen None Detected None Detect Urine Cannabinoids Screen None Detected None Detect Urine Cocaine Screen None Detected None Detect Urine Opiates Screen None Detected None Detect Urine Phencyclidine Screen None Detected None Detect 26 Laboratory test 09/27/2017 [facility] Acetaminophen < 15 g/mL 27 finding [address] [place] [address] [phone] Alcohol 337 mg/dL High <10 Salicylate < 2.50 mg/dL <30 TSH (Thyroid Stim Horm) 0.39 mcIU/mL N 0.34-5.60 Comp Metabolic Panel 09/27/2017 [facility] Sodium 141 mmol/L N 139-[address] [place] [address] [phone] Potassium 3.7 mmol/L N 3.5-5.0 Chloride 104 [...] Egfr 79.5 >60 28 Laboratory test 09/27/2017 [facility] Alcohol 115 mg/dL High < [address] [place] [address] [phone] CBC Auto Diff 09/27/2017 [facility] White Blood 7.3 N 3.5- 10.[address] Count 10^3/[place] [address] [phone] Red Blood Count 4.26 10^6/uL N 4.0-5.4 [...] Red Blood Cells % 0 Laboratory 08/12/2017 [facility] Cytology SEE RESULT 29, 30 test finding [address] [place] [address] [phone] GC/Chlamydia 08/12/2017 [facility] Chlamydia Negative Negative Amplified Rna [address] [place] [address] Rna [phone] Neisseria gonorrhoeae (GC) Rna Negative Negative Laboratory 08/12/2017 [facility] Trichomonas Negative Negative 31 test finding [address] [place] [address] [phone] Urine Drug SCR 07/26/2017 [facility] Amphetamine Ur None None Detect ED & Pain [address] [place] [address] [phone] Barbiturates Urine Screen None Detected None Detect Benzodiazepine Urine Screen None Detected None Detect Urine Cannabinoids Screen None Detected None Detect Urine Cocaine Screen None Detected None Detect Urine Opiates Screen None Detected None Detect Urine Phencyclidine Screen None Detected None Detect 32 Urine Drug 06/24/2017 [facility] Amphetamine Ur None Detected None Detect SCR ED & [address] [place] [address] [phone] Barbiturates Urine Screen None Detected None Detect Benzodiazepine Urine Screen None Detected None Detect Urine Cannabinoids Screen None Detected None Detect Urine Cocaine Screen None Detected None Detect Urine Opiates Screen None Detected None Detect Urine Phencyclidine Screen None Detected None Detect 33 Urinalysis Profile 06/24/2017 [facility] Urine Color Yellow [address] [place] [address] [phone] Urine Appearance Clear Urine Specific [place] 1.005 Low 1.010-1.030 Urine pH 6.0 N [...] Cell Present Abnormal Absent Laboratory test 06/24/2017 [facility] Acetaminophen < 15 g/mL 34 finding [address] [place] [address] [phone] Alcohol 390 mg/dL High <10 Salicylate < 2.50 mg/dL <30 TSH (Thyroid Stim Horm) 1.29 mcIU/mL N 0.34-5.60 Comp Metabolic Panel 06/24/2017 [facility] Sodium 143 mmol/L N 133-[address] [place] [address] [phone] Potassium 4.0 mmol/L N 3.5-5.0 Chloride 101 [...] 106.4 >60 35 CBC Auto Diff 06/24/2017 [facility] White Blood 4.9 10^3/uL N 3.5-10.[address] [place] [address] [phone] Red Blood Count 4.22 10^6/uL N 4.0-5.4 [...] Blood Cells % 0.1 Urine Drug 06/01/2017 [facility] Amphetamine Ur None Detected None Detect SCR ED & [address] [place] [address] [phone] Barbiturates Urine Screen None Detected None Detect Benzodiazepine Urine Screen None Detected None Detect Urine Cannabinoids Screen None Detected None Detect Urine Cocaine Screen None Detected None Detect Urine Opiates Screen None Detected None Detect Urine Phencyclidine Screen None Detected None Detect 36 Laboratory test 06/01/2017 [facility] Alcohol 485 mg/dL High < 10 [address] [place] [address] [phone] Urine Culture And 09/09/2016 [facility] Urine SEE RESULT 38 , Sensitivities [address] Culture BELOW [address] [place] [address] [phone] Poc Urinalysis 09/09/2016 [facility] Poc Negative N Negative [address] Glucose, [place] [address] Urine [phone] Poc Bilirubin, Urine Negative N Negative Poc Ketone, Urine Negative N Negative Poc Specific [place], Urine >=1.030 N 1.010-1.030 Poc Blood, Urine 3+ Abnormal Negative Poc pH, Urine 6.0 N 5-9 Poc Protein, Urine 3+ Abnormal Negative Poc Urobilinogen, Urine 0.2 N Negative Poc Nitrite, Urine Positive Abnormal Negative Poc Leukocytes, Urine 2+ Abnormal Negative Poc Color, Urine Other N Poc Clarity, Urine Cloudy N 40 Laboratory test 06/10/2016 [facility] Potassium TNP mmol/L N 3.5-5.0 [address] Redraw [place], [place] [address] [phone] Ast Redraw TNP U/L N 13-39 CBC Auto Diff 06/10/2016 [facility] White Blood 8.6 10^3/uL N 3.5-10.[address] [place] [address] [phone] Red Blood Count 4.11 10^6/uL N 4.0-5.4 [...] Cells % 0.2 N Laboratory test 06/10/2016 [facility] Lactic Acid 1.5 mmol/L N 0.5-2.0 [address] [place] [address] [phone] Ammonia 40 ?mol/L N 16-53 Comp Metabolic Panel 06/10/2016 [facility] Sodium 138 mmol/L N 133-[address] [place] [address] [phone] Chloride 105 mmol/L N 101-111 Co2 Carbon [...] TNP U/L N 13-39 Laboratory test 06/10/2016 [facility] Creatine 100 U/L N 10- 223 [address] Kinase(CK) [place] [address] [phone] Troponin-I (TnI) 0.00 ng/mL N <0.04 45 Acetaminophen < 15 g/mL N 46 Alcohol 337 mg/dL High <10 47 Salicylate < 2.50 mg/dL N <30 48 TSH (Thyroid Stim Horm) 0.96 mcIU/mL N 0.34-5.60 49 Laboratory test 03/30/2016 [facility] TSH (Thyroid 0.88 mcIU/mL N 0.34-5.60 [address] Stim Horm) [place] [address] [phone] Vitamin B12 And 03/30/2016 [facility] Vitamin B12 289 pg/mL N 180-914 [address] [place] [address] [phone] Folic Acid (Folate) 16.22 ng/mL N >3.99 52 Anaplasma 03/30/2016 [facility] A. phagocytophilum <1:64 N Phagocytophilum Abs [address] IgG Igg,[place] [address] [phone] A. phagocytophilum IgM <1:20 N A. phagocytophilum Interp See Comment N 53 Lipid Profile 03/30/2016 [facility] Triglycerides 126 mg/dL N 54 (Trig/Chol/HDL) [address] [place] [address] [phone] Cholesterol 290 mg/dL N 55 HDL Cholesterol 86.1 mg/dL N 56 LDL Cholesterol 179 mg/dL N 57 Lipid Profile 11/26/2015 [facility] Triglycerides 153 mg/dL N 58 (Trig/Chol/HDL) [address] [place] [address] [phone] Cholesterol 259 mg/dL N 59 HDL Cholesterol 78.5 mg/dL N 60 LDL Cholesterol 150 mg/dL N 61 Comp Metabolic Panel 11/26/2015 [facility] Sodium 137 mmol/L N 133-[address] [place] [address] [phone] Potassium 4.2 mmol/L N 3.5-5.0 Chloride 105 [...] 104.0 N >60 62 Laboratory test 11/07/2015 [facility] [employer] [facility] Hemoglobin A1c 5.1 5-7 finding Comp Metabolic Panel 11/04/2015 [facility] Sodium 135 mmol/L N 133-145 [address] [place] [address] [phone] Potassium 3.5 mmol/L N 3.5-5.0 Chloride 99 [...] 91.2 N >60 63 Lipid Profile 11/04/2015 [facility] Triglycerides 78 mg/dL N 64 (Trig/Chol/HDL) [address] [place] [address] [phone] Cholesterol 290 mg/dL N 65 HDL Cholesterol 110.8 mg/dL N 66 LDL Cholesterol 164 mg/dL N 67 Basic Metabolic Panel 11/07/2014 [facility] Sodium 139 mmol/L N 133-145 [address] [place] [address] [phone] Potassium 4.2 mmol/L N 3.5-5.0 Chloride 102 mmol/L N 101-111 Co2 Carbon Dioxide 29 mmol/L N 22-32 Anion Gap 8 mmol/L N 2-11 Glucose 77 mg/dL N 70-100 Blood Urea Nitrogen 18 mg/dL N 6-24 Creatinine 0.83 mg/dL N 0.51-0.95 BUN/Creatinine Ratio 21.7 High 8-20 Calcium 10.4 mg/dL High 8.6-10.3 Egfr Non- 72.2 N >60 Egfr 92.8 N >60 68 Pthi 11/07/2014 [facility] Calcium (PTH Intact) 10.3 mg/dL N 8.6-10.[address] [place] [address] [phone] PTH Intact 5.3 pmol/L N 1.3-9.3 Laboratory test 07/28/2014 [facility] Acetaminophen < 15 g/mL N 69 finding [address] [place] [address] [phone] Alcohol < 10 mg/dL N <10 Salicylate < 2.50 mg/dL N <30 TSH (Thyroid Stimulating Horm) 0.60 IU/mL N 0.34-5.60 CBC Auto Diff 07/28/2014 [facility] White Blood 5.1 10^3/uL N 4.8-10.[address] [place] [address] [phone] Red Blood Count 3.91 10^6/uL Low 4.0-5.4 [...] % 0 N Comp Metabolic Panel 07/28/2014 [facility] Sodium 140 mmol/L N 133-[address] [place] [address] [phone] Potassium 4.1 mmol/L N 3.5-5.0 Chloride 105 [...] 101.2 N >60 70 Urine Drug 07/28/2014 [facility] Amphetamine Ur None Detected N None Detect SCR ED & [address] [address] [phone] Barbiturates Urine Screen None Detected N None Detect Benzodiazepine Urine Screen None Detected N None Detect Urine Cannabinoids Screen None Detected N None Detect Urine Cocaine Screen None Detected N None Detect Urine Opiates Screen None Detected N None Detect Urine Phencyclidine Screen None Detected N None Detect 71 Urinalysis Profile 07/28/2014 [facility] Urine Color Straw N [address] [place] [address] [phone] Urine Appearance Clear N Urine Specific [place] 1.003 Low 1.010-1.030 Urine pH 6.0 N 5-9 Urine Urobilinogen Negative N Negative Urine Ketones Negative N Negative Urine Protein Negative N Negative Urine Leukocytes Negative N Negative Urine Blood Negative N Negative Urine Nitrite Negative N Negative Urine Bilirubin Negative N Negative Urine Glucose Negative N Negative Lipid Profile 07/16/2014 [facility] Triglycerides 103 mg/dL N 72, 73 (Trig/Chol/HDL) [address] [place] [address] [phone] Cholesterol 244 mg/dL N 74 HDL Cholesterol 94.6 mg/dL N 75 LDL Cholesterol 129 mg/dL N 76 Laboratory test 05/28/2014 [facility] Acetaminophen < 15 g/mL N 77 finding [address] [place] [address] [phone] Alcohol 426 mg/dL High <10 78 Salicylate < 2.50 mg/dL N <30 TSH (Thyroid Stimulating Horm) 0.31 IU/mL Low 0.34-5.60 Magnesium 1.7 mg/dL Low 1.9-2.7 Comp Metabolic Panel 05/28/2014 [facility] Sodium 140 mmol/L N 133-145 [address] [place] [address] [phone] Potassium 3.6 mmol/L N 3.5-5.0 Chloride 102 [...] N >60 79 CBC Auto Diff 05/28/2014 [facility] White Blood 8.4 10^3/uL N 4.8-10.[address] [place] [address] [phone] Red Blood Count 4.17 10^6/uL N 4.0-5.4 [...] Cells % 0.1 N Urine Drug 05/28/2014 [facility] Amphetamine Ur None Detected N None Detect SCR ED & [address] [place] [address] [phone] Barbiturates Urine Screen None Detected N None Detect Benzodiazepine Urine Screen None Detected N None Detect Urine Cannabinoids Screen None Detected N None Detect Urine Cocaine Screen None Detected N None Detect Urine Opiates Screen None Detected N None Detect Urine Phencyclidine Screen None Detected N None Detect 80 Urinalysis Profile 05/28/2014 [facility] Urine Color Yellow N [address] [place] [address] [phone] Urine Appearance Clear N Urine Specific [place] 1.011 N 1.010-1.030 Urine pH 5 N 5-9 Urine Urobilinogen Negative N Negative Urine Ketones Trace Abnormal Negative Urine Protein Negative N Negative Urine Leukocytes Negative N Negative Urine Blood Negative N Negative Urine Nitrite Negative N Negative Urine Bilirubin Negative N Negative Urine Glucose Negative N Negative Comp Metabolic Panel 02/26/2014 [facility] Sodium 138 mmol/L N 133-[address] [place] [address] [phone] Potassium 4.5 mmol/L N 3.7-5.6 Chloride 103 [...] 91.9 N >60 81 Lipid Profile 02/26/2014 [facility] Triglycerides 141 mg/dL N 82 (Trig/Chol/HDL) [address] [place], [place] [address] [phone] Cholesterol 270 mg/dL N 83 HDL Cholesterol 71.6 mg/dL N 84 LDL Cholesterol 170 mg/dL N 85 Laboratory test 02/26/2014 [facility] TSH (Thyroid 1.23 IU/mL N 0.34-5.[address] [place] [address] Horm) [phone] Hepatitis C Antibody Nonreactive N Nonreactive Urine Culture And 02/26/2014 [facility] Urine Culture (SEE NOTE ) 86 Sensitivities [address] [place], [place] [address] [phone] Urinalysis Profile 02/26/2014 [facility] Urine Color Yellow N [address] [place] [address] [phone] Urine Appearance Cloudy N Urine Specific [place] 1.014 N 1.010-1.030 Urine pH 5.0 N [...] 1+ Abnormal Absent CBC Auto Diff 02/26/2014 [facility] White Blood 7.7 10^3/uL N 4.8-10.[address] [place] [address] [phone] Red Blood Count 4.05 10^6/uL N 4.0-5.4 [...] Cells % 0 N Urinalysis Profile 02/23/2014 [facility] Urine Color Yellow N [address] [place] [address] [phone] Urine Appearance Clear N Urine Specific [place] 1.016 N 1.010-1.030 Urine pH 5.0 N [...] ug/mL 4 Critical Result ETOH:402.7 Called to [id number] at: 20:27:50 by:[id number] Read back by:[id number] 5 The urine specimen was tested at the listed cutoffs: Drug class test level (ng/mL) Amphetamines 500 Barbiturates 200 Benzodiazepine metabolites 200 Cocaine metabolites 150 Cannabinoids 50 Opiates 300 Pcp 25 Specimen was received without chain of custody. Results should be used for medical purposes only. 6 SEE RESULT BELOW Name: NATA DENNIS : [address]: Familia Sorto MD Acct: [id number] Unit: [id number] AGE: 58 Location: ED Re03/28/18 SEX: F Status: DEP ER SPEC: [id number] MANUEL: 03/29/[address] [facility] [address]: Familia Sorto MD REQ: [id number] RECD: 03/29/18 STATUS: LIZ GRANT DR: Rocio Du STRIKE OFF MACHINE OPERATOR _ SOURCE: URINE SPDESC: ORDERED: Urine Culture Procedure Result Reported Site Urine Culture Final 03/30/18- 1259 ML No growth of clinically significant organisms * ML - Main Lab . END OF REPORT DEPARTMENT OF PATHOLOGY, [address] [place] [address] Tomer Leija M.D. Director [facility] # [id number] 7 The urine specimen was tested at the listed cutoffs: Drug class test level (ng/mL) Amphetamines 500 Barbiturates 200 Benzodiazepine metabolites 200 Cocaine metabolites 150 Cannabinoids 50 Opiates 300 Pcp 25 Specimen was received without chain of custody. Results should be used for medical purposes only. 8 [id number] 9 SEE RESULT BELOW Name: NATA DENNIS : [address]: Elba Rodriguez MD Acct: [id number] Unit: [id number] AGE: 57 Location: [facility] Re02/04/18 SEX: F Status: DEP ER SPEC: [id number] MANUEL: 02/04/18-[address] [facility] [address]: Elba Rodriguez MD REQ: [id number] RECD: 02/04/18 STATUS: COMP JUANITA DR: Rocio Du STRIKE OFF MACHINE OPERATOR _ SOURCE: URINE SPDESC: ORDERED: Urine Culture COMMENTS: GAVINO [id number] Procedure Result Reported Site Urine Culture Final 02/05/18- 1156 ML No growth of clinically significant organisms * ML - Main Lab . END OF REPORT DEPARTMENT OF PATHOLOGY, [address] [place] [address] Tomer Leija M.D. Director [facility] # [id number] 10 Degreasing Wheel Operator: [id number] 11 SEE RESULT BELOW Name: NATA DENNIS Ana Maria : [address]: Rafael Torres MD Acct: [id number] Unit: [id number] AGE: 57 Location: ED Re01/29/18 SEX: F Status: DEP ER SPEC: [id number] MANUEL: [address]: Mendoza Torres MD REQ: [id number] RECD: 01/29/18 STATUS: LIZ GRANT DR: Rocio Du STRIKE OFF MACHINE OPERATOR _ SOURCE: URINE SPDESC: ORDERED: Urine Culture Procedure Result Reported Site Urine Culture Final 01/31/18- 818 ML Organism 1 ESCHERICHIA COLI [place] Count 1-10,000 (Few) CFU/ML Organism 2 STREP GROUP B [place] Count 1-10,000 (Few) CFU/ML Susceptibility testing of penicillins and other B-lactams approved by FDA for treatment of Streptococcus pyogenes (Group A Strep) and Streptococcus agalactiae (Group B Strep) is not necessary for clinical purposes and need not be done routinely, since as with vancomycin, resistant strains have not been recognized. (CLSI T615-Y93;p.66) Positive isolates will be saved for one [...] CONTINUED ON NEXT PAGE DEPARTMENT OF PATHOLOGY, [address] [place] [address] Tomer Leija M.D. Director [facility] # [id number] Patient: DENNISNATA KONG [id number] (Continued) Specimen: [id number] Collected: 01/29/18-1699 Received: 01/29/18 (Continued) Procedure Result Reported Site Urine Culture Final (continued) 01/31/18- 818 1. ESCHERICHIA COLI (continued) M.I.C. RX --------- ------ Amoxicillin/Clavulanic Acid 4 S Aztreonam <=1 S Contact the Microbiology Department for any additional antibiotic reporting. * ML - Main Lab . END OF REPORT DEPARTMENT OF PATHOLOGY, [address] [place] [address] Tomer Leija M.D. Director [facility] # [id number] 12 Therapeutic concentration: <50 ug/mL Toxic concentration: >120 ug/mL 13 Critical Result ETOH:473.9 Called to [id number] at: 15:30:01 by:[id number] Read back by:[id number] 14 Because ethnic data is not always [...] 5 Kidney failure <15 (or dialysis) 15 [facility] Severe Sepsis and Septic Shock Management Bundle Measure requires all lactic acids initially measuring >2.0 mmol/L be repeated. 16 SEE RESULT BELOW Name: NATA DENNIS : [address]: Urban Mcadams MD Acct: [id number] Unit: [id number] AGE: 57 Location: ED Re01/26/18 SEX: F Status: REG ER SPEC: [id number] MANUEL: 01/26/[address] [facility] [address]: Michelle Nolasco MD REQ: [id number] RECD: 01/26/18 STATUS: LIZ GRANT DR: Rocio Du STRIKE OFF MACHINE OPERATOR _ SOURCE: URINE SPDESC: ORDERED: Urine Culture Procedure Result Reported Site Urine Culture Final 01/27/18- 1631 ML No Growth (<1,000 CFU/mL) * ML - Main Lab . END OF REPORT DEPARTMENT OF PATHOLOGY, [address] [place] [address] Tomer Leija M.D. Director [facility] # [id number] 17 Because ethnic data is not always [...] only. 19 Critical Result LACT:2.4 Called to [id number] at: 17:41:11 by:[id number] Read back by:[id number] [facility] Severe Sepsis and Septic Shock Management [...] ug/mL 22 Critical Result ETOH:508.3 Called to [id number] at: 17:57:06 by:[id number] Read back by:[id number] 23 The urine specimen was tested at the listed cutoffs: Drug class test level (ng/mL) Amphetamines 500 Barbiturates 200 Benzodiazepine metabolites 200 Cocaine metabolites 150 Cannabinoids 50 Opiates 300 Pcp 25 Specimen was received without chain of custody. Results should be used for medical purposes only. 24 SEE RESULT BELOW Name: DENNISNATA : [address]: Urban Mcadams MD Acct: [id number] Unit: [id number] AGE: 57 Location: ED Re09/28/17 SEX: F Status: DEP ER SPEC: [id number] MANUEL: 09/29/[address] [facility] [address]: Stef Green MD REQ: [id number] RECD: 09/29/17 STATUS: LIZ GRANT DR: Rocio Du STRIKE OFF MACHINE OPERATOR _ SOURCE: URINE SPDESC: ORDERED: Urine Culture Procedure Result Reported Site Urine Culture Final 09/30/17- 0858 ML Organism 1 STREP GROUP B [place] Count 50-75,000 (Many) CFU/ML Susceptibility testing of penicillins and other B-lactams approved by FDA for treatment of Streptococcus pyogenes (Group A Strep) and Streptococcus agalactiae (Group B Strep) is not necessary for clinical purposes and need not be done routinely, since as with vancomycin, resistant strains have not been recognized. (CLSI L745-M03;p.66) Positive isolates will be saved for one week. Please call the Microbiology Laboratory if further susceptibility testing is needed. * ML - Main Lab . END OF REPORT DEPARTMENT OF PATHOLOGY, [address], [place], [place] [address] Tomer Leija M.D. Director [facility] # [id number] 25 SEE RESULT BELOW Name: NATA DENNIS : [address]: Urban Mcadams MD Acct: [id number] Unit: [id number] AGE: 57 Location: ED Re09/27/17 SEX: F Status: DEP ER SPEC: [id number] MANUEL: 09/27/[address] [facility] [address]: Stef Green MD REQ: [id number] RECD: 09/27/17 STATUS: LIZ GRANT DR: Rocio Du STRIKE OFF MACHINE OPERATOR _ SOURCE: URINE SPDESC: ORDERED: Urine Culture Procedure Result Reported Site Urine Culture Final 09/28/17- 1512 ML Organism 1 STREP GROUP B [place] Count 50-75,000 (Many) CFU/ML Susceptibility testing of penicillins and other B-lactams approved by FDA for treatment of Streptococcus pyogenes (Group A Strep) and Streptococcus agalactiae (Group B Strep) is not necessary for clinical purposes and need not be done routinely, since as with vancomycin, resistant strains have not been recognized. (CLSI C212-M22;p.66) Positive isolates will be saved for one week. Please call the Microbiology Laboratory if further susceptibility testing is needed. * ML - Main Lab . END OF REPORT DEPARTMENT OF PATHOLOGY, [address] [place] [address] Tomer Leija M.D. Director [facility] # [id number] 26 The urine specimen was tested at [...] [address]: Rocio Du NP Acct: [id number] Unit: [id number] AGE: 57 Location: [facility] Re08/12/17 SEX: F Status: REG REF SPEC: [id number] MANUEL: 08/11/17-[address] [facility] [address]: Rocio Du NP REQ: [id number] RECD: 08/12/17 STATUS: SOUT _ ORDERED: TP [...] 68. Signed (signature on file) SHAILESH Drew ([facility]) 08/13 0719 This Pap test was evaluated with the assistance of the [employer]. Due to cytologic findings at the tacker off microscope, comprehensive manual rescreening by a High Frequency Mill Operator may be required. The Pap Smear [...] years. END OF REPORT DEPARTMENT OF PATHOLOGY, [address] [place] [address] Tomer Leija M.D. Director [facility] # [id number] 31 GC/Chlamydia Source?: Thin Prep HPV Source?: [...] only. 37 Critical Result ETOH:484.6 Called to [id number] at: 20:44:41 by:[id number] Read back by:[id number] 39 SEE RESULT BELOW Name: NATA DENNIS : [address]: Servando Boone MD Acct: [id number] Unit: [id number] AGE: 56 Location: [facility] Re09/09/16 SEX: F Status: DEP ER SPEC: [id number] MANUEL: 09/09/[address] [facility] [address]: Servando Boone MD REQ: [id number] RECD: 09/09/16 STATUS: LIZ GRANT DR: Simone Jeter MD _ SOURCE: URINE SPDESC: ORDERED: Urine Culture COMMENTS: [id number] Procedure Result Reported Site Urine Culture Final 09/11/16- 825 ML Organism 1 ESCHERICHIA COLI [place] Count 50-75,000 (Many) CFU/ML Organism 2 NORMAL CLUADINE [place] Count 25-50,000 (Moderate) CFU/ML 1. ESCHERICHIA COLI [...] antibiotic reporting. * ML - MAIN LAB ([facility]) . END OF REPORT * ML=Testing performed at Main Lab DEPARTMENT OF PATHOLOGY, [address] [place] [address] Tomer Leija M.D. Director [facility] # [id number] 40 Degreasing Wheel Operator: [id number] Cancelled. Specimen hemolyzed. Unable to perform test requested. Reorder for specimen recollectio 42 [facility] Severe Sepsis and Septic Shock Management [...] was called for recollect at 215106/10/16 by [employer] 45 99th percentile=0.04 ng/mL Troponin results at [facility] and [facility] are not interchangeable. 46 Therapeutic concentration: <50 ug/mL Toxic concentration: >120 ug/mL 47 Cancelled. Specimen hemolyzed. Unable to perform test requested. Reorder for specimen recollection. STERLING/ED was called for recollect at 215106/10/16 by [employer] 48 Cancelled. Specimen hemolyzed. Unable to perform test requested. Reorder for specimen recollection. STERLING/ED was called for recollect at 215106/10/16 by [id number] 49 Cancelled. Specimen hemolyzed. Unable to perform test requested. Reorder for specimen recollection. STERLING/ED was called for recollect at 215106/10/16 by [id number] FASTING 10 HOUR 51 Normal Range [...] analytical performance characteristics have been determined by [employer]. It has not been cleared or approved by the U.S. Food and Drug Administration. The FDA has determined that such clearance or approval is not necessary. This assay has been validated pursuant to the CLIA regulations and is used for clinical purposes. Test Performed by: [employer]. [address] [place] [address] 54 Desirable <150 Borderline high 150-199 High [...] ug/mL 78 Critical Result ETOH:426.4 Called to [id number] at: 19:20:40 by: Read back by:[id number] [...] Very High >189 86 RUN DATE: 02/28/14 [facility] LAB LIVE PAGE 1 RUN TIME: [address] [place] [address] Specimen Inquiry Name: NATA DENNIS : [address]: Justo Nicole MD Acct: [id number] Unit: [id number] AGE: 53 Location: [facility] Re02/26/14 SEX: F Status: REG REF SPEC: [id number] MANUEL: 02/26/[address]: Justo Nicole MD REQ: [id number] RECD: 02/26/14 STATUS: COMP _ SOURCE: URINE SPDESC: ORDERED: Urine Culture QUERIES: [employer] Number [id number] Procedure Result Verified Site Urine Culture Final 02/28/14- 0959 ML Organism 1 ESCHERICHIA COLI [place] Count >100,000 (Many) CFU/ML Organism 2 NORMAL CLAUDINE [place] Count 1-10,000 (Few) CFU/ML 1. ESCHERICHIA COLI [...] performed at Main Lab DEPARTMENT OF PATHOLOGY, [address] [place] [address] Tomer Leija M.D. Director [facility] # [id number] Procedures Date Code Description Status 08/26/2017 [id number] Bone Mineral Density Test Completed 08/26/2017 [id number] Mammogram Completed 02/05/2015 [id number] Mammogram Completed 03/02/2014 [id number] Mammogram Completed Encounters Type Date Location Provider Dx Diagnosis Office Visit 04/27/2018 [facility] Rocio Du, F10.20 Alcohol dependence, 11:00a Medicine - [place] [employer] [address] uncom[address] Rd E78.2 Mixed hyperlipidemia Z23 Encounter for immunization M85.851 Oth disrd of bone density and structure, right thigh M85.852 Oth disrd of bone density and structure, left thigh Office Visit 03/16/2018 3:15p [facility] Boaz Spain G31.84 Mild cognitive Services Of Rafael Manzanares M.D. impairment, so stated F10.288 Alcohol dependence with other alcohol-induced disorder Office Visit 08/11/2017 1:00p [facility] Rocio Du, Z00.00 Encntr for Medicine - [place] [employer] general adult Rd medical exam w/o abnormal findings Z12.4 Encounter for screening for malignant neoplasm of cervix Z12.31 Encntr screen mammogram for malignant neoplasm of breast Z12.11 Encounter for screening for malignant neoplasm of colon E78.2 Mixed hyperlipidemia Z78.0 Asymptomatic menopausal state Z23 Encounter for immunization Office Visit 06/09/2017 3:20p [facility] Rocio Du, F10.21 Alcohol Medicine - [employer] dependence, in [place] [address] remission E78.2 Mixed hyperlipidemia R73.9 Hyperglycemia, unspecified R53.83 Other fatigue N95.1 Menopausal and female climacteric states Office Visit 06/03/2017 [facility] Cammie F10.920 Alcohol use, 10:13a Assoc,giorgi Saez D.O. unspecified with Hospitalists intoxication, uncomplicated Office Visit 07/01/2016 [facility] Boaz Sapin G31.84 Mild cognitive 10:00a Services [facility] Gurinder Manzanares impairment, so stated F10.21 Alcohol dependence, in remission Office Visit 06/04/2016 9:00a [facility] Simone Jeter, Z00.00 Encntr for Medicine - M.D. general adult [place] [address] medical exam w/o abnormal findings Z12.39 Encounter for oth screening for malignant neoplasm of breast K63.5 Polyp of colon E78.2 Mixed hyperlipidemia F33.0 Major depressive disorder, recurrent, mild Office Visit 03/09/2016 1:40p [facility] Simone Jeter Z23 Encounter for Medicine - M.DPanfilo immunization [place] [address] F33.0 Major depressive disorder, recurrent, mild E78.2 Mixed hyperlipidemia F03.91 Unspecified dementia with behavioral disturbance Office Visit 11/07/2015 [facility] Simone R73.9 Hyperglycemia, 3:00p Fabienne Jeter M.D. unspecified [place] [address] E78.2 Mixed hyperlipidemia Office Visit 10/03/2015 [facility] Jesusita Nichols F10.10 Alcohol abuse, 10:20a Fabienne Jeter M.D. uncomplicated [place] [address] E78.5 Hyperlipidemia, unspecified Z12.11 Encounter for screening for malignant neoplasm of colon Z23 Encounter for immunization Office Visit 10/18/2014 1:40p [facility] Justo Nicole, 311 Depressive Medicine - [place] M.D. 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 at [facility]004/27/2018 - ALIN AndersonF10.20 Alcohol dependence , oujosaiqjfduqL50.2 Mixed hyperlipidemiaComments:Please continue on Atorvastatin. Will recheck at your next physicalFollow up:PE in mid August Fasting lab [id number] Encounter for ifjkygzhkrokG24.851 Oth disrd of bone density and structure, right nqudjD26.852 Oth disrd of bone density and structure, left thigh
[2018-09-01 12:08] LABS: ABS Basophils 0.1 10^3/ul (0-0.2); ABS Eosinophils 0 10^3/ul (0-0.6); ABS Lymphocytes 0.9 10^3/ul (1.0-4.8); ABS Monocytes 0.4 10^3/ul (0-0.8); ABS Nucleated RBC 0 10^3/ul; Eosinophil % 0 %; Hematocrit 38 % (33-41); Hemoglobin 12.9 g/dL (12.0-16.0); Lymphocyte % 7.6 %; Mean Corpuscular HGB Conc 34 g/dL (31-36); Mean Corpuscular Hemoglobin 32 pg (27-31); Mean Corpuscular Volume 95 fL (80-97); Mean Platelet Volume 6.2 fL (7.4-10.4); Nucleated Red Blood Cells % 0.1; Platelet Count 265 10^3/uL (150-450); Red Blood Count 4.03 10^6 /uL (3.70-4.87); Red Cell Distribution Width 14 % (10.5-15); White Blood Count 11.4 10^3/uL (3.5-10.8)
[2018-09-01 12:25] LABS: ALT 17 U/L (7-52); AST 57 U/L (13-39); Albumin 4.3 g/dL (3.2-5.2); Albumin/Globulin Ratio 1.7 (1-3); Alkaline Phosphatase 83 U/L (34-104); Anion Gap 21 mmol/L (2-11); Blood Urea Nitrogen 23 mg/dL (6-24); CO2 Carbon Dioxide 20 mmol/L (22-32); Calcium 8.9 mg/dL (8.6-10.3); Chloride 98 mmol/L (101-111); Globulin 2.5 g/dL (2-4); Glucose 77 mg/dL (70-100); Potassium 3.4 mmol/L (3.5-5.0); Sodium 139 mmol/L (135-145); Total Protein 6.8 g/dL (6.4-8.9)
[2018-09-01 13:25] LABS: TSH (Thyroid Stimulating Horm) 1.12 mcIU/mL (0.34-5.60)
[2018-09-01 13:55] LABS: Salicylate < 2.50 mg/dL (<30)
[2018-09-01 13:56] LABS: Alcohol 439 mg/dL (<10)
[2018-09-01 14:39] LABS: Acetaminophen 10 mcg/mL
[2018-09-01 15:02] LABS: BUN/Creatinine Ratio 31.9 (8-20); EGFR African American 101.4 (>60); EGFR Non-African American 83.8 (>60)
[2018-09-01 15:28] LABS: Urine Appearance Cloudy; Urine Bacteria Absent (Absent); Urine Bilirubin Negative (Negative); Urine Blood 2+ (Negative); Urine Color Yellow; Urine Glucose Negative (Negative); Urine Ketones 1+ (Negative); Urine Nitrite Negative (Negative); Urine Protein 1+(30 mg/dL) (Negative); Urine Red Blood Cell Trace(0-2/hpf) (Absent); Urine Specific Gravity 1.017 (1.010-1.030); Urine Squamous Epithelial Cell Present (Absent); Urine Urobilinogen Negative (Negative); Urine White Blood Cell Trace(0-5/hpf) (Absent)
[2018-09-01 15:38] LABS: Urine Benzodiazepine Screen None Detected (None Detect); Urine Opiates Screen None Detected (None Detect)
--- NOTE | 2018-09-01 21:59 | ED ---
Progress - Progress Note Progress Note: Receiving sign out from Dr. Carrera at shift change, pending sobriety and MHE. Pt 's condition has been stable, and she is now sober. She is discharged to f/u with outpatient counseling. Final dx of alcoholic and substance-induced mood disorder. Re-Evaluation - Re-Evaluation First Eval Re-Evaluation Time: 01:02 Change: Improved Comment: Pt is now sober. She denies any SI. She will F/U with outpatient counseling in the morning, pt does not want to see the evaluators at [facility]. Course/Dx - Course Course Of Treatment: atient sobered and no longer felt suicidal. She states that she has good outpatient follow-up and does not want to see counselors for mental health here. She will follow-up with the [facility] where her therapist is. - Diagnoses Provider Diagnoses: Alcoholic, Substance induced mood disorder Discharge - Sign-Out/Discharge Documenting (check all that apply): Patient Departure - Discharge, Receiving Sign-Out Receiving patient FROM: Amauri Carrera Patient Received Moderate/Deep Sedation with Procedure: No - Discharge Plan Condition: Improved Disposition: HOME Patient Education Materials: Mood Disorders (ED), Alcohol Use Disorder (ED) Referrals: Rocio Du [facility] [Primary Care Provider] - Additional Instructions: Call Keena Martin at the [facility] first thing in the morning to schedule prompt follow-up. Do not drink, especially to excess. Call your sponsor at [employer] this and let them know that you've had issues. Call your doctor in schedule follow-up. Return if worse, new symptoms or other concerns as discussed. - Billing Disposition and Condition Condition: IMPROVED Disposition: Home - Attestation Statements Document Initiated by Amisha: Yes Documenting Scribe: Isabel You Provider For Whom Amisha is Documenting (Include Credential): Urban Mcadams MD Scribe Attestation: Isabel Patel, scribed for Urban Mcadams MD on 09/02/18 at 0245. Scribe Documentation Reviewed: Yes Provider Attestation: The documentation as recorded by the Isabel bhatt accurately reflects the service I personally performed and the decisions made by me, Urban Mcadams MD Status of Scribe Document: Viewed
[2018-09-02 01:42] VITALS: BP 110/76
== END 2018-09-02 01:10 | disposition home or self-care (01) ==
LOC: ED 11:30
DX: F10.129 Alcohol abuse with intoxication, unspecified (principal); F41.9 Anxiety disorder, unspecified; F31.9 Bipolar disorder, unspecified; F17.210 Nicotine dependence, cigarettes, uncomplicated; Z85.3 Personal history of malignant neoplasm of breast; Y90.8 Blood alcohol level of 240 mg/100 ml or more
CPT/HCPCS: 36415; 80053; 80307; 80320; 80329; 81003; 81015; 84443; 85025; 87086; 99284; G0480

== ENCOUNTER 2018-10-16 00:22 | Emergency (ER) | payer OTHER ==
--- NOTE | 2018-10-16 00:29 | ED ---
Substance Abuse/Use - HPI Summary HPI Summary: LEVEL 5 CAVEAT: HPI LIMITED DUE TO PATIENT INTOXICATION This patient is a 58 year old female presenting to [facility] with a chief complaint of ETOH intoxication. Law enforcement says she pulled her emergency cord two times and they took her in. They state that she fell. The patient denies being in pain. - History Of Current Complaint Stated Complaint: 2209 [facility] Hx Obtained From: Other: - Law enforcement Hx From Patient Unobtainable Due To: Other - Intoxication Hx Last Menstrual Period: N/A Overdose Characteristics: Oral - Alcohol - Allergies/Home Medications Allergies/Adverse Reactions: Allergies Allergy/AdvReac Type Severity Reaction Status Date / Time Adhesive Tape Allergy Rash Verified 07/14/18 12:46 PMH/Surg Hx/FS Hx/Imm Hx Endocrine/Hematology History: Denies: Hx Anticoagulant Therapy, Hx Blood Transfusions, Hx Diabetes, Hx Thyroid Disease, Other Endocrine/Hematological Disorders Cardiovascular History: Reports: Hx Syncope - rare Denies: Hx Hypertension, Hx Pacemaker/ICD, Other Cardiovascular Problems/ Disorders Respiratory History: Reports: Hx Seasonal Allergies Denies: Hx Asthma, Hx Chronic Bronchitis, Hx Chronic Obstructive Pulmonary Disease (COPD), Hx Lung Cancer, Hx Pneumonia, Other Respiratory Problems/ Disorders GI History: Denies: Hx Ulcer, Other GI Disorders History: Denies: Hx Kidney Stones, Hx Renal Disease, Other Problems/Disorders Musculoskeletal History: Reports: Hx Arthritis - hands Denies: Hx Back Problems, Other Musculoskeletal History Sensory History: Reports: Hx Contacts or Glasses Denies: Hx Hearing Aid, Other Sensory Impairments Opthamlomology History: Reports: Hx Contacts or Glasses Denies: Other Sensory Impairments Neurological History: Reports: Hx Headaches, Hx Seizures - last 2013, undiagnosed disorder, Other Neuro Impairments/Disorders - Shaky from ETOH withdrawal Psychiatric History: Reports: Hx Anxiety, Hx Depression, Hx Inpatient Treatment , Hx Community Mental Health Tx, Hx Substance Abuse, Other Psychiatric Issues/ Disorders - ETOH Abuse Denies: Hx Attention Deficit Hyperactivity Disorder, Hx Eating Disorder, Hx Panic Disorder, Hx Post Traumatic Stress Disorder, Hx Schizophrenia, Hx Bipolar Disorder, Hx Suicide Attempt - Thoughts-presently, Hx of Violent Episodes Against Others - Cancer History Cancer Type, Location and Year: breast cancer=left Hx Hematologic Symptoms: No Hx Chemotherapy: Yes Hx Radiation Therapy: Yes - Surgical History Surgery Procedure, Year, and Place: Bilat Thumb Fusion. Bilat Carpal Tunnel Surgery. LEFT Breast Lumpectomy. LEFT KNEE ARTHROSCOPIC SURGERY. ACL Sx left knee Hx Anesthesia Reactions: No - Immunization History Date of Tetanus Vaccine: Unk Date of Influenza Vaccine: Fall 2014 Infectious Disease History: Denies: History Other Infectious Disease - Family History Known Family History: Positive: Unknown - pt adopted, Other - pt adopted Negative: Hypertension, Respiratory Disease, Seizure Disorder - Social History Alcohol Use: Daily Alcohol Amount: "I'm an alcoholic." Hx Substance Use: Yes Substance Use Type: Reports: None Substance Use Comment - Amount & Last Used: pt last requested benzos in ED on , 07/21 per qa tech Hx Tobacco Use: Yes Smoking Status (MU): Light Every Day Tobacco Smoker Type: Cigarettes Have You Smoked in the Last Year: No - Additional Comments History Additional Comments: LEVEL 5 CAVEAT: PMH LIMITED DUE TO PATIENT INTOXICATION Review of Systems All Other Systems Reviewed And Are Negative: No - Comments Additional Review of Systems Comments: LEVEL 5 CAVEAT: ROS LIMITED DUE TO PATIENT INTOXICATION Physical Exam - Summary Physical Exam Summary: Appearance: Intoxicated no pain distress Skin: warm, dry, reflects adequate perfusion. Old abrasions on midline upper lip and nose. Head/face: normal Eyes: EOMI, PERRL ENT: mucous membranes moist Neck: supple, non-tender Respiratory: CTA, breath sounds present Cardiovascular: RRR, pulses symmetrical Abdomen: non-tender, soft Bowel Sounds: present Musculoskeletal: normal, strength/ROM intact Neuro: normal, sensory motor intact, A&Ox3 Triage Information Reviewed: Yes Vital Signs On Initial Exam: Temp Pulse Resp BP Pulse Ox 98.3 F 88 16 106/77 95 10/16/18 05:19 10/16/18 05:19 10/16/18 05:19 10/16/18 05:19 10/16/18 05:19 Vital Signs Reviewed: Yes Completion Of Physical Exam Limited Due To: Level 5 Diagnostics - Laboratory Lab Statement: Any lab studies that have been ordered have been reviewed, and results considered in the medical decision making process. - CT Brain CT Interpretation Completed By: Radiologist Summary of CT Findings: No acute intracranial pathology. ED Provider has reviewed this report. Course/Dx - Course Course Of Treatment: Nurses' note reviewed. Patient presents after pulling an alarm in her apartment twice. EMS and police found her to have an empty bottle of liquor but not responding normally. Head CT here was negative for any intracranial injury. She sobered over many hours until she returned to functional capacity. She now demonstrates clear speech, steady gait and ability to reason. A safe ride was arranged for her and she was given referral to local alcohol treatment programs. - Diagnoses Differential Diagnosis/HQI/PQRI: Positive: Acute Psychosis, Alcohol Abuse, Depression Provider Diagnoses: Alcohol intoxication, Alcohol abuse Discharge - Sign-Out/Discharge Documenting (check all that apply): Patient Departure - Discharge Patient Received Moderate/Deep Sedation with Procedure: No - Discharge Plan Condition: Improved Disposition: HOME Patient Education Materials: Alcohol Intoxication (ED) Referrals: Rocio Du NP [Primary Care Provider] - Additional Instructions: Never drink to excess. Do not drive today. Follow-up with the [facility] who can help you with your drinking. Return if worse, new symptoms or other concerns. Also follow-up with your primary care doctor with a call tomorrow. The [facility] has open intake from 10 to 6 PM today. See handout provided. - Billing Disposition and Condition Condition: IMPROVED Disposition: Home - Attestation Statements Document Initiated by Amisha: Yes Documenting Scribe: Diego Pereyra Provider For Whom Amisha is Documenting (Include Credential): Urban Mcadams MD Scribe Attestation: [place] scribed for Urban Mcadams MD on 10/16/18 at 0642. Scribe Documentation Reviewed: Yes Provider Attestation: The documentation as recorded by the Diego bhatt accurately reflects the service I personally performed and the decisions made by me, Urban Mcadams MD Status of Scribe Document: Viewed
--- OUTSIDE RECORDS SUMMARY | 2018-10-16 00:32 | XMS REPORT | Continuity of Care Document ---
:1960 External Reference #:[id number] Author Name Margareth Thompson Care Team Providers Name Role Phone Rocio Du [facility] ADVISOR Primary Care Physician Unavailable Payers Date Identification Numbers Payment Provider Subscriber Effective: 2014 Policy Number: [id number] [place] Nata Dennis Group Number: [id number] [address] PayID: [id number] [place] [address] Effective: 2013 Policy Number: [id number] Medicaid Nata Dennis Expires: 2014 Group Name: 1 1 [address] PayID: [id number] [place] [address] Problems Active Problems Provider Date Depressive disorder Justo Nicole M.D. 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 Onset: 02/23/2014 Hyperlipidemia Justo Nicole M.D. Onset: 03/26/2014 Hypercalcemia Justo Nicole M.D. Onset: 03/26/2014 Abnormal glucose level Simone Jeter M.D. Onset: 11/07/2015 Mixed hyperlipidemia Simone Jeter M.D. Onset: 11/07/2015 Mild recurrent major depression Simone Jeter M.D. Onset: 03/09/2016 Unspecified dementia with behavioral Simone Jeter M.D. Onset: 03/09/2016 disturbance Benign neoplasm of colon Simone Jeter M.D. 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 Cigarette Use Quit 24 Years Ago ETOH Use Has consumed alcohol in the past Tobacco Use Start: Unknown End: Patient is a former smoker Unknown Smoking Status Reviewed: 09/29/18 Patient is a former smoker Exercise Type/Frequency Walks daily Allergies, Adverse Reactions, Alerts Description No Known Drug Allergies Medications Active Medications SIG Qnty Indications Ordering Provider Date Blood Pressure use daily to 1units R03.0 ALIN Anderson 09/05/2018 Monitor Auto monitor bp daily Inflate Misc Vitamin B-Complex 1 by mouth every 90tabs F10.21 KHADIJAH AndersonP 2017 day Tablets Calcium 600+D High 1 by mouth twice 60tabs N95.1 Awa Mosley, 2017 Potency a day M.D. [id number] Tablets Atorvastatin Calcium take 1 tablet at 90tabs E78.2 Simone Jeter, 06/10 bedtime M.D. 20mg Tablets Fluoxetine HCL 1 by mouth every Unknown 20mg day Capsules Naltrexone HCL 1 tablet daily Unknown 50mg in the morning Tablets Vitamin B1 1 by mouth every 30tabs Rocio Du [facility] 100mg day Tablets History Medications Calcium Carbonate-Vitamin Take One 60tabs Rocio Du, 09/24/2017 - D Tablet By [facility] 12/07/2017 [id number] Tablets Mouth Two Times Daily Calcium 1200 1 by mouth 90units N95.1 Rocio Du, 06/09/2017 - [id number] every day [facility] 06/10/2017 Chewtabs Thiamine HCL 1 by mouth 30tabs Simone 10/03/2015 - 100mg Tablets every day Steffany, 07/01/2016 M.D. Anastrozole 1 by mouth Justo Nicole, 02/23/2014 - 1mg Tablets every day M.D. 10/18/2014 Citalopram Hydrobromide 1 by mouth 30tabs Justo Nicole 02/23/2014 - 20mg every day M.D. 10/03/2015 Tablets Vitamin B-1 once a day 90tabs Justo Nicole 02/23/2014 - 100mg Tablets M.D. 10/03/2015 Folic Acid 1 by mouth 90tabs 305.00 Justo Nicole, 02/23/2014 - 1mg Tablets every day M.D. 10/03/2015 Cranberry 1 tabs twice Unknown - 250mg Capsules daily 10/18/2014 Magnesium 1 by mouth Unknown - 500mg Capsules every day 10/18/2014 Sertraline HCL 1 by mouth Unknown - 100mg Tablets every day 03/09/2016 Vitamin D take one Unknown - (Ergocalciferol) capsule by 07/01/2016 [id number] mouth once Capsules weekly Immunizations CPT Code Status Date Vaccine Lot # [id number] Given 04/27/2018 Influenza Virus Vaccine, Quadrivalent, Split, [id number] Preservative Free [id number] Given 08/11/2017 Tdap - Tetanus/Diptheria/Acellular Pertussis [id number] Given 03/09/2016 Influ Virus Vaccine, Quadrivalent, Split Virus, [place] [id number] [id number] Given 10/03/2015 Pneumonia Vaccine [id number] Vital Signs Date Vital Result Comment 09/29/2018 9:53am Height 67 inches 5'7" Weight 143.00 lb Heart Rate 88 /min BP Systolic Sitting 102 mmHg BP Diastolic Sitting 76 mmHg Respiratory Rate 16 /min BMI (Body Mass Index) 22.4 kg/m2 09/05/2018 4:18pm Heart Rate 93 /min 09/05/2018 3:35pm Height 65.5 inches 5'5.50" Weight 139.50 lb Heart Rate 110 /min BP Systolic 149 mmHg BP Diastolic 90 mmHg Body Temperature 98.4 F O2 % BldC Oximetry 98 % BMI (Body Mass Index) 22.9 kg/m2 04/27/2018 10:42am Height 65.5 inches 5'5.50" Weight [...] Date Facility Test Result H/L Range Note CBC Auto Diff 09/01/2018 [facility] White Blood 11.4 10^3/uL High 3.5-10.[address] [place] [address] [phone] Red Blood Count 4.03 10^6/uL N 3.70-4.87 Hemoglobin 12.9 g/dL N 12.0-16.0 Hematocrit 38 % N 33-41 Mean Corpuscular Volume 95 fL N 80-97 Mean Corpuscular Hemoglobin 32 pg High 27-31 Mean Corpuscular HGB Conc 34 g/dL N 31-36 Red Cell Distribution Width 14 % N 10.5-15 Platelet Count 265 10^3/uL N 150-450 Mean Platelet Volume 6.2 fL Low 7.4-10.4 Abs Neutrophils 10.0 10^3/uL High 1.5-7.7 Abs Lymphocytes 0.9 10^3/uL Low 1.0-4.8 Abs Monocytes 0.4 10^3/uL N 0-0.8 Abs Eosinophils 0 10^3/uL N 0-0.6 Abs Basophils 0.1 10^3/uL N 0-0.2 Abs Nucleated RBC 0 10^3/uL Granulocyte % 87.5 % Lymphocyte % 7.6 % Monocyte % 3.7 % Eosinophil % 0 % Basophil % 1.2 % Nucleated Red Blood Cells % 0.1 Comp Metabolic Panel 09/01/2018 [facility] Sodium 139 mmol/L N 135-[address] [place] [address] [phone] Potassium 3.4 mmol/L Low 3.5-5.0 Chloride 98 mmol/L Low 101-111 Co2 Carbon Dioxide 20 mmol/L Low 22-32 Anion Gap 21 mmol/L High 2-11 Glucose 77 mg/dL N 70-100 Blood Urea Nitrogen 23 mg/dL N 6-24 Calcium 8.9 mg/dL N 8.6-10.3 Total Protein 6.8 g/dL N 6.4-8.9 Albumin 4.3 g/dL N 3.2-5.2 Globulin 2.5 g/dL N 2-4 Albumin/Globulin Ratio 1.7 N 1-3 Total Bilirubin 0.80 mg/dL N 0.2-1.0 Alkaline Phosphatase 83 U/L N 34-104 Alt 17 U/L N 7-52 Ast 57 U/L High 13-39 Creatinine 0.72 mg/dL N 0.51-0.95 BUN/Creatinine Ratio 31.9 High 8-20 Egfr Non- 83.8 >60 Egfr 101.4 >60 1 Laboratory test 09/01/2018 [facility] TSH (Thyroid 1.12 mcIU/mL N 0.34-5.[address] Stim Horm) [place] [address] [phone] Salicylate < 2.50 mg/dL <30 Alcohol 439 mg/dL High <10 2 Acetaminophen 10 g/mL 3 Urine Drug 09/01/2018 [facility] Urine None Detected None Detect SCR ED & [address] [place] [address] Screen [phone] Urine Barbiturates Screen None Detected None Detect Urine Benzodiazepine Screen None Detected None Detect Urine Cannabinoids Screen None Detected None Detect Urine Cocaine Screen None Detected None Detect Urine Opiates Screen None Detected None Detect Urine Phencyclidine Screen None Detected None Detect 4 Urinalysis Profile 09/01/2018 [facility] Urine Color Yellow [address] [place] [address] [phone] Urine Appearance Cloudy Urine Specific Pitcher 1.017 N 1.010-1.030 Urine pH 5.0 N 5-9 Urine Urobilinogen Negative Negative Urine Ketones 1+ Abnormal Negative Urine Protein 1+(30 mg/dL) Abnormal Negative Urine Leukocytes Trace Abnormal Negative Urine Blood 2+ Abnormal Negative Urine Nitrite Negative Negative Urine Bilirubin Negative Negative Urine Glucose Negative Negative Urine White Blood Cell Trace(0-5/hpf) Absent Urine Red Blood Cell Trace(0-2/hpf) Absent Urine Bacteria Absent Absent Urine Squamous Epithelial Cell Present Abnormal Absent Urine Hyaline Casts Present Abnormal Absent Urine Culture And 09/01/2018 [facility] Urine Culture SEE RESULT [address] [place] [address] [phone] Laboratory test 07/14/2018 [facility] Alcohol 443 mg/dL High < 10 [address] [place] [address] [phone] Urine Culture And 03/28/2018 [facility] Urine Culture SEE RESULT [address] [place] [address] [phone] Urinalysis Profile 03/28/2018 [facility] Urine Color Yellow [address] [place] [address] [phone] Urine Appearance Clear Urine Specific Pitcher 1.009 Low 1.010-1.030 Urine pH 5.0 N [...] Urine Hyaline Casts Present Abnormal Absent Urine Drug 03/28/2018 [facility] Amphetamine Ur None Detected None Detect SCR ED & [address] [place] [place] [address] [phone] Barbiturates Urine Screen None Detected None Detect Benzodiazepine Urine Screen None Detected None Detect Urine Cannabinoids Screen None Detected None Detect Urine Cocaine Screen None Detected None Detect Urine Opiates Screen None Detected None Detect Urine Phencyclidine Screen None Detected None Detect 8 Laboratory test 03/28/2018 [facility] Acetaminophen < 15 g/mL [address] [place] [address] [phone] Salicylate < 2.50 mg/dL <30 Alcohol 403 mg/dL High <10 10 TSH (Thyroid Stim Horm) 1.57 mcIU/mL N 0.34-5.60 Comp Metabolic Panel 03/28/2018 [facility] Sodium 140 mmol/L N 135-[address] [place] [address] [phone] Potassium 4.4 mmol/L N 3.5-5.0 Chloride 105 [...] Egfr Non- 59.4 >60 Egfr 71.9 >60 11 CBC Auto Diff 03/28/2018 [facility] White Blood 6.3 10^3/uL N 3.5-10.[address] [place] [address] [phone] Red Blood Count 3.97 10^6/uL Low 4.00-5.40 [...] Nucleated Red Blood Cells % 0.1 Laboratory 02/11/2018 [facility] Alcohol 388 mg/dL High <10 test finding [address] [place] [address] [phone] Urine Drug SCR 02/11/2018 [facility] Amphetamine Ur None None ED & Pain [address] [place] [address] [phone] Barbiturates Urine Screen None Detected None Detect Benzodiazepine Urine Screen None Detected None Detect Urine Cannabinoids Screen None Detected None Detect Urine Cocaine Screen None Detected None Detect Urine Opiates Screen None Detected None Detect Urine Phencyclidine Screen None Detected None Detect 12 Urine Culture And 02/04/2018 [facility] Urine SEE RESULT 13 , [address] [place] [place] [address] [phone] Poc Urinalysis 02/04/2018 [facility] Poc Negative Negative [address] Glucose, [place] [address] Urine [phone] Poc Bilirubin, Urine Negative Negative Poc Ketone, Urine Negative Negative Poc Specific Pitcher, Urine 1.010 N 1.010-1.030 Poc Blood, Urine 3+ Abnormal Negative Poc pH, Urine 7.0 N 5-9 Poc Protein, Urine 2+ Abnormal Negative Poc Urobilinogen, Urine 0.2 Negative Poc Nitrite, Urine Negative Negative Poc Leukocytes, Urine 3+ Abnormal Negative Poc Color, Urine Yellow Poc Clarity, Urine Cloudy 15 Urine Culture And 01/29/2018 [facility] Urine Culture SEE RESULT [address] [place] [address] [phone] Urinalysis Profile 01/29/2018 [facility] Urine Color Straw [address] [place], [place] [address] [phone] Urine Appearance Clear Urine Specific Pitcher 1.008 Low 1.010-1.030 Urine pH 6.0 N [...] Cell Present Abnormal Absent Laboratory test 01/29/2018 [facility] Magnesium 2.0 mg/dL N 1.9-2.[address] [place] [address] [phone] Acetaminophen < 15 g/mL 17 Salicylate < 2.50 mg/dL <30 Alcohol 474 mg/dL High <10 18 CBC Auto Diff 01/29/2018 [facility] White Blood 7.3 10^3/uL N 3.5-10.[address] [place] [address] [phone] Red Blood Count 3.74 10^6/uL Low 4.00-5.40 [...] Red Blood Cells % 0 Inr/Protime 01/29/2018 [facility] Inr 1.01 N 0.77-1.[address] [place] [address] [phone] Laboratory test 01/29/2018 [facility] Lactic Acid 1.7 mmol/L N 0.5-2.0 [address] [place] [address] [phone] Ammonia 36 mcmol/L N 16-53 Troponin-I (TnI) 0.01 ng/mL <0.04 Comp Metabolic Panel 01/29/2018 [facility] Sodium 143 mmol/L N 135-[address] [place] [address] [phone] Potassium 3.8 mmol/L N 3.5-5.0 Chloride 107 [...] Egfr Non- 76.7 >60 Egfr 92.8 >60 20 Urine Culture And 01/26/2018 [facility] Urine Culture SEE RESULT [address] [place] [address] [phone] Laboratory test 01/26/2018 [facility] Amylase 53 U/L N 29-[address] [place] [address] [phone] Lipase 21 U/L N 11.0-82.0 Creatine Kinase(CK) 87 U/L N 10-223 Troponin-I (TnI) 0.00 ng/mL <0.04 Alcohol 290 mg/dL High <10 Comp Metabolic Panel 01/26/2018 [facility] Sodium 138 mmol/L N 135-[address] [place] [address] [phone] Potassium 3.3 mmol/L Low 3.5-5.0 Chloride 111 [...] Egfr Non- 75.6 >60 Egfr 91.4 >60 22 Urinalysis Profile 01/26/2018 [facility] [place] [address] [phone] Urine Appearance Clear Urine Specific Pitcher 1.011 N 1.010-1.030 Urine pH 6.0 N [...] Present Abnormal Absent Type & Screen 01/26/2018 [facility] Patient [place] [address] [phone] Antibody Screen NEGATIVE Urine Drug 01/26/2018 [facility] Amphetamine Ur None Detected None Detect SCR ED & [address] [place] [address] [phone] Barbiturates Urine Screen None Detected None Detect Benzodiazepine Urine Screen None Detected None Detect Urine Cannabinoids Screen None Detected None Detect Urine Cocaine Screen None Detected None Detect Urine Opiates Screen None Detected None Detect Urine Phencyclidine Screen None Detected None Detect 23 Laboratory test 01/26/2018 [facility] Lactic Acid 2.4 mmol/L High 0.5-2.[address] [place], [place] [address] [phone] CBC Auto Diff 01/26/2018 [facility] White Blood 6.4 10^3/uL N 3.5-10.[address] [place] [address] [phone] Red Blood Count 3.47 10^6/uL Low 4.00-5.40 [...] Red Blood Cells % 0.1 Inr/Protime 01/26/2018 [facility] Inr 1.05 High 0.77-1.[address] [place] [address] [phone] Laboratory test 09/29/2017 [facility] Alcohol 201 mg/dL High < [address] [place] [address] [phone] Urine Culture And 09/28/2017 [facility] Urine SEE RESULT [address] [place] [place] [address] [phone] CBC Auto Diff 09/28/2017 [facility] White Blood 8.3 N 3.5- 10.[address] Count 10^3/[place] [address] [phone] Red Blood Count 3.99 10^6/uL Low 4.0-5.4 [...] Cells % 0.1 Comp Metabolic Panel 09/28/2017 [facility] Sodium 143 mmol/L N 139-[address] [place] [address] [phone] Potassium 3.8 mmol/L N 3.5-5.0 Chloride 108 [...] Egfr Non- 76.7 >60 Egfr 98.6 >60 26 Laboratory test 09/28/2017 [facility] Acetaminophen < 15 g/mL [address] [place] [address] [phone] Salicylate < 2.50 mg/dL <30 Alcohol 508 mg/dL High <10 28 TSH (Thyroid Stim Horm) 0.67 mcIU/mL N 0.34-5.60 Urinalysis Profile 09/28/2017 [facility] Urine Color Yellow [address] [place] [address] [phone] Urine Appearance Clear Urine Specific Pitcher 1.014 N 1.010-1.030 Urine pH 7.0 N [...] Cell Present Abnormal Absent Urine Drug 09/28/2017 [facility] Amphetamine Ur None Detected None Detect SCR ED & [address] [place] [address] [phone] Barbiturates Urine Screen None Detected None Detect Benzodiazepine Urine Screen None Detected None Detect Urine Cannabinoids Screen None Detected None Detect Urine Cocaine Screen None Detected None Detect Urine Opiates Screen None Detected None Detect Urine Phencyclidine Screen None Detected None Detect 29 Laboratory test 09/27/2017 [facility] Alcohol 115 mg/dL High < 10 finding [address] [place] [address] [phone] CBC Auto Diff 09/27/2017 [facility] White Blood 7.3 N 3.5- 10.[address] Count 10^3/[place] [address] [phone] Red Blood Count 4.26 10^6/uL N 4.0-5.4 [...] 0-2 Nucleated Red Blood Cells % 0 Comp Metabolic Panel 09/27/2017 [facility] Sodium 141 mmol/L N 139-[address] [place] [address] [phone] Potassium 3.7 mmol/L N 3.5-5.0 Chloride 104 [...] Egfr Non- 61.8 >60 Egfr 79.5 >60 30 Laboratory test 09/27/2017 [facility] Acetaminophen < 15 g/mL [address] [place] [address] [phone] Alcohol 337 mg/dL High <10 Salicylate < 2.50 mg/dL <30 TSH (Thyroid Stim Horm) 0.39 mcIU/mL N 0.34-5.60 Urine Drug 09/27/2017 [facility] Amphetamine Ur None Detected None Detect SCR ED & [address] [place] [address] [phone] Barbiturates Urine Screen None Detected None Detect Benzodiazepine Urine Screen None Detected None Detect Urine Cannabinoids Screen None Detected None Detect Urine Cocaine Screen None Detected None Detect Urine Opiates Screen None Detected None Detect Urine Phencyclidine Screen None Detected None Detect 32 Urinalysis Profile 09/27/2017 [facility] Urine Color Straw [address] [place] [address] [phone] Urine Appearance Clear Urine Specific Pitcher 1.005 Low 1.010-1.030 Urine pH 5.0 N [...] Squamous Epithelial Cell Present Abnormal Absent Urine Culture 09/27/2017 [facility] Urine Culture SEE RESULT [address] [place] [address] [phone] Laboratory test 08/12/2017 [facility] Trichomonas Negative Negative 34, finding [address] Vaginalis Rna 35 [place] [address] [phone] GC/Chlamydia 08/12/2017 [facility] Chlamydia Negative Negative Amplified Rna [address] [place] [address] Rna [phone] Neisseria gonorrhoeae (GC) Rna Negative Negative Laboratory 08/12/2017 [facility] Cytology SEE RESULT 36 test finding [address] [place] [address] [phone] Urine Drug SCR 07/26/2017 [facility] Amphetamine Ur None None ED & Pain [address] [place] [address] [phone] Barbiturates Urine Screen None Detected None Detect Benzodiazepine Urine Screen None Detected None Detect Urine Cannabinoids Screen None Detected None Detect Urine Cocaine Screen None Detected None Detect Urine Opiates Screen None Detected None Detect Urine Phencyclidine Screen None Detected None Detect 37 Laboratory test 06/24/2017 [facility] Acetaminophen < 15 g/mL 38 finding [address] [place] [address] [phone] Alcohol 390 mg/dL High <10 Salicylate < 2.50 mg/dL <30 TSH (Thyroid Stim Horm) 1.29 mcIU/mL N 0.34-5.60 Urinalysis Profile 06/24/2017 [facility] Urine Color Yellow [address] [place] [address] [phone] Urine Appearance Clear Urine Specific Pitcher 1.005 Low 1.010-1.030 Urine pH 6.0 N [...] Epithelial Cell Present Abnormal Absent Urine Drug 06/24/2017 [facility] Amphetamine Ur None Detected None Detect SCR ED & [address] [facility] [place] [address] [phone] Barbiturates Urine Screen None Detected None Detect Benzodiazepine Urine Screen None Detected None Detect Urine Cannabinoids Screen None Detected None Detect Urine Cocaine Screen None Detected None Detect Urine Opiates Screen None Detected None Detect Urine Phencyclidine Screen None Detected None Detect 39 Comp Metabolic Panel 06/24/2017 [facility] Sodium 143 mmol/L N 133-145 [address] [place] [address] [phone] Potassium 4.0 mmol/L N 3.5-5.0 Chloride 101 [...] Egfr Non- 82.8 >60 Egfr 106.4 >60 40 CBC Auto Diff 06/24/2017 [facility] White Blood 4.9 10^3/uL N 3.5-10.[address] [place] [address] [phone] Red Blood Count 4.22 10^6/uL N 4.0-5.4 [...] Nucleated Red Blood Cells % 0.1 Laboratory 06/01/2017 [facility] Alcohol 485 mg/dL High <10 41 test finding [address] [place] [address] [phone] Urine Drug SCR 06/01/2017 [facility] Amphetamine Ur None None ED & Pain [address] [place] [address] [phone] Barbiturates Urine Screen None Detected None Detect Benzodiazepine Urine Screen None Detected None Detect Urine Cannabinoids Screen None Detected None Detect Urine Cocaine Screen None Detected None Detect Urine Opiates Screen None Detected None Detect Urine Phencyclidine Screen None Detected None Detect 42 Urine Culture And 09/09/2016 [facility] Urine SEE RESULT 43 , [address] Culture BELOW [place], [place] [address] [phone] Poc Urinalysis 09/09/2016 [facility] Poc Negative N Negative [address] Glucose, [place] [address] Urine [phone] Poc Bilirubin, Urine Negative N Negative Poc Ketone, Urine Negative N Negative Poc Specific Pitcher, Urine >=1.030 N 1.010-1.030 Poc Blood, Urine 3+ Abnormal Negative Poc pH, Urine 6.0 N 5-9 Poc Protein, Urine 3+ Abnormal Negative Poc Urobilinogen, Urine 0.2 N Negative Poc Nitrite, Urine Positive Abnormal Negative Poc Leukocytes, Urine 2+ Abnormal Negative Poc Color, Urine Other N Poc Clarity, Urine Cloudy N 45 Laboratory test 06/10/2016 [facility] Potassium TNP mmol/L N 3.5-5.0 [address] [place] [address] [phone] Ast Redraw TNP U/L N 13-39 CBC Auto Diff 06/10/2016 [facility] White Blood 8.6 10^3/uL N 3.5-10.[address] [place] [address] [phone] Red Blood Count 4.11 10^6/uL N 4.0-5.4 [...] Cells % 0.2 N Laboratory test 06/10/2016 [facility] Lactic Acid 1.5 mmol/L N 0.5-2.0 [address] [place] [address] [phone] Ammonia 40 ?mol/L N 16-53 Comp Metabolic Panel 06/10/2016 [facility] Sodium 138 mmol/L N 133-[address] [place] [address] [phone] Chloride 105 mmol/L N 101-111 Co2 Carbon [...] 59.8 N >60 Egfr 77.0 N >60 48 Potassium TNP mmol/L N 3.5-5.0 Anion Gap TNP mmol/L N 2-11 Ast TNP U/L N 13-39 Laboratory test 06/10/2016 [facility] Creatine 100 U/L N 10- 223 [address] Kinase(CK) [place] [address] [phone] Troponin-I (TnI) 0.00 ng/mL N <0.04 50 Acetaminophen < 15 g/mL N 51 Alcohol 337 mg/dL High <10 52 Salicylate < 2.50 mg/dL N <30 53 TSH (Thyroid Stim Horm) 0.96 mcIU/mL N 0.34-5.60 54 Laboratory test 03/30/2016 [facility] TSH (Thyroid 0.88 mcIU/mL N 0.34-5.[address] Stim Horm) [place] [address] [phone] Vitamin B12 And 03/30/2016 [facility] Vitamin B12 289 pg/mL N 180-914 [address] [place] [address] [phone] Folic Acid (Folate) 16.22 ng/mL N >3.99 57 Anaplasma 03/30/2016 [facility] A. phagocytophilum <1:64 N Phagocytophilum Abs 101 IgG Igg,[place] [address] [phone] A. phagocytophilum IgM <1:20 N A. phagocytophilum Interp See Comment N 58 Lipid Profile 03/30/2016 [facility] Triglycerides 126 mg/dL N 59 (Trig/Chol/HDL) [address] [place] [address] [phone] Cholesterol 290 mg/dL N 60 HDL Cholesterol 86.1 mg/dL N 61 LDL Cholesterol 179 mg/dL N 62 Lipid Profile 11/26/2015 [facility] Triglycerides 153 mg/dL N 63 (Trig/Chol/HDL) [address] [place] [address] [phone] Cholesterol 259 mg/dL N 64 HDL Cholesterol 78.5 mg/dL N 65 LDL Cholesterol 150 mg/dL N 66 Comp Metabolic Panel 11/26/2015 [facility] Sodium 137 mmol/L N 133-145 [address] [place] [address] [phone] Potassium 4.2 mmol/L N 3.5-5.0 Chloride 105 [...] 80.8 N >60 Egfr 104.0 N >60 67 Laboratory test 11/07/2015 [facility] In House Hemoglobin A1c 5.1 5-7 finding Comp Metabolic Panel 11/04/2015 [facility] Sodium 135 mmol/L N 133-145 [address] [place] [address] [phone] Potassium 3.5 mmol/L N 3.5-5.0 Chloride 99 [...] 70.9 N >60 Egfr 91.2 N >60 68 Lipid Profile 11/04/2015 [facility] Triglycerides 78 mg/dL N 69 (Trig/Chol/HDL) [address] [place] [address] [phone] Cholesterol 290 mg/dL N 70 HDL Cholesterol 110.8 mg/dL N 71 LDL Cholesterol 164 mg/dL N 72 Basic Metabolic Panel 11/07/2014 [facility] Sodium 139 mmol/L N 133-145 [address] [place] [address] [phone] Potassium 4.2 mmol/L N 3.5-5.0 Chloride 102 mmol/L N 101-111 Co2 Carbon Dioxide 29 mmol/L N 22-32 Anion Gap 8 mmol/L N 2-11 Glucose 77 mg/dL N 70-100 Blood Urea Nitrogen 18 mg/dL N 6-24 Creatinine 0.83 mg/dL N 0.51-0.95 BUN/Creatinine Ratio 21.7 High 8-20 Calcium 10.4 mg/dL High 8.6-10.3 Egfr Non- 72.2 N >60 Egfr 92.8 N >60 73 Pthi 11/07/2014 [facility] Calcium (PTH Intact) 10.3 mg/dL N 8.6-10.[address] [place] [address] [phone] PTH Intact 5.3 pmol/L N 1.3-9.3 CBC Auto Diff 07/28/2014 [facility] White Blood 5.1 10^3/uL N 4.8-10.[address] [place] [address] [phone] Red Blood Count 3.91 10^6/uL Low 4.0-5.4 [...] Blood Cells % 0 N Urinalysis Profile 07/28/2014 [facility] Urine Color Straw N [address] [place] [address] [phone] Urine Appearance Clear N Urine Specific Pitcher 1.003 Low 1.010-1.030 Urine pH 6.0 N 5-9 Urine Urobilinogen Negative N Negative Urine Ketones Negative N Negative Urine Protein Negative N Negative Urine Leukocytes Negative N Negative Urine Blood Negative N Negative Urine Nitrite Negative N Negative Urine Bilirubin Negative N Negative Urine Glucose Negative N Negative Urine Drug 07/28/2014 [facility] Amphetamine Ur None Detected N None Detect SCR ED & [address] [address] [phone] Barbiturates Urine Screen None Detected N None Detect Benzodiazepine Urine Screen None Detected N None Detect Urine Cannabinoids Screen None Detected N None Detect Urine Cocaine Screen None Detected N None Detect Urine Opiates Screen None Detected N None Detect Urine Phencyclidine Screen None Detected N None Detect 74 Comp Metabolic Panel 07/28/2014 [facility] Sodium 140 mmol/L N 133-145 [address] [place] [address] [phone] Potassium 4.1 mmol/L N 3.5-5.0 Chloride 105 [...] 78.7 N >60 Egfr 101.2 N >60 75 Laboratory test 07/28/2014 [facility] Acetaminophen < 15 g/mL N 76 finding [address] [place] [address] [phone] Alcohol < 10 mg/dL N <10 Salicylate < 2.50 mg/dL N <30 TSH (Thyroid Stimulating Horm) 0.60 IU/mL N 0.34-5.60 Lipid Profile 07/16/2014 [facility] Triglycerides 103 mg/dL N 77, 78 (Trig/Chol/HDL) [address] [place] [address] [phone] Cholesterol 244 mg/dL N 79 HDL Cholesterol 94.6 mg/dL N 80 LDL Cholesterol 129 mg/dL N 81 Urinalysis Profile 05/28/2014 [facility] Urine Color Yellow N [address] [place] [address] [phone] Urine Appearance Clear N Urine Specific Pitcher 1.011 N 1.010-1.030 Urine pH 5 N 5-9 Urine Urobilinogen Negative N Negative Urine Ketones Trace Abnormal Negative Urine Protein Negative N Negative Urine Leukocytes Negative N Negative Urine Blood Negative N Negative Urine Nitrite Negative N Negative Urine Bilirubin Negative N Negative Urine Glucose Negative N Negative Urine Drug 05/28/2014 [facility] Amphetamine Ur None Detected N None Detect SCR ED & [address] [place] [address] [phone] Barbiturates Urine Screen None Detected N None Detect Benzodiazepine Urine Screen None Detected N None Detect Urine Cannabinoids Screen None Detected N None Detect Urine Cocaine Screen None Detected N None Detect Urine Opiates Screen None Detected N None Detect Urine Phencyclidine Screen None Detected N None Detect 82 CBC Auto Diff 05/28/2014 [facility] White Blood 8.4 10^3/uL N 4.8-10.[address] [place] [address] [phone] Red Blood Count 4.17 10^6/uL N 4.0-5.4 [...] Nucleated Red Blood Cells % 0.1 N Comp Metabolic Panel 05/28/2014 [facility] Sodium 140 mmol/L N 133-[address] [place] [address] [phone] Potassium 3.6 mmol/L N 3.5-5.0 Chloride 102 [...] 64.9 N >60 Egfr 83.5 N >60 83 Laboratory test 05/28/2014 [facility] Acetaminophen < 15 g/mL N [address] [place] [address] [phone] Alcohol 426 mg/dL High <10 85 Salicylate < 2.50 mg/dL N <30 TSH (Thyroid Stimulating Horm) 0.31 IU/mL Low 0.34-5.60 Magnesium 1.7 mg/dL Low 1.9-2.7 Comp Metabolic Panel 02/26/2014 [facility] Sodium 138 mmol/L N 133-[address] [place] [address] [phone] Potassium 4.5 mmol/L N 3.7-5.6 Chloride 103 [...] 71.5 N >60 Egfr 91.9 N >60 86 Lipid Profile 02/26/2014 [facility] Triglycerides 141 mg/dL N 87 (Trig/Chol/HDL) [address] [place] [address] [phone] Cholesterol 270 mg/dL N 88 HDL Cholesterol 71.6 mg/dL N 89 LDL Cholesterol 170 mg/dL N 90 Laboratory test 02/26/2014 [facility] TSH (Thyroid 1.23 IU/mL N 0.34-5.[address] [place] [address] Horm) [phone] Hepatitis C Antibody Nonreactive N Nonreactive CBC Auto Diff 02/26/2014 [facility] White Blood 7.7 10^3/uL N 4.8-10.[address] [place] [address] [phone] Red Blood Count 4.05 10^6/uL N 4.0-5.4 [...] Blood Cells % 0 N Urinalysis Profile 02/26/2014 [facility] Urine Color Yellow N [address] [place] [address] [phone] Urine Appearance Cloudy N Urine Specific Pitcher 1.014 N 1.010-1.030 Urine pH 5.0 N [...] Abnormal Absent Urine Bacteria 1+ Abnormal Absent Urine Culture And 02/26/2014 [facility] Urine Culture (SEE NOTE ) 91 Sensitivities [address] [place] [address] [phone] Urinalysis Profile 02/23/2014 [facility] Urine Color Yellow N [address] [place] [address] [phone] Urine Appearance Clear N Urine Specific Pitcher 1.016 N 1.010-1.030 Urine pH 5.0 N 5-9 Urine Urobilinogen Negative N Negative Urine Ketones Negative N Negative Urine Protein Negative N Negative Urine Leukocytes Negative N Negative Urine Blood Negative N Negative Urine Nitrite Negative N Negative Urine Bilirubin Negative N Negative Urine Glucose Negative N Negative 1 Because ethnic data is not always readily [...] 15-29 5 Kidney failure <15 (or dialysis) 2 Critical Result ETOH:438.7 Called to [id number] at: 13:56:14 by:[id number] Read back by:[id number] 3 Therapeutic concentration: <50 ug/mL Toxic concentration: >120 ug/mL 4 The urine specimen was tested at the listed cutoffs: Drug class test level (ng/mL) Amphetamines 500 Barbiturates 200 Benzodiazepine metabolites 200 Cocaine metabolites 150 Cannabinoids 50 Opiates 300 Pcp 25 Specimen was received without chain of custody. Results should be used for medical purposes only. 5 SEE RESULT BELOW Name: NATA DENNIS : [address]: Urban Mcadams MD Acct: [id number] Unit: [id number] AGE: 58 Location: ED Re09/01/18 SEX: F Status: DEP ER SPEC: [id number] MANUEL: 09/01/18-[address] [facility] [address]: Amauri Carrera MD REQ: [id number] RECD: 09/01/18 STATUS: COMP [facility] DR: Rocio Du MACHINE SHOP INSTRUCTOR _ SOURCE: URINE SPDESC: ORDERED: Urine Culture Procedure Result Reported Site Urine Culture Final 09/02/18- 1246 ML No growth of clinically significant organisms * ML - Main Lab . END OF REPORT DEPARTMENT OF PATHOLOGY, [address] [place] [address] Tomer Leija M.D. Director [facility] # [id number] 6 Critical Result ETOH:442.7 Called to [id number] at: 14:31:38 by:MARVIN Read back by:[id number] 7 SEE RESULT BELOW Name: NATA DENNIS : [address]: Familia Sorto MD Acct: [id number] Unit: [id number] AGE: 58 Location: ED Re03/28/18 SEX: F Status: DEP ER SPEC: [id number] MANUEL: 03/29/[address]: Familia Sorto MD REQ: [id number] RECD: 03/29/18 STATUS: LIZ GRANT DR: Rocio Du MACHINE SHOP INSTRUCTOR _ SOURCE: URINE SPDESC: ORDERED: Urine Culture Procedure Result Reported Site Urine Culture Final 03/30/18- 1259 ML No growth of clinically significant organisms * ML - Main Lab . END OF REPORT DEPARTMENT OF PATHOLOGY, [address] [place] [address] Tomer Leija M.D. Director [facility] # [id number] 8 The urine specimen was tested at the listed cutoffs: Drug class test level (ng/mL) Amphetamines 500 Barbiturates 200 Benzodiazepine metabolites 200 Cocaine metabolites 150 Cannabinoids 50 Opiates 300 Pcp 25 Specimen was received without chain of custody. Results should be used for medical purposes only. 9 Therapeutic concentration: <50 ug/mL Toxic concentration: >120 ug/mL 10 Critical Result ETOH:402.7 Called to [id number] at: 20:27:50 by:[id number] Read back by:[id number] 11 Because ethnic data is not always [...] be used for medical purposes only. 13 GAVINO [id number] 14 SEE RESULT BELOW Name: NATA DENNIS : [address]: Elba Rodriguez MD Acct: [id number] Unit: [id number] AGE: 57 Location: [facility] Re02/04/18 SEX: F Status: DEP ER SPEC: [id number] MANUEL: 02/04/18-[address] [facility] [address]: Elba Rodriguez MD REQ: [id number] RECD: 02/04/18 STATUS: LIZ GRANT DR: Rocio Du MACHINE SHOP INSTRUCTOR _ SOURCE: URINE SPDESC: ORDERED: Urine Culture COMMENTS: JeanieJOE [id number] Procedure Result Reported Site Urine Culture Final 02/05/18- 1156 ML No growth of clinically significant organisms * ML - Main Lab . END OF REPORT DEPARTMENT OF PATHOLOGY, [address] [place] [address] Tomer Leija M.D. Director [facility] # [id number] 15 Jewelry Appraiser: [id number] 16 SEE RESULT BELOW Name: NATA DENNIS : [address]: Rafael Torres MD Acct: [id number] Unit: [id number] AGE: 57 Location: ED Re01/29/18 SEX: F Status: DEP ER SPEC: [id number] MANUEL: 01/29/[address]: Mendoza Torres MD REQ: [id number] RECD: 01/29/18 STATUS: LIZ GRANT DR: Rocio Du MACHINE SHOP INSTRUCTOR _ SOURCE: URINE SPDESC: ORDERED: Urine Culture Procedure Result Reported Site Urine Culture Final 01/31/18- 0819 ML Organism 1 ESCHERICHIA COLI [place] Count 1-10,000 (Few) CFU/ML Organism 2 STREP GROUP B Henderson Count 1-10,000 (Few) CFU/ML Susceptibility testing of penicillins and other B-lactams approved by FDA for treatment of Streptococcus pyogenes (Group A Strep) and Streptococcus agalactiae (Group B Strep) is not necessary for clinical purposes and need not be done routinely, since as with vancomycin, resistant strains have not been recognized. (CLSI A253-G73;p.66) Positive isolates will be saved for one [...] CONTINUED ON NEXT PAGE DEPARTMENT OF PATHOLOGY, [address] [place] [address] Tomer Leija M.D. Director [facility] # [id number] Patient: NATA DENNIS [id number] (Continued) Specimen: [id number] Collected: 01/29/18 Received: 01/29/18-1704 (Continued) Procedure Result Reported Site Urine Culture Final (continued) 01/31/18- 818 1. ESCHERICHIA COLI (continued) M.I.C. RX --------- ------ Amoxicillin/Clavulanic Acid 4 S Aztreonam <=1 S Contact the Microbiology Department for any additional antibiotic reporting. * ML - Main Lab . END OF REPORT DEPARTMENT OF PATHOLOGY, [address] [place] [address] Tomer Leija M.D. Director [facility] # [id number] 17 Therapeutic concentration: <50 ug/mL Toxic concentration: >120 ug/mL 18 Critical Result ETOH:473.9 Called to [id number] at: 15:30:01 by:[id number] Read back by:[id number] 19 [facility] Severe Sepsis and Septic Shock Management [...] 5 Kidney failure <15 (or dialysis) 21 SEE RESULT BELOW Name: NATA DENNIS : [address]: Urban Mcadams MD Acct: [id number] Unit: [id number] AGE: 57 Location: ED Re01/26/18 SEX: F Status: REG ER SPEC: [id number] MANUEL: 01/26/[address]: Michelle Nolasco MD REQ: [id number] RECD: 01/26/18 STATUS: LIZ GRANT DR: Rocio Du MACHINE SHOP INSTRUCTOR _ SOURCE: URINE SPDESC: ORDERED: Urine Culture Procedure Result Reported Site Urine Culture Final 01/27/18- 1631 ML No Growth (<1,000 CFU/mL) * ML - Main Lab . END OF REPORT DEPARTMENT OF PATHOLOGY, [address] [place] [address] Tomer Leija M.D. Director [facility] # [id number] 22 Because ethnic data is not always [...] 5 Kidney failure <15 (or dialysis) 23 The urine specimen was tested at the listed cutoffs: Drug class test level (ng/mL) Amphetamines 500 Barbiturates 200 Benzodiazepine metabolites 200 Cocaine metabolites 150 Cannabinoids 50 Opiates 300 Pcp 25 Specimen was received without chain of custody. Results should be used for medical purposes only. 24 Critical Result LACT:2.4 Called to [id number] at: 17:41:11 by:[id number] Read back by:[id number] [facility] Severe Sepsis and Septic Shock Management Bundle Measure requires all lactic acids initially measuring >2.0 mmol/L be repeated. 25 SEE RESULT BELOW Name: NATA DENNIS : [address]: Urban Mcadams MD Acct: [id number] Unit: [id number] AGE: 57 Location: ED Re09/28/17 SEX: F Status: DEP ER SPEC: [id number] MANUEL: 09/29/[address]: Stef Green MD REQ: [id number] RECD: 09/29/17 STATUS: LIZ GRANT DR: Rocio Du MACHINE SHOP INSTRUCTOR _ SOURCE: URINE SPDESC: ORDERED: Urine Culture Procedure Result Reported Site Urine Culture Final 05857 ML Organism 1 STREP GROUP B Henderson Count 50-75,000 (Many) CFU/ML Susceptibility testing of penicillins and other B-lactams approved by FDA for treatment of Streptococcus pyogenes (Group A Strep) and Streptococcus agalactiae (Group B Strep) is not necessary for clinical purposes and need not be done routinely, since as with vancomycin, resistant strains have not been recognized. (CLSI G220-P64;p.66) Positive isolates will be saved for one week. Please call the Microbiology Laboratory if further susceptibility testing is needed. * ML - Main Lab . END OF REPORT DEPARTMENT OF PATHOLOGY, [address] [place] [address] Tomer Leija M.D. Director [facility] # [id number] 26 Because ethnic data is not always readily [...] 15-29 5 Kidney failure <15 (or dialysis) 27 Therapeutic concentration: <50 ug/mL Toxic concentration: >120 ug/mL 28 Critical Result ETOH:508.3 Called to [id number] at: 17:57:06 by:[id number] Read back by:[id number] 29 The urine specimen was tested at the listed cutoffs: Drug class test level (ng/mL) Amphetamines 500 Barbiturates 200 Benzodiazepine metabolites 200 Cocaine metabolites 150 Cannabinoids 50 Opiates 300 Pcp 25 Specimen was received without chain of custody. Results should be used for medical purposes only. 30 Because ethnic data is not always readily [...] 15-29 5 Kidney failure <15 (or dialysis) 31 Therapeutic concentration: <50 ug/mL Toxic concentration: >120 ug/mL 32 The urine specimen was tested at the listed cutoffs: Drug class test level (ng/mL) Amphetamines 500 Barbiturates 200 Benzodiazepine metabolites 200 Cocaine metabolites 150 Cannabinoids 50 Opiates 300 Pcp 25 Specimen was received without chain of custody. Results should be used for medical purposes only. 33 SEE RESULT BELOW Name: NATA DENNIS Ana Maria : [address]: Urban Mcadams MD Acct: [id number] Unit: [id number] AGE: 57 Location: ED Re09/27/17 SEX: F Status: DEP ER SPEC: [id number] MANUEL: 09/27/[address]: Stef Green MD REQ: [id number] RECD: 09/27/17 STATUS: LIZ GRANT DR: Rocio Du MACHINE SHOP INSTRUCTOR _ SOURCE: URINE [facility]: ORDERED: Urine Culture Procedure Result Reported Site Urine Culture Final 09/28/17- 1512 ML Organism 1 STREP GROUP B Henderson Count 50-75,000 (Many) CFU/ML Susceptibility testing of penicillins and other B-lactams approved by FDA for treatment of Streptococcus pyogenes (Group A Strep) and Streptococcus agalactiae (Group B Strep) is not necessary for clinical purposes and need not be done routinely, since as with vancomycin, resistant strains have not been recognized. (CLSI J609-L66;p.66) Positive isolates will be saved for one week. Please call the Microbiology Laboratory if further susceptibility testing is needed. * - Main Lab . END OF REPORT DEPARTMENT OF PATHOLOGY, [address] [place] [address] Tomer Leija M.D. Director [facility] # [id number] 34 NO TRACKING 35 GC/Chlamydia Source?: Thin Prep HPV Source?: Thin Prep Trichomonas Source: Thin Prep 36 SEE RESULT BELOW Name: NATA DENNIS Ana Maria : [address]: Rocio Du NP Acct: [id number] Unit: [id number] AGE: 57 Location: [facility] Re08/12/17 SEX: F Status: REG REF SPEC: [id number] MANUEL: 08/11/17-[address]: Rocio Du NP REQ: [id number] RECD: 08/12/17 STATUS: SOUT _ ORDERED: TP [...] 68. Signed (signature on file) SHAILESH Drew (ASC) 08/13 3657 This Pap test was evaluated with the assistance of the [employer] EnzymesPrep Test Imaging System. Due to cytologic findings at the leather products supervisor microscope, comprehensive manual rescreening by a Hop Grower may be required. The Pap Smear is [...] years. END OF REPORT DEPARTMENT OF PATHOLOGY, [address] [place] [address] Tomer Leija M.D. Director [facility] # [id number] 37 The urine specimen was tested at the listed cutoffs: Drug class test level (ng/mL) Amphetamines 500 Barbiturates 200 Benzodiazepine metabolites 200 Cocaine metabolites 150 Cannabinoids 50 Opiates 300 Pcp 25 Specimen was received without chain of custody. Results should be used for medical purposes only. 38 Therapeutic concentration: <50 ug/mL Toxic concentration: >120 ug/mL 39 The urine specimen was tested at the listed cutoffs: Drug class test level (ng/mL) Amphetamines 500 Barbiturates 200 Benzodiazepine metabolites 200 Cocaine metabolites 150 Cannabinoids 50 Opiates 300 Pcp 25 Specimen was received without chain of custody. Results should be used for medical purposes only. 40 Because ethnic data is not always readily [...] 15-29 5 Kidney failure <15 (or dialysis) 41 Critical Result ETOH:484.6 Called to [id number] at: 20:44:41 by:[id number] Read back by: 42 The urine specimen was tested at the listed cutoffs: Drug class test level (ng/mL) Amphetamines 500 Barbiturates 200 Benzodiazepine metabolites 200 Cocaine metabolites 150 Cannabinoids 50 Opiates 300 Pcp 25 Specimen was received without chain of custody. Results should be used for medical purposes only. 43 [id number] 44 SEE RESULT BELOW Name: NATA DENNIS : [address]: Servando Boone MD Acct: [id number] Unit: [id number] AGE: 56 Location: [facility] Re09/09/16 SEX: F Status: DEP ER SPEC: [id number] MANUEL: 09/09/[address] [facility] [address]: Servando Boone MD REQ: [id number] RECD: 09/09/16 STATUS: LIZ GRANT DR: Simone Jeter MD _ SOURCE: URINE SPDESC: ORDERED: Urine Culture COMMENTS: [id number] Procedure Result Reported Site Urine Culture Final 09/11/16- 825 ML Organism 1 ESCHERICHIA COLI Henderson Count 50-75,000 (Many) CFU/ML Organism 2 NORMAL CLAUDINE [place] Count 25-50,000 (Moderate) CFU/ML 1. ESCHERICHIA COLI [...] antibiotic reporting. * ML - MAIN LAB ([facility]) . END OF REPORT * ML=Testing performed at Main Lab DEPARTMENT OF PATHOLOGY, [address] [place] [address] Tomer Leija M.D. Director [facility] # [id number] 45 Jewelry Appraiser: [id number] 46 Cancelled. Specimen hemolyzed. Unable to perform test requested. Reorder for specimen recollectio 47 [facility] Severe Sepsis and Septic Shock Management Bundle Measure requires all lactic acids initially measuring >2.0 mmol/L be repeated. 48 Because ethnic data is not always readily [...] 15-29 5 Kidney failure <15 (or dialysis) 49 Cancelled. Specimen hemolyzed. Unable to perform test requested. Reorder for specimen recollection. [place]/ED was called for recollect at 215106/10/16 by [id number] 50 99th percentile=0.04 ng/mL Troponin results at [facility] and [facility] are not interchangeable. 51 Therapeutic concentration: <50 ug/mL Toxic concentration: >120 ug/mL 52 Cancelled. Specimen hemolyzed. Unable to perform test requested. Reorder for specimen recollection. [place]/ED was called for recollect at 215106/10/16 by [id number] 53 Cancelled. Specimen hemolyzed. Unable to perform test requested. Reorder for specimen recollection. [place]/ED was called for recollect at 215106/10/16 by [id number] 54 Cancelled. Specimen hemolyzed. Unable to perform test requested. Reorder for specimen recollection. [place]/ED was called for recollect at 215106/10/16 by [id number] 55 FASTING 10 HOUR 56 Normal Range 180 to 914 Indeterminate Range 145 to 180 Deficient Range <145 57 FASTING 10 HOUR 58 ANTIBODY NOT DETECTED REFERENCE RANGE IgG <1:64 IgM <1:20 Anaplasma phagocytophilum is the tick-borne agent causing Human Granulocytic Ehrlichiosis (HGE). HGE is distinct and separate from Human Monocytic Ehrlichiosis (HME), caused by Ehrlichia chaffeensis. Serologic crossreactivity between A. phagocytophilum and E. chaffeensis is minimal (5-15%). This test was developed and its analytical performance characteristics have been determined by [facility]. It has not been cleared or approved by the U.S. Food and Drug Administration. The FDA has determined that such clearance or approval is not necessary. This assay has been validated pursuant to the CLIA regulations and is used for clinical purposes. Test Performed by: [facility], [employer] [address] [place] [address] 59 Desirable <150 Borderline high 150-199 High 200-499 Very High >500 60 Desirable <200 Borderline high 200-239 High >239 61 Low <40 Desirable: 40-60 High: >60 62 Desirable: <100 mg/dL Near Optimal: 100-129 mg/dL Borderline High: 130-159 mg/dL High: 160-189 mg/dL Very High: >189 mg/dL 63 Desirable <150 Borderline high 150-199 High 200-499 Very High >500 64 Desirable <200 Borderline high 200-239 High >239 65 Low <40 Desirable: 40-60 High: >60 66 Desirable: <100 mg/dL Near Optimal: 100-129 mg/dL Borderline High: 130-159 mg/dL High: 160-189 mg/dL Very High: >189 mg/dL 67 Because ethnic data is not always readily [...] 15-29 5 Kidney failure <15 (or dialysis) 68 Because ethnic data is not always [...] 5 Kidney failure <15 (or dialysis) 69 Desirable <150 Borderline high 150-199 High 200-499 Very High >500 70 Desirable <200 Borderline high 200-239 High >239 71 Low <40 Desirable: 40-60 High: >60 72 Desirable: <100 mg/dL Near Optimal: 100-129 mg/dL Borderline High: 130-159 mg/dL High: 160-189 mg/dL Very High: >189 mg/dL 73 Because ethnic data is not always readily [...] 15-29 5 Kidney failure <15 (or dialysis) 74 The urine specimen was tested at the listed cutoffs: Drug class test level (ng/mL) Amphetamines 500 Barbituates 200 Benzodiazepine metabolites 200 Cocaine metabolites 150 Cannabinoids 50 Opiates 300 Pcp 25 This is a screening procedure. Positive results are not confirmed. Specimen was received without chain of custody. Results should be used for medical purposes only. 75 Because ethnic data is not always readily [...] 15-29 5 Kidney failure <15 (or dialysis) 76 Therapeutic concentration: <50 ug/mL Toxic concentration: >120 ug/mL 77 PT IS FASTING 78 Desirable <150 Borderline high 150-199 High 200-499 Very High >500 79 Desirable <200 Borderline high 200-239 High >239 80 Low <40 Desirable: 40-60 High: >60 81 Desirable: <100 mg/dL Near Optimal: 100-129 mg/dL Borderline High: 130-159 mg/dL High: 160-189 mg/dL Very High: >189 mg/dL 82 The urine specimen was tested at the listed cutoffs: Drug class test level (ng/mL) Amphetamines 500 Barbituates 200 Benzodiazepine metabolites 200 Cocaine metabolites 150 Cannabinoids 50 Opiates 300 Pcp 25 This is a screening procedure. Positive results are not confirmed. Specimen was received without chain of custody. Results should be used for medical purposes only. 83 Because ethnic data is not always readily [...] 15-29 5 Kidney failure <15 (or dialysis) 84 Therapeutic concentration: <50 ug/mL Toxic concentration: >120 ug/mL 85 Critical Result ETOH:426.4 Called to [id number] at: 19:20:40 by: Read back by:[id number] 86 Because ethnic data is not always readily [...] 15-29 5 Kidney failure <15 (or dialysis) 87 Desirable <150 Borderline high 150-199 High 200-499 Very High >500 88 Desirable <200 Borderline high 200-239 High >239 89 Low <40 Desirable: 40-60 High: >60 90 Desirable <100 Near Optimal 100-129 Borderline high 130-159 High 160-189 Very High >189 91 RUN DATE: 02/28/14 [facility] LAB LIVE PAGE 1 RUN TIME: [id number] [place], [place] [address] Specimen Inquiry Name: NATA DENNIS : [address]: Justo Nicole MD Acct: [id number] Unit: [id number] AGE: 53 [facility] Re02/26/14 SEX: F Status: REG REF SPEC: [id number] MANUEL: 02/26/[address]: Justo Nicole MD REQ: [id number] RECD: 02/26/14 STATUS: COMP _ SOURCE: URINE SPDESC: ORDERED: Urine Culture QUERIES: Medent Number [id number] Procedure Result Verified Site Urine Culture Final 02/28/14- 0959 ML Organism 1 ESCHERICHIA COLI [place] Count >100,000 (Many) CFU/ML Organism 2 NORMAL CLAUDINE [place] Count 1-10,000 (Few) CFU/ML 1. ESCHERICHIA COLI [...] performed at Main Lab DEPARTMENT OF PATHOLOGY, [address] [place] [address] Tomer Leija M.D. Director [facility] # [id number] Procedures Date Code Description Status 08/26/2017 [id number] Bone Mineral Density Test Completed 08/26/2017 [id number] Mammogram Completed 02/05/2015 [id number] Mammogram Completed 03/02/2014 [id number] Mammogram Completed Encounters Type Date Location Provider Dx Diagnosis Office Visit 09/05/2018 [facility] Internal Rocio Du, F10.288 Alcohol dependence 3:00p Medicine [employer] [employer] [employer] with other alcohol-induced disorder R74.8 Abnormal levels of other serum enzymes R03.0 Elevated blood-pressure reading, w/o diagnosis of htn R00.0 Tachycardia, unspecified M25.569 Pain in unspecified knee Office Visit 04/27/2018 11:00a [facility] Internal Rocio Du, F10.20 Alcohol dependence, Medicine - [employer] [employer] uncomplicated [address] E78.2 Mixed hyperlipidemia Z23 Encounter for immunization M85.851 Oth disrd of bone density and structure, right thigh M85.852 Oth disrd of bone density and structure, left thigh Office Visit 03/16/2018 3:15p [place] G31.84 Mild cognitive Services Of Rafael Manzanares M.D. impairment, so stated F10.288 Alcohol dependence with other alcohol-induced disorder Office Visit 08/11/2017 1:00p [facility] Internal Rocio Du, Z00.00 Encntr for Medicine - [place] [employer] ADVISOR general adult Rd medical exam w/o abnormal findings Z12.4 Encounter for screening for malignant neoplasm of cervix Z12.31 Encntr screen mammogram for malignant neoplasm of breast Z12.11 Encounter for screening for malignant neoplasm of colon E78.2 Mixed hyperlipidemia Z78.0 Asymptomatic menopausal state Z23 Encounter for immunization Office Visit 06/09/2017 3:20p [facility] Internal Rocio Du, F10.21 Alcohol Medicine - [employer] [employer] dependence, in [address] remission E78.2 Mixed hyperlipidemia R73.9 Hyperglycemia, unspecified R53.83 Other fatigue N95.1 Menopausal and female climacteric states Office Visit 06/03/2017 [facility] Cammie F10.920 Alcohol use, 10:13a Assoc,giorgi Saez D.O. unspecified with Hospitalists intoxication, uncomplicated Office Visit 07/01/2016 [facility] [place] G31.84 Mild cognitive 10:00a [facility] Gurinder Manzanares impairment, so stated F10.21 Alcohol dependence, in remission Office Visit 06/04/2016 9:00a [facility] Internal Simone Jeter, Z00.00 Encntr for Medicine - M.D. general adult [address] medical exam w/o abnormal findings Z12.39 Encounter for oth screening for malignant neoplasm of breast K63.5 Polyp of colon E78.2 Mixed hyperlipidemia F33.0 Major depressive disorder, recurrent, mild Office Visit 03/09/2016 1:40p [facility] Internal Simone Jeter, Z23 Encounter for Medicine - M.DPaniflo immunization [address] F33.0 Major depressive disorder, recurrent, mild E78.2 Mixed hyperlipidemia F03.91 Unspecified dementia with behavioral disturbance Office Visit 11/07/2015 [facility] Internal Simone R73.9 Hyperglycemia, 3:00p Fabienne Jeter M.D. unspecified [address] E78.2 Mixed hyperlipidemia Office Visit 10/03/2015 [facility] Internal Simone F10.10 Alcohol abuse, 10:20a Fabienne Jeter M.D. 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 Manzanares
[2018-10-16 06:24] VITALS: BP 125/86
== END 2018-10-16 06:23 | disposition home or self-care (01) ==
LOC: ED 00:22
DX: F10.129 Alcohol abuse with intoxication, unspecified (principal); R55 Syncope and collapse; Z85.3 Personal history of malignant neoplasm of breast; R51 Headache; F17.210 Nicotine dependence, cigarettes, uncomplicated
CPT/HCPCS: 70450; 99282

== ENCOUNTER 2018-10-30 20:16 | Emergency (ER) | payer OTHER ==
--- OUTSIDE RECORDS SUMMARY | 2018-10-30 20:33 | XMS REPORT | Continuity of Care Document ---
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 Primary Care Physician Unavailable Payers Date Identification Numbers Payment Provider Subscriber Effective: 2014 Policy Number: [id number] [employer] Nata Dennis Group Number: [id number] [address] PayID: [id number] [place] [address] Effective: 2013 Policy Number: [id number] Medicaid Nata Dennis Expires: 2014 Group Name: 1 1 [address] PayID: [id number] [place] [address] Problems Active Problems Provider Date Depressive disorder [...] a former smoker Unknown Smoking Status Reviewed: 10/19/18 Patient is a former smoker Exercise Type/Frequency Walks daily Allergies, Adverse Reactions, Alerts Description No Known Drug Allergies Medications Active Medications SIG Qnty Indications Ordering Provider Date Blood Pressure Monitor use daily to 1units R03.0 Rocio Du, 09/05/2018 Auto Inflate monitor bp daily TRAVELING PASSENGER AGENT Misc Vitamin B-Complex 1 by mouth every 90tabs F10.21 Rocio Du, 04/27/2018 day TRAVELING PASSENGER AGENT Tablets Calcium 600+D High 1 by mouth twice 60tabs N95.1 Rocio Du, 06/10/2017 Potency a day TRAVELING PASSENGER AGENT [id number] Tablets Atorvastatin Calcium take 1 tablet at 90tabs E78.2 Rocio Du, 2016 20mg bedtime TRAVELING PASSENGER AGENT Tablets Naltrexone HCL 1 tablet daily Unknown 50mg in the morning Tablets Vitamin B1 1 by mouth every 30tabs Rocio Du, 100mg Tablets day TRAVELING PASSENGER AGENT Fluoxetine HCL 1 by mouth every Unknown 40mg day Capsules History Medications Calcium Carbonate-Vitamin Take One 60tabs Rocio Du, 09/24/2017 - D Tablet By TRAVELING PASSENGER AGENT 12/07/2017 [id number] Tablets Mouth Two Times Daily Calcium 1200 1 by mouth 90units N95.1 Rocio Du, 06/09/2017 - [id number] every day TRAVELING PASSENGER AGENT 06/10/2017 Chewtabs Thiamine HCL 1 by mouth 30tabs Simone 10/03/2015 - 100mg Tablets every day Steffany 07/01/2016 M.DPanfilo Anastrozole 1 by mouth Justo Nicole, 02/23/2014 - 1mg Tablets every day M.D. 10/18/2014 Citalopram Hydrobromide 1 by mouth 30tabs Justo Nicole, 02/23/2014 - 20mg every day M.D. 10/03/2015 Tablets Vitamin B-1 once a day 90tabs Justo Nicole, 02/23/2014 - 100mg Tablets M.D. 10/03/2015 Folic Acid 1 by mouth 90tabs 305.00 Justo Nicole, 02/23/2014 - 1mg Tablets every day M.D. 10/03/2015 Cranberry 1 tabs twice Unknown - 250mg Capsules daily 10/18/2014 Magnesium 1 by mouth Unknown - 500mg Capsules every day 10/18/2014 Fluoxetine HCL 1 by mouth Unknown - 20mg Capsules every day 10/19/2018 Sertraline HCL 1 by mouth Unknown - 100mg Tablets every day 03/09/2016 Vitamin D take one Unknown - (Ergocalciferol) capsule by 07/01/2016 [id number] mouth once Capsules weekly Immunizations CPT Code Status Date Vaccine Lot # [id number] Given 04/27/2018 Influenza Virus Vaccine, Quadrivalent, Split, [id number] Preservative Free [id number] Given 08/11/2017 Tdap - Tetanus/Diptheria/Acellular Pertussis [id number] Given 03/09/2016 Influ Virus Vaccine, Quadrivalent, Split Virus, [place] [id number] [address] Given 10/03/2015 Pneumonia Vaccine [id number] Vital Signs Date Vital Result Comment 10/19/2018 2:40pm Height 67 inches 5'7" Weight 142.38 lb Heart Rate 78 /min BP Systolic 131 mmHg BP Diastolic 82 mmHg Body Temperature 99.1 F O2 % BldC Oximetry 97 % BMI (Body Mass Index) 22.3 kg/m2 09/29/2018 9:53am Height 67 inches 5'7" Weight [...] H/L Range Note CBC Auto Diff 09/01/2018 [facility] White Blood 11.4 10^3/uL High 3.5-10.[address] [place] [address] [phone] Red Blood Count 4.03 10^6/uL N 3.70-4.87 [...] Cells % 0.1 Comp Metabolic Panel 09/01/2018 [facility] Sodium 139 mmol/L N 135-[address] [place] [address] [phone] Potassium 3.4 mmol/L Low 3.5-5.0 Chloride 98 [...] Egfr 101.4 >60 1 Laboratory test 09/01/2018 [facility] TSH (Thyroid 1.12 mcIU/mL N 0.34-5.[address] Stim Horm) [place] [address] [phone] Salicylate < 2.50 mg/dL <30 Alcohol 439 mg/dL High <10 2 Acetaminophen 10 g/mL 3 Urine Drug 09/01/2018 [facility] Urine None Detected None Detect SCR ED & [address] [place] [address] Screen [phone] Urine Barbiturates Screen None Detected None Detect Urine Benzodiazepine Screen None Detected None Detect Urine Cannabinoids Screen None Detected None Detect Urine Cocaine Screen None Detected None Detect Urine Opiates Screen None Detected None Detect Urine Phencyclidine Screen None Detected None Detect 4 Urinalysis Profile 09/01/2018 [facility] Urine Color Yellow [address] [place] [address] [phone] Urine Appearance Cloudy Urine Specific [place] 1.017 N 1.010-1.030 Urine pH 5.0 N [...] Present Abnormal Absent Urine Culture And 09/01/2018 [facility] Urine SEE RESULT [address] [place] [place] [address] [phone] Laboratory test 07/14/2018 [facility] Alcohol 443 mg/dL High < 10 [address] [place] [address] [phone] CBC Auto Diff 03/28/2018 [facility] White Blood 6.3 10^3/uL N 3.5-[address] Count 0.8 [place] [address] [phone] Red Blood Count 3.97 10^6/uL Low 4.00-5.40 [...] Cells % 0.1 Comp Metabolic Panel 03/28/2018 [facility] Sodium 140 mmol/L N 135-[address] [place] [address] [phone] Potassium 4.4 mmol/L N 3.5-5.0 Chloride 105 [...] Egfr Non- 59.4 >60 Egfr 71.9 >60 7 Laboratory test 03/28/2018 [facility] Acetaminophen < 15 g/mL [address] [place] [address] [phone] Salicylate < 2.50 mg/dL <30 Alcohol 403 mg/dL High <10 9 TSH (Thyroid Stim Horm) 1.57 mcIU/mL N 0.34-5.60 Urine Drug 03/28/2018 [facility] Amphetamine Ur None Detected None Detect SCR ED & [address] [place] [place] [address] [phone] Barbiturates Urine Screen None Detected None Detect Benzodiazepine Urine Screen None Detected None Detect Urine Cannabinoids Screen None Detected None Detect Urine Cocaine Screen None Detected None Detect Urine Opiates Screen None Detected None Detect Urine Phencyclidine Screen None Detected None Detect 10 Urinalysis Profile 03/28/2018 [facility] Urine Color Yellow [address] [place], [place] [id number] [phone] Urine Appearance Clear Urine Specific [place] 1.009 Low 1.010-1.030 Urine pH 5.0 N [...] Casts Present Abnormal Absent Urine Culture 03/28/2018 [facility] Urine Culture SEE RESULT [address] [place] [address] [phone] Laboratory test 02/11/2018 [facility] Alcohol 388 mg/dL High < [address] [place], [place] [id number] [phone] Urine Drug SCR 02/11/2018 [facility] Amphetamine Ur None None ED & [facility] [place] [address] [phone] Barbiturates Urine Screen None Detected None Detect Benzodiazepine Urine Screen None Detected None Detect Urine Cannabinoids Screen None Detected None Detect Urine Cocaine Screen None Detected None Detect Urine Opiates Screen None Detected None Detect Urine Phencyclidine Screen None Detected None Detect 12 Urine Culture And 02/04/2018 [facility] Urine SEE RESULT 13 , [address] Culture BELOW [place], [place] [id number] [phone] Poc Urinalysis 02/04/2018 [facility] Poc Negative Negative [address] Glucose, [place] [address] Urine [phone] Poc Bilirubin, Urine Negative Negative Poc Ketone, Urine Negative Negative Poc Specific [place], Urine 1.010 N 1.010-1.030 Poc Blood, Urine 3+ Abnormal Negative Poc pH, Urine 7.0 N 5-9 Poc Protein, Urine 2+ Abnormal Negative Poc Urobilinogen, Urine 0.2 Negative Poc Nitrite, Urine Negative Negative Poc Leukocytes, Urine 3+ Abnormal Negative Poc Color, Urine Yellow Poc Clarity, Urine Cloudy 15 CBC Auto Diff 01/29/2018 [facility] White Blood 7.3 10^3/uL N 3.5-10.[address] Count [place], [place] [address] [phone] Red Blood Count 3.74 10^6/uL Low 4.00-5.40 [...] Red Blood Cells % 0 Inr/Protime 01/29/2018 [facility] Inr 1.01 N 0.77-1.02 [address] [place] [address] [phone] Laboratory test 01/29/2018 [facility] Lactic Acid 1.7 mmol/L N 0.5-2.0 16 finding [address] [place] [address] [phone] Ammonia 36 mcmol/L N 16-53 Troponin-I (TnI) 0.01 ng/mL <0.04 Comp Metabolic Panel 01/29/2018 [facility] Sodium 143 mmol/L N 135-145 [address] [place] [address] [phone] Potassium 3.8 mmol/L N 3.5-5.0 Chloride 107 [...] Egfr Non- 76.7 >60 Egfr 92.8 >60 17 Laboratory test 01/29/2018 [facility] Magnesium 2.0 mg/dL N 1.9-2.[address] [place] [address] [phone] Acetaminophen < 15 g/mL 18 Salicylate < 2.50 mg/dL <30 Alcohol 474 mg/dL High <10 19 Urinalysis Profile 01/29/2018 [facility] Urine Color Straw [address] [place] [address] [phone] Urine Appearance Clear Urine Specific [place] 1.008 Low 1.010-1.030 Urine pH 6.0 N [...] Epithelial Cell Present Abnormal Absent Urine Culture And 01/29/2018 [facility] Urine SEE RESULT [address] [place] [place] [address] [phone] Inr/Protime 01/26/2018 [facility] Inr 1.05 High 0.77- [address] 1.02 [place] [address] [phone] CBC Auto Diff 01/26/2018 [facility] White Blood 6.4 10^3/uL N 3.5-[address] Count 0.8 [place] [address] [phone] Red Blood Count 3.47 10^6/uL Low 4.00-5.40 [...] Nucleated Red Blood Cells % 0.1 Laboratory 01/26/2018 [facility] Lactic Acid 2.4 mmol/L High 0.5-2.0 21 test finding [address] [place] [address] [phone] Urine Drug SCR 01/26/2018 [facility] Amphetamine Ur None None ED & Pain [address] [place] [address] [phone] Barbiturates Urine Screen None Detected None Detect Benzodiazepine Urine Screen None Detected None Detect Urine Cannabinoids Screen None Detected None Detect Urine Cocaine Screen None Detected None Detect Urine Opiates Screen None Detected None Detect Urine Phencyclidine Screen None Detected None Detect 22 Type & Screen 01/26/2018 [facility] Patient Blood Type B Positive [address] [place] [address] [phone] Antibody Screen NEGATIVE Urinalysis Profile 01/26/2018 [facility] Urine Color Straw [address] [place] [address] [phone] Urine Appearance Clear Urine Specific [place] 1.011 N 1.010-1.030 Urine pH 6.0 N [...] Absent Urine Hyaline Casts Present Abnormal Absent Comp Metabolic Panel 01/26/2018 [facility] Sodium 138 mmol/L N 135-[address] [place] [address] [phone] Potassium 3.3 mmol/L Low 3.5-5.0 Chloride 111 [...] Egfr Non- 75.6 >60 Egfr 91.4 >60 23 Laboratory test finding 01/26/2018 [facility] Amylase 53 U/L N 29-[address] [place] [address] [phone] Lipase 21 U/L N 11.0-82.0 Creatine Kinase(CK) 87 U/L N 10-223 Troponin-I (TnI) 0.00 ng/mL <0.04 Alcohol 290 mg/dL High <10 Urine Culture And 01/26/2018 [facility] Urine SEE RESULT [address] [place] [address] [phone] Laboratory test 09/29/2017 [facility] Alcohol 201 mg/dL High < [address] [place] [address] [phone] CBC Auto Diff 09/28/2017 [facility] White Blood 8.3 10^3/uL N 3.5-[address] Count 0.8 [place] [address] [phone] Red Blood Count 3.99 10^6/uL Low 4.0-5.4 [...] Cells % 0.1 Comp Metabolic Panel 09/28/2017 [facility] Sodium 143 mmol/L N 139-[address] [place] [address] [phone] Potassium 3.8 mmol/L N 3.5-5.0 Chloride 108 [...] Egfr Non- 76.7 >60 Egfr 98.6 >60 25 Laboratory test 09/28/2017 [facility] Acetaminophen < 15 g/mL [address] [place] [address] [phone] Salicylate < 2.50 mg/dL <30 Alcohol 508 mg/dL High <10 27 TSH (Thyroid Stim Horm) 0.67 mcIU/mL N 0.34-5.60 Urinalysis Profile 09/28/2017 [facility] Urine Color Yellow [address] [place] [address] [phone] Urine Appearance Clear Urine Specific [place] 1.014 N 1.010-1.030 Urine pH 7.0 N [...] Cell Present Abnormal Absent Urine Drug 09/28/2017 [facility] Amphetamine Ur None Detected None Detect SCR ED & [address] [place] [address] [phone] Barbiturates Urine Screen None Detected None Detect Benzodiazepine Urine Screen None Detected None Detect Urine Cannabinoids Screen None Detected None Detect Urine Cocaine Screen None Detected None Detect Urine Opiates Screen None Detected None Detect Urine Phencyclidine Screen None Detected None Detect 28 Urine Culture And 09/28/2017 [facility] Urine SEE RESULT [address] [place] [address] [phone] Laboratory test 09/27/2017 [facility] Alcohol 115 mg/dL High < [address] [place] [address] [phone] CBC Auto Diff 09/27/2017 [facility] White Blood 7.3 10^3/uL N 3.5-[address] Count 0.8 [place], [place] [address] [phone] Red Blood Count 4.26 10^6/uL N 4.0-5.4 [...] Cells % 0 Comp Metabolic Panel 09/27/2017 [facility] Sodium 141 mmol/L N 139-[address] [place] [address] [phone] Potassium 3.7 mmol/L N 3.5-5.0 Chloride 104 [...] Egfr 79.5 >60 30 Laboratory test 09/27/2017 [facility] Acetaminophen < 15 g/mL [address] [place], [place] [address] [phone] Alcohol 337 mg/dL High <10 Salicylate < 2.50 mg/dL <30 TSH (Thyroid Stim Horm) 0.39 mcIU/mL N 0.34-5.60 Urine Drug 09/27/2017 [facility] Amphetamine Ur None Detected None Detect SCR ED & [address] [place] [address] [phone] Barbiturates Urine Screen None Detected None Detect Benzodiazepine Urine Screen None Detected None Detect Urine Cannabinoids Screen None Detected None Detect Urine Cocaine Screen None Detected None Detect Urine Opiates Screen None Detected None Detect Urine Phencyclidine Screen None Detected None Detect 32 Urinalysis Profile 09/27/2017 [facility] Urine Color Straw [address] [place], [place] [address] [phone] Urine Appearance Clear Urine Specific [place] 1.005 Low 1.010-1.030 Urine pH 5.0 N [...] Cell Present Abnormal Absent Urine Culture 09/27/2017 [facility] Urine Culture SEE RESULT [address] BELOW Sensitivities [place], [place] [id number] [phone] Laboratory test 08/12/2017 [facility] Cytology SEE RESULT 34, finding [address] BELOW 35 [place] [address] [phone] GC/Chlamydia 08/12/2017 [facility] Chlamydia Negative Negative Amplified Rna [address] [place] [address] Rna [phone] Neisseria gonorrhoeae (GC) Rna Negative Negative Laboratory 08/12/2017 [facility] Trichomonas Negative Negative 36 test finding [address] [place] [address] [phone] Urine Drug SCR 07/26/2017 [facility] Amphetamine Ur None None Detect ED & Pain [address] [place] [address] [phone] Barbiturates Urine Screen None Detected None Detect Benzodiazepine Urine Screen None Detected None Detect Urine Cannabinoids Screen None Detected None Detect Urine Cocaine Screen None Detected None Detect Urine Opiates Screen None Detected None Detect Urine Phencyclidine Screen None Detected None Detect 37 CBC Auto Diff 06/24/2017 [facility] White Blood 4.9 10^3/uL N 3.5-10.[address] [place] [address] [phone] Red Blood Count 4.22 10^6/uL N 4.0-5.4 [...] Blood Cells % 0.1 Comp Metabolic Panel 06/24/2017 [facility] Sodium 143 mmol/L N 133-[address] [place] [address] [phone] Potassium 4.0 mmol/L N 3.5-5.0 Chloride 101 [...] Egfr Non- 82.8 >60 Egfr 106.4 >60 38 Laboratory test 06/24/2017 [facility] Acetaminophen < 15 g/mL 39 finding [address] [place] [address] [phone] Alcohol 390 mg/dL High <10 Salicylate < 2.50 mg/dL <30 TSH (Thyroid Stim Horm) 1.29 mcIU/mL N 0.34-5.60 Urinalysis Profile 06/24/2017 [facility] Urine Color Yellow [address] [place] [address] [phone] Urine Appearance Clear Urine Specific [place] 1.005 Low 1.010-1.030 Urine pH 6.0 N [...] Cell Present Abnormal Absent Urine Drug 06/24/2017 [facility] Amphetamine Ur None Detected None Detect SCR ED & [address] [place] [address] [phone] Barbiturates Urine Screen None Detected None Detect Benzodiazepine Urine Screen None Detected None Detect Urine Cannabinoids Screen None Detected None Detect Urine Cocaine Screen None Detected None Detect Urine Opiates Screen None Detected None Detect Urine Phencyclidine Screen None Detected None Detect 40 Urine Drug 06/01/2017 [facility] Amphetamine Ur None Detected None Detect SCR ED & [address] [place] [address] [phone] Barbiturates Urine Screen None Detected None Detect Benzodiazepine Urine Screen None Detected None Detect Urine Cannabinoids Screen None Detected None Detect Urine Cocaine Screen None Detected None Detect Urine Opiates Screen None Detected None Detect Urine Phencyclidine Screen None Detected None Detect 41 Laboratory test 06/01/2017 [facility] Alcohol 485 mg/dL High < 10 [address] [place], [place] [address] [phone] Urine Culture And 09/09/2016 [facility] Urine SEE RESULT 43 , Sensitivities [address] Culture BELOW [address] [place], [place] [address] [phone] Poc Urinalysis 09/09/2016 [facility] Poc Negative N Negative [address] Glucose, [place] [address] Urine [phone] Poc Bilirubin, Urine Negative N Negative Poc Ketone, Urine Negative N Negative Poc Specific [place], Urine >=1.030 N 1.010-1.030 Poc Blood, Urine 3+ Abnormal Negative Poc pH, Urine 6.0 N 5-9 Poc Protein, Urine 3+ Abnormal Negative Poc Urobilinogen, Urine 0.2 N Negative Poc Nitrite, Urine Positive Abnormal Negative Poc Leukocytes, Urine 2+ Abnormal Negative Poc Color, Urine Other N Poc Clarity, Urine Cloudy N 45 Laboratory test 06/10/2016 [facility] Potassium TNP mmol/L N 3.5-5.0 [address] [place] [address] [phone] Ast Redraw TNP U/L N 13-39 CBC Auto Diff 06/10/2016 [facility] White Blood 8.6 10^3/uL N 3.5-10.[address] [place] [address] [phone] Red Blood Count 4.11 10^6/uL N 4.0-5.4 [...] Cells % 0.2 N Laboratory test 06/10/2016 [facility] Lactic Acid 1.5 mmol/L N 0.5-2.0 47 finding [address] [place] [address] [phone] Ammonia 40 ?mol/L N 16-53 Comp Metabolic Panel 06/10/2016 [facility] Sodium 138 mmol/L N 133-145 [address] [place] [address] [phone] Chloride 105 mmol/L N 101-111 Co2 Carbon [...] TNP U/L N 13-39 Laboratory test 06/10/2016 [facility] Creatine 100 U/L N 10- 223 49 finding 101 Kinase(CK) [place] [address] [phone] Troponin-I (TnI) 0.00 ng/mL N <0.04 50 Acetaminophen < 15 g/mL N 51 Alcohol 337 mg/dL High <10 52 Salicylate < 2.50 mg/dL N <30 53 TSH (Thyroid Stim Horm) 0.96 mcIU/mL N 0.34-5.60 54 Lipid Profile 03/30/2016 [facility] Triglycerides 126 mg/dL N 55 (Trig/Chol/HDL) [address] [place], [place] [address] [phone] Cholesterol 290 mg/dL N 56 HDL Cholesterol 86.1 mg/dL N 57 LDL Cholesterol 179 mg/dL N 58 Laboratory test 03/30/2016 [facility] TSH (Thyroid 0.88 mcIU/mL N 0.34-5.[address] Stim Horm) [place] [address] [phone] Vitamin B12 And 03/30/2016 [facility] Vitamin B12 289 pg/mL N 180-914 [address] [place] [address] [phone] Folic Acid (Folate) 16.22 ng/mL N >3.99 61 Anaplasma 03/30/2016 [facility] A. phagocytophilum <1:64 N Phagocytophilum Abs 101 IgG Igg,[place] [address] [phone] A. phagocytophilum IgM <1:20 N A. phagocytophilum Interp See Comment N 62 Lipid Profile 11/26/2015 [facility] Triglycerides 153 mg/dL N 63 (Trig/Chol/HDL) [address] [place] [address] [phone] Cholesterol 259 mg/dL N 64 HDL Cholesterol 78.5 mg/dL N 65 LDL Cholesterol 150 mg/dL N 66 Comp Metabolic Panel 11/26/2015 [facility] Sodium 137 mmol/L N 133-[address] [place] [address] [phone] Potassium 4.2 mmol/L N 3.5-5.0 Chloride 105 [...] 104.0 N >60 67 Laboratory test 11/07/2015 [facility] Hemoglobin A1c 5.1 5-7 finding Lipid Profile 11/04/2015 [facility] Triglycerides 78 mg/dL N 68 (Trig/Chol/HDL) [address] [place] [address] [phone] Cholesterol 290 mg/dL N 69 HDL Cholesterol 110.8 mg/dL N 70 LDL Cholesterol 164 mg/dL N 71 Comp Metabolic Panel 11/04/2015 [facility] Sodium 135 mmol/L N 133-145 [address] [place] [address] [phone] Potassium 3.5 mmol/L N 3.5-5.0 Chloride 99 [...] 70.9 N >60 Egfr 91.2 N >60 72 Basic Metabolic Panel 11/07/2014 [facility] Sodium 139 mmol/L N 133-[address] [place] [address] [phone] Potassium 4.2 mmol/L N 3.5-5.0 Chloride 102 mmol/L N 101-111 Co2 Carbon Dioxide 29 mmol/L N 22-32 Anion Gap 8 mmol/L N 2-11 Glucose 77 mg/dL N 70-100 Blood Urea Nitrogen 18 mg/dL N 6-24 Creatinine 0.83 mg/dL N 0.51-0.95 BUN/Creatinine Ratio 21.7 High 8-20 Calcium 10.4 mg/dL High 8.6-10.3 Egfr Non- 72.2 N >60 Egfr 92.8 N >60 73 Pthi 11/07/2014 [facility] Calcium (PTH Intact) 10.3 mg/dL N 8.6-10.[address] [place] [address] [phone] PTH Intact 5.3 pmol/L N 1.3-9.3 CBC Auto Diff 07/28/2014 [facility] White Blood 5.1 10^3/uL N 4.8-10.[address] [place] [address] [phone] Red Blood Count 3.91 10^6/uL Low 4.0-5.4 [...] Cells % 0 N Urinalysis Profile 07/28/2014 [facility] Urine Color Straw N [address] [place] [address] [phone] Urine Appearance Clear N Urine Specific [place] 1.003 Low 1.010-1.030 Urine pH 6.0 N 5-9 Urine Urobilinogen Negative N Negative Urine Ketones Negative N Negative Urine Protein Negative N Negative Urine Leukocytes Negative N Negative Urine Blood Negative N Negative Urine Nitrite Negative N Negative Urine Bilirubin Negative N Negative Urine Glucose Negative N Negative Urine Drug 07/28/2014 [facility] Amphetamine Ur None Detected N None Detect SCR ED & [address] [place] [address] [phone] Barbiturates Urine Screen None Detected N None Detect Benzodiazepine Urine Screen None Detected N None Detect Urine Cannabinoids Screen None Detected N None Detect Urine Cocaine Screen None Detected N None Detect Urine Opiates Screen None Detected N None Detect Urine Phencyclidine Screen None Detected N None Detect 74 Comp Metabolic Panel 07/28/2014 [facility] Sodium 140 mmol/L N 133-[address] [place] [address] [phone] Potassium 4.1 mmol/L N 3.5-5.0 Chloride 105 [...] 101.2 N >60 75 Laboratory test 07/28/2014 [facility] Acetaminophen < 15 g/mL N [address] [place] [address] [phone] Alcohol < 10 mg/dL N <10 Salicylate < 2.50 mg/dL N <30 TSH (Thyroid Stimulating Horm) 0.60 IU/mL N 0.34-5.60 Lipid Profile 07/16/2014 [facility] Triglycerides 103 mg/dL N 77, 78 (Trig/Chol/HDL) [address] [place] [address] [phone] Cholesterol 244 mg/dL N 79 HDL Cholesterol 94.6 mg/dL N 80 LDL Cholesterol 129 mg/dL N 81 Urine Drug 05/28/2014 [facility] Amphetamine Ur None Detected N None Detect SCR ED & [address] [place] [address] [phone] Barbiturates Urine Screen None Detected N None Detect Benzodiazepine Urine Screen None Detected N None Detect Urine Cannabinoids Screen None Detected N None Detect Urine Cocaine Screen None Detected N None Detect Urine Opiates Screen None Detected N None Detect Urine Phencyclidine Screen None Detected N None Detect 82 CBC Auto Diff 05/28/2014 [facility] White Blood 8.4 10^3/uL N 4.8-10.[address] [place] [address] [phone] Red Blood Count 4.17 10^6/uL N 4.0-5.4 [...] % 0.1 N Comp Metabolic Panel 05/28/2014 [facility] Sodium 140 mmol/L N 133-145 [address] [place] [address] [phone] Potassium 3.6 mmol/L N 3.5-5.0 Chloride 102 [...] 83.5 N >60 83 Laboratory test 05/28/2014 [facility] Acetaminophen < 15 g/mL N 84 finding [address] [place] [address] [phone] Alcohol 426 mg/dL High <10 85 Salicylate < 2.50 mg/dL N <30 TSH (Thyroid Stimulating Horm) 0.31 IU/mL Low 0.34-5.60 Magnesium 1.7 mg/dL Low 1.9-2.7 Urinalysis Profile 05/28/2014 [facility] Urine Color Yellow N [address] [place] [address] [phone] Urine Appearance Clear N Urine Specific [place] 1.011 N 1.010-1.030 Urine pH 5 N 5-9 Urine Urobilinogen Negative N Negative Urine Ketones Trace Abnormal Negative Urine Protein Negative N Negative Urine Leukocytes Negative N Negative Urine Blood Negative N Negative Urine Nitrite Negative N Negative Urine Bilirubin Negative N Negative Urine Glucose Negative N Negative Urine Culture And 02/26/2014 [facility] Urine Culture (SEE NOTE ) [address] [place] [address] [phone] Urinalysis Profile 02/26/2014 [facility] Urine Color Yellow N [address] [place] [address] [phone] Urine Appearance Cloudy N Urine Specific [place] 1.014 N 1.010-1.030 Urine pH 5.0 N [...] 1+ Abnormal Absent CBC Auto Diff 02/26/2014 [facility] White Blood 7.7 10^3/uL N 4.8-10.[address] [place] [address] [phone] Red Blood Count 4.05 10^6/uL N 4.0-5.4 [...] Nucleated Red Blood Cells % 0 N Laboratory test 02/26/2014 [facility] TSH (Thyroid 1.23 IU/mL N 0.34-5.[address] [place] [address] Horm) [phone] Hepatitis C Antibody Nonreactive N Nonreactive Lipid Profile 02/26/2014 [facility] Triglycerides 141 mg/dL N 87 (Trig/Chol/HDL) [address] [place] [address] [phone] Cholesterol 270 mg/dL N 88 HDL Cholesterol 71.6 mg/dL N 89 LDL Cholesterol 170 mg/dL N 90 Comp Metabolic Panel 02/26/2014 [facility] Sodium 138 mmol/L N 133-145 [address] [place] [address] [phone] Potassium 4.5 mmol/L N 3.7-5.6 Chloride 103 [...] 71.5 N >60 Egfr 91.9 N >60 91 Urinalysis Profile 02/23/2014 [facility] Urine Color Yellow [place] [address] [place] [address] [phone] Urine Appearance Clear N Urine Specific [place] 1.016 N 1.010-1.030 Urine pH 5.0 N [...] dialysis) 2 Critical Result ETOH:438.7 Called to [id number] at: 13:56:14 by:[id number] Read back by:[id number] 3 Therapeutic concentration: <50 ug/mL Toxic concentration: [...] [address]: Urban Mcadams MD Acct: [id number] Unit: [id number] AGE: 58 Location: ED Re09/01/18 SEX: F Status: DEP ER SPEC: [id number] MANUEL: 09/01/18-[address] [facility] [address]: Amauri Carrera MD REQ: [id number] RECD: 09/01/18 STATUS: LIZ GRANT DR: Rocio Du LENS SILVERER _ SOURCE: URINE SPDESC: ORDERED: Urine Culture Procedure Result Reported Site Urine Culture Final 09/02/18- 1246 ML No growth of clinically significant organisms * ML - Main Lab . END OF REPORT DEPARTMENT OF PATHOLOGY, [address] [place] [address] Tomer Leija M.D. Director [facility] # [id number] 6 Critical Result ETOH:442.7 Called to [id number] at: 14:31:38 by:[id number] Read back by:[id number] 7 Because ethnic data is not always readily [...] 15-29 5 Kidney failure <15 (or dialysis) 8 Therapeutic concentration: <50 ug/mL Toxic concentration: >120 ug/mL 9 Critical Result ETOH:402.7 Called to [id number] at: 20:27:50 by:[id number] Read back by:[id number] 10 The urine specimen was tested at the listed cutoffs: Drug class test level (ng/mL) Amphetamines 500 Barbiturates 200 Benzodiazepine metabolites 200 Cocaine metabolites 150 Cannabinoids 50 Opiates 300 Pcp 25 Specimen was received without chain of custody. Results should be used for medical purposes only. 11 SEE RESULT BELOW Name: NATA DENNIS : [address]: Familia Sorto MD Acct: [id number] Unit: [id number] AGE: 58 Location: ED Re03/28/18 SEX: F Status: DEP ER SPEC: [id number] MANUEL: 03/29/[address]: Familia Sorto MD REQ: [id number] RECD: 03/29/18 STATUS: LIZ GRANT DR: Rocio Du LENS SILVERER _ SOURCE: URINE SPDESC: ORDERED: Urine Culture Procedure Result Reported Site Urine Culture Final 03/30/18- 1259 ML No growth of clinically significant organisms * ML - Main Lab . END OF REPORT DEPARTMENT OF PATHOLOGY, [address] [place] [address] Tomer Leija M.D. Director [facility] # [id number] 12 The urine specimen was tested at the listed cutoffs: Drug class test level (ng/mL) Amphetamines 500 Barbiturates 200 Benzodiazepine metabolites 200 Cocaine metabolites 150 Cannabinoids 50 Opiates 300 Pcp 25 Specimen was received without chain of custody. Results should be used for medical purposes only. 13 GAVINO [id number] 14 SEE RESULT BELOW Name: NATA DENNIS Ana Maria : [address]: Elba Rodriguez MD Acct: [id number] Unit: [id number] AGE: 57 Location: [facility] Re02/04/18 SEX: F Status: DEP ER SPEC: [id number] MANUEL: 02/04/18-[address] [facility] [address]: Elba Rodriguez MD REQ: [id number] RECD: 02/04/18 STATUS: LIZ GRANT DR: Rocio Du LENS SILVERER _ SOURCE: URINE SPDESC: ORDERED: Urine Culture COMMENTS: GAVINO [id number] Procedure Result Reported Site Urine Culture Final 02/05/18- 1156 ML No growth of clinically significant organisms * ML - Main Lab . END OF REPORT DEPARTMENT OF PATHOLOGY, [address] [place] [address] Tomer Leija M.D. Director [facility] # [id number] 15 Storyboard Artist: [id number] 16 [facility] Severe Sepsis and Septic Shock Management Bundle Measure requires all lactic acids initially measuring >2.0 mmol/L be repeated. 17 Because ethnic data is not always [...] 5 Kidney failure <15 (or dialysis) 18 Therapeutic concentration: <50 ug/mL Toxic concentration: >120 ug/mL 19 Critical Result ETOH:473.9 Called to [id number] at: 15:30:01 by:[id number] Read back by:[id number] 20 SEE RESULT BELOW Name: NATA DENNIS : [address]: Rafael Torres MD Acct: [id number] Unit: [id number] AGE: 57 Location: ED Re01/29/18 SEX: F Status: DEP ER SPEC: [id number] MANUEL: 01/29/[address] [facility] [address]: Mendoza Torres MD REQ: [id number] RECD: 01/29/18 STATUS: LIZ GRANT DR: Rocio Du LENS SILVERER _ SOURCE: URINE SPDESC: ORDERED: Urine Culture Procedure Result Reported Site Urine Culture Final 01/31/18- 818 ML Organism 1 ESCHERICHIA COLI [place] Count 1-10,000 (Few) CFU/ML Organism 2 STREP GROUP B [place] Count 1-10,000 (Few) CFU/ML Susceptibility testing of penicillins and other B-lactams approved by FDA for treatment of Streptococcus pyogenes (Group A Strep) and Streptococcus agalactiae (Group B Strep) is not necessary for clinical purposes and need not be done routinely, since as with vancomycin, resistant strains have not been recognized. (CLSI J624-X14;p.66) Positive isolates will be saved for one [...] CONTINUED ON NEXT PAGE DEPARTMENT OF PATHOLOGY, [address] [place] [address] Tomer Leija M.D. Director [facility] # [id number] Patient: NATA DENNIS [id number] (Continued) Specimen: [id number] Collected: 01/29/18 Received: 01/29/18 (Continued) Procedure Result Reported Site Urine Culture Final (continued) 01/31/18- 818 1. ESCHERICHIA COLI (continued) M.I.C. RX --------- ------ Amoxicillin/Clavulanic Acid 4 S Aztreonam <=1 S Contact the Microbiology Department for any additional antibiotic reporting. * ML - Main Lab . END OF REPORT DEPARTMENT OF PATHOLOGY, [address] [place] [address] Tomer Leija M.D. Director [facility] # [id number] 21 Critical Result LACT:2.4 Called to [id number] at: 17:41:11 by:[id number] Read back by:[id number] [facility] Severe Sepsis and Septic Shock Management Bundle Measure requires all lactic acids initially measuring >2.0 mmol/L be repeated. 22 The urine specimen was tested at the listed cutoffs: Drug class test level (ng/mL) Amphetamines 500 Barbiturates 200 Benzodiazepine metabolites 200 Cocaine metabolites 150 Cannabinoids 50 Opiates 300 Pcp 25 Specimen was received without chain of custody. Results should be used for medical purposes only. 23 Because ethnic data is not always readily [...] 15-29 5 Kidney failure <15 (or dialysis) 24 SEE RESULT BELOW Name: NATA DENNIS : [address]: Urban Mcadams MD Acct: [id number] Unit: [id number] AGE: 57 Location: ED Re01/26/18 SEX: F Status: REG ER SPEC: [id number] MANUEL: 01/26/[address] [facility] [address]: Michelle Nolasco MD REQ: [id number] RECD: 01/26/18 STATUS: LIZ GRANT DR: Rocio Du LENS SILVERER _ SOURCE: URINE SPDESC: ORDERED: Urine Culture Procedure Result Reported Site Urine Culture Final 01/27/18- 1631 ML No Growth (<1,000 CFU/mL) * ML - Main Lab . END OF REPORT DEPARTMENT OF PATHOLOGY, [address] [place] [address] Tomer Leija M.D. Director [facility] # [id number] 25 Because ethnic data is not always readily [...] 15-29 5 Kidney failure <15 (or dialysis) 26 Therapeutic concentration: <50 ug/mL Toxic concentration: >120 ug/mL 27 Critical Result ETOH:508.3 Called to [id number] at: 17:57:06 by:[id number] Read back by:[id number] 28 The urine specimen was tested at the listed cutoffs: Drug class test level (ng/mL) Amphetamines 500 Barbiturates 200 Benzodiazepine metabolites 200 Cocaine metabolites 150 Cannabinoids 50 Opiates 300 Pcp 25 Specimen was received without chain of custody. Results should be used for medical purposes only. 29 SEE RESULT BELOW Name: NATA DENNIS : [address]: Urban Mcadams MD Acct: [id number] Unit: [id number] AGE: 57 Location: ED Re09/28/17 SEX: F Status: DEP ER SPEC: [id number] MANUEL: 09/29/[address] [facility] [address]: Stef Green MD REQ: [id number] RECD: 09/29/17 STATUS: LIZ GRANT DR: Rocio Du LENS SILVERER _ SOURCE: URINE SPDESC: ORDERED: Urine Culture Procedure Result Reported Site Urine Culture Final 09/30/17- 0858 ML Organism 1 STREP GROUP B [place] Count 50-75,000 (Many) CFU/ML Susceptibility testing of penicillins and other B-lactams approved by FDA for treatment of Streptococcus pyogenes (Group A Strep) and Streptococcus agalactiae (Group B Strep) is not necessary for clinical purposes and need not be done routinely, since as with vancomycin, resistant strains have not been recognized. (CLSI Z800-Q72;p.66) Positive isolates will be saved for one week. Please call the Microbiology Laboratory if further susceptibility testing is needed. * ML - [facility] Lab . END OF REPORT DEPARTMENT OF PATHOLOGY, [address] [place] [address] Tomer Leija M.D. Director [facility] # [id number] 30 Because ethnic data is not always [...] [address]: Urban Mcadams MD Acct: [id number] Unit: [id number] AGE: 57 Location: ED Re09/27/17 SEX: F Status: DEP ER SPEC: [id number] MANUEL: 09/27/[address] [facility] [address]: Stef Green MD REQ: [id number] RECD: 09/27/17 STATUS: LIZ GRANT DR: Rocio Du LENS SILVERER _ SOURCE: URINE SPDESC: ORDERED: Urine Culture Procedure Result Reported Site Urine Culture Final 09/28/17- 1512 ML Organism 1 STREP GROUP B [place] Count 50-75,000 (Many) CFU/ML Susceptibility testing of penicillins and other B-lactams approved by FDA for treatment of Streptococcus pyogenes (Group A Strep) and Streptococcus agalactiae (Group B Strep) is not necessary for clinical purposes and need not be done routinely, since as with vancomycin, resistant strains have not been recognized. (CLSI Z164-Y13;p.66) Positive isolates will be saved for one week. Please call the Microbiology Laboratory if further susceptibility testing is needed. * ML - Main Lab . END OF REPORT DEPARTMENT OF PATHOLOGY, [address] [place] [address] Tomer Leija M.D. Director [facility] # [id number] 34 NO TRACKING 35 SEE RESULT BELOW Name: NATA DENNIS : [address]: Rocio Du NP Acct: [id number] Unit: [id number] AGE: 57 Location: [facility] Re08/12/17 SEX: F Status: REG REF SPEC: [id number] MANUEL: 08/11/17-[address]: Rocio Du NP REQ: [id number] RECD: 08/12/17 STATUS: SOUT _ ORDERED: TP [...] (signature on file) SHAILESH Drew (ASCP) 08/13 3274 This Pap test was evaluated with the assistance of the [employer]version[employer].comPrep Test Imaging System. Due to cytologic findings at the well servicing rig operator microscope, comprehensive manual rescreening by a Cornice Upholsterer may be required. The Pap Smear is [...] years. END OF REPORT DEPARTMENT OF PATHOLOGY, [address] [place] [address] Tomer Leija M.D. Director [facility] # [id number] 36 GC/Chlamydia Source?: Thin Prep HPV Source?: Thin Prep Trichomonas Source: Thin Prep 37 The urine specimen was tested at the listed cutoffs: Drug class test level (ng/mL) Amphetamines 500 Barbiturates 200 Benzodiazepine metabolites 200 Cocaine metabolites 150 Cannabinoids 50 Opiates 300 Pcp 25 Specimen was received without chain of custody. Results should be used for medical purposes only. 38 Because ethnic data is not always readily [...] 15-29 5 Kidney failure <15 (or dialysis) 39 Therapeutic concentration: <50 ug/mL Toxic concentration: >120 ug/mL 40 The urine specimen was tested at the listed cutoffs: Drug class test level (ng/mL) Amphetamines 500 Barbiturates 200 Benzodiazepine metabolites 200 Cocaine metabolites 150 Cannabinoids 50 Opiates 300 Pcp 25 Specimen was received without chain of custody. Results should be used for medical purposes only. 41 The urine specimen was tested at the listed cutoffs: Drug class test level (ng/mL) Amphetamines 500 Barbiturates 200 Benzodiazepine metabolites 200 Cocaine metabolites 150 Cannabinoids 50 Opiates 300 Pcp 25 Specimen was received without chain of custody. Results should be used for medical purposes only. 42 Critical Result ETOH:484.6 Called to [id number] at: 20:44:41 by:[id number] Read back by:[id number] 43 [id number] 44 SEE RESULT BELOW Name: JEANNIENATA L : [address]: Servando Boone MD Acct: [id number] Unit: [id number] AGE: 56 Location: [facility] Re09/09/16 SEX: F Status: DEP ER SPEC: [id number] MANUEL: 09/09/16-[address] [facility] [address]: Servando Boone MD REQ: [id number] RECD: 09/09/16 STATUS: LIZ GRANT DR: Simone Jeter MD _ SOURCE: URINE SPDESC: ORDERED: Urine Culture COMMENTS: [id number] Procedure Result Reported Site Urine Culture Final 09/11/16- 825 ML Organism 1 ESCHERICHIA COLI [place] Count 50-75,000 (Many) CFU/ML Organism 2 NORMAL CLAUDINE [place] Count 25-50,000 (Moderate) CFU/ML 1. ESCHERICHIA COLI [...] antibiotic reporting. * ML - MAIN LAB ([facility]) . END OF REPORT * ML=Testing performed at Main Lab DEPARTMENT OF PATHOLOGY, [address] [place] [address] Tomer Leija M.D. Director [facility] # [id number] 45 Storyboard Artist: [id number] 46 Cancelled. Specimen hemolyzed. Unable to perform test requested. Reorder for specimen recollectio 47 [facility] Severe Sepsis and Septic Shock Management [...] was called for recollect at 215106/10/16 by [employer] 50 99th percentile=0.04 ng/mL Troponin results at [facility] and [facility] are not interchangeable. 51 Therapeutic concentration: <50 ug/mL Toxic concentration: >120 ug/mL 52 Cancelled. Specimen hemolyzed. Unable to perform test requested. Reorder for specimen recollection. STERLING/ED was called for recollect at 215106/10/16 by [id number] 53 Cancelled. Specimen hemolyzed. Unable to perform test requested. Reorder for specimen recollection. STERLING/ED was called for recollect at 215106/10/16 by [id number] 54 Cancelled. Specimen hemolyzed. Unable to perform test requested. Reorder for specimen recollection. STERLING/ED was called for recollect at 215106/10/16 by [id number] 55 Desirable <150 Borderline high 150-199 High 200-499 Very High >500 56 Desirable <200 Borderline high 200-239 High >239 57 Low <40 Desirable: 40-60 High: >60 58 Desirable: <100 mg/dL Near Optimal: 100-129 mg/dL Borderline High: 130-159 mg/dL High: 160-189 mg/dL Very High: >189 mg/dL 59 FASTING 10 HOUR 60 Normal Range 180 to 914 Indeterminate Range 145 to 180 Deficient Range <145 61 FASTING 10 HOUR 62 ANTIBODY NOT DETECTED REFERENCE RANGE IgG <1:64 IgM <1:20 Anaplasma phagocytophilum is the tick-borne agent causing Human Granulocytic Ehrlichiosis (HGE). HGE is distinct and separate from Human Monocytic Ehrlichiosis (HME), caused by Ehrlichia chaffeensis. Serologic crossreactivity between A. phagocytophilum and E. chaffeensis is minimal (5-15%). This test was developed and its analytical performance characteristics have been determined by [employer]. It has not been cleared or approved by the U.S. Food and Drug Administration. The FDA has determined that such clearance or approval is not necessary. This assay has been validated pursuant to the CLIA regulations and is used for clinical purposes. Test Performed by: [facility]. [address] [place] [address] 63 Desirable <150 Borderline high 150-199 High [...] 5 Kidney failure <15 (or dialysis) 68 Desirable <150 Borderline high 150-199 High 200-499 Very High >500 69 Desirable <200 Borderline high 200-239 High >239 70 Low <40 Desirable: 40-60 High: >60 71 Desirable: <100 mg/dL Near Optimal: 100-129 mg/dL Borderline High: 130-159 mg/dL High: 160-189 mg/dL Very High: >189 mg/dL 72 Because ethnic data is not always [...] 5 Kidney failure <15 (or dialysis) 73 Because ethnic data is not always [...] ug/mL 85 Critical Result ETOH:426.4 Called to [id number] at: 19:20:40 by: Read back by:[id number] 86 RUN DATE: 02/28/14 [facility] LAB LIVE PAGE 1 RUN TIME: [address] [place] [address] Specimen Inquiry Name: NATA DENNIS : [address]: Justo Nicole MD Acct: [id number] Unit: [id number] AGE: 53 Location: [facility] Re02/26/14 SEX: F Status: REG REF SPEC: [id number] MANUEL: 02/26/[address]: Justo Nicole MD REQ: [id number] RECD: 02/26/14 STATUS: COMP _ SOURCE: URINE SPDESC: ORDERED: Urine Culture QUERIES: Medent Number [id number] Procedure Result Verified Site Urine Culture Final 02/28/14- 0959 ML Organism 1 ESCHERICHIA COLI [place] Count >100,000 (Many) CFU/ML Organism 2 NORMAL CLAUDINE [place] Count 1-10,000 (Few) CFU/ML 1. ESCHERICHIA COLI [...] performed at Main Lab DEPARTMENT OF PATHOLOGY, [address] [place] [address] Tomer Leija M.D. Director [facility] # [id number] 87 Desirable <150 Borderline high 150-199 High 200-499 Very High >500 88 Desirable <200 Borderline high 200-239 High >239 89 Low <40 Desirable: 40-60 High: >60 90 Desirable <100 Near Optimal 100-129 Borderline high 130-159 High 160-189 Very High >189 91 Because ethnic data is not always readily [...] 15-29 5 Kidney failure <15 (or dialysis) Procedures Date Code Description Status 08/26/2017 [id number] Bone Mineral Density Test Completed 08/26/2017 [id number] Mammogram Completed 02/05/2015 [id number] Mammogram Completed 03/02/2014 [id number] Mammogram Completed Encounters Type Date Location Provider Dx Diagnosis Office Visit 09/29/2018 [facility] Franky Chew, F10.288 Alcohol 9:15a LENS SILVERER dependence with other alcohol-induced disorder R41.3 Other amnesia Office Visit 09/05/2018 [facility] Internal Zsofia F10.288 Alcohol dependence 3:00p Medicine - ALIN Du with other Ccmob alcohol-induced disorder R74.8 Abnormal levels of other serum enzymes R03.0 Elevated blood-pressure reading, w/o diagnosis of htn R00.0 Tachycardia, unspecified M25.569 Pain in unspecified knee Office Visit 04/27/2018 11:00a [facility] Theaofimesha Du, F10.20 Alcohol dependence, Medicine - TRAVELING PASSENGER AGENT uncomplicated Suite R E78.2 Mixed hyperlipidemia Z23 Encounter for immunization M85.851 Oth disrd of bone density and structure, right thigh M85.852 Oth disrd of bone density and structure, left thigh Office Visit 03/16/2018 3:15p [facility] [place] [place] G31.84 Mild cognitive Services Of Rafael Manzanares M.D. impairment, so stated F10.288 Alcohol dependence with other alcohol-induced disorder Office Visit 08/11/2017 1:00p [facility] Internal Rocio Du, Z00.00 Encntr for Medicine - Suite TRAVELING PASSENGER AGENT general adult R medical exam w/o abnormal findings Z12.4 Encounter for screening for malignant neoplasm of cervix Z12.31 Encntr screen mammogram for malignant neoplasm of breast Z12.11 Encounter for screening for malignant neoplasm of colon E78.2 Mixed hyperlipidemia Z78.0 Asymptomatic menopausal state Z23 Encounter for immunization Office Visit 06/09/2017 3:20p [facility] Internal Rocio Du, F10.21 Alcohol Medicine - TRAVELING PASSENGER AGENT dependence, in Suite R remission E78.2 Mixed hyperlipidemia R73.9 Hyperglycemia, unspecified R53.83 Other fatigue N95.1 Menopausal and female climacteric states Office Visit 06/03/2017 [facility] Cammie F10.920 Alcohol use, 10:13a Assoc,giorgi Saez D.O. unspecified with Hospitalists intoxication, uncomplicated Office Visit 07/01/2016 [facility] [place] G31.84 Mild cognitive 10:00a Services Of Rafael Manzanares M.D. impairment, so stated F10.21 Alcohol dependence, in remission Office Visit 06/04/2016 9:00a [facility] Internal Simone Jeter, Z00.00 Encntr for Medicine - M.D. general adult Suite R medical exam w/o abnormal findings Z12.39 Encounter for oth screening for malignant neoplasm of breast K63.5 Polyp of colon E78.2 Mixed hyperlipidemia F33.0 Major depressive disorder, recurrent, mild Office Visit 03/09/2016 1:40p [facility] Internal Simone Jeter, Z23 Encounter for Medicine - M.D. immunization Suite R F33.0 Major depressive disorder, recurrent, mild E78.2 Mixed hyperlipidemia F03.91 Unspecified dementia with behavioral disturbance Office Visit 11/07/2015 [facility] Internal Simone R73.9 Hyperglycemia, 3:00p [facility] unspecified Suite R E78.2 Mixed hyperlipidemia Office Visit 10/03/2015 [facility] [place] F10.10 Alcohol abuse, 10:20a Fabienne Jeter M.D. uncomplicated Suite R E78.5 Hyperlipidemia, unspecified Z12.11 Encounter for screening for malignant neoplasm of colon Z23 Encounter for immunization Office Visit 10/18/2014 1:40p [facility] Internal Justo Nicole, Megan Depressive Medicine - Suite M.D. 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04/07/2019 2:00 pm - Franky Chew NP at [facility]2610/19/2018 - Rocio Du, KHADIJAHPZ00.00 Encounter for general adult medical examination without abnoComments:For your routine health maintenance: Please make sure you have a healthy diet and regular exercise routine. CANCER SCREENING:Colonoscopy: last one done about 9 years ago . Will order a stol test todayMammogram: last done in 2018, I ordered this today Pap smear: done last year, due 3-4 years VACCINES:Flu shot recommended every year in the fallTetanus: done last yearFollow up:4 [id number] Abnormal levels of other serum [id number] Mixed [id number] Elevated blood-pressure reading, without diagnosis of hypertComments:Please check your BP and heart rate 2-3 x weekly Call if higher than 140/90Z12.11 Encounter for screening for malignant neoplasm of colonNew Orders:Cologard, Ordered: 10/19/18Comments:Advised of need for screening colonoscopy.Discussed benefits of early detection, but also risks of perforation, etc.We decided to do the stool test.Please follow instructions for [id number] Encounter for screening mammogram for malignant neoplasm ofNew Xrays:[facility] Screening Mammogram, Ordered: 10/19/18M20.10 Hallux valgus ( acquired), unspecified footReferral:Sabine Sheppard, SOHAIL, [id number] Alcohol abuse, in remission
[2018-10-30] MEDS ORDERED: Thiamine IV* 100 MG, Folic Acid IV* 1 MG, Multiple Vitamin IV ADULT* 10 ML in NS 0.9% 1... IV ONE (20:50)
[2018-10-30 20:52] LABS: Hematocrit 38 % (35-47); Hemoglobin 12.6 g/dL (12.0-16.0); Mean Corpuscular HGB Conc 33 g/dL (31-36); Mean Corpuscular Hemoglobin 32 pg (27-31); Mean Corpuscular Volume 96 fL (80-97); Mean Platelet Volume 6.4 fL (7.4-10.4); Platelet Count 240 10^3/uL (150-450); Red Blood Count 3.97 10^6 /uL (3.70-4.87); Red Cell Distribution Width 14 % (10-15); White Blood Count 4.6 10^3/uL (3.5-10.8)
--- NOTE | 2018-10-30 20:53 | ED ---
Substance Abuse/Use - HPI Summary HPI Summary: Pt is a 58 y/o F presenting to the ED brought in by EMS for altered mental status. LEVEL 5 CAVEAT: Pts full hx and physical are unobtainable due to current status of intoxication. Per EMS, the pt had been drinking alcohol tonight, and pushed her LifeAlert button to call EMS. She currently states she has been drinking, and denies any myalgia. Pt answers yes to drinking alcohol, no other words. Asked if she has a life- alert and states no. She does not answer any other questions, rolls over and looks away. Pt sees charge nurses and tattoo, and says "That is nice", but no other words. ED staff recognize that pt is here frequently, and know that she lives alone. Home Medications Medication Instructions Recorded Confirmed Type Naltrexone TAB* 50 mg PO QAM 07/28/14 09/01/18 History Atorvastatin* [Lipitor 20 MG*] 20 mg PO BEDTIME 09/22/15 09/01/18 History FLUoxetine CAP* [Prozac CAP*] 40 mg PO QAM 06/01/17 09/01/18 History Calcium Carbonate/Vitamin D3 1 tab PO BID 02/11/18 09/01/18 History [Calcium 500 mg-Vit D3 600 Unit] Thiamine TAB* [Vitamin B-1 TAB*] 100 mg PO DAILY 02/11/18 09/01/18 History - History Of Current Complaint Chief Complaint: EDSubstanceAbuse Stated Complaint: AMS PER EMS Time Seen by Provider: 10/30/18 20:33 Hx Obtained From: Patient, EMS Hx From Patient Unobtainable Due To: Other - intoxication Hx Last Menstrual Period: N/A Onset/Duration of Drug/ETOH Abuse: Hours Ingestion History: Type/Name Of Drug - alcohol, Amount Ingested - unknown, Approximate Time Of Ingestion - unknown Overdose Characteristics: Oral Timing Of Abuse: Binge Use Severity Initially: Moderate Severity Currently: Moderate Character: Lethargic Aggravating Factor(s): Nothing Alleviating Factor(s): Nothing Associated Signs And Symptoms: Negative Related Hx: Prior Drug Abuse Counseling/Admission - Allergies/Home Medications Allergies/Adverse Reactions: Allergies Allergy/AdvReac Type Severity Reaction Status Date / Time Adhesive Tape Allergy Rash Verified 07/14/18 12:46 PMH/Surg Hx/FS Hx/Imm Hx Previously Healthy: No Endocrine/Hematology History: Denies: Hx Anticoagulant Therapy, Hx Blood Transfusions, Hx Diabetes, Hx Thyroid Disease, Other Endocrine/Hematological Disorders Cardiovascular History: Reports: Hx Syncope - rare Denies: Hx Hypertension, Hx Pacemaker/ICD, Other Cardiovascular Problems/ Disorders Respiratory History: Reports: Hx Seasonal Allergies Denies: Hx Asthma, Hx Chronic Bronchitis, Hx Chronic Obstructive Pulmonary Disease (COPD), Hx Lung Cancer, Hx Pneumonia, Other Respiratory Problems/ Disorders GI History: Denies: Hx Ulcer, Other GI Disorders History: Denies: Hx Kidney Stones, Hx Renal Disease, Other Problems/Disorders Musculoskeletal History: Reports: Hx Arthritis - hands Denies: Hx Back Problems, Other Musculoskeletal History Sensory History: Reports: Hx Contacts or Glasses Denies: Hx Hearing Aid, Other Sensory Impairments Opthamlomology History: Reports: Hx Contacts or Glasses Denies: Other Sensory Impairments Neurological History: Reports: Hx Headaches, Hx Seizures - last 2013, undiagnosed disorder Psychiatric History: Reports: Hx Anxiety, Hx Depression, Hx Inpatient Treatment , Hx Community Mental Health Tx, Hx Substance Abuse - alcohol Denies: Hx Attention Deficit Hyperactivity Disorder, Hx Eating Disorder, Hx Panic Disorder, Hx Post Traumatic Stress Disorder, Hx Schizophrenia, Hx Bipolar Disorder, Hx Suicide Attempt - Thoughts-presently, Hx of Violent Episodes Against Others - Cancer History Cancer Type, Location and Year: breast cancer=left Hx Hematologic Symptoms: No Hx Chemotherapy: Yes Hx Radiation Therapy: Yes - Surgical History Surgery Procedure, Year, and Place: Bilat Thumb Fusion. Bilat Carpal Tunnel Surgery. LEFT Breast Lumpectomy. LEFT KNEE ARTHROSCOPIC SURGERY. ACL Sx left knee Hx Anesthesia Reactions: No Infectious Disease History: Unable to Obtain/Confirm Infectious Disease History: Denies: History Other Infectious Disease, Traveled Outside the [place] in Last 30 Days - Family History Known Family History: Positive: Unknown - pt adopted Negative: Hypertension, Respiratory Disease, Seizure Disorder - Social History Alcohol Use: Daily Alcohol Amount: "I'm an alcoholic." Hx Substance Use: Yes Substance Use Type: Reports: Other - unknown, Level 5 caveat Hx Tobacco Use: Yes Smoking Status (MU): Light Every Day Tobacco Smoker Type: Cigarettes Have You Smoked in the Last Year: No Review of Systems - ROS Summary Review of Systems Summary: LEVEL 5 CAVEAT: Pts full hx and physical are unobtainable due to current status of intoxication. Negative: Myalgia All Other Systems Reviewed And Are Negative: No Physical Exam - Summary Physical Exam Summary: Appearance: Well-appearing, no pain distress, well-nourished Skin: Warm, color reflects adequate perfusion, dry Head: Normal Head/Face inspection, atraumatic, non-tender C-spine Eyes: Conjunctiva clear, PERRL, EOMI, no nystagmus ENT: Normal inspection Neck: Supple, no nodes, no JVD Respiratory: Lungs clear, normal breath sounds, no respiratory distress Cardio: RRR, No murmur, pulses normal, brisk capillary refill Abdomen: Soft, nontender Bowel sounds: Present Musculoskeletal: Strength Intact/ROM intact, no calf tenderness, no edema. No deformities, T-spine and L-spine non-tender Psychological: drowsy, calm, cooperative, good eye contact when eyes are open Neuro: Alert, then rolls over and is non-communicative, muscle tone normal, no focal deficit Triage Information Reviewed: Yes Vital Signs Reviewed: Yes Completion Of Physical Exam Limited Due To: Level 5 - [place] Coma Scale Best Eye Response: 4 - Spontaneous Best Motor Response: 6 - Obeys Commands Best Verbal Response: 4 - Confused Coma Scale Total: 14 Diagnostics - Laboratory Result Diagrams: 10/30/18 20:45 10/30/18 20:45 Lab Statement: Any lab studies that have been ordered have been reviewed, and results considered in the medical decision making process. Re-Evaluation - Re-Evaluation First Eval Re-Evaluation Time: 23:30 Change: Unchanged Comment: Pt appears to be sleeping on the stretcher. Rouses easily, then falls back to sleep. Does not appear to be in any pain distress, and is not anxious or agitated. Course/Dx - Course Course Of Treatment: Pt is a 58 y/o F presenting to the ED brought in by EMS for altered mental status. LEVEL 5 CAVEAT: Pts full hx and physical are unobtainable due to current status of intoxication. Per EMS, the pt had been drinking alcohol tonight, and pushed her LifeAlert button to call EMS. She currently states she has been drinking, and denies any myalgia. Does not answer other questions. The pt's physical exam is normal, there are no obvious deformities, no definite signs of trauma, and her entire spine is non-tender. Pts hematology shows MCH of 32, MPV of 6.4, and absolute neutrophils of 1.3. Her INR is 1.16. Her serum alcohol is 445. Her brain CT shows no acute abnormality. Pt will be signed out to Dr. Us at 2200 pending sobriety. - Diagnoses Differential Diagnosis/HQI/PQRI: Positive: Acute Psychosis, Alcohol Abuse, Anxiety, Bipolar Disorder, Depression, Metabolic Disorder Provider Diagnoses: Alcoholism, Altered mental status Discharge - Sign-Out/Discharge Documenting (check all that apply): Sign-Out Patient Signing out patient TO: Fito Us - 10/30/18, 23:30 at change of shift - Discharge Plan Condition: Stable Referrals: Rocio Du DEMAND PLANNER [Primary Care Provider] - - Billing Disposition and Condition Condition: STABLE - Attestation Statements Document Initiated by Amisha: Yes Documenting Scribe: Maria M Chauhan Provider For Whom Amisha is Documenting (Include Credential): Dr. Michelle Nolasco MD. Scribe Attestation: Maria M Ptael scribed for Dr. Michelle Nolasco MD. on 10/31/18 at 0001. Scribe Documentation Reviewed: Yes Provider Attestation: The documentation as recorded by the Maria M bhatt accurately reflects the service I personally performed and the decisions made by , Dr. Michelle Nolasco MD. Status of Scribe Document: Viewed
[2018-10-30 21:09] LABS: ALT 10 U/L (7-52); AST 25 U/L (13-39); Albumin 4.3 g/dL (3.2-5.2); Albumin/Globulin Ratio 1.7 (1-3); Alkaline Phosphatase 67 U/L (34-104); Anion Gap 11 mmol/L (2-11); BUN/Creatinine Ratio 16.7 (8-20); Blood Urea Nitrogen 13 mg/dL (6-24); CO2 Carbon Dioxide 29 mmol/L (22-32); Calcium 9.3 mg/dL (8.6-10.3); Chloride 104 mmol/L (101-111); EGFR African American 92.4 (>60); EGFR Non-African American 76.4 (>60); Globulin 2.6 g/dL (2-4); Glucose 100 mg/dL (70-100); Potassium 3.9 mmol/L (3.5-5.0); Sodium 144 mmol/L (135-145); Total Protein 6.9 g/dL (6.4-8.9)
[2018-10-30 21:24] LABS: Acetaminophen < 15 mcg/mL; Salicylate < 2.50 mg/dL (<30)
[2018-10-30 21:25] LABS: Alcohol 445 mg/dL (<10)
[2018-10-30 21:26] LABS: INR 1.16 (0.82-1.09)
[2018-10-30 21:27] LABS: ABS Basophils 0.1 10^3/ul (0-0.2); ABS Eosinophils 0.1 10^3/ul (0-0.6); ABS Lymphocytes 2.7 10^3/ul (1.0-4.8); ABS Monocytes 0.5 10^3/ul (0-0.8); ABS Neutrophils 1.3 10^3/ul (1.5-7.7); Eosinophil % 1.2 %; Lymphocyte % 57.6 %
--- NOTE | 2018-10-31 03:10 | ED ---
Progress - Progress Note Progress Note: Patient is received as a sign out from Dr. Nolasco to Dr. Us at 2200 10/30/18 shift change pending sobriety and brain CT of this patient. BRAIN CT IMPRESSION: No acute intracranial findings. THIS REPORT WAS REVIEWED BY DR. US. 0640 - Patient is awake, alert and oriented x3 and states that she wants to go home. Patient was discharged to home. - EKG/XRAY/CT CT: SEE ABOVE Re-Evaluation - Re-Evaluation First Eval Re-Evaluation Time: 06:40 Change: Improved Comment: 0640 - Patient is awake, alert and oriented x3 and states that she wants to go home. Patient was discharged to home. Course/Dx - Course Course Of Treatment: Patient is received as a sign out from Dr. Nolasco to Dr. Us at 2200 10/30/18 shift change pending sobriety and brain CT of this patient. BRAIN CT IMPRESSION: No acute intracranial findings. THIS REPORT WAS REVIEWED BY DR. US. 0640 - Patient is awake, alert and oriented x3 and states that she wants to go home. Patient was discharged to home. - Diagnoses Provider Diagnoses: Alcohol intoxication Discharge - Sign-Out/Discharge Documenting (check all that apply): Patient Departure - discharge Patient Received Moderate/Deep Sedation with Procedure: No - Discharge Plan Condition: Stable Disposition: HOME Patient Education Materials: Alcohol Intoxication (ED) Referrals: Rocio Du EVP MANAGING DIRECTOR [Primary Care Provider] - 3 Days Additional Instructions: PLEASE RETURN TO THE ED IMMEDIATELY FOR WORSENING OR CONCERNING SYMPTOMS. FOLLOW UP WITH YOUR PRIMARY CARE PHYSICIAN WITHIN THREE DAYS. - Billing Disposition and Condition Condition: STABLE Disposition: Home - Attestation Statements Document Initiated by Amisha: Yes Documenting Scribe: DANNY DAMICO Provider For Whom Amisha is Documenting (Include Credential): GUERLINE US MD Scribe Attestation: DANNY Patel, vandanaed for GUERLINE US MD on 10/31/18 at 2221. Scribe Documentation Reviewed: Yes Provider Attestation: The documentation as recorded by the DANNY bhatt accurately reflects the service I personally performed and the decisions made by me, GUERLINE US MD Status of Scribe Document: Viewed
[2018-10-31 07:23] VITALS: BP 131/87
== END 2018-10-31 07:20 | disposition home or self-care (01) ==
LOC: ED 20:16
DX: F10.229 Alcohol dependence with intoxication, unspecified (principal); R41.82 Altered mental status, unspecified; F17.210 Nicotine dependence, cigarettes, uncomplicated
CPT/HCPCS: 36415; 70450; 80053; 80320; 80329; 85025; 85610; 99283; G0480; J3411

== ENCOUNTER 2019-07-12 17:02 | Emergency (ER) | payer OTHER ==
--- NOTE | 2019-07-12 17:21 | ED ---
Psychiatric Complaint - HPI Summary HPI Summary: 59-year-old female presents to the emergency department today with a 941 order for mental health evaluation brought in by police and EMS. Police found the patient on top of a building stating that she was going to jump off that she was going to stab herself in the head with an icepack. The Police Department also believe the patient is drunk, patient states she had "4 snips" of vodka. Patient states "I am at the end of my tether. "I did everything I was supposed to do and I am stuck in hell. Hell is the fucking [place]. I cannot deal with fucking cockroaches." Patient is otherwise well and denies homicidal ideation. Patient states she feels uncomfortable in her living situation due to other members of the home. Patient denies physical pain, chest pain, abdominal pain, shortness of breath, rash, nausea, vomiting, diarrhea. Patient denies recreational drug use. - History Of Current Complaint Time Seen by Provider: 07/12/19 17:06 Hx Obtained From: Patient Hx Last Menstrual Period: N/A Onset/Duration: Gradual Onset Timing: Constant Severity Initially: Severe Severity Currently: Severe Character: Manic, Depressed, Anxious, Angry, Frustrated Aggravating Factor(s): Recent Stress Has Suicidal: Reports: Thoughts Has Homicidal: Denies: Thoughts - Allergies/Home Medications Allergies/Adverse Reactions: Allergies Allergy/AdvReac Type Severity Reaction Status Date / Time Adhesive Tape Allergy Rash Verified 05/26/19 10:22 clams Allergy GI Upset Verified 05/26/19 10:23 Home Medications: Home Medications Cyanocobalamin INJ * [Vitamin B12 INJ *] 1,000 mcg IM WEEKLY 07/12/19 [History Confirmed 07/13/19] PMH/Surg Hx/FS Hx/Imm Hx Endocrine/Hematology History: Denies: Hx Anticoagulant Therapy, Hx Blood Transfusions, Hx Diabetes, Hx Thyroid Disease, Other Endocrine/Hematological Disorders Cardiovascular History: Reports: Hx Syncope - rare Denies: Hx Hypertension, Hx Pacemaker/ICD, Other Cardiovascular Problems/ Disorders Respiratory History: Reports: Hx Seasonal Allergies Denies: Hx Asthma, Hx Chronic Bronchitis, Hx Chronic Obstructive Pulmonary Disease (COPD), Hx Lung Cancer, Hx Pneumonia, Other Respiratory Problems/ Disorders GI History: Denies: Hx Ulcer, Other GI Disorders History: Denies: Hx Kidney Stones, Hx Renal Disease, Other Problems/Disorders Musculoskeletal History: Reports: Hx Arthritis - hands Denies: Hx Back Problems, Other Musculoskeletal History Sensory History: Reports: Hx Contacts or Glasses Denies: Hx Hearing Aid, Other Sensory Impairments Opthamlomology History: Reports: Hx Contacts or Glasses Denies: Other Sensory Impairments Neurological History: Reports: Hx Headaches, Hx Seizures - last 2013, undiagnosed disorder, Other Neuro Impairments/Disorders - Shaky from ETOH withdrawal Psychiatric History: Reports: Hx Anxiety, Hx Depression, Hx Inpatient Treatment , Hx Community Mental Health Tx, Hx Substance Abuse - alcohol , Other Psychiatric Issues/Disorders - ETOH Abuse Denies: Hx Attention Deficit Hyperactivity Disorder, Hx Eating Disorder, Hx Panic Disorder, Hx Post Traumatic Stress Disorder, Hx Schizophrenia, Hx Bipolar Disorder, Hx Suicide Attempt - Thoughts-presently, Hx of Violent Episodes Against Others - Cancer History Cancer Type, Location and Year: LEFT BREAST Hx Hematologic Symptoms: No Hx Chemotherapy: Yes Hx Radiation Therapy: Yes - Surgical History Surgery Procedure, Year, and Place: Bilat Thumb Fusion. Bilat Carpal Tunnel Surgery. LEFT Breast Lumpectomy. LEFT KNEE ARTHROSCOPIC SURGERY. ACL Sx left knee Hx Anesthesia Reactions: No - Immunization History Date of Tetanus Vaccine: Unk Date of Influenza Vaccine: Fall 2014 Infectious Disease History: Denies: History Other Infectious Disease - Family History Known Family History: Positive: Unknown - pt adopted, Other - pt adopted Negative: Hypertension, Respiratory Disease, Seizure Disorder - Social History Alcohol Use: Daily Alcohol Amount: "I'm an alcoholic." Hx Substance Use: Yes Substance Use Type: Reports: Other - unknown, Level 5 caveat Substance Use Comment - Amount & Last Used: pt last requested benzos in ED on , 07/21 per metallographer Hx Tobacco Use: Yes Smoking Status (MU): Light Every Day Tobacco Smoker Type: Cigarettes Have You Smoked in the Last Year: No Review of Systems Constitutional: Negative Eyes: Negative ENT: Negative Cardiovascular: Negative Respiratory: Negative Gastrointestinal: Negative Genitourinary: Negative Musculoskeletal: Negative Skin: Negative Neurological/Mental Status: Negative Positive: Anxious, Depressed All Other Systems Reviewed And Are Negative: Yes Physical Exam - Summary Physical Exam Summary: Patient appears intoxicated. Patient is bizarre in conversation. Patient makes poor eye contact. Triage Information Reviewed: Yes Vital Signs Reviewed: Yes Appearance: Positive: Well-Appearing, No Pain Distress, Well-Nourished Skin: Positive: Warm, Skin Color Reflects Adequate Perfusion Eyes: Positive: EOMI, DEVON ENT: Positive: Hearing grossly normal Respiratory/Lung Sounds: Positive: Clear to Auscultation, Breath Sounds Present Cardiovascular: Positive: RRR, S1, S2 Abdomen Description: Positive: Nontender, Soft Bowel Sounds: Positive: Present Musculoskeletal: Positive: Strength/ROM Intact Neurological: Positive: Sensory/Motor Intact, Alert, Oriented to Person Place, Time, Normal Gait, Facial Symmetry, Speech Normal Psychiatric: Positive: Anxious, Depressed AVPU Assessment: Alert Procedures - Sedation Patient Received Moderate/Deep Sedation with Procedure: No Diagnostics - Laboratory Result Diagrams: 07/12/19 17:33 07/12/19 17:33 Lab Statement: Any lab studies that have been ordered have been reviewed, and results considered in the medical decision making process. Re-Evaluation - Re-Evaluation First Eval Re-Evaluation Time: 04:05 Change: Improved Comment: Patient is clincially sober and medically clear for MHE. Second Eval Re-Evaluation Time: 07:12 Change: Improved Comment: At 07:12, patient denies SI, but states she is unhappy. She denies any physical complaints. Course/Dx - Course Course Of Treatment: Patient was evaluated in the emergency department today for suicidal ideation. Vitals noted and stable. Patient was placed into a safe room and was change in the hospital scrubs. Patient's place under observation and her laboratories were obtained for mental health clearance. blood work returned showing no significant abnormalities. Urinalysis negative for UTI. Toxicology report negative for occasional drugs however her serum alcohol level was 384. Patient will be cleared for medical evaluation at approximately 0400 on 07/13/2019. After clearance patient will be consulted by mental health for disposition. Patient signed out to Dr. Gibson at 0230 . - Differential Dx/Clinical Impression Differential Diagnosis/HQI/PQRI: Positive: Acute Psychosis, Alcohol Intoxication , Anxiety, Depression Provider Diagnosis: Alcohol intoxication, Suicidal ideation, Alcohol-induced mood disorder Discharge ED - Sign-Out/Discharge Documenting (check all that apply): Sign-Out Patient Signing out patient TO: Elizabeth Gibson Receiving patient FROM: Kishore Narvaez - Discharge Plan Condition: Stable Disposition: HOME Referrals: Rocio Du NP [Primary Care Provider] - - Billing Disposition and Condition Condition: STABLE Disposition: Home - Attestation Statements Provider Attestation: I was available for consultation for this patient. I did not evaluate the patient, or participate in any medical decision making or disposition decisions unless I am specifically named in the chart as having consulted on the patient. If I have consulted on the patient, please see my own ED note on the patient encounter. Alexandra Yanez MD
[2019-07-12 17:40] LABS: ABS Basophils 0.1 10^3/ul (0-0.2); ABS Eosinophils 0.1 10^3/ul (0-0.6); ABS Lymphocytes 2.6 10^3/ul (1.0-4.8); ABS Monocytes 0.4 10^3/ul (0-0.8); ABS Neutrophils 2.8 10^3/ul (1.5-7.7); Eosinophil % 1.6 %; Hematocrit 39 % (35-47); Hemoglobin 13.4 g/dL (12.0-16.0); Lymphocyte % 43.3 %; Mean Corpuscular HGB Conc 34 g/dL (31-36); Mean Corpuscular Hemoglobin 35 pg (27-31); Mean Corpuscular Volume 102 fL (80-97); Mean Platelet Volume 6.4 fL (7.4-10.4); Platelet Count 222 10^3/uL (150-450); Red Blood Count 3.83 10^6 /uL (3.70-4.87); Red Cell Distribution Width 18 % (10-15)
[2019-07-12 17:56] LABS: ALT 10 U/L (7-52); AST 23 U/L (13-39); Albumin 4.7 g/dL (3.2-5.2); Albumin/Globulin Ratio 1.6 (1-3); Alkaline Phosphatase 52 U/L (34-104); Anion Gap 8 mmol/L (2-11); BUN/Creatinine Ratio 11.4 (8-20); Blood Urea Nitrogen 9 mg/dL (6-24); CO2 Carbon Dioxide 26 mmol/L (22-32); Chloride 108 mmol/L (101-111); EGFR African American 90.8 (>60); Globulin 2.9 g/dL (2-4); Glucose 106 mg/dL (70-100); Potassium 3.8 mmol/L (3.5-5.0); Sodium 142 mmol/L (135-145); Total Protein 7.6 g/dL (6.4-8.9)
--- OUTSIDE RECORDS SUMMARY | 2019-07-12 18:05 | XMS REPORT ---
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, recurrent, in partial remission Relevant diagnostic tests/laboratory data Narrative No Information Procedures Procedure Code CodeSystem Target Date of Status Service Device Device Device Name Site Procedure Delivery Code Name UID Location Psychother [id number] SNOMED-CT () 2018-12-06 completed Mental apy, 45 4 Health- minutes [facility] with [address], [id number] Psychother [id number] SNOMED-CT () 2018-12-22 completed Mental apy, 45 4 Health- minutes [facility] with [address], [id number] [id number] Psychother [id number] SNOMED-CT () 2018-12-29 completed Mental apy, 45 4 Health- minutes [facility] with [facility] patient [address] [place] [address], [id number] [id number] Psychother [id number] SNOMED-CT () 2018-09-09 completed Mental apy, 45 4 Health- minutes [facility] with [facility] patient [address] [place] [address], [id number] [id number] Psychother [id number] SNOMED-CT () 2018-09-23 completed Mental apy, 45 4 Health- minutes [facility] with [address], [id number] Psychother [id number] SNOMED-CT () 2019-03-27 completed Mental apy, 45 4 Health- minutes [facility] with [facility] patient [address] [place] [address], [id number] [phone] SNOMED-CT () 2019-01-[address], [id number] SNOMED-CT () 2019-03-[address], [id number] SNOMED-CT () 2018-08-[address], [id number] SNOMED-CT () 2018-11-[address], [id number] SNOMED-CT () 2018-08-[address], [id number] SNOMED-CT () 2019-01-[address], [id number] [id number] Encounters/Encounter Diagnoses Encounter Encounter Diagnosis Diagnosis Diagnosis Date of Service Name Code Code Name CodeSystem Diagnosis Delivery Location SN[facility]ED[facility] , , Vital Signs No Information Social History Element Description Description Start End Code CodeSystem AdditionalInfo Date Date SexAssignedAtBirth Female 1959-05 F AdministrativeGender 05-15 Hospital Discharge Instructions Reason For Referral Medical Equipment FDA Assessments
--- OUTSIDE RECORDS SUMMARY | 2019-07-12 18:05 | XMS REPORT ---
:1960 Author Organization [facility] Care Team Providers Name Role Phone TOMEKA CORDERO Primary Care Physician Unavailable Allergies, Adverse Reactions, Alerts Allergy Code CodeSystem Reaction Severity Criticality Status Start Substance Date Moderate Medications Medication Medication Medication Start Stop Route Dose Status Fill Code CodeSystem Date Date Instructions RxNorm Problems Problem Name Code CodeSystem Alternate Alternate Start End Status Narrative Code CodeSystem Date Date Major 06140006 SNOMED-CT Active depressive 08-08 disorder, recurrent, in partial remission Alcohol 29279134 SNOMED-CT Active dependence, 08-08 uncomplicated Relevant diagnostic tests/laboratory data Narrative No Information Procedures Procedure Code CodeSystem Target Date of Status Service Device Device Device Name Site Procedure Delivery Code Name UID Location SNOMED-CT () 2018-08-08 complete Mental d Health- [address], [id number] SNOMED-CT () 2018-08-31 complete Mental d Health- [address], [id number] [id number] Psychotherap [id number] SNOMED-CT () 2018-09-09 complete Mental y, 45 04 d Health- minutes with [address], [id number] [phone] Psychotherap [id number] SNOMED-CT () 2018-09-23 complete Mental y, 45 04 d Health- minutes with [address], [id number] [id number] SNOMED-CT () 2018-11-22 complete Mental d Health- [address], [id number] [id number] Psychotherap [id number] SNOMED-CT () 2018-12-06 complete Mental y, 45 04 d Health- minutes with [address] [place], [phone] Psychotherap 117760 SNOMED-CT () 2018-12-22 complete Mental y, 45 04 d Health- minutes with [facility] patient [address], [phone] Psychotherap [id number] SNOMED-CT () 2018-12-29 complete Mental y, 45 04 d Health- minutes with [facility]ie patient [address], [phone] [id number] SNOMED-CT () 2019-01-04 complete Mental d Health- [address], [id number] SNOMED-CT () 2019-01-06 complete Mental d Health- [address], [id number] SNOMED-CT () 2019-03-06 complete Mental d Health- [address], [phone] [phone] Psychotherap [id number] SNOMED-CT () 2019-03-27 complete Mental y, 45 04 d Health- minutes with [facility] patient [address], [phone] Psychotherap 450236 SNOMED-CT () 2019-06-07 complete Mental y, 45 04 d Health- minutes with [facility] patient [address], [phone] Office or [id number] SNOMED-CT () 2019-06-07 complete Mental other 7 d Health- outpatient [facility] visit for [address], of an [facility] established [id number] patient, [id number] which requires at least 2 of these 3 mehta components: An expanded problem focused history; An expanded problem focused examination; Medical decision making of low Psychotherap [id number] SNOMED-CT () 2019-06-23 complete Mental y, 45 04 d Health- minutes with [facility] patient [address], [phone] Encounters/Encounter Diagnoses Encounter Encounter Diagnosis Diagnosis Diagnosis [...]
--- OUTSIDE RECORDS SUMMARY | 2019-07-12 18:05 | XMS REPORT | Continuity of Care Document ---
:1960 External Reference #:[id number] Author Name Awa Mosley M.D. (transmitted by agent of provider Madonna Tay) Address [address] [facility], [place] [address] Care Team Providers Name Role Phone Bulmaro Wood MD - Neurology Care Team Information Lead Systems Analyst Rocio Du - Nurse Care Team Information Lead Systems Analyst [phone] Practitioner Problems Active Problems Provider Date Depressive disorder [...] History Type Date Description Comments Sex Unknown Cigarette Use Quit 24 Years Ago ETOH Use Has consumed alcohol in the past Tobacco Use Start: Unknown End: Patient is a former smoker Unknown Smoking Status Reviewed: 05/22/19 Patient is a former smoker Exercise Type/Frequency Walks daily Allergies, Adverse Reactions, Alerts Description No Known Drug Allergies Medications Active Medications SIG Qnty Indications Ordering Provider Date Macrobid 1 tab by mouth 10caps N39.0 Awa Mosley, 05/22/2019 100mg Capsules twice a day x 5 M.D. days Vitamin B12 TR 1 tab po qday 90tabs Breannamesha LeungALIN donaldson 10/21/2018 1000mcg Tablets ER Blood Pressure use daily to 1units R03.0 Rocio Du [facility] 09/05/2018 Monitor Auto monitor bp daily Inflate Misc Vitamin B-Complex 1 by mouth every 90tabs F10.21 Rocio Du [facility] 2017 day Tablets Calcium 600+D High 1 by mouth twice 60tabs N95.1 Rocio Du [facility] 2017 Potency a day [id number] Tablets Atorvastatin Calcium take 1 tablet at 90tabs E78.2 Rocio Du [facility] 05/2016 bedtime 20mg Tablets Naltrexone HCL 1 tablet daily Unknown 50mg in the morning Tablets Vitamin B1 1 by mouth every 30tabs Rocio Du [facility] 100mg day Tablets Fluoxetine HCL 1 by mouth every Unknown 40mg day Capsules Immunizations CPT Code Status Date Vaccine Lot # [id number] Given 04/27/2018 Influenza Virus Vaccine, Quadrivalent, Split, [id number] Preservative Free [id number] Given 08/11/2017 Tdap - Tetanus/Diptheria/Acellular Pertussis [id number] Given 03/09/2016 Influ Virus Vaccine, Quadrivalent, Split Virus, [place] [id number] [address] Given 10/03/2015 Pneumonia Vaccine [id number] Vital Signs Date Vital Result Comment 05/22/2019 3:42pm Height 67 inches 5'7" Weight 142.00 lb Heart Rate 104 /min BP Systolic 145 mmHg BP Diastolic 92 mmHg BP Systolic Sitting 126 mmHg recheck BP Diastolic Sitting 89 mmHg recheck Body Temperature 99.4 F O2 % BldC Oximetry 99 % BMI (Body Mass Index) 22.2 kg/m2 03/29/2019 2:13pm Height 67 inches 5'7" Weight 147.00 lb Heart Rate 74 /min BP Systolic 102 mmHg BP Diastolic 68 mmHg BMI (Body Mass Index) 23.0 kg/m2 Results Test Acquired Date Facility Test Result H/L Range Note Ua Routine 05/22/2019 [facility] Ua Specific [place] 1.010 Ua PH 6 Ua Color orange/dark yel Ua Appera clear with sedi Ua WBC trace Ua Protein trace Ua Glucose neg Ua Ketones neg Ua Bilirubin neg Ua Urobilinogen neg Ua Nitrite POS Ua Occult Blood about 250 CBC Auto 03/29/2019 [facility] White Blood 4.9 10^3/uL Normal 3.5-10.[address] [place] [address] [phone] Red Blood Count 3.96 10^6/uL Normal 3.70-4.87 Hemoglobin 13.3 g/dL Normal 12.0-16.0 Hematocrit 40 % Normal 35-47 Mean Corpuscular Volume 101 fL High 80-97 Mean Corpuscular Hemoglobin 34 pg High 27-31 Mean Corpuscular HGB Conc 33 g/dL Normal 31-36 Red Cell Distribution Width 21 % High 10-15 Platelet Count 187 10^3/uL Normal 150-450 Mean Platelet Volume 7.1 fL Low 7.4-10.4 Abs Neutrophils 1.8 10^3/uL Normal 1.5-7.7 Abs Lymphocytes 2.4 10^3/uL Normal 1.0-4.8 Abs Monocytes 0.6 10^3/uL Normal 0-0.8 Abs Eosinophils 0.1 10^3/uL Normal 0-0.6 Abs Basophils 0.0 10^3/uL Normal 0-0.2 Abs Nucleated RBC 0.0 10^3/uL Granulocyte % 35.6 % Lymphocyte % 49.0 % Monocyte % 13.0 % Eosinophil % 2.0 % Basophil % 0.4 % Nucleated Red Blood Cells % 0.0 Vitamin B12 03/29/2019 [facility] Vitamin B12 197 pg/mL Normal 180-914 [address] [place] [address] [phone] Folic Acid (Folate) 3.68 ng/mL >3.99 3 Laboratory test 03/29/2019 [facility] Methylmalonic Acid 0.10 <=0.40 [address] Mma nmol/[place] [address] [phone] Vitamin B1 (Whole Blood) 87 nmol/L 70-180 5 Lipid Profile 02/22/2019 [facility] Triglycerides 194 mg/dL 6 (Trig/Chol/HDL) [address] [place] [address] [phone] Cholesterol 284 mg/dL 7 HDL Cholesterol 77.3 mg/dL 8 LDL Cholesterol 168 mg/dL 9 Laboratory 02/22/2019 [facility] TSH (Thyroid 1.47 Normal 0.34 -5.60 test finding [address] [facility] Stim Horm) mcIU/[place] [address] [phone] Comp Metabolic 02/22/2019 [facility] Sodium 139 mmol/L Normal 135-145 Panel [address] [place] [address] [phone] Potassium 4.8 mmol/L Normal 3.5-5.0 Chloride 106 mmol/L Normal 101-111 Co2 Carbon Dioxide 23 mmol/L Normal 22-32 Anion Gap 10 mmol/L Normal 2-11 Glucose 71 mg/dL Normal 70-100 Blood Urea Nitrogen 10 mg/dL Normal 6-24 Creatinine 0.77 mg/dL Normal 0.51-0.95 BUN/Creatinine Ratio 13.0 Normal 8-20 Calcium 9.9 mg/dL Normal 8.6-10.3 Total Protein 6.9 g/dL Normal 6.4-8.9 Albumin 4.5 g/dL Normal 3.2-5.2 Globulin 2.4 g/dL Normal 2-4 Albumin/Globulin Ratio 1.9 Normal 1-3 Total Bilirubin 0.30 mg/dL Normal 0.2-1.0 Alkaline Phosphatase 59 U/L Normal 34-104 Alt 9 U/L Normal 7-52 Ast 16 U/L Normal 13-39 Egfr Non- 77.5 >60 Egfr 93.8 >60 10 1 Copy Result to: ROCIO DU ([id number]) 2 Normal Range 180 to 914 Indeterminate Range 145 to 180 Deficient Range <145 3 Copy Result to: ROCIO DU ([id number]) 4 ADDITIONAL INFORMATION This test was developed and its performance characteristics determined by [facility] in a manner consistent with CLIA requirements. This test has not been cleared or approved by the U.S. Food and Drug Administration. Test Performed by: [facility] - [address] [address] Automation Qa Tester: Servando Yanez M.D. Ph.D.; CLIA# [id number] 5 ADDITIONAL INFORMATION This test was developed and its performance characteristics determined by [facility] in a manner consistent with CLIA requirements. This test has not been cleared or approved by the U.S. Food and Drug Administration. Test Performed by: [facility] - [facility] [address] [place] [address] Automation Qa Tester: Servando Yanez M.D. Ph.D.; CLIA# [id number] 6 Desirable: <150 Borderline High: 150-199 High: 200-499 Very High: >500 7 Desirable: <200 Borderline High: 200-239 High: >239 8 Low: <40 Desirable: 40-60 High: >60 9 Desirable: <100 Near Optimal: 100-129 Borderline High: 130-159 High: 160-189 Very High: >189 10 Because ethnic data is not always readily [...] (or dialysis) Procedures Date Code Description Status 12/19/2018 [id number] Mammogram Completed 08/26/2017 [id number] Bone Mineral Density Test Completed 08/26/2017 [id number] Mammogram Completed 02/05/2015 [id number] Mammogram Completed 03/02/2014 [id number] Mammogram Completed Medical Devices Description No Information Available Encounters Type Date Location Provider Dx Diagnosis Office Visit 03/29/2019 [place] [facility] Franky Chew NP F10.288 Alcohol dependence 2:00p [facility] with other alcohol-induced disorder G31.84 Mild cognitive impairment, so stated Office Visit 02/22/2019 2:20p [facility] Internal Theaofia Florian, F33.0 Major depressive Medicine [facility] COMMUNITY MARKETING COORDINATOR disorder, recurrent, mild Z12.11 Encounter for screening for malignant neoplasm of colon E78.2 Mixed hyperlipidemia R74.8 Abnormal levels of other serum enzymes Assessments Date Code Description Provider 05/22/2019 R20.2 Paresthesia of skin Awa Mosley M.D. 05/22/2019 N39.0 Urinary tract infection, site not specified Awa Mosley M.D. 03/29/2019 F10.288 Alcohol dependence with other Franky Chew NP alcohol-induced disorder 03/29/2019 G31.84 Mild cognitive impairment, so stated Franky Chew NP 03/24/2019 R03.0 Elevated blood-pressure reading, without Nurse Visit A diagnosis of hypert 02/22/2019 F33.0 Major depressive disorder, recurrent, mild ALIN Anderson 02/22/2019 Z12.11 Encounter for screening for malignant ALIN Anderson neoplasm of colon 02/22/2019 E78.2 Mixed hyperlipidemia KHADIJAH AndersonP 02/22/2019 R74.8 Abnormal levels of other serum enzymes ALIN Anderson Plan of Treatment Future Appointment(s):06/19/2019 1:00 pm - ALIN Anderson at [facility]06/02/2019 10:30 am - Erasmo Fernandez MD at [facility] Fisprgskmkwcyzzq73/04/2020 10:30 am - Franky Chew NP at [place] [facility]10/25/2019 1:20 pm - ALIN Anderson at [facility] Internal Medicine [facility]05/22/2019 - Awa Mosley M.D.R20.2 Paresthesia of skinNew Therapy:Physical TherapyComments:Start PTRecheck in 1 monthCall if symptoms get worseTry Advil or Aleve for the painFollow up:1 month with ZFN39.0 Urinary tract infection, site not specifiedNew Medication:Macrobid 100 mg - 1 tab by mouth twice a day x 5 daysNew Labs:Urine Culture And Sensitivities, Ordered: Comments:We will let Keena know about the urine culture Functional Status Description No Information Available Mental Status Description No Information Available Referrals Refer to Reason for Referral Status Appt Date Erasmo Fernandez MD Sent 06/02/2019 [address] [place] [id number] [phone]
--- OUTSIDE RECORDS SUMMARY | 2019-07-12 18:05 | XMS REPORT | Continuity of Care Document ---
:1960 External Reference #:[id number] Author Name Franky Chew NP (transmitted by agent of provider Jyotsna Garcia) Address [address] [facility], [place] [address] Care Team Providers Name Role Phone Bulmaro Wood MD - Neurology Care Team Information Csm Consultant Rocio Du - Nurse Care Team Information Csm Consultant [phone] Practitioner Problems Active Problems Provider Date Depressive [...] M.D. Onset: 03/09/2016 Unspecified dementia with behavioral Simnoe Jeter M.D. Onset: 03/09/2016 disturbance Benign neoplasm of colon Simone Jeter M.D. Onset: 06/04/2016 Social History Type Date Description Comments Sex Unknown Cigarette Use Quit 24 Years Ago ETOH Use Has consumed alcohol in the past Tobacco Use Start: Unknown End: Patient is a former smoker Unknown Smoking Status Reviewed: 06/27/19 Patient is a former smoker Exercise Type/Frequency Walks daily Allergies, Adverse Reactions, Alerts Description No Known Drug Allergies Medications Active Medications SIG Qnty Indications Ordering Date Provider Cyanocobalamin inject 1 30ml R20PanfiloBetsey AkhtarPanfilo 06/27/2019 1000mcg/ML milliliters once a Gurinder Manzanares Solution weekly for 4 weeks then once a month Vitamin B12 TR 1 tab po qday 90tabs Rocio Du, 10/21/2018 1000mcg FELT CARBONIZER Tablets ER Blood Pressure Monitor use daily to 1units R03.0 Rocio Du, 09/05/2018 Auto Inflate monitor bp daily FELT CARBONIZER Misc Atorvastatin Calcium take 1 tablet at 90tabs E78.2 Rocio Du, 2016 20mg bedtime FELT CARBONIZER Tablets Naltrexone HCL 1 tablet daily in Unknown 50mg the morning Tablets Fluoxetine HCL 1 by mouth every Unknown 40mg day Capsules History Medications Macrobid 1 tab by mouth 10caps N39.0 Awa Dimitri, 05/22/2019 - 100mg twice a day x 5 M.D. 06/26/2019 Capsules days Immunizations CPT Code Status Date Vaccine Lot # [id number] Given 04/27/2018 Influenza Virus Vaccine, Quadrivalent, Split, [id number] Preservative Free 83247 Given 08/11/2017 Tdap - Tetanus/Diptheria/Acellular Pertussis [id number] Given 03/09/2016 Influ Virus Vaccine, Quadrivalent, Split Virus, [place] [id number] [address] Given 10/03/2015 Pneumonia Vaccine [id number] Vital Signs Date Vital Result Comment 06/27/2019 2:24pm Height 65 inches 5'5" Weight 130.00 lb Heart Rate 84 /min BP Systolic 139 mmHg BP Diastolic 92 mmHg O2 % BldC Oximetry 97 % BMI (Body Mass Index) 21.6 kg/m2 05/22/2019 3:42pm Height 67 inches 5'7" Weight 142.00 lb Heart Rate 104 /min BP Systolic 145 mmHg BP Diastolic 92 mmHg BP Systolic Sitting 126 mmHg recheck BP Diastolic Sitting 89 mmHg recheck Body Temperature 99.4 F O2 % BldC Oximetry 99 % BMI (Body Mass Index) 22.2 kg/m2 Results Test Acquired Date Facility Test Result H/L Range Note CBC Auto 06/20/2019 [facility] White Blood 5.9 10^3/uL Normal 3.5-10.[address] [place] [address] [phone] Red Blood Count 3.88 10^6/uL Normal 3.70-4.87 Hemoglobin 13.4 g/dL Normal 12.0-16.0 Hematocrit 39 % Normal 35-47 Mean Corpuscular Volume 100 fL High 80-97 Mean Corpuscular Hemoglobin 35 pg High 27-31 Mean Corpuscular HGB Conc 34 g/dL Normal 31-36 Red Cell Distribution Width 17 % High 10-15 Platelet Count 298 10^3/uL Normal 150-450 Mean Platelet Volume 6.8 fL Low 7.4-10.4 Abs Neutrophils 3.9 10^3/uL Normal 1.5-7.7 Abs Lymphocytes 1.6 10^3/uL Normal 1.0-4.8 Abs Monocytes 0.3 10^3/uL Normal 0-0.8 Abs Eosinophils 0.0 10^3/uL Normal 0-0.6 Abs Basophils 0.1 10^3/uL Normal 0-0.2 Abs Nucleated RBC 0.0 10^3/uL Granulocyte % 66.7 % Lymphocyte % 26.5 % Monocyte % 5.5 % Eosinophil % 0.2 % Basophil % 1.1 % Nucleated Red Blood Cells % 0.1 Comp Metabolic 06/20/2019 [facility] Sodium 137 mmol/L Normal 135-[address] [place] [address] [phone] Potassium 3.8 mmol/L Normal 3.5-5.0 Chloride 96 mmol/L Low 101-111 Co2 Carbon Dioxide 28 mmol/L Normal 22-32 Anion Gap 13 mmol/L High 2-11 Glucose 114 mg/dL High 70-100 Blood Urea Nitrogen 19 mg/dL Normal 6-24 Creatinine 0.80 mg/dL Normal 0.51-0.95 BUN/Creatinine Ratio 23.8 High 8-20 Calcium 10.3 mg/dL Normal 8.6-10.3 Total Protein 7.6 g/dL Normal 6.4-8.9 Albumin 5.0 g/dL Normal 3.2-5.2 Globulin 2.6 g/dL Normal 2-4 Albumin/Globulin Ratio 1.9 Normal 1-3 Total Bilirubin 0.70 mg/dL Normal 0.2-1.0 Alkaline Phosphatase 66 U/L Normal 34-104 Alt 23 U/L Normal 7-52 Ast 66 U/L High 13-39 Egfr Non- 73.9 >60 Egfr 89.5 >60 1 Vitamin B12 06/20/2019 [facility] Vitamin B12 206 pg/mL Normal 180-914 2 And Folate [address] [place] [address] [phone] Folic Acid (Folate) 3.89 ng/mL >3.99 Laboratory test 06/20/2019 [facility] Vitamin B1 97 nmol/L 70 -180 [address] (Whole Blood) [place], [place] [id number] [phone] TSH (Thyroid Stim Horm) 1.70 mcIU/mL Normal 0.34-5.60 Ua Routine 05/22/2019 [facility] House Ua Specific [place] 1.010 Ua PH 6 Ua Color orange/dark yel Ua Appera clear with sedi Ua WBC trace Ua Protein trace Ua Glucose neg Ua Ketones neg Ua Bilirubin neg Ua Urobilinogen neg Ua Nitrite POS Ua Occult Blood about 250 CBC Auto 03/29/2019 [facility] White Blood 4.9 10^3/uL Normal 3.5-10.8 [address] [place] [address] [phone] Red Blood Count 3.96 10^6/uL Normal 3.70-4.87 [...] Blood Cells % 0.0 Vitamin B12 03/29/2019 [facility] Vitamin B12 197 pg/mL Normal 180-914 5 [place] [address] [phone] Folic Acid (Folate) 3.68 ng/mL >3.99 6 Laboratory test 03/29/2019 [facility] Methylmalonic Acid 0.10 <=0.40 7 finding Mma nmol/[place] [address] [phone] Vitamin B1 (Whole Blood) 87 nmol/L 70-180 8 Lipid Profile 02/22/2019 [facility] Triglycerides 194 mg/dL 9 (Trig/Chol/HDL) [place] [address] [phone] Cholesterol 284 mg/dL 10 HDL Cholesterol 77.3 mg/dL 11 LDL Cholesterol 168 mg/dL 12 Laboratory 02/22/2019 [facility] TSH (Thyroid 1.47 Normal 0.34 -5.[address] Stim Horm) mcIU/[place] [address] [phone] Comp Metabolic 02/22/2019 [facility] Sodium 139 mmol/L Normal 135-145 [place] [address] [phone] Potassium 4.8 mmol/L Normal 3.5-5.0 Chloride 106 [...] Egfr Non- 77.5 >60 Egfr 93.8 >60 13 1 Because ethnic data is not always [...] 5 Kidney failure <15 (or dialysis) 2 Normal Range 180 to 914 Indeterminate Range 145 to 180 Deficient Range <145 3 ADDITIONAL INFORMATION This test was developed and its performance characteristics determined by [facility] in a manner consistent with CLIA requirements. This test has not been cleared or approved by the U.S. Food and Drug Administration. Test Performed by: [facility] MyPublisher - [facility] [address] [place] [address] Timber Hewer: Servando Yanez M.D. Ph.D.; CLIA# [id number] 4 Copy Result to: ROCIO DU ([id number]) 5 Normal Range 180 to 914 Indeterminate Range 145 to 180 Deficient Range <145 6 Copy Result to: ROICO DU ([id number]) 7 ADDITIONAL INFORMATION This test was developed and its performance characteristics determined by [facility] in a manner consistent with CLIA requirements. This test has not been cleared or approved by the U.S. Food and Drug Administration. Test Performed by: [facility] - [address] [address] Timber Hewer: Servando Yanez M.D. Ph.D.; CLIA# [id number] 8 ADDITIONAL INFORMATION This test was developed and its performance characteristics determined by [facility] in a manner consistent with CLIA requirements. This test has not been cleared or approved by the U.S. Food and Drug Administration. Test Performed by: [facility] - [facility] [address] [place] [address] Timber Hewer: Servando Yanez M.D. Ph.D.; CLIA# [id number] 9 Desirable: <150 Borderline High: 150-199 High: 200-499 Very High: >500 10 Desirable: <200 Borderline High: 200-239 High: >239 11 Low: <40 Desirable: 40-60 High: >60 12 Desirable: <100 Near Optimal: 100-129 Borderline High: 130-159 High: 160-189 Very High: >189 13 Because ethnic data is not always readily [...] dialysis) Procedures Date Code Description Status 12/19/2018 [id number] Mammogram Completed 08/26/2017 [id number] Bone Mineral Density Test Completed 08/26/2017 [id number] Mammogram Completed 02/05/2015 [id number] Mammogram Completed 03/02/2014 [id number] Mammogram Completed Medical Devices Description No Information Available Encounters Type Date Location Provider Dx Diagnosis Office Visit 05/22/2019 [facility] Awa Mosley, R20.2 Parest[facility] 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 SPECIALIST with other [facility] alcohol-induced disorder G31.84 Mild cognitive impairment, so stated Office Visit 02/22/2019 2:20p [facility] Internal Zsofia Florian, F33.0 [facility] FELT CARBONIZER disorder, recurrent, mild Z12.11 Encounter for screening for malignant neoplasm of colon E78.2 Mixed hyperlipidemia R74.8 Abnormal levels of other serum enzymes Assessments Date Code Description Provider 06/27/2019 R20.2 Paresthesia of skin Franky Chew NP 06/27/2019 F10.288 Alcohol dependence with other Franky Chew NP alcohol-induced disorder 06/27/2019 G31.84 Mild cognitive impairment, so stated Franky Chew NP 05/22/2019 R20.2 Paresthesia of skin Awa Mosley [...] neoplasm of colon 02/22/2019 E78.2 Mixed hyperlipidemia ALIN Anderson 02/22/2019 R74.8 Abnormal levels of other serum enzymes ALIN Anderson Plan of Treatment Future Appointment(s):08/23/2019 2:30 pm - Franky Chew NP at [place] [facility]07/17/2019 3:15 pm - Erasmo Fernandez MD at [facility] Aldeqmhpxlfcxndp83/17/2020 1:20 pm - ALIN Anderson at [facility] Internal Medicine - [facility]06/27/2019 - Franky Chew, NPR20.2 Paresthesia of skinNew Medication:Cyanocobalamin 1000 mcg/ML - inject 1 milliliters once a weekly for 4 weeks then once a monthNew Orders:EMG w/Nerve Conduct Study, Upper, Ordered: 06/27/19Follow up:1-2 NJKHHEK83.288 Alcohol dependence with other alcohol- induced jlrhgozzS75.84 Mild cognitive impairment, so stated Functional Status Description No Information Available Mental Status Description No Information Available Referrals Refer to Reason for Referral Status Appt Date Erasmo Fernandez MD Sent 06/02/2019 [address] [place] [address] [phone]
[2019-07-12 18:15] LABS: Urine Appearance Clear; Urine Bilirubin Negative (Negative); Urine Blood 1+ (Negative); Urine Color Straw; Urine Glucose Negative (Negative); Urine Ketones Negative (Negative); Urine Nitrite Negative (Negative); Urine Protein Negative (Negative); Urine Specific Gravity 1.003 (1.010-1.030); Urine Urobilinogen Negative (Negative)
[2019-07-12 18:24] LABS: Acetaminophen < 15 mcg/mL; Alcohol 384 mg/dL (<10); Salicylate < 2.50 mg/dL (<30)
[2019-07-12 18:24] LABS: Urine Bacteria Absent (Absent); Urine Red Blood Cell Trace(0-2/hpf) (Absent); Urine White Blood Cell Trace(0-5/hpf) (Absent)
[2019-07-12 18:30] LABS: Urine Benzodiazepine Screen None Detected (None Detect); Urine Opiates Screen None Detected (None Detect)
[2019-07-12 18:41] LABS: TSH (Thyroid Stimulating Horm) 1.17 mcIU/mL (0.34-5.60)
[2019-07-12] MEDS ORDERED: LORazepam TAB(*) 1 MG PO ONE (23:26)
--- NOTE | 2019-07-13 05:55 | ED ---
Progress - Progress Note Progress Note: The patient is a sign-out from FRANCIE Hamilton, to Dr. Elizabeth Gibson MD, at change of shift at 0230 on 07/13/19, pending sobriety, psychiatric evaluation, and disposition. Patient is clinically sober [0405]. Per mental health, the patient is placed on hold because she made suicidal statements with plan while intoxicated, although she is denying statements now. The patient is a sign-out from Dr. Elizabeth Gibson MD, to Dr. Bulmaro Giordano MD , at change of shift at 0700 on 07/13/19, pending mental health hold and disposition. Re-Evaluation - Re-Evaluation First Eval Re-Evaluation Time: 04:05 Comment: Patient is clincially sober and medically clear for MHE. Course/Dx - Diagnoses Provider Diagnoses: Alcohol intoxication, Suicidal ideation Discharge ED - Sign-Out/Discharge Documenting (check all that apply): Sign-Out Patient, Receiving Sign-Out Signing out patient TO: Bulmaro Giordano - Patient is a sign-out to Dr. Bulmaro Giordano MD, at change of shift at 0700 on 07/13/19, pending MHU hold and disposition. Receiving patient FROM: Kishore Narvaez - Patient is a sign-out from FRANCIE Hamilton, at change of shift at 0230 on 07/13/19, pending sobriety, MHE, and disposition. - Discharge Plan Condition: Stable Referrals: Rocio Du, LE[facility] C[facility]GIVER [Primary Care Provider] - - Billing Disposition and Condition Condition: STABLE - Attestation Statements Document Initiated by Amisha: Yes Documenting Scribe: Andreina Ramos Provider For Whom Amisha is Documenting (Include Credential): Elizabeth Gibson MD Scribe Attestation: Andreina Patel, scribed for Elizabeth Gibson MD on 07/13/19 at 0629. Scribe Documentation Reviewed: Yes Provider Attestation: The documentation as recorded by the Andreina bhatt accurately reflects the service I personally performed and the decisions made by me, Elizabeth Gibson MD Status of Scribe Document: Viewed Procedures - Sedation Patient Received Moderate/Deep Sedation with Procedure: No
[2019-07-13 06:51] VITALS: BP 112/61
--- NOTE | 2019-07-13 07:16 | ED ---
Progress - Progress Note Progress Note: Patient is a sign out at 07:00 on 07/13/[address] Elizabeth Gibson to Dr. Bulmaro Giordano at shift change, pending mental health hold and disposition. At 07:12, patient denies SI, but states she is unhappy. She denies any physical complaints. At 10:19, Dr. Tony Ogden reports that patient will be discharged with a diagnosis of alcohol induced mood disorder. Patient will be discharged with a diagnosis of alcohol induced mood disorder. Re-Evaluation - Re-Evaluation First Eval Re-Evaluation Time: 04:05 Change: Improved Comment: Patient is clincially sober and medically clear for MHE. Second Eval Re-Evaluation Time: 07:12 Change: Improved Comment: At 07:12, patient denies SI, but states she is unhappy. She denies any physical complaints. Course/Dx - Course Course Of Treatment: Patient is a sign out at 07:00 on 07/13/[address] Elizabeth Gibson to Dr. Bulmaro Giordano at shift change, pending mental health hold and disposition. At 07:12, patient denies SI, but states she is unhappy. She denies any physical complaints. At 10:19, Dr. Tony Ogden reports that patient will be discharged with a diagnosis of alcohol induced mood disorder. Patient will be discharged with a diagnosis of alcohol induced mood disorder. - Diagnoses Provider Diagnoses: Alcohol intoxication, Suicidal ideation, Alcohol-induced mood disorder - Provider Notifications Discussed Care Of Patient With: Tony Ogden - At 10:19, Dr. Tony Ogden reports that patient will be discharged with a diagnosis of alcohol induced mood disorder. Time Discussed With Above Provider: 10:19 Instructed by Provider To: Other - Discharge Discharge ED - Sign-Out/Discharge Documenting (check all that apply): Patient Departure - Discharge, Receiving Sign-Out Receiving patient FROM: Elizabeth Gibson - Patient is a sign out at 07:[address] Elizabeth Gibson to Dr. Bulmaro Giordano at shift change, pending mental health hold and disposition. - Discharge Plan Condition: Stable Disposition: HOME Referrals: Rocio Du NP [Primary Care Provider] - - Billing Disposition and Condition Condition: STABLE Disposition: Home - Attestation Statements Document Initiated by Hannahibe: Yes Documenting Scribe: Zandra Espinoza Provider For Whom Scribe is Documenting (Include Credential): Bulmaro Giordano MD Scribe Attestation: Zandra Patel, scribed for Bulmaro Giordano MD on 07/13/19 at 1849. Scribe Documentation Reviewed: Yes Provider Attestation: The documentation as recorded by the Zandra bhatt accurately reflects the service I personally performed and the decisions made by me, Bulmaro Giordano MD Status of Scribe Document: Viewed
== END 2019-07-13 01:12 | disposition home or self-care (01) ==
LOC: ED 17:02
DX: F10.129 Alcohol abuse with intoxication, unspecified (principal); Y90.8 Blood alcohol level of 240 mg/100 ml or more; R45.851 Suicidal ideations; Z91.013 Allergy to seafood; Z91.048 Other nonmedicinal substance allergy status; F17.210 Nicotine dependence, cigarettes, uncomplicated
CPT/HCPCS: 36415; 80053; 80307; 80320; 80329; 81003; 81015; 84443; 85025; 87086; 99285; A9270-GY; G0480

== ENCOUNTER 2019-07-13 18:07 | Emergency (ER) | payer OTHER ==
--- NOTE | 2019-07-13 18:22 | ED ---
Substance Abuse/Use - HPI Summary HPI Summary: 59-year-old female presents to the emergency department today with alcohol intoxication and fall. Patient is intoxicated upon arrival to the emergency department and in no acute distress. There is evidence of a 1.5 cm laceration to the left eyebrow. Bleeding has resolved. There is a noted hematoma in the area. Patient states she had" 4 snips of vodka" today but otherwise has no complaints. Patient denies fever, chest pain, headache, changes in vision, shortness of breath, rash, nausea, vomiting, diarrhea. Patient denies suicidal or homicidal ideation. Patient states she has not had any other records. This evening. - History Of Current Complaint Stated Complaint: ETOH PER EMS Time Seen by Provider: 07/13/19 18:12 Hx Obtained From: Patient Hx Last Menstrual Period: N/A Onset/Duration of Drug/ETOH Abuse: Minutes Ingestion History: Type/Name Of Drug - alcohol Overdose Characteristics: Oral Timing Of Abuse: Daily Severity Initially: Moderate Severity Currently: Moderate Character: Lethargic - Allergies/Home Medications Allergies/Adverse Reactions: Allergies Allergy/AdvReac Type Severity Reaction Status Date / Time Adhesive Tape Allergy Rash Verified 05/26/19 10:22 clams Allergy GI Upset Verified 05/26/19 10:23 Home Medications: Home Medications Cyanocobalamin INJ * [Vitamin B12 INJ *] 1,000 mcg IM WEEKLY 07/12/19 [History Confirmed 07/13/19] PMH/Surg Hx/FS Hx/Imm Hx Endocrine/Hematology History: Denies: Hx Anticoagulant Therapy, Hx Blood Transfusions, Hx Diabetes, Hx Thyroid Disease, Other Endocrine/Hematological Disorders Cardiovascular History: Reports: Hx Syncope - rare Denies: Hx Hypertension, Hx Pacemaker/ICD, Other Cardiovascular Problems/ Disorders Respiratory History: Reports: Hx Seasonal Allergies Denies: Hx Asthma, Hx Chronic Bronchitis, Hx Chronic Obstructive Pulmonary Disease (COPD), Hx Lung Cancer, Hx Pneumonia, Other Respiratory Problems/ Disorders GI History: Denies: Hx Ulcer, Other GI Disorders History: Denies: Hx Kidney Stones, Hx Renal Disease, Other Problems/Disorders Musculoskeletal History: Reports: Hx Arthritis - hands Denies: Hx Back Problems, Other Musculoskeletal History Sensory History: Reports: Hx Contacts or Glasses Denies: Hx Hearing Aid, Other Sensory Impairments Opthamlomology History: Reports: Hx Contacts or Glasses Denies: Other Sensory Impairments Neurological History: Reports: Hx Headaches, Hx Seizures - last 2013, undiagnosed disorder, Other Neuro Impairments/Disorders - Shaky from ETOH withdrawal Psychiatric History: Reports: Hx Anxiety, Hx Depression, Hx Inpatient Treatment , Hx Community Mental Health Tx, Hx Suicide Attempt - "Passively", Hx Substance Abuse - alcohol , Other Psychiatric Issues/Disorders - ETOH Abuse Denies: Hx Attention Deficit Hyperactivity Disorder, Hx Eating Disorder, Hx Panic Disorder, Hx Post Traumatic Stress Disorder, Hx Schizophrenia, Hx Bipolar Disorder, Hx of Violent Episodes Against Others - Cancer History Cancer Type, Location and Year: LEFT BREAST Hx Hematologic Symptoms: No Hx Chemotherapy: Yes Hx Radiation Therapy: Yes - Surgical History Surgery Procedure, Year, and Place: Bilat Thumb Fusion. Bilat Carpal Tunnel Surgery. LEFT Breast Lumpectomy. LEFT KNEE ARTHROSCOPIC SURGERY. ACL Sx left knee Hx Anesthesia Reactions: No - Immunization History Date of Tetanus Vaccine: Unk Date of Influenza Vaccine: Fall 2014 Infectious Disease History: Denies: History Other Infectious Disease - Family History Known Family History: Positive: Unknown - pt adopted, Other - pt adopted Negative: Hypertension, Respiratory Disease, Seizure Disorder - Social History Alcohol Use: Daily Alcohol Amount: Pt states "Enough to take the edge off which is usually too much " Hx Substance Use: Yes Substance Use Type: Reports: Other - unknown, Level 5 caveat Substance Use Comment - Amount & Last Used: pt last requested benzos in ED on , 07/21 per shale processing technician Hx Tobacco Use: Yes Smoking Status (MU): Light Every Day Tobacco Smoker Type: Cigarettes Have You Smoked in the Last Year: No Review of Systems Constitutional: Negative Eyes: Negative ENT: Negative Cardiovascular: Negative Respiratory: Negative Gastrointestinal: Negative Genitourinary: Negative Musculoskeletal: Negative Skin: Negative Positive: Slurred Speech. Negative: Headache, Weakness, Paresthesia, Numbness, Syncope Psychological: Normal All Other Systems Reviewed And Are Negative: Yes Physical Exam - Summary Physical Exam Summary: 1.5 cm laceration noted to the left eyebrow. There is hematoma in this area. Patient is intoxicated and appropriate neurological exam is difficult to obtain. Bleeding is resolved. Patient has no pain with palpation of the midline cervical spine. Patient for any motion of the neck. Triage Information Reviewed: Yes Vital Signs Reviewed: Yes Appearance: Positive: Well-Appearing, No Pain Distress, Well-Nourished Skin: Positive: Warm, Skin Color Reflects Adequate Perfusion Eyes: Positive: EOMI, DEVON ENT: Positive: Hearing grossly normal Respiratory/Lung Sounds: Positive: Clear to Auscultation, Breath Sounds Present Cardiovascular: Positive: RRR, S1, S2 Abdomen Description: Positive: Nontender, Soft Bowel Sounds: Positive: Present Musculoskeletal: Positive: Strength/ROM Intact Neurological: Positive: Sensory/Motor Intact, Disoriented, Slurred Speech Psychiatric: Positive: Normal AVPU Assessment: Alert Procedures - Sedation Patient Received Moderate/Deep Sedation with Procedure: No - Laceration/Wound Repair 1 Location: face Description: Linear Length, Depth and Shape: 1.5 cm length, 2mm deep Laceration/Wound Explored: clean Closure: Skin Adhesive, SteriStrips Layer Closure?: No Sterile Dressing Applied?: No Course/Dx - Course Course Of Treatment: Patient was evaluated in the emergency department today for alcohol intoxication with associated fall with facial laceration. Vitals noted. Patient no acute distress. Patient appeared intoxicated upon arrival to the emergency department. There is 1.5 cm laceration noted to the left lateral eyebrow. Laceration was repaired using skin adhesive and Steri-Strips. CT scan of the brain and cervical spine showed no evidence of acute pathology or fracture. Pt given 1L IVF. Patient was observed until sober. Pt discharged when sober to outpatient follow up. - Diagnoses Differential Diagnosis/HQI/PQRI: Positive: Alcohol Abuse Provider Diagnoses: Facial laceration, Alcohol intoxication Discharge ED - Sign-Out/Discharge Documenting (check all that apply): Patient Departure - Discharge Plan Condition: Improved Disposition: HOME Patient Education Materials: Alcohol Intoxication (ED), Facial Laceration (ED) Referrals: Rocio Du NP [Primary Care Provider] - If Needed - Billing Disposition and Condition Condition: IMPROVED Disposition: Home
[2019-07-13 22:56] LABS: Urine Appearance Clear; Urine Bilirubin Negative (Negative); Urine Blood 1+ (Negative); Urine Color Straw; Urine Glucose Negative (Negative); Urine Ketones Negative (Negative); Urine Nitrite Negative (Negative); Urine Protein Negative (Negative); Urine Specific Gravity 1.004 (1.010-1.030); Urine Urobilinogen Negative (Negative)
[2019-07-13 23:03] LABS: Urine Bacteria Absent (Absent); Urine Red Blood Cell Trace(0-2/hpf) (Absent); Urine White Blood Cell Absent (Absent)
[2019-07-13 23:10] LABS: Urine Benzodiazepine Screen None Detected (None Detect); Urine Opiates Screen None Detected (None Detect)
[2019-07-13] MEDS ORDERED: Lactated Ringers 1000 ML Bag* 1,000 ML IV SCH (23:45)
[2019-07-13] MEDS ORDERED: NS 0.9% 1000 ML** 1,000 ML IV ONE (23:49)
[2019-07-14 01:45] VITALS: BP 117/77
== END 2019-07-14 01:43 | disposition home or self-care (01) ==
LOC: ED 18:07
DX: F10.129 Alcohol abuse with intoxication, unspecified (principal); S01.81XA Laceration without foreign body of other part of head, initial encounter; R55 Syncope and collapse; F17.210 Nicotine dependence, cigarettes, uncomplicated; W19.XXXA Unspecified fall, initial encounter; Y92.9 Unspecified place or not applicable; Z85.3 Personal history of malignant neoplasm of breast
CPT/HCPCS: 70450; 72125; 80307; 81003; 81015; 99285; G0480

== ENCOUNTER 2019-07-17 23:16 | Emergency (ER) | payer OTHER ==
[2019-07-18] MEDS ORDERED: Ketorolac INJ* 30 MG/ML 1 ML VIAL IM ONE (01:14)
[2019-07-18] MEDS ORDERED: Lidocaine PATCH 5%* 1 PATCH TRANSDERM ONE (01:14)
[2019-07-18] MEDS ORDERED: Ondansetron ODT TAB* 4 MG PO ONE (01:26)
[2019-07-18] MEDS ORDERED: Ondansetron ODT TAB* 4 MG ONE (01:27)
[2019-07-18 01:39] LABS: ABS Basophils 0.1 10^3/ul (0-0.2); ABS Lymphocytes 1.9 10^3/ul (1.0-4.8); ABS Monocytes 0.8 10^3/ul (0-0.8); ABS Neutrophils 3.1 10^3/ul (1.5-7.7); Eosinophil % 0.3 %; Hematocrit 38 % (35-47); Hemoglobin 13.2 g/dL (12.0-16.0); Lymphocyte % 32.2 %; Mean Corpuscular HGB Conc 35 g/dL (31-36); Mean Corpuscular Hemoglobin 35 pg (27-31); Mean Corpuscular Volume 100 fL (80-97); Nucleated Red Blood Cells % 0.1; Platelet Count 267 10^3/uL (150-450); Red Blood Count 3.78 10^6 /uL (3.70-4.87); Red Cell Distribution Width 17 % (10-15); White Blood Count 5.9 10^3/uL (3.5-10.8)
[2019-07-18 01:56] LABS: Albumin 4.8 g/dL (3.2-5.2); Albumin/Globulin Ratio 1.7 (1-3); BUN/Creatinine Ratio 17.1 (8-20); C Reactive Protein 1.13 mg/L (<8.01); Calcium 10.1 mg/dL (8.6-10.3); EGFR African American 104.4 (>60); EGFR Non-African American 86.2 (>60); Globulin 2.8 g/dL (2-4); Potassium 3.7 mmol/L (3.5-5.0); Total Bilirubin 1.1 mg/dL (0.2-1.0); Total Protein 7.6 g/dL (6.4-8.9)
--- NOTE | 2019-07-18 02:32 | ED ---
Back Pain - HPI Summary HPI Summary: 59-year-old female presents with right hip/back pain since yesterday. She she fell when she was drunk. She states that she's had severe pain since. She denies any numbness or tingling down the legs. She states she has numbness and tingling down the right arm but that has resolved. No chest pain or shortness of breath. No weakness. No fevers. No loss of bowel or bladder. no saddle anaesthesia. Has taken aspirin for the pain. Is able to ambulate. - History of Current Complaint Chief Complaint: EDBackInjuryPain Stated Complaint: BACK PAIN PER EMS Time Seen by Provider: 07/18/19 01:09 Hx Last Menstrual Period: N/A Pain Intensity: 10 - Allergies/Home Medications Allergies/Adverse Reactions: Allergies Allergy/AdvReac Type Severity Reaction Status Date / Time Adhesive Tape Allergy Mild Rash Verified 07/18/19 01:36 clams AdvReac Mild GI Upset Verified 07/18/19 01:36 Home Medications: Home Medications Cyanocobalamin INJ * [Vitamin B12 INJ *] 1,000 mcg IM WEEKLY 07/12/19 [History Confirmed 07/18/19] Atorvastatin* [Lipitor*] 20 mg PO DAILY 07/18/19 [History Confirmed 07/18/19] Ibuprofen TAB* [Motrin TAB* 600 MG] 600 mg PO Q6H PRN #20 tab 07/18/19 [Rx] Sertraline* [Zoloft*] 150 mg PO DAILY 07/18/19 [History Confirmed 07/18/19] methylPREDNISolone [Medrol Dosepak 4 MG*] 4 mg PO .SEE JEZ INSTRUCTION #1 packet 07/18/19 [Rx] PMH/Surg Hx/FS Hx/Imm Hx Endocrine/Hematology History: Denies: Hx Anticoagulant Therapy, Hx Blood Transfusions, Hx Diabetes, Hx Thyroid Disease, Other Endocrine/Hematological Disorders Cardiovascular History: Reports: Hx Syncope - rare Denies: Hx Hypertension, Hx Pacemaker/ICD, Other Cardiovascular Problems/ Disorders Respiratory History: Reports: Hx Seasonal Allergies Denies: Hx Asthma, Hx Chronic Bronchitis, Hx Chronic Obstructive Pulmonary Disease (COPD), Hx Lung Cancer, Hx Pneumonia, Other Respiratory Problems/ Disorders GI History: Denies: Hx Ulcer, Other GI Disorders History: Denies: Hx Kidney Stones, Hx Renal Disease, Other Problems/Disorders Musculoskeletal History: Reports: Hx Arthritis - hands Denies: Hx Back Problems, Other Musculoskeletal History Sensory History: Reports: Hx Contacts or Glasses Denies: Hx Hearing Aid, Other Sensory Impairments Opthamlomology History: Reports: Hx Contacts or Glasses Denies: Other Sensory Impairments Neurological History: Reports: Hx Headaches, Hx Seizures - last 2013, undiagnosed disorder, Other Neuro Impairments/Disorders - Shaky from ETOH withdrawal Psychiatric History: Reports: Hx Anxiety, Hx Depression, Hx Inpatient Treatment , Hx Community Mental Health Tx, Hx Suicide Attempt - "Passively", Hx Substance Abuse - alcohol , Other Psychiatric Issues/Disorders - ETOH Abuse Denies: Hx Attention Deficit Hyperactivity Disorder, Hx Eating Disorder, Hx Panic Disorder, Hx Post Traumatic Stress Disorder, Hx Schizophrenia, Hx Bipolar Disorder, Hx of Violent Episodes Against Others - Cancer History Cancer Type, Location and Year: LEFT BREAST Hx Hematologic Symptoms: No Hx Chemotherapy: Yes Hx Radiation Therapy: Yes - Surgical History Surgery Procedure, Year, and Place: Bilat Thumb Fusion. Bilat Carpal Tunnel Surgery. LEFT Breast Lumpectomy. LEFT KNEE ARTHROSCOPIC SURGERY. ACL Sx left knee Hx Anesthesia Reactions: No - Immunization History Date of Tetanus Vaccine: Unk Date of Influenza Vaccine: Fall 2014 Infectious Disease History: No Infectious Disease History: Denies: History Other Infectious Disease, Traveled Outside the [place] in Last 30 Days - Family History Known Family History: Positive: Unknown - pt adopted, Other - pt adopted Negative: Hypertension, Respiratory Disease, Seizure Disorder - Social History Alcohol Use: Daily Alcohol Amount: Pt states "Enough to take the edge off which is usually too much " Hx Substance Use: Yes Substance Use Type: Reports: None Substance Use Comment - Amount & Last Used: pt last requested benzos in ED on , 07/21 per rn documentation Hx Tobacco Use: Yes Smoking Status (MU): Light Every Day Tobacco Smoker Type: Cigarettes Have You Smoked in the Last Year: No Review of Systems Negative: Fever Negative: Chest Pain Negative: Shortness Of Breath Positive: Myalgia - back/hip pain All Other Systems Reviewed And Are Negative: Yes Physical Exam Triage Information Reviewed: Yes Vital Signs On Initial Exam: Initial Vitals Temp Pulse Resp BP Pulse Ox 98.1 F 101 16 172/75 100 07/17/19 23:21 07/17/19 23:21 07/17/19 23:21 07/17/19 23:21 07/17/19 23:21 Vital Signs Reviewed: Yes Appearance: Positive: Well-Appearing Skin: Positive: Warm, Dry Head/Face: Positive: Normal Head/Face Inspection Eyes: Positive: Normal, Conjunctiva Clear ENT: Positive: Pharynx normal Respiratory/Lung Sounds: Positive: Clear to Auscultation, Breath Sounds Present Cardiovascular: Positive: Normal, RRR Abdomen Description: Positive: Nontender, Soft Bowel Sounds: Positive: Present Musculoskeletal: Positive: Strength/ROM Intact - back and right hip, Other - tenderness right hip and side right back, no midline tenderness, neg SKYLER test , good pulses, sensation grossly intact Neurological: Positive: Normal, Normal Gait Psychiatric: Positive: Normal Procedures - Sedation Patient Received Moderate/Deep Sedation with Procedure: No Diagnostics - Vital Signs Vital Signs Temp Pulse Resp BP Pulse Ox 07/17/19 23:21 98.1 F 101 16 172/75 100 - Laboratory Lab Results: Lab Results 07/18/19 07/18/19 07/18/19 Range/Units 01:20 01:20 01:20 WBC 5.9 (3.5-10.8) 10^3/uL RBC 3.78 (3.70-4.87) 10^6 /uL Hgb 13.2 (12.0-16.0) g/dL Hct 38 (35-47) % MCV 100 H (80-97) fL MCH 35 H (27-31) pg MCHC 35 (31-36) g/dL RDW 17 H (10-15) % Plt Count 267 (150-450) 10^3/uL MPV 7.0 L (7.4-10.4) fL Neut % (Auto) 52.4 % Lymph % (Auto) 32.2 % Vernon % (Auto) 13.7 % Eos % (Auto) 0.3 % Baso % (Auto) 1.4 % Absolute Neuts (auto) 3.1 (1.5-7.7) 10^3/ul Absolute Lymphs (auto) 1.9 (1.0-4.8) 10^3/ul Absolute Monos (auto) 0.8 (0-0.8) 10^3/ul Absolute Eos (auto) 0.0 (0-0.6) 10^3/ul Absolute Basos (auto) 0.1 (0-0.2) 10^3/ul Absolute Nucleated RBC 0.0 10^3/ul Nucleated RBC % 0.1 Sodium 137 (135-145) mmol/L Potassium 3.7 (3.5-5.0) mmol/L Chloride 98 L (101-111) mmol/L Carbon Dioxide 27 (22-32) mmol/L Anion Gap 12 H (2-11) mmol/L BUN 12 (6-24) mg/dL Creatinine 0.70 (0.51-0.95) mg/dL Est GFR ( Amer) 104.4 (>60) Est GFR (Non-Af Amer) 86.2 (>60) BUN/Creatinine Ratio 17.1 (8-20) Glucose 110 H (70-100) mg/dL Lactic Acid 1.9 (0.5-2.0) mmol/L Calcium 10.1 (8.6-10.3) mg/dL Total Bilirubin 1.10 H (0.2-1.0) mg/dL AST 20 (13-39) U/L ALT 9 (7-52) U/L Alkaline Phosphatase 60 (34-104) U/L C-Reactive Protein 1.13 (<8.01) mg/L Total Protein 7.6 (6.4-8.9) g/dL Albumin 4.8 (3.2-5.2) g/dL Globulin 2.8 (2-4) g/dL Albumin/Globulin Ratio 1.7 (1-3) Result Diagrams: 07/18/19 01:20 20 01:20 Lab Statement: Any lab studies that have been ordered have been reviewed, and results considered in the medical decision making process. Back Pain Course/Dx - Course Course Of Treatment: 59-year-old female presents with right hip/back pain since yesterday. She she fell when she was drunk. She states that she's had severe pain since. She denies any numbness or tingling down the legs. She states she has numbness and tingling down the right arm but that has resolved. No chest pain or shortness of breath. No weakness. No fevers. No loss of bowel or bladder. no saddle anaesthesia. Has taken aspirin for the pain. Is able to ambulate. On exam no midline back tenderness. Has tenderness over right hip and full range of motion of the hip. Negative SKYLER test. Discussed will not get imaging as able to ambulate on the area so unlikely anything is broken. Gave lidocaine and Toradol with some improvement. We'll prescribe medrol. told follow up with primary. Patient understands and agrees with plan. - Diagnoses Differential Diagnosis/HQI/PQRI: Positive: Fracture, Strain Provider Diagnoses: Right hip pain Discharge ED - Sign-Out/Discharge Documenting (check all that apply): Patient Departure - Discharge Plan Condition: Good Disposition: HOME Prescriptions: Ibuprofen TAB* [Motrin TAB* 600 MG] 600 mg PO Q6H PRN #20 tab PRN Reason: Pain - Moderate methylPREDNISolone [Medrol Dosepak 4 MG*] 4 mg PO .SEE JEZ INSTRUCTION #1 packet Patient Education Materials: Hip Pain (ED) Referrals: Rocio Du NP [Primary Care Provider] - Additional Instructions: Follow directions on package for Medrol pack Use ibuprofen or Tylenol for pain every 6 hours ice/heat area, move as much as possible Follow up with primary within 5 days Return to ED if develop any new or worsening symptoms - Billing Disposition and Condition Condition: GOOD Disposition: Home
[2019-07-18] MEDS ORDERED: O ndansetron ODT 4MG 5TAB PRPK 4 MG PAK PO ONE (02:33)
[2019-07-18] MEDS ORDERED: I buprofen 600 MG #6 TAB PREPK 600 MG TAB PO ONE (02:33)
[2019-07-18] MEDS ORDERED: Dexamethasone TAB* 4 MG PO ONE (02:36)
[2019-07-18 02:52] VITALS: BP 148/76
[2019-07-18] MEDS ORDERED: Lidocaine Patch REMOVE* 1 NOTE MISC SCH (21:00)
== END 2019-07-18 02:51 | disposition home or self-care (01) ==
LOC: ED 23:16
DX: M25.551 Pain in right hip (principal); M54.9 Dorsalgia, unspecified; F41.9 Anxiety disorder, unspecified; F32.9 Major depressive disorder, single episode, unspecified; F17.210 Nicotine dependence, cigarettes, uncomplicated; Z91.81 History of falling
CPT/HCPCS: 36415; 80053; 83605; 85025; 86140; 96372; 99283; A9270-GY; J1885; J8540